=== PATIENT | female | born 1930 | race Caucasian/White ===

== ENCOUNTER 2016-10-21 07:34 | Inpatient (IN) | payer MEDICARE, OTHER ==
[~2016-10-21] VITALS: Ht 154.9 cm; Wt 65.8 kg
[2016-10-21] VITALS (15 sets, daily range): BP systolic 114–165; BP diastolic 42–109
[~2016-10-21 07:34] MED LIST: AMIO200T2 PO; APIX5TAB PO; ASP325T NG; ASP81TEC PO; ATOR20TA66 PO; ATOR40TA PO; BISO1TAB6 PO; CARV6.252 PO; CEPH-507 PO; CLPD75T PO; CNC1KV IJ; D50KC PO; DILT360C29 PO; DIPH25TA2 PO; ENAL5TAB PO; HCT25T PO; LEVO75TA6 PO; LVT.1T PO; METO100T2 PO; NAPR220T76 PO; RANI150T90 PO
[2016-10-21] MEDS ORDERED: NS IV 1000 ML 1,000 ML IV SCH (08:16)
[2016-10-21] MEDS ORDERED: NS IV 1000 ML 1,000 ML ONE (08:17)
[2016-10-21] MEDS ORDERED: LIDOCAINE 2% VISCOUS 15 ML UDC ONE (08:17)
--- NOTE | 2016-10-21 08:52 | Diagnostic Imaging Report ---
Portable erect AP chest at 834 hours. INDICATION: Preop cardioversion. FINDINGS: As on the prior exam of 11/28/15, there is shallow inspiration. The heart size remains within normal limits. The elevated left hemidiaphragm seen on the prior study is again visualized and no different. The lungs were visualized are clear. There is no sign of failure, pneumonia or pleural effusion. Mediastinum is not widened. The osseous structures are intact. In the interval since the prior study, a ventricular recorder device has been inserted over the left thorax. IMPRESSION: There is no evidence for active disease. Aside from the insertion of a ventricular recording device, there has been no significant change since the prior exam. Dictated by: Dictated on workstation # [id number]
[2016-10-21 08:54] LABS: BILIRUBIN,URINE NEGATIVE (NEGATIVE); KETONES,URINE NEGATIVE (NEGATIVE); LEUKOCYTE ESTERASE ,URINE NEGATIVE (NEGATIVE); MEAN PLATELET VOLUME 10.8 FL (7.4-10.4); NITRITE,URINE NEGATIVE (NEGATIVE); PH,URINE 5 (5-9); PROTEIN,URINE NEGATIVE (NEGATIVE); RED BLOOD COUNT 4.2 10^6/uL (4.35-5.85); RED CELL DISTRIBUTION WIDTH 14.4 % (10.0-14.5); UROBILINOGEN,URINE NORMAL (NORMAL); WHITE BLOOD COUNT 6.8 10^3/uL (4.3-11.0)
[2016-10-21] MEDS ORDERED: MIDAZOLAM 5 MG/5 ML (VERSED) VIAL ONE (09:00)
[2016-10-21] MEDS ORDERED: FLU TRIvalent (5 YOA+) 2016-17 (AFLURIA) 0.5 ML IM ONE (09:00)
[2016-10-21] MEDS ORDERED: fentaNYL INJECTION 100 MCG/2 ML AMP ONE (09:00)
[2016-10-21] MEDS ORDERED: proPOfol 200 MG/20 ML (DIPRIVAN) VIAL IV ONE (09:01)
--- NOTE | 2016-10-21 09:01 | Cardiac Procedure Note-CS/ASA ---
Pre-Procedure Note Pre-Op Procedure Note H&P Reviewed The H&P was reviewed, patient examined and no changes noted. Date H&P Reviewed: Oct 21, 2016 Time H&P Reviewed: 09:01 Conscious Sedation Pre-Proced Time Reviewed: : ASA Class: 3 Airway Mallampati Classification: ([place] appropriate class) I. II. III, IV Lungs Heart ASA score ASA 1: a normal healthy patient ASA 2: a patient with a mild systemic disease (mid diabetes, controlled hypertension, obesity x ASA 3: a patient with a severe systemic disease that limits activity (angina , COPD, prior Myocardial infarction) ASA 4: a patient with an incapacitating disease that is a constant threat to life (CHF, renal failure) ASA 5: a moribund patient not expected to survive 24 hrs. (ruptured aneurysm) ASA 6: a declared brain patient whose organs are being harvested. For emergent operations, add the letter E after the classification Grade 3 Sedation Plan: Analgesia, Amnesia, Plan communicated to team members, Discussed options with patient/fam, Discussed risks with patient/fam Note The patient is an appropriate candidate to undergo the planned procedure, sedation, and anesthesia. The patient immediately re-assessed prior to indication. MARGARITA COULTER MD Oct 21, 2016 09:01
[2016-10-21 09:05] LABS: INR 1.2 (0.8-1.4); PROTHROMBIN TIME PATIENT 15.1 SEC (12.2-14.7)
[2016-10-21 09:12] LABS: BILIRUBIN,TOTAL 0.6 MG/DL (0.1-1.0); CREATININE SERUM 1.35 MG/DL (0.60-1.30); TOTAL PROTEIN 6.1 G/DL (6.4-8.2)
[2016-10-21 09:26] LABS: SQUAMOUS EPITHELIAL CELL,UR 25-50 /HPF; URIC ACID CRYSTALS,URINE FEW /LPF; WBC,URINE RARE /HPF
--- NOTE | 2016-10-21 10:37 | Cardiology History & Physical ---
HPI-Cardiology Cardiology Consultation Date of Consultation 10/21/16 Date of Admission Indication: Afib HPI Mrs Boyd is an 86 year-old female with history of coronary artery disease, renal artery stenosis, carotid artery stenosis, hypertension, hyperlipidemia, paroxysmal atrial fibrillation. Patient presented to our office yesterday with complaints of a 6 pound weight loss and loss of appetite since increasing amiodarone dose. Denies any chest pain, palpitation, or dizziness. Complaining of generalized fatigue. No other complaints at this time. Patient underwent cardioversion on September 03, 2016, however converted back to afib several weeks after. Underwent RE with cardioversion, however is now back in atrial fibrillation. Patient is admitted for sotalol initiation. PMH-Cardiology Surgeries HX Surgeries: No Respiratory Hx Respiratory Disorders: No Cardiovascular Hx Cardiovascular Disorders: Yes Cardiac Disorders: Palpitations, Atrial Fibrillation, High Cholesterol, Hypertension, Coronary Artery Disease Neurological Hx Neurological Disorders: No Reproductive System Hx Reproductive Disorders: No (ENDOMETRIAL THICKENING) Genitourinary Hx Genitourinary Disorders: No Gastrointestinal Hx Gastrointestinal Disorders: No Musculoskeletal Hx Musculoskeletal Disorders: Yes Musculoskeletal Disorders: Arthritis Endocrine Hx Endocrine Disorders: Yes Endocrine Disorders: Hypothyroidsim HEENT HX ENT Disorders: No Cancer Hx Cancer: No Psychosocial Hx Psychiatric Problems: No Integumentary HX Skin/Integumentary Disorder: No Blood Transfusions Hx Blood Disorders: No Social History Patient Social History Employed/Student: retired Recent Foreign Travel: No Contact w/other who traveled: No Recent Infectious Disease Expo: No Family Hx Significant Family History: No Pertinent Family Hx ROS-Cardiology Review of Systems General: No Night Sweats, No Fatigue, No Malaise HEENT: No Visual Changes, No Dysphasia, No Sore Throat Pulmonary: No Dyspnea, No Cough Cardiovascular: : PalpitationsNo: Chest Pain, Edema, Paroxysmal Noc. Dyspnea Gastrointestinal: No: Constipation, Diarrhea, Nausea, Vomiting Genitourinary: No Dysuria, No Frequency Musculoskeletal: No: back pain, neck pain Neurological: No: Change in speech, Confusion, Numbness, Weakness Home Medications & Allergies Allergies: Coded Allergies: No Known Drug Allergies (Unverified , 03/05/10) Home Medication List Reviewed: Yes Exam-Cardiology Vital Signs Vital Signs Date Time Temp Pulse Resp B/P Pulse Ox O2 Delivery O2 Flow Rate FiO2 10/22/16 03:50 96.6 87 16 135/97 10/22/16 00:00 Room Air 10/21/16 10:00 95 10/21/16 09:38 2.00 Exam General Appearance: Alert, Oriented X3, Cooperative, No Acute Distress HEENT: Atraumatic, PERRLA Respiratory: Clear to Auscultation, Normal Air Movement Cardiovascular: Other (irregularly irregular) Abdominal: Normal Bowel Sounds, Soft, No Tenderness Extremities: No Clubbing, No Cyanosis, No Edema Skin: No Rashes, No Breakdown, No Significant Lesion Neuro: Normal Gait, Normal Speech Psych/Mental Status: Mental Status NL, Mood NL Results Labs Labs Laboratory Tests 10/21/16 08:39: Activated Partial Thromboplast Time 31, Alanine Aminotransferase (ALT/SGPT) 10, Albumin 4.0, Alkaline Phosphatase 66, Anion Gap 10, Aspartate Amino Transf (AST/ SGOT) 14, BUN/Creatinine Ratio 17, Blood Urea Nitrogen 23H, Calcium Level 9.0, Carbon Dioxide Level 23, Chloride Level 111H, Creatinine 1.35H, Estimat Glomerular Filtration Rate 37, Glucose Level 92, Hematocrit 42, Hemoglobin 14.1 , INR Comment 1.2, Mean Corpuscular Hemoglobin 34, Mean Corpuscular Hemoglobin Concent 34, Mean Corpuscular Volume 100H, Mean Platelet Volume 10.8H, Platelet Count 143, Potassium Level 4.0, Prothrombin Time 15.1H, Red Blood Count 4.20L, Red Cell Distribution Width 14.4, Sodium Level 144, Total Bilirubin 0.6, Total Protein 6.1L, Urine Bacteria FEWH, Urine Bilirubin NEGATIVE, Urine Casts NONE, Urine Clarity SLIGHTLY CLOUDY, Urine Color YELLOW, Urine Crystals PRESENTH, Urine Culture Indicated NO, Urine Glucose (UA) NEGATIVE, Urine Ketones NEGATIVE , Urine Leukocyte Esterase NEGATIVE, Urine Mucus NEGATIVE, Urine Nitrite NEGATIVE, Urine Protein NEGATIVE, Urine RBC NONE, Urine RBC (Auto) 1+H, Urine Specific [place] 1.020, Urine Squamous Epithelial Cells 25-50H, Urine Uric Acid Crystals FEWH, Urine Urobilinogen NORMAL, Urine WBC RARE, Urine pH 5, White Blood Count 6.8 10/22/16 03:23: Anion Gap 8, BUN/Creatinine Ratio 15, Blood Urea Nitrogen 16, Calcium Level 8.3L , Carbon Dioxide Level 22, Chloride Level 114H, Creatinine 1.04, Estimat Glomerular Filtration Rate 50, Glucose Level 94, Potassium Level 4.2, Sodium Level 144, Magnesium Level 1.9 A/P-Cardiology Admission Diagnosis afib CAD MAKAYLA HTN Assessment/Plan Atrial fibrillation-status post Linq implantation, underwent RE with cardioversion by Dr. Garcai on 09/03/16. Patient converted back to afib shortly after. Complaining of nausea and loss of appetite after increasing amiodarone. Amiodarone discontinued, underwent repeat RE with cardioversion this morning. Currently in afib. Will start patient on sotalol and continue to monitor EKG. Continue on Eliquis Coronary artery disease, history of a stent placement using Taxus 3.5x23 mm to the right coronary artery done in 2009. Another stent 2.75x15 mm Taxus to the LAD. Currently asymptomatic. Most recent stress test August 2016 revealed no ischemia or infarct. Continue to monitor. Renal artery stenosis, history of 6.0x14 mm Express stent to the left renal artery. Heart rate and blood pressure has been under control. Continue to monitor Hypertension, restart home blood pressure medication and continue to monitor. Hyperlipidemia, continue to monitor lipids. History of cor pulmonale, last echocardiogram was done in May 2016 revealing EF 55 percent, diastolic dysfunction, mild mitral and tricuspid regurgitation. Carotid stenosis, moderate bilateral stenosis. Last ultrasound was done in January 2016. Continue to monitor. Hypothyroidism, monitored and followed by primary care physician. Osteoarthritis, history of left knee arthroscopy in 1999 and 2004. This is Shante Rothman PA-C as a scribe for Dr. Rasheed. SHANTE FOSTER Oct 21, 2016 10:37
[2016-10-21] MEDS: APIXABAN 5 MG (ELIQUIS) TABLET PO SCH ×2 (10:46→20:45)
[2016-10-21] MEDS: SOTALOL 80 MG (BETAPACE) TAB PO SCH ×2 (10:47→20:45)
--- NOTE | 2016-10-21 11:44 | TEE REPORT ---
DATE OF PROCEDURE: 10/21/2016 INDICATION: Atrial fibrillation. BRIEF HISTORY: Ms. Byod is an 86-year-old lady with paroxysmal atrial fibrillation, she has failed amiodarone treatment, underwent RE and cardioversion in August. Returned to the office with atrial fibrillation, she was scheduled for another procedure and then I am planning to change her medications. PROCEDURE NOTE: After explaining the procedure to the patient, all pros and cons were explained, all questions were answered. The patient signed a consent, then she was placed on the left lateral decubitus position. Oropharynx was anesthetized using Cetacaine spray. Omniplane probe was introduced through the mouth to the esophagus and into the stomach. Multiple views were obtained. At the end of the procedure, Omniplane probe was removed. No complication noted. FINDINGS: 1. The left ventricle is normal in size with normal contractility. Estimated ejection fraction 60%. 2. Left atrium is dilated. Left atrial appendage is dilated. Smoke in the left atrial appendage. No clot or thrombus were seen. 3. The right atrium is enlarged. The right ventricle is normal in size. No clot or thrombus were seen. 4. Mitral valve is normal in morphology with moderate mitral regurgitation noted by color Doppler flow. No mitral valve prolapse. No mitral valve stenosis. 5. Aortic valve is trileaflet with normal opening and closing pattern. No significant aortic stenosis or regurgitation was seen. 6. Tricuspid valve is normal in morphology with mild tricuspid regurgitation. 7. Pulmonic valve is normal in morphology. 8. No pericardial effusion. 9. A portion of the aorta was evaluated and some sessile plaque was seen. No dissection or aneurysm. CONCLUSION: 1. Dilated left atrium and left atrial appendage with no clot or thrombus. 2. Normal left ventricular size and systolic function. Estimated ejection fraction 60%. 3. Moderate mitral regurgitation. ELECTROCARDIOVERSION: The patient was sedated with the assistance of anesthesia. DC cardioversion synchronized, 120 joules was delivered and it was successful in terminating atrial fibrillation. The patient maintained sinus rhythm. CONCLUSION: Successful electrical cardioversion with no complication. Job ID: [id number] Dictated Date: 10/21/2016 09:41:03 Dairy Clerk Date: 10/21/2016 11:36:11/jose j
[2016-10-21] MEDS ORDERED: NYST15CR TP (13:13)
[2016-10-22] VITALS: BP 93/67
[2016-10-22 03:50] VITALS: BP 135/97
[2016-10-22 04:43] LABS: CALCIUM 8.3 MG/DL (8.5-10.1); CREATININE SERUM 1.04 MG/DL (0.60-1.30); MAGNESIUM 1.9 MG/DL (1.8-2.4); POTASSIUM 4.2 MMOL/L (3.6-5.0)
[2016-10-22] MEDS ORDERED: NS IV 500 ML 500 ML ONE (07:08)
--- NOTE | 2016-10-22 07:15 | Cardiology Progress Note ---
Subjective Subjective/Events-last exam patient is sitting in a chair, feeling better. Denied any chest pain or shortness of breath. Denied any palpitation, back to atrial fibrillation Review of Systems General: No Chills, No Night Sweats, No Fatigue, No Malaise, No Appetite, No Other HEENT: No Head Aches, No Visual Changes, No Eye Pain, No Ear Pain, No Dysphasia , No Sinus Congestion, No Post Nasal Drip, No Sore Throat, No Other Pulmonary: No Dyspnea, No Cough, No Pleuritic Chest Pain, No Other Cardiovascular: No: Chest Pain, Edema, Lt Headedness, Orthopnea, Other, Palpitations, Paroxysmal Noc. Dyspnea Objective-Cardiology Exam Last Set of Vital Signs Vital Signs 10/21/16 10/21/16 10/22/16 10/22/16 09:38 10:00 00:00 03:50 Temp 96.6 Pulse 87 Resp 16 B/P 135/97 Pulse Ox 95 O2 Delivery Room Air O2 Flow Rate 2.00 Capillary Refill : I&O Intake and Output 10/22/16 00:00 Intake Total 500 ml Balance 500 ml Intake Oral 500 ml # Voids 2 General: Alert, Oriented X3, Cooperative, No Acute Distress HEENT: Atraumatic, PERRLA Neck: Supple, No JVD Lungs: Clear to Auscultation, Normal Air Movement Heart: Normal S1, Normal S2, Gallops, Other (irregularly irregular) Abdomen: Normal Bowel Sounds, Soft, No Tenderness Extremities: No Clubbing, No Cyanosis, No Edema Skin: No Rashes, No Breakdown, No Significant Lesion Neuro: Normal Gait, Normal Speech Psych/Mental Status: Mental Status NL, Mood NL Results Lab Laboratory Tests 10/21/16 08:39 10/22/16 03:23 A/P-Cardiology Admission Diagnosis paroxysmal atrial fibrillation Coronary artery disease Hypertension Hyperlipidemia Assessment/Plan Paroxysmal atrial fibrillation, status post Linq implantation, underwent RE with cardioversion by Dr. Garcia on 09/03/16. Patient converted back to afib shortly after. Complaining of nausea and loss of appetite after increasing amiodarone. Amiodarone discontinued, had another RE with cardioversion yesterday, started on sotalol, back to atrial fibrillation, I will do another cardioversion, continue on loading sotalol and monitor QT interval. Coronary artery disease, history of a stent placement using Taxus 3.5x23 mm to the right coronary artery done in 2009. Another stent 2.75x15 mm Taxus to the LAD. Currently asymptomatic. Most recent stress test August 2016 revealed no ischemia or infarct. Continue to monitor. Renal artery stenosis, history of 6.0x14 mm Express stent to the left renal artery. Heart rate and blood pressure has been under control. Continue to monitor Hypertension, restart home blood pressure medication and continue to monitor. Hyperlipidemia, continue to monitor lipids. History of cor pulmonale, last echocardiogram was done in May 2016 revealing EF 55 percent, diastolic dysfunction, mild mitral and tricuspid regurgitation. Carotid stenosis, moderate bilateral stenosis. Last ultrasound was done in January 2016. Continue to monitor. Hypothyroidism, monitored and followed by primary care physician. Osteoarthritis, history of left knee arthroscopy in 1999 and 2004. MARGARITA COULTER MD Oct 22, 2016 07:15
--- NOTE | 2016-10-22 07:16 | Cardiac Procedure Note-CS/ASA ---
Pre-Procedure Note Pre-Op Procedure Note H&P Reviewed The H&P was reviewed, patient examined and no changes noted. Date H&P Reviewed: Oct 22, 2016 Time H&P Reviewed: 07:16 Conscious Sedation Pre-Proced Time Reviewed: 07:16 ASA Class: 3 Airway Mallampati Classification: ([place] appropriate class) I. II. III, IV Lungs Heart ASA score ASA 1: a normal healthy patient ASA 2: a patient with a mild systemic disease (mid diabetes, controlled hypertension, obesity x ASA 3: a patient with a severe systemic disease that limits activity (angina , COPD, prior Myocardial infarction) ASA 4: a patient with an incapacitating disease that is a constant threat to life (CHF, renal failure) ASA 5: a moribund patient not expected to survive 24 hrs. (ruptured aneurysm) ASA 6: a declared brain patient whose organs are being harvested. For emergent operations, add the letter E after the classification Grade 3 Sedation Plan: Analgesia, Amnesia, Plan communicated to team members, Discussed options with patient/fam, Discussed risks with patient/fam Note The patient is an appropriate candidate to undergo the planned procedure, sedation, and anesthesia. The patient immediately re-assessed prior to indication. MARGARITA COULTER MD Oct 22, 2016 07:16
--- NOTE | 2016-10-22 08:24 | Progress Note-Standard ---
Standard Progress Note Progress Notes/Assess & Plan Progress/Assessment & Plan 10/22/16 [id number] Called to ICU 4 for Cardioversion. ER Completed yesterday. Patient given 40 mg Propofol for procedure, shocked at 120J and converted to NSR. Tolerated well. 9 OA placed after shock. O2 increased to 4L N/C . SaO2 94% . Patient was suctioned and woke up. She was able to follow commands by squeezing both hands and moving all extremities. Reported off to SANCHO Joy SHANNA R CRNA Oct 22, 2016 08:24
[2016-10-22] MEDS: SOTALOL 80 MG (BETAPACE) TAB PO SCH ×2 (09:11→20:29)
[2016-10-22] MEDS: APIXABAN 5 MG (ELIQUIS) TABLET PO SCH ×2 (09:12→20:29)
--- NOTE | 2016-10-22 10:26 | Progress Note-Standard ---
Standard Progress Note Progress Notes/Assess & Plan Progress/Assessment & Plan consult for sedation for munir/cardioversion. chart reviewed. start time 916 end time 927 20mg propofol 1mg versed iv. report to tung KINGSLEY. airway patent. EVA COLLADO CRNA Oct 22, 2016 10:26
[2016-10-22 11:59] VITALS: BP 119/79
[2016-10-22 16:13] VITALS: BP 145/76
[2016-10-22 20:00] VITALS: BP 142/84
[2016-10-23] VITALS: BP 147/77
[2016-10-23 06:00] VITALS: BP 156/79
[2016-10-23 08:00] VITALS: BP 172/95
--- NOTE | 2016-10-23 08:15 | Cardiology Progress Note ---
Subjective Subjective/Events-last exam patient is doing well maintained in sinus rhythm, denied any chest pain or shortness of breath, noted to be bradycardic. Review of Systems General: No Chills, No Night Sweats, No Fatigue, No Malaise, No Appetite, No Other HEENT: No Head Aches, No Visual Changes, No Eye Pain, No Ear Pain, No Dysphasia , No Sinus Congestion, No Post Nasal Drip, No Sore Throat, No Other Pulmonary: No Dyspnea, No Cough, No Pleuritic Chest Pain, No Other Cardiovascular: No: Chest Pain, Edema, Lt Headedness, Orthopnea, Other, Palpitations, Paroxysmal Noc. Dyspnea Objective-Cardiology Exam Last Set of Vital Signs Vital Signs 10/22/16 10/23/16 10/23/16 08:00 06:00 07:37 Temp 98.0 Pulse 59 Resp 18 B/P 156/79 Pulse Ox 97 O2 Delivery Room Air O2 Flow Rate 2.00 Capillary Refill : I&O Intake and Output 10/23/16 00:00 Intake Total 500 ml Balance 500 ml Intake Oral 500 ml # Voids 6 # Bowel Movements 1 General: Alert, Oriented X3, Cooperative, No Acute Distress HEENT: Atraumatic, PERRLA Neck: Supple, No JVD Lungs: Clear to Auscultation, Normal Air Movement Heart: Regular Rate, Normal S1, Normal S2, Gallops Abdomen: Normal Bowel Sounds, Soft, No Tenderness Extremities: No Clubbing, No Cyanosis, No Edema Skin: No Rashes, No Breakdown, No Significant Lesion Neuro: Normal Gait, Normal Speech Psych/Mental Status: Mental Status NL, Mood NL A/P-Cardiology Admission Diagnosis afib CAD MAKAYLA HTN Assessment/Plan Paroxysmal atrial fibrillation, status post Linq implantation, underwent RE with cardioversion by Dr. Garcia on 09/03/16. Patient converted back to afib shortly after. Complaining of nausea and loss of appetite after increasing amiodarone. Amiodarone discontinued, had another RE with cardioversion started on sotalol, underwent another cardioversion after returning to A. fib, today she maintained sinus rhythm, she has been bradycardic with borderline QT prolongation. I decided to monitor her another 24 hours and decrease the sotalol dose from 120-80 mg twice daily, monitor heart rate and QT interval if it improves will consider discharging home on sotalol Coronary artery disease, history of a stent placement using Taxus 3.5x23 mm to the right coronary artery done in 2009. Another stent 2.75x15 mm Taxus to the LAD. Currently asymptomatic. Most recent stress test August 2016 revealed no ischemia or infarct. Continue to monitor. Renal artery stenosis, history of 6.0x14 mm Express stent to the left renal artery. Heart rate and blood pressure has been under control. Continue to monitor Hypertension, restart home blood pressure medication and continue to monitor. Hyperlipidemia, continue to monitor lipids. History of cor pulmonale, last echocardiogram was done in May 2016 revealing EF 55 percent, diastolic dysfunction, mild mitral and tricuspid regurgitation. Carotid stenosis, moderate bilateral stenosis. Last ultrasound was done in January 2016. Continue to monitor. Hypothyroidism, monitored and followed by primary care physician. Osteoarthritis, history of left knee arthroscopy in 1999 and 2004. MARGARITA COULTER MD Oct 23, 2016 08:15
[2016-10-23] MEDS: APIXABAN 5 MG (ELIQUIS) TABLET PO SCH ×2 (09:09→20:20)
[2016-10-23] MEDS: SOTALOL 80 MG (BETAPACE) TAB PO SCH ×2 (09:09→20:20)
[2016-10-23 12:00] VITALS: BP 150/73
[2016-10-23 16:00] VITALS: BP 174/85
[2016-10-23] MEDS ORDERED: amLODIPine 10 MG (NORVASC) TAB PO NR (17:30)
[2016-10-23 20:00] VITALS: BP 163/74
[2016-10-23] MEDS ORDERED: ATORVASTATIN 20 MG (LIPITOR) TABLET PO SCH (21:00)
[2016-10-24] VITALS: BP 139/58
[2016-10-24 04:00] VITALS: BP 150/73
[2016-10-24 06:30] LABS: CALCIUM 8.5 MG/DL (8.5-10.1); CREATININE SERUM 1.04 MG/DL (0.60-1.30); MAGNESIUM 1.7 MG/DL (1.8-2.4); POTASSIUM 3.6 MMOL/L (3.6-5.0)
[2016-10-24] MEDS ORDERED: LEVOTHYROXINE 75 MCG (LEVOTHROID) TABLET PO SCH (06:30)
[2016-10-24 08:00] VITALS: BP 123/72
[2016-10-24] MEDS: SOTALOL 80 MG (BETAPACE) TAB PO SCH (08:29)
[2016-10-24] MEDS: APIXABAN 5 MG (ELIQUIS) TABLET PO SCH (08:29)
[2016-10-24] MEDS ORDERED: amLODIPine 5 MG (NORVASC) TAB PO SCH (09:00)
--- NOTE | 2016-10-24 12:43 | Progress Note-Cardiology ---
Cardiology SOAP Progress Note Subjective: Denies palp or syncope or shortness of breath Has chronic bilat knee discomfort, L>R. This continues to trouble her She wishes to go home Objective: I&O/Vital Signs Vital Sign - Last 12Hours 10/24/16 10/24/16 10/24/16 10/24/16 01:11 04:00 07:00 08:00 Temp 98.9 97.1 Pulse 66 68 59 65 Resp 16 18 B/P 150/73 123/72 Pulse Ox 97 94 O2 Delivery Room Air Room Air Intake and Output 10/24/16 00:00 Intake Total 500 ml Balance 500 ml Weight (Pounds): 145 Weight (Ounces): 0.0 Weight (Calculated Kilograms): 65.082996 Constitutional: AAO x 3 well-developed well-nourished Respiratory: No accessory muscle use, lungs clear to auscultation Cardiovascular: regular rate-rhythm S1 and S2 systolic murmur (faint PJ at cardiac base) Gastrointestional: No tender, softNo guarding, No rebound, audible bowel sounds Extremities: other (Bilat knee swelling and bony deformities, L>R, that patient reports to be chronic. L knee swelling is somwhat worse over the last several days, according to her. There is no redness or fluctuation or tenderness to local palpation. With flexion and extension there is some discomfort at both knees)No clubbing, No cyanosis Neurologic/Psychiatric: oriented x 3 grossly intact Skin: No rash on exposed areas, No ulcerations on exposed areas Results/Procedures: Labs Laboratory Tests 10/24/16 05:55: Anion Gap 8, BUN/Creatinine Ratio 13, Blood Urea Nitrogen 14, Calcium Level 8.5 , Carbon Dioxide Level 24, Chloride Level 109H, Creatinine 1.04, Estimat Glomerular Filtration Rate 50, Glucose Level 104, Magnesium Level 1.7L, Potassium Level 3.6, Sodium Level 141 Microbiology 10/21/16 MRSA Screen - Final, Complete MRSA not isolated Laboratory Tests 10/24/16 05:55 Procedures ECG on 10/24/16: NSR, nonspecific ST and T abn, QTc 438 msec A/P: Assessment: PAF. H/o ILR implantation. RE and cardioversion on 09/03/[address] Garcia. Intolerance to amiodarone due to nausea and loss of appetite. Recurrent A Fib treated with RE and cardioversion on 10/21/[address] Rasheed, and sotalol initiated. Recurrent A Fib treated with repeat cardioversion on 10/22/15 and dose of sotalol reduced due borderline QT prolongation. QT now normal (QTc 438 msec well after 72 hours of initiation of sotalol) Coronary artery disease, history of a stent placement using Taxus 3.5x23 mm to the right coronary artery done in 2009. Another stent 2.75x15 mm Taxus to the LAD. Currently asymptomatic. Most recent stress test August 2016 revealed no ischemia or infarct. Renal artery stenosis, history of 6.0x14 mm Express stent to the left renal artery Hypertension Hyperlipidemia History of cor pulmonale, last echocardiogram was done in May 2016 revealing EF 55 percent, diastolic dysfunction, mild mitral and tricuspid regurgitation Carotid stenosis, moderate bilateral stenosis. Last ultrasound was done in January 2016 Hypothyroidism, monitored and followed by primary care physician. Osteoarthritis, history of left knee arthroscopy in 1999 and 2004, followed by her pcp Plan: * She wishes to go home. She has tolerated the current dose of sotalol. We are continuing it and have advised close outpatient f/u with Dr Rasheed, her engine wiper * F/u on chronic knee discomfort and other medical issues is with her pcp SHAMEKA SARAH MD FACP [facility] Oct 24, 2016 12:43
--- NOTE | 2016-10-24 12:55 | Cardiology Discharge Summary ---
Diagnosis/Chief Complaint Date of Admission Oct 22, 2016 at 08:13 Date of Discharge 10/24/16 Final/Discharge Diagnosis PAF. H/o ILR implantation. RE and cardioversion on 09/03/[address] Garcia. Intolerance to amiodarone due to nausea and loss of appetite. Recurrent A Fib treated with RE and cardioversion on 10/21/[address] Rasheed, and sotalol initiated. Recurrent A Fib treated with repeat cardioversion on 10/22/15 and dose of sotalol reduced due borderline QT prolongation. QT now normal (QTc 438 msec well after 72 hours of initiation of sotalol) Coronary artery disease, history of a stent placement using Taxus 3.5x23 mm to the right coronary artery done in 2009. Another stent 2.75x15 mm Taxus to the LAD. Currently asymptomatic. Most recent stress test August 2016 revealed no ischemia or infarct. Renal artery stenosis, history of 6.0x14 mm Express stent to the left renal artery Hypertension Hyperlipidemia History of cor pulmonale, last echocardiogram was done in May 2016 revealing EF 55 percent, diastolic dysfunction, mild mitral and tricuspid regurgitation Carotid stenosis, moderate bilateral stenosis. Last ultrasound was done in January 2016 Hypothyroidism, monitored and followed by primary care physician. Osteoarthritis, history of left knee arthroscopy in 1999 and 2004, followed by her pcp Discharge Summary Procedures RE. External elec cardioversion x 2 Hospital Course Pending Labs Laboratory Tests 10/24/16 05:55: Anion Gap 8, BUN/Creatinine Ratio 13, Blood Urea Nitrogen 14, Calcium Level 8.5 , Carbon Dioxide Level 24, Chloride Level 109, Creatinine 1.04, Estimat Glomerular Filtration Rate 50, Glucose Level 104, Magnesium Level 1.7, Potassium Level 3.6, Sodium Level 141 Discussion & Recommendations Home Medications Reviewed patient Home Medication Reconciliation Form Discharge Home Medications: Reviewed and agree with Discharge Medication list on patient's Discharge Instruction sheet SHAMEKA SARAH MD FACP FAC CCDS Oct 24, 2016 12:55
[2016-10-24] MEDS ORDERED: Sotalol Hcl PO (13:04)
--- NOTE | 2016-10-24 13:05 | Discharge Inst-Cardiology ---
Discharge Inst-Cardiac Discharge Medications New Medications: ([Sotalol Hcl]) 80 MG TAB 80 MG PO BID #60 Ref 1 TAB Continued Medications: Apixaban (Eliquis) 5 Mg Tablet 5 MG PO BID TAB Atorvastatin Calcium (Atorvastatin Calcium) 20 Mg Tablet 20 MG PO HS TAB Cyanocobalamin (Cyanocobalamin Injection) 1,000 Mcg/Ml Inj 1000 MCG IJ EVERY 2 WEEKS VIAL Diltiazem HCl (Diltiazem 24Hr Cd) 360 Mg Cap.er.24h 360 MG PO DAILY CAP Levothyroxine Sodium (Levothyroxine Sodium) 75 Mcg Tablet 75 MCG PO DAILY TAB Metoprolol Tartrate (Metoprolol Tartrate) 100 Mg Tablet 50 MG PO BID TAKES 1/2 (100MG) TABLET TAB Nystatin (Nystatin) 15 Gm Cream..g. TP BID FILLED 10/19/16 FOR A 14 DAY THERAPY Days 14 TUBE Patient Instructions Patient Instructions: F/u with Dr Rasheed within this week Orders-Post D/C & Referrals Pneu Vac Indicated: Yes SHAMEKA SARAH MD FACP FAC CCDS Oct 24, 2016 13:05
--- OUTSIDE RECORDS SUMMARY | 2016-11-06 12:09 | XMS REPORT | Continuity of Care Document ---
Author Author [facility] Organization [facility] Address Unknown Phone Unavailable Care Team Providers Care Mri Supervisor Name Role Phone ОЛЬГА HORTON MD PCP Insurance Providers Payer Name Policy Number Subscriber Name Relationship [employer] [id number] Opal Boyd 18 Self / Same As Patient Enter Insurance Name [id number] Opal Boyd 18 Self / Same As Patient Advance Directives Directive Response Recorded Date/Time Advance Directives No 10/21/16 8:23am Health Care Power of Coding Team Lead No 10/21/16 8:23am Organ Donor No 10/21/16 8:23am Resuscitation Status Full Code 10/21/16 8:23am Chief Complaint and Reason for Visit Chief Complaint AFIB,HTN,HLP Reason for Visit Urinary tract infection Problems Active Problems Medical Problem Onset Date Status A-fib Unknown Acute Midline back pain Unknown Acute Urinary tract infection Unknown Acute Medications Current Home Medications Medication Dose Units Route Directions Days/Qty Instructions Start Date Apixaban 5 Mg 5 Mg Oral Twice A Day 09/03/16 Metoprolol Tartrate 100 Mg 50 Mg Oral Twice A Day TAKES 1/2 (100MG) TABLET 09/03/16 Levothyroxine Sodium 75 Mcg 75 Mcg Oral Daily 09/03/16 Diltiazem Hcl 360 Mg 360 Mg Oral Daily 09/03/16 Atorvastatin Calcium 20 Mg 20 Mg Oral Bedtime 09/03/16 Cyanocobalamin 1,000 Mcg/Ml 1,000 Mcg Injection Every 2 Weeks Nystatin 15 Gm Topical Twice A Day 14 Days FILLED 10/19/16 FOR A 14 DAY THERAPY 10/21/16 [Sotalol Hcl] 80 Mg 80 Mg Oral Twice A Day 60 10/24/16 Past Home Medications Medication Directions Ordered Status Bisoprolol Fumarate/Hctz 1 Each Tablet, 1 Each Oral Daily 03/05/10 Discontinued Levothyroxine Sodium (Levothroid) 100 Mcg Tablet, 1 Each Oral Daily 03/05/10 Discontinued Ergocalciferol 50,000 Unit Capsule, 08132 Unit Oral Daily 03/05/10 Discontinued Aspirin 325 Mg Tab, 325 Mg Ng Tube As Needed 03/05/10 Discontinued Naproxen Sodium 220 Mg Tablet, 220 Mg Oral As Needed 03/05/10 Discontinued Atorvastatin Calcium 40 Mg Tablet, 1 Each Oral Bedtime 09/22/11 Discontinued Clopidogrel Bisulfate 75 Mg Tablet, 1 Each Oral Daily 09/22/11 Discontinued Carvedilol (Coreg) 6.25 Mg Tablet, 1 Each Oral Twice A Day 09/22/11 Discontinued Levothyroxine Sodium 100 Mcg Tablet, 1 Each Oral Daily 09/22/11 Discontinued Hydrochlorothiazide 25 Mg Tablet, 1 Each Oral Daily 09/22/11 Discontinued Enalapril Maleate 5 Mg Tablet, 5 Mg Oral Twice A Day 09/22/11 Discontinued Ranitidine Hcl 150 Mg Tablet, 150 Mg Oral Twice A Day 09/22/11 Discontinued Aspirin 81 Mg Tabec, 81 Mg Oral Daily 09/22/11 Discontinued Carvedilol (Coreg) 6.25 Mg Tablet, 1 Each Oral Twice A Day 07/21/12 Discontinued Cephalexin 500 Mg Capsule, 500 Mg Oral Three Times A Day 11/28/15 Discontinued Amiodarone Hcl 200 Mg Tablet, 100 Mg Oral Daily 09/03/16 Discontinued Diphenhydramine Hcl 25 Mg Tablet, 25 Mg Oral Bedtime 09/03/16 Discontinued Social History Social History Problem Response Recorded Date/Time Alcohol Use Denies Use 11/28/2015 12:39am Recreational Drug Use No 11/28/2015 12:39am Recent Foreign Travel No 10/21/2016 8:22am Recent Infectious Disease Exposure No 10/21/2016 8:22am Smoking Status Never a Smoker 10/21/2016 8:44am Query Response Start Date Stop Date Smoking Status Never a Smoker Hospital Discharge Instructions Patient Instructions Physician Instructions Patient Instructions: F/u with Dr Rasheed within this week Pneu Vac Indicated: Yes Care Plan Patient Instructions:: F/u with Dr Rasheed within this week Plan of Care Discharge Date 10/24/16 1:45pm Disposition IP-HIM TO CODE Instructions/Education Provided Atrial Fibrillation (DC) Forms Provided Follow-Up Fax Prescriptions See Medication Section Care Plan and Goals See Discharge Instructions Section Functional Status Query Response Date Recorded Patient Orientation Person Place Time Situation October 30, 2016 3:47pm Comprehension Ability Understands Concepts October 23, 2016 8:00pm Allergies, Adverse Reactions, Alerts No known allergies. Immunizations Name Given Type FLU TRIvalent 5 years - Adult 10/21/16 Administered Vital Signs Acute Vital Signs Vital Response Date/Time Temperature (Fahrenheit) 97.1 degrees F (97.6 - 99.5) 10/24/2016 8:00am Temperature (Calculated Celsius) 36.04063 degrees C (36.4 - 37.5) 10/24/2016 8:00am Temperature Source Tympanic 10/24/2016 8:00am Pulse Rate (adult) 58 bpm (60 - 90) 10/24/2016 1:00pm Respiratory Rate 18 bpm (12 - 24) 10/24/2016 8:00am O2 Sat by Pulse Oximetry 94 % (88 - 100) 10/24/2016 8:00am Blood Pressure 123/72 mm Hg 10/24/2016 8:00am Blood Pressure Mean 89 mm Hg 10/24/2016 8:00am Pain Numeric Pain Scale 2 10/24/2016 12:00am Height (Feet) 5 feet 10/21/2016 8:43am Height (Inches) 1.00 inches 10/21/2016 8:43am Height (Calculated Centimeters) 154.467150 cm 10/21/2016 8:43am Weight (Pounds) 145 pounds 10/21/2016 8:43am Weight (Ounces) 0.0 oz 10/21/2016 8:43am Weight (Calculated Grams) 50337.89 gm 10/21/2016 8:43am Weight (Calculated Kilograms) 65.285033 kilograms 10/21/2016 8:43am Calculated BMI 27.4 10/21/2016 8:43am Results Laboratory Results Test Name Result Units Flags Reference Collection Date/Time Result Date/ Time Comments White Blood Count 6.8 10^3/uL 4.3-11.0 10/21/2016 8:39am 10/21/2016 9: 07am Red Blood Count 4.20 10^6/uL L 4.35-5.85 10/21/2016 8:39am 10/21/2016 9: 07am Hemoglobin 14.1 G/DL 11.5-16.0 10/21/2016 8:39am 10/21/2016 9:07am Hematocrit 42 % 35-52 10/21/2016 8:39am 10/21/2016 9:07am Mean Corpuscular Volume 100 FL H 80-99 10/21/2016 8:39am 10/21/2016 9: 07am Mean Corpuscular Hemoglobin 34 PG 25-34 10/21/2016 8:39am 10/21/2016 9: 07am Mean Corpuscular Hemoglobin Concent 34 G/DL 32-36 10/21/2016 8:39am 9:07am Red Cell Distribution Width 14.4 % 10.0-14.5 10/21/2016 8:39am 2016 9:07am Platelet Count 143 10^3/uL 130-400 10/21/2016 8:39am 10/21/2016 9:07am Mean Platelet Volume 10.8 FL H 7.4-10.4 10/21/2016 8:39am 10/21/2016 9: 07am Prothrombin Time 15.1 SEC H 12.2-14.7 10/21/2016 8:39am 10/21/2016 9: 07am INR Comment 1.2 0.8-1.4 10/21/2016 8:39am 10/21/2016 9:07am INTERPRETIVE DATA SUGGESTED THERAPEUTIC RANGE FOR INR'S: VENOUS THROMBOSIS, PULMONARY EMBOLISM, OR PREVENTION OF SYSTEMIC EMBOLISM (EG. IN ATRIAL FIBRILLATION): 2.0 - 3.0 MECHANICAL PROSTHETIC HEART VALVES: 2.5 - 3.5* *NOTE: INR'S UP TO 4.5 MAY BE NECESSARY IN SELECTED GROUPS OF HIGH RISK PATIENTS. [employer] CONSENSUS CONFERENCE ON ANTITHROMBOTIC THERAPY (2000). Activated Partial Thromboplast Time 31 SEC 24-35 10/21/2016 8:39am 9:07am Urine Color YELLOW 10/21/2016 8:39am 10/21/2016 9:26am Urine Clarity SLIGHTLY CLOUDY 10/21/2016 8:39am 10/21/2016 9:26am Urine pH 5 5-9 10/21/2016 8:39am 10/21/2016 9:26am Urine Specific [place] 1.020 1.016-1.022 10/21/2016 8:39am 2016 9:26am Urine Protein NEGATIVE NEGATIVE 10/21/2016 8:39am 10/21/2016 9:26am Urine Glucose (UA) NEGATIVE NEGATIVE 10/21/2016 8:39am 10/21/2016 9: 26am Urine RBC (Auto) 1+ * NEGATIVE 10/21/2016 8:39am 10/21/2016 9:26am Urine Ketones NEGATIVE NEGATIVE 10/21/2016 8:39am 10/21/2016 9:26am Urine Nitrite NEGATIVE NEGATIVE 10/21/2016 8:39am 10/21/2016 9:26am Urine Bilirubin NEGATIVE NEGATIVE 10/21/2016 8:39am 10/21/2016 9: 26am Urine Urobilinogen NORMAL MG/DL NORMAL 10/21/2016 8:39am 10/21/2016 9: 26am Urine Leukocyte Esterase NEGATIVE NEGATIVE 10/21/2016 8:39am 2016 9:26am Urine RBC NONE /HPF 10/21/2016 8:39am 10/21/2016 9:26am Urine WBC RARE /HPF 10/21/2016 8:39am 10/21/2016 9:26am Urine Bacteria FEW /HPF * 10/21/2016 8:39am 10/21/2016 9:26am Urine Squamous Epithelial Cells 25-50 /HPF * 10/21/2016 8:39am 2016 9:26am Urine Crystals PRESENT /LPF * 10/21/2016 8:39am 10/21/2016 9:26am Urine Uric Acid Crystals FEW /LPF * 10/21/2016 8:39am 10/21/2016 9: 26am Urine Casts NONE /LPF 10/21/2016 8:39am 10/21/2016 9:26am Urine Mucus NEGATIVE /LPF 10/21/2016 8:39am 10/21/2016 9:26am Urine Culture Indicated NO 10/21/2016 8:39am 10/21/2016 9:26am Sodium Level 141 MMOL/L 135-145 10/24/2016 5:55am 10/24/2016 6:32am Potassium Level 3.6 MMOL/L 3.6-5.0 10/24/2016 5:55am 10/24/2016 6:32am Chloride Level 109 MMOL/L H 98-107 10/24/2016 5:55am 10/24/2016 6:32am Carbon Dioxide Level 24 MMOL/L 21-32 10/24/2016 5:55am 10/24/2016 6: 32am Anion Gap 8 MMOL/L 5-14 10/24/2016 5:55am 10/24/2016 6:32am Blood Urea Nitrogen 14 MG/DL 7-18 10/24/2016 5:55am 10/24/2016 6:32am Creatinine 1.04 MG/DL 0.60-1.30 10/24/2016 5:55am 10/24/2016 6:32am BUN/Creatinine Ratio 13 10/24/2016 5:55am 10/24/2016 6:32am Estimat Glomerular Filtration Rate 50 10/24/2016 5:55am 10/24/2016 6:32am GFR INTERPRETIVE DATA UNITS FOR ESTIMATED GFR (eGFR): mL/min/1.73 M2 REFERENCE RANGE FOR ESTIMATED GFR (eGFR) eGFR NORMAL eGFR >60 MODERATELY DECREASED eGFR 30-59 SEVERLY DECREASED eGFR 15-29 KIDNEY FAILURE <15 (OR DIALYSIS) Glucose Level 104 MG/DL 70-105 10/24/2016 5:55am 10/24/2016 6:32am Calcium Level 8.5 MG/DL 8.5-10.1 10/24/2016 5:55am 10/24/2016 6:32am Magnesium Level 1.7 MG/DL L 1.8-2.4 10/24/2016 5:55am 10/24/2016 6:32am Total Bilirubin 0.6 MG/DL 0.1-1.0 10/21/2016 8:39am 10/21/2016 9:16am Alkaline Phosphatase 66 U/L 40-136 10/21/2016 8:39am 10/21/2016 9:16am Aspartate Amino Transf (AST/SGOT) 14 U/L 5-34 10/21/2016 8:39am 2016 9:16am Alanine Aminotransferase (ALT/SGPT) 10 U/L 0-55 10/21/2016 8:39am 10/21 9:16am Total Protein 6.1 G/DL L 6.4-8.2 10/21/2016 8:39am 10/21/2016 9:16am Albumin 4.0 G/DL 3.2-4.5 10/21/2016 8:39am 10/21/2016 9:16am Microbiology Results Procedure Source Result Collection Date/Time Result Date/Time MRSA Screen Nasal MRSA not isolated 10/21/2016 8:39am 10/22/2016 4:02pm Procedures Procedure Status Date Provider(s) Transesophageal echocardiography Active 10/21/16 MARGARITA RASHEED MD Doppler echocardiography color flow mapping Completed 10/21/16 MARYLIN,MARGARITA Mirza MD Bidirectional continuous wave ultrasonic Doppler Completed 10/21/16 MARGARITA RASHEED MD Tracing only of electrocardiogram Completed 10/21/16 MARGARITA RASHEED MD Tracing only of electrocardiogram Completed 10/21/16 MARGARITA RASHEED MD Tracing only of electrocardiogram Completed 10/22/16 MARGARITA RASHEED MD Tracing only of electrocardiogram Completed 10/22/16 MARGARITA RASHEED MD Tracing only of electrocardiogram Completed 10/23/16 MARGARITA RASHEED MD Tracing only of electrocardiogram Completed 10/24/16 MARGARITA RASHEED MD Encounters Encounter Location Arrival/Admit Date Discharge/Depart Date Attending Provider Discharged Inpatient [facility] 10/22/16 8:13am 1:45pm MARGARITA RASHEED MD Recent Diagnosis Urinary tract infection
== END 2016-10-24 13:45 | disposition home or self-care (01) | DRG 310 ==
LOC: ICU 07:34 → CATH 07:34 → ICU 10:00 → UNDOADMIN 10-22 08:13 → ICU 10-22 08:13 → CATH 10-22 08:13 → ICU 10-22 17:52 → UNDODISIN 10-24 13:45 → EDSTATUS 11-06 09:30
PROVIDERS: ADMIT Internal Medicine Cardiovascular Disease; ATTEND Internal Medicine Cardiovascular Disease
PROC: 5A2204Z Restoration of Cardiac Rhythm, Single (ICD-10-PCS; principal; 2016-10-21)
DX: I48.0 Paroxysmal atrial fibrillation (principal); I08.1 Rheumatic disorders of both mitral and tricuspid valves; I25.10 Atherosclerotic heart disease of native coronary artery without angina pectoris; I70.1 Atherosclerosis of renal artery; R00.1 Bradycardia, unspecified; I10 Essential (primary) hypertension; E78.00 Pure hypercholesterolemia, unspecified; E78.5 Hyperlipidemia, unspecified; I65.23 Occlusion and stenosis of bilateral carotid arteries; E03.9 Hypothyroidism, unspecified; M19.91 Primary osteoarthritis, unspecified site; Z95.5 Presence of coronary angioplasty implant and graft; Z95.828 Presence of other vascular implants and grafts
CPT/HCPCS: 36415; 71010; 80048; 80053; 81000; 83735; 85027; 85610; 85730; 87081; 92960; 93005; 93312; 93320; 93325

== ENCOUNTER → 2017-05-19 | Outpatient (CLI) | payer MEDICARE, OTHER ==
[~2017-05-19] MED LIST changes: +ACET-2267 PO; +ACID1TAB PO; +ALPR0.254 PO; +CIPR500T4 PO; +DILT180C PO; +DILT180C54 PO; +DILT240C53 PO; +DILT240C63 PO; +FLUC100T6 PO; +HYDR-3812 PO; +LEVO88TA54 PO; +LISI-556 PO; +LISI10TA2 PO; +MECL-106 PO; +METO-333 PO; +NYST15CR TP; +OXYC-529 PO; +Oxycodone Hcl PO; +PROP150T2 PO; +PROP225T2 PO; +SENN-1 PO; +SENN-20 PO; +SOTA80TA PO; +Sotalol Hcl PO
--- NOTE | 2017-05-19 13:59 | Diagnostic Imaging Report ---
EXAMINATION: Abdominal ultrasound Doppler. INDICATION: Hypertension. COMPARISON: There are no prior studies available for comparison. TECHNIQUE: Spectral and color flow imaging of the aorta and both renal arteries was performed. FINDINGS: Both kidneys were identified. The right kidney measures 9.2 x 5.0 x 4.1 cm while the left kidney is estimated to be 9.9 x 5.9 x 4.3 cm. There is no evidence for a solid renal mass or for hydronephrosis of either kidney. There is a 1.4 x 2.2 x 1.6 cm benign-appearing cyst along the lateral aspect of the left kidney. The renal cortices are normal in thickness and echogenicity. Both renal arteries were visualized but the proximal portion of the right renal artery was difficult to image. There is no sign of a hemodynamically significant stenosis of the right renal artery where visualized. There is no evidence for hemodynamically significant stenosis of the left renal artery either. The bladder was imaged during the course of the exam. The bladder is only partially filled and consequently not well evaluated. There is no obvious bladder abnormality. Both ureteral jets were noted. IMPRESSION: 1. There is no evidence for a solid renal mass or for an acute abnormality of either kidney. 2. The proximal portion of the right renal artery was not visualized. The remainder of the right renal artery and the entire left renal artery are unremarkable for hemodynamically significant stenosis, however. 3. There is a benign-appearing 1.4 x 2.2 x 1.6 cm cyst along the lateral aspect of the left kidney. 4. There is no obvious bladder abnormality. Dictated by: Dictated on workstation # [id number]
== END ==
LOC: RAD 07:24
PROVIDERS: ATTEND Internal Medicine Cardiovascular Disease
DX: N28.1 Cyst of kidney, acquired (principal); I10 Essential (primary) hypertension; I25.10 Atherosclerotic heart disease of native coronary artery without angina pectoris; E78.2 Mixed hyperlipidemia; I48.0 Paroxysmal atrial fibrillation; I70.1 Atherosclerosis of renal artery
CPT/HCPCS: 93975

== ENCOUNTER 2017-05-23 09:27 | Inpatient (IN) | payer MEDICARE, OTHER ==
[2017-05-23] VITALS (13 sets, daily range): BP systolic 101–146; BP diastolic 50–85
[~2017-05-23] VITALS: Ht 157.5 cm; Wt 69.7 kg
[~2017-05-23 09:27] MED LIST changes: -ACET-2267 PO; -ACID1TAB PO; +ADENOSINE 6 MG/2 ML (ADENOCARD) VIAL IV ONE; -CIPR500T4 PO; -DILT240C53 PO; -DILT240C63 PO; -FLUC100T6 PO; -LEVO88TA54 PO; -LISI-556 PO; -LISI10TA2 PO; -OXYC-529 PO; -Oxycodone Hcl PO; -PROP225T2 PO; -SENN-1 PO; -SENN-20 PO
[2017-05-23] MEDS ORDERED: SODIUM CHLORIDE (ADD-VANTAGE) 100 ML IV ONE (09:30)
[2017-05-23] MEDS ORDERED: DILTIAZEM 25 MG/5 ML INJ (CARDIZEM) VIAL ONE (09:30)
[2017-05-23] MEDS ORDERED: DILTIAZEM 100 MG/VIAL (CARDIZEM) ADD-VANTAGE IV ONE (09:30)
[2017-05-23] MEDS ORDERED: ADENOSINE 6 MG/2 ML (ADENOCARD) VIAL IV ONE (09:45)
[2017-05-23] MEDS ORDERED: LISI10TA2 PO (09:58)
[2017-05-23 10:07] LABS: BASOPHILS # (AUTO) 0.1 10^3/uL (0.0-0.1); BASOPHILS % (AUTO) 1 % (0-10); EOSINOPHILS % (AUTO) 0 % (0-10); LYMPHOCYTES # (AUTO) 1.3 X 10^3 (1.0-4.0); LYMPHOCYTES % (AUTO) 16 % (12-44); MEAN CORPUSCULAR HEMOGLOBIN 32 PG (25-34); MEAN CORPUSCULAR HGB CONC 31 G/DL (32-36); MEAN CORPUSCULAR VOLUME 104 FL (80-99); MEAN PLATELET VOLUME 11.4 FL (7.4-10.4); MONOCYTES # (AUTO) 0.7 X 10^3 (0.0-1.0); MONOCYTES % (AUTO) 8 % (0-12); NEUTROPHILS # (AUTO) 6.3 X 10^3 (1.8-7.8); NEUTROPHILS % (AUTO) 76 % (42-75); PLATELET COUNT 173 10^3/uL (130-400); RED CELL DISTRIBUTION WIDTH 14.7 % (10.0-14.5); WHITE BLOOD COUNT 8.3 10^3/uL (4.3-11.0)
[2017-05-23 10:21] LABS: ALANINE AMINOTRANSFERASE 7 U/L (0-55); ALBUMIN 3.4 GM/DL (3.2-4.5); ANION GAP 12 MMOL/L (5-14); ASPARTATE AMINO TRANSFERASE 15 U/L (5-34); BILIRUBIN,TOTAL 0.9 MG/DL (0.1-1.0); BLOOD UREA NITROGEN 25 MG/DL (7-18); BUN/CREATININE RATIO 21; CALCIUM 9.2 MG/DL (8.5-10.1); CARBON DIOXIDE 19 MMOL/L (21-32); CHLORIDE 115 MMOL/L (98-107); CREATININE SERUM 1.19 MG/DL (0.60-1.30); GFR ESTIMATED 43; GLUCOSE 120 MG/DL (70-105); POTASSIUM 4.2 MMOL/L (3.6-5.0); SODIUM 146 MMOL/L (135-145); TOTAL PROTEIN 5.9 GM/DL (6.4-8.2)
--- NOTE | 2017-05-23 10:24 | ED Cardiac General ---
History of Present Illness General Chief Complaint: Dizziness/Syncope Stated Complaint: DIZZINESS/AFIB Nursing Triage Note: PT HERE VIA EMS WITH C/O DIZZINESS FOR 2 DAYS. EMS REPORTS HR IN THE 220'S. EMS GAVE A 500ML BOLUS. Source: patient Exam Limitations: no limitations History of Present Illness Time seen by provider: 09:34 Initial Comments The patient is an he 6-year-old white female brought by ambulance. She reports that she felt dizzy yesterday. This got worse this morning and that she noted low blood pressure and especially difficulty standing. She denied chest pain. She has a past history of atrial fibrillation. The ambulance attendants found her to the relatively hypotensive on their arrival and with a heart rate of 220. It appeared regular on their rhythm strip. She denies chest pain. She was not aware of her heartbeat. She does not recall any previous episode of rapid rate. Timing/Duration: 1-2 days Modifying Factors: improves with lying down (felt better) Associated Systoms: Denies Symptoms Allergies and Home Medications Allergies Coded Allergies: No Known Drug Allergies (Unverified , 03/05/10) Home Medications Alprazolam 0.25 Mg Tablet, 0.25 MG PO Q8H PRN for ANXIETY, #15 Prescribed by: AIDEE THOMAS on 03/18/17 1042 Apixaban 5 Mg Tablet, 5 MG PO BID, (Reported) Atorvastatin Calcium 20 Mg Tablet, 20 MG PO HS, (Reported) Cyanocobalamin 1,000 Mcg/Ml Inj, 1,000 MCG IJ EVERY 2 WEEKS, (Reported) Diltiazem HCl 180 Mg Cap.er.24h, 180 MG PO BID for 30 Days, #60 Ref 3 Prescribed by: Kristopher DOYLE on 03/18/17 1209 Levothyroxine Sodium 75 Mcg Tablet, 75 MCG PO DAILY, (Reported) Lisinopril 10 Mg Tablet, 10 MG PO DAILY, (Reported) Propafenone HCl 150 Mg Tablet, 150 MG PO TID for 30 Days Prescribed by: AIDEE THOMAS on 03/18/17 1042 Review of Systems Constitutional: see HPI EENTM: No Symptoms Reported Respiratory: No Symptoms Reported Cardiovascular: Lightheadedness, Palpitations Gastrointestinal: No Symptoms Reported Genitourinary: No Symptoms Reported Musculoskeletal: no symptoms reported Skin: no symptoms reported Psychiatric/Neurological: No Symptoms Reported Endocrine: No Symptoms Reported Hematologic/Lymphatic: No Symptoms Reported Past [id number]-[id number]-Uzbfaq Hx Patient Social History Alcohol Use: Denies Use Recreational Drug Use: No Smoking Status: Never a Smoker Recent Foreign Travel: No Contact w/Someone Who Travel: No Recent Infectious Disease Expo: No Recent Hopitalizations: No Seasonal Allergies Seasonal Allergies: No Surgeries History of Surgeries: No Surgeries: Coronary Stent, Tonsillectomy Respiratory History of Respiratory Disorde: No Cardiovascular History of Cardiac Disorders: Yes Cardiac Disorders: Coronary Artery Disease, High Cholesterol, Hypertension Neurological History of Neurological Disord: No Reproductive System Hx Reproductive Disorders: No (ENDOMETRIAL THICKENING) Gastrointestinal History of Gastrointestinal Di: No Musculoskeletal History of Musculoskeletal Dis: Yes Musculoskeletal Disorders: Arthritis Endocrine History of Endocrine Disorders: Yes Endocrine Disorders: Hypothyroidsim Cancer History of Cancer: No Psychosocial History of Psychiatric Problem: No Integumentary History of Skin or Integumenta: No Blood Transfusions History of Blood Disorders: No Family Medical History Significant Family History: No Pertinent Family Hx Physical Exam Vital Signs Vital Sign - Last 12Hours 05/23/17 09:27 Temp 96.9 Pulse 212 Resp 20 B/P (MAP) 90/81 Pulse Ox 99 O2 Delivery Room Air Capillary Refill : Less Than 3 Seconds General Appearance: Anxious, Mild Distress HEENT: Normal ENT Inspection Neck: Normal Inspection Respiratory: Chest Non Tender, Lungs Clear, Normal Breath Sounds, No Accessory Muscle Use, No Respiratory Distress Cardiovascular: Tachycardia (Rate greater than 200) Gastrointestinal: Normal Bowel Sounds, No Organomegaly, No Pulsatile Mass, Non Tender Extremity: Normal Capillary Refill, Normal Inspection, Normal Range of Motion, Non Tender, No Calf Tenderness, No Pedal Edema Neurologic/Psychiatric: Alert, Oriented x3, No Motor/Sensory Deficits, Normal Mood/Affect Skin: Normal Color, Warm/Dry Lymphatic: No Adenopathy Progress/Results/Core Measures Results/Orders Lab Results Laboratory Tests Test 05/23/17 09:50 Range/Units White Blood Count 8.3 4.3-11.0 10^3/uL Red Blood Count 4.50 4.35-5.85 10^6/uL Hemoglobin 14.6 11.5-16.0 G/DL Hematocrit 47 35-52 % Mean Corpuscular Volume 104 H 80-99 FL Mean Corpuscular Hemoglobin 32 25-34 PG Mean Corpuscular Hemoglobin Concent 31 L 32-36 G/DL Red Cell Distribution Width 14.7 H 10.0-14.5 % Platelet Count 173 130-400 10^3/uL Mean Platelet Volume 11.4 H 7.4-10.4 FL Neutrophils (%) (Auto) 76 H 42-75 % Lymphocytes (%) (Auto) 16 12-44 % Monocytes (%) (Auto) 8 0-12 % Eosinophils (%) (Auto) 0 0-10 % Basophils (%) (Auto) 1 0-10 % Neutrophils # (Auto) 6.3 1.8-7.8 X 10^3 Lymphocytes # (Auto) 1.3 1.0-4.0 X 10^3 Monocytes # (Auto) 0.7 0.0-1.0 X 10^3 Eosinophils # (Auto) 0.0 0.0-0.3 10^3/uL Basophils # (Auto) 0.1 0.0-0.1 10^3/uL My Orders Orders - LÁZARO HOWELL MD Adenosine Injection (Adenocard Injection (05/23/17 09:45) Adenosine Injection (Adenocard Injection (05/23/17 09:25) Diltiazem Drip (Cardizem Drip) (05/23/17 09:30) Diltiazem Injection (Cardizem Injection) (05/23/17 09:30) Sodium Chloride (Add-[place]) (Ns (Add-V (05/23/17 09:30) Cbc With Automated Diff (05/23/17 09:57) Comprehensive Metabolic Panel (05/23/17 09:57) Troponin I (05/23/17 09:57) Ua Culture If Indicated (05/23/17 09:57) Ekg Tracing (05/23/17 09:57) Ekg Tracing (05/23/17 09:57) Ekg Tracing (05/23/17 09:57) Medications Given in ED Current Medications Medications Dose Ordered Sig/Mayda Route Start Time Stop Time Status Last Admin Dose Admin Adenosine 12 mg ONCE ONCE IV 05/23/17 09:45 05/23/17 09:46 DC 05/23/17 09:31 12 MG Diltiazem HCl 25 mg STK-MED ONCE .ROUTE 05/23/17 09:30 05/23/17 09:37 DC 05/23/17 09:36 10 MG Diltiazem HCl 100 mg STK-MED ONCE IV 05/23/17 09:30 05/23/17 09:37 DC 05/23/17 09:38 100 MG Sodium Chloride 100 ml @ ud STK-MED ONCE IV 05/23/17 09:30 05/23/17 09:38 DC 05/23/17 09:38 10 MLS/HR Vital Signs/I&O Vital Sign - Last 12Hours 05/23/17 05/23/17 09:27 09:38 Temp 96.9 Pulse 212 215 Resp 20 20 B/P (MAP) 90/81 104/78 Pulse Ox 99 99 O2 Delivery Room Air Blood Pressure Mean: 84 Departure Communication Progress Notes The rhythm strip plotted out as regular. 12 mg of adenosine was given IV push. The rate dropped to 110 and proved to be irregular and consistent with atrial fibrillation. It then bounced back up to 200. Because of marginal blood pressure Cardizem 10 mg was given IV push and the rate dropped down to the 100- 110 range and was irregular. The drip was then started at 10 mg per hour Impression Impression: Primary Impression: atrial fibrillation with rapid ventricular response Disposition: ADMITTED INPATIENT Condition: Improved Admissions Decision to Admit Reason: Admit from ER (General) Decision to Admit/Date: May 23, 2017 Time/Decision to Admit Time: 10:25 Departure-Patient Inst. Referrals: ОЛЬГА HORTON MD (PCP/Family) Primary Care Physician LÁZARO HOWELL MD May 23, 2017 10:24
[2017-05-23 10:27] LABS: TROPONIN I < 0.30 NG/ML (<0.30)
[2017-05-23] MEDS: NS IV 1000 ML 1,000 ML IV SCH ×2 (11:01→12:48)
--- NOTE | 2017-05-23 11:34 | History & Physical-Hospitalist ---
HPI History of Present Illness: HPI/Chief Complaint Mrs. Boyd is a pleasant 86-year-old white female with known history of paroxysmal fibrillation and atrial tachycardia who is feeling well up until yesterday afternoon when she noted the onset of lightheadedness and dizziness. This apparently has been her only symptomatology when she is back in atrial fibrillation with a rapid ventricular response. She denied chest pain or shortness of breath. She did feel extremely weak. She went to bed hoping her symptoms would resolve but they were still present this morning. It was all she could do to walk from her bedroom to the front room secondary to lightheadedness and fatigue. She then notified EMS and upon their arrival per Dr. Bowles she had a heart rate of 220 and appeared to have a regular rhythm. She was given adenosine which converted her to atrial fibrillation still rapid ventricular response as I recall in the 150 range. She was then given a Cardiazem IV bolus and started on a drip. upon my arrival she was in sinus rhythm with a heart rate of 100 bpm voicing no complaints. She had a similar admission in February at which time she was started on propantheline unknown. She saw Dr. Hernandez last week and it sounds as though her diltiazem was increased at that time. She has a past history of coronary artery disease with stent placement drug-eluting in the LAD and RCA in 2009. She also has a history of peripheral vascular disease and stable moderate bilateral carotid disease. Date Seen 05/23/17 Time Seen by Provider: 11:30 Attending Physician Camilo Angelo MD PCP Jamie Holcomb MD Referring Physician Date of Admission May 23, 2017 at 10:54 Home Medications & Allergies Home Medications Reviewed patient Home Medication Reconciliation Form Allergies Allergies Coded Allergies No Known Drug Allergies (Unverified03/05/10) Past Djyqyho-Icqnzb-Ugmgwm Hx Patient Social History Alcohol Use: Denies Use Recreational Drug Use: No Smoking Status: Never a Smoker Recent Foreign Travel: No Contact w/other who traveled: No Recent Hopitalizations: No Recent Infectious Disease Expo: No Seasonal Allergies Seasonal Allergies: No Surgeries No Coronary Stent, Tonsillectomy Respiratory No Cardiovascular Yes Coronary Artery Disease, High Cholesterol, Hypertension Neurological No Reproductive System Hx Reproductive Disorders: No (ENDOMETRIAL THICKENING) Gastrointestinal No Musculoskeletal Yes Arthritis Endocrine History of Endocrine Disorders: Yes Endocrine Disorders: Hypothyroidsim Cancer No Psychosocial History of Psychiatric Problem: No Integumentary History of Skin or Integumenta: No Blood Transfusions History of Blood Disorders: No Family Medical History Significant Family History: No Pertinent Family Hx Review of Systems Constitutional: no symptoms reported, see HPI Respiratory: see HPI, No cough, dyspnea on exertion, No hemoptysis, No orthopnea, No phlegm, No short of breath, No stridor, No wheezing Cardiovascular: see HPI, No chest pain, No edema, Hx of Intervention, No palpitations, No syncope, No vascular heart diseas, No other Physical Exam Physical Exam Vital Signs Vital Sign - Last 12Hours 05/23/17 05/23/17 09:27 11:07 Temp 96.9 Pulse 212 Resp 20 B/P (MAP) 90/81 Pulse Ox 99 O2 Delivery Room Air O2 Flow Rate 2.00 Capillary Refill : Less Than 3 Seconds General Appearance: No Apparent Distress, WD/WN Respiratory: Chest Non Tender, Lungs Clear, Normal Breath Sounds, No Accessory Muscle Use, No Respiratory Distress Cardiovascular: Regular Rate, Rhythm, No Edema, No Gallop, No JVD, No Murmur, Normal Peripheral Pulses Gastrointestinal: Normal Bowel Sounds, No Organomegaly, No Pulsatile Mass, Non Tender, Soft Extremity: Normal Capillary Refill, Normal Inspection, Normal Range of Motion, Non Tender, No Calf Tenderness, No Pedal Edema Neurologic/Psychiatric: Alert, Oriented x3, No Motor/Sensory Deficits, Normal Mood/Affect Results Results/Procedures Lab Laboratory Tests 05/23/17 09:50 Assessment/Plan Admission Diagnosis 1. Probable PSVT converted to atrial fibrillation with rapid ventricular response with adenosine now currently appears to be in sinus rhythm on IV Cardizem. She was admitted in intensive care unit per emergency room physician. We'll consult Dr. Garcia primary warehouse administrative assistant. 2. Continue Eliquis thromboembolic prophylaxis. This will suffice for DVT prophylaxis as well. 3. Coronary artery disease history of drug-eluting stent placement per Dr. Garcia. Her antiplatelet therapy to Dr. Garcia. 4. History of hyperlipidemia continue atorvastatin Copy Copies To 1: JACK HORNE MD, MARK D MD May 23, 2017 11:34
[2017-05-23] MEDS: APIXABAN 5 MG (ELIQUIS) TABLET PO SCH ×2 (11:41→20:26)
[2017-05-23] MEDS ORDERED: ALPRAZolam 0.25 MG (XANAX) TAB PO PRN (12:00)
[2017-05-23] MEDS ORDERED: meTOprolol 5 MG/5 ML (LOPRESSOR) VIAL IV ONE (12:00)
[2017-05-23] MEDS ORDERED: ALPR0.254 PO (12:16)
[2017-05-23] MEDS ORDERED: PROP150T2 PO (12:16)
[2017-05-23] MEDS ORDERED: DILT180C54 PO (12:16)
[2017-05-23] MEDS: DILTIAZEM DRIP 100 MG/NS 100 ML IV SCH ×2 (12:48)
[2017-05-23] MEDS: PROPAFENONE 150 MG (RYTHMOL) TABLET PO SCH ×2 (13:25→20:25)
[2017-05-23] MEDS: 1/2 NS IV SOLUTION 1,000 ML IV SCH (15:03)
[2017-05-23] MEDS: meTOprolol TARTRATE 25 MG (LOPRESSOR) TABLET PO SCH (20:26)
[2017-05-23] MEDS ORDERED: ATORVASTATIN 20 MG (LIPITOR) TABLET PO SCH ×2 (21:00)
[2017-05-24] VITALS (9 sets, daily range): BP systolic 84–111; BP diastolic 52–67
[2017-05-24] MEDS: 1/2 NS IV SOLUTION 1,000 ML IV SCH (01:24)
[2017-05-24] MEDS: DILTIAZEM DRIP 100 MG/NS 100 ML IV SCH ×2 (03:36)
[2017-05-24 05:00] LABS: RED BLOOD COUNT 3.66 10^6/uL (4.35-5.85); RED CELL DISTRIBUTION WIDTH 14.4 % (10.0-14.5); WHITE BLOOD COUNT 7.9 10^3/uL (4.3-11.0)
[2017-05-24 05:19] LABS: ALANINE AMINOTRANSFERASE 7 U/L (0-55); ALBUMIN 2.8 GM/DL (3.2-4.5); ANION GAP 11 MMOL/L (5-14); ASPARTATE AMINO TRANSFERASE 13 U/L (5-34); BILIRUBIN,TOTAL 0.8 MG/DL (0.1-1.0); BLOOD UREA NITROGEN 19 MG/DL (7-18); BUN/CREATININE RATIO 23; CARBON DIOXIDE 15 MMOL/L (21-32); CHLORIDE 116 MMOL/L (98-107); CREATININE SERUM 0.82 MG/DL (0.60-1.30); GFR ESTIMATED > 60; GLUCOSE 86 MG/DL (70-105); MAGNESIUM 1.7 MG/DL (1.8-2.4); SODIUM 142 MMOL/L (135-145); TOTAL PROTEIN 4.9 GM/DL (6.4-8.2)
[2017-05-24] MEDS: MAGNESIUM 1 GM/100 ML IVPB 100 ML IV SCH (05:59)
[2017-05-24] MEDS ORDERED: KCL 20 MEQ TAB (K-DUR) PO SCH ×2 (06:00)
[2017-05-24] MEDS ORDERED: POTASSIUM CL 10MEQ/50ML IVPB 50 ML IV SCH ×2 (06:00)
[2017-05-24] MEDS ORDERED: MAGNESIUM 1 GM/100 ML IVPB 100 ML IV SCH ×2 (06:00)
[2017-05-24] MEDS ORDERED: LEVOTHYROXINE 75 MCG (LEVOTHROID) TABLET PO SCH ×2 (06:30)
--- NOTE | 2017-05-24 07:51 | Consultation-Cardiology ---
HPI-Cardiology Cardiology Consultation Date of Consultation 05/24/17 Date of Admission Time Seen by Provider: 07:46 Indication: dizziness, atrial fibrillation HPI 86 years old lady with history of paroxysmal atrial fibrillation, hypertension hyperlipidemia. Was in her usual state of health until Wednesday when she started feeling dizzy and lightheaded. Leg down and on Wednesday she felt worse. She called EMS and brought to the emergency room and noted to be in atrial fibrillation with rapid ventricular response. Patient was started on Cardizem drip, converted to sinus rhythm, stayed in sinus rhythm in the hospital. She's been feeling well. Denied any chest pain or shortness of breath. Denied any palpitation, syncope or near syncopal episodes. Denied any claudications. Home Medications & Allergies Allergies: Coded Allergies: No Known Drug Allergies (Unverified , 03/05/10) Home Medication List Reviewed: Yes OUR-Sxrfyn-Wbbeva Hx Patient Social History Marital Status: Employed/Student: retired Alcohol Use: Occasionally Uses Recreational Drug Use: No Smoking Status: Never a Smoker Recent Foreign Travel: No Recent Infectious Disease Expo: No Recent Hopitalizations: No Physical Abuse Screen: No Sexual Abuse: No Past Medical History past medical history as discussed below Family Medical History Significant Family History: No Pertinent Family Hx Family Medical Hx noncontributory to her current condition Constitutional: see HPI, dizziness, weakness EENTM: see HPI, no symptoms reported Respiratory: no symptoms reported, see HPI Cardiovascular: no symptoms reported, see HPI Gastrointestinal: no symptoms reported, see HPI Genitourinary: no symptoms reported, see HPI Musculoskeletal: no symptoms reported, see HPI Skin: no symptoms reported, see HPI Psychiatric/Neurological: No Symptoms Reported, See HPI Reviewed Test Results Reviewed Test Results Lab Laboratory Tests Test 05/23/17 09:50 05/24/17 04:30 Range/Units White Blood Count 8.3 7.9 4.3-11.0 10^3/uL Red Blood Count 4.50 3.66 L 4.35-5.85 10^6/uL Hemoglobin 14.6 11.9 11.5-16.0 G/DL Hematocrit 47 38 35-52 % Mean Corpuscular Volume 104 H 104 H 80-99 FL Mean Corpuscular Hemoglobin 32 33 25-34 PG Mean Corpuscular Hemoglobin Concent 31 L 31 L 32-36 G/DL Red Cell Distribution Width 14.7 H 14.4 10.0-14.5 % Platelet Count 173 145 130-400 10^3/uL Mean Platelet Volume 11.4 H 11.0 H 7.4-10.4 FL Neutrophils (%) (Auto) 76 H 42-75 % Lymphocytes (%) (Auto) 16 12-44 % Monocytes (%) (Auto) 8 0-12 % Eosinophils (%) (Auto) 0 0-10 % Basophils (%) (Auto) 1 0-10 % Neutrophils # (Auto) 6.3 1.8-7.8 X 10^3 Lymphocytes # (Auto) 1.3 1.0-4.0 X 10^3 Monocytes # (Auto) 0.7 0.0-1.0 X 10^3 Eosinophils # (Auto) 0.0 0.0-0.3 10^3/uL Basophils # (Auto) 0.1 0.0-0.1 10^3/uL Sodium Level 146 H 142 135-145 MMOL/L Potassium Level 4.2 4.0 3.6-5.0 MMOL/L Chloride Level 115 H 116 H 98-107 MMOL/L Carbon Dioxide Level 19 L 15 L 21-32 MMOL/L Anion Gap 12 11 5-14 MMOL/L Blood Urea Nitrogen 25 H 19 H 7-18 MG/DL Creatinine 1.19 0.82 0.60-1.30 MG/DL Estimat Glomerular Filtration Rate 43 > 60 BUN/Creatinine Ratio 21 23 Glucose Level 120 H 86 70-105 MG/DL Calcium Level 9.2 8.0 L 8.5-10.1 MG/DL Total Bilirubin 0.9 0.8 0.1-1.0 MG/DL Aspartate Amino Transf (AST/SGOT) 15 13 5-34 U/L Alanine Aminotransferase (ALT/SGPT) 7 7 0-55 U/L Alkaline Phosphatase 87 67 40-136 U/L Troponin I < 0.30 <0.30 NG/ML Total Protein 5.9 L 4.9 L 6.4-8.2 GM/DL Albumin 3.4 2.8 L 3.2-4.5 GM/DL Magnesium Level 1.7 L 1.8-2.4 MG/DL Physical Exam Vital Signs Vital Sign - Last 12Hours 05/23/17 05/23/17 09:27 11:07 Temp 96.9 Pulse 212 Resp 20 B/P (MAP) 90/81 Pulse Ox 99 O2 Delivery Room Air O2 Flow Rate 2.00 Capillary Refill : Less Than 3 Seconds General Appearance: No Apparent Distress, WD/WN Eyes: Bilateral Eye Normal Inspection, Bilateral Eye PERRL, Bilateral Eye EOMI HEENT: PERRL/EOMI, TMs Normal, Normal ENT Inspection, Pharynx Normal Neck: Full Range of Motion, Normal Inspection, Non Tender, Supple, Carotid Bruit Respiratory: Chest Non Tender, Lungs Clear, Normal Breath Sounds, No Accessory Muscle Use, No Respiratory Distress Cardiovascular: Regular Rate, Rhythm, No Edema, No Gallop, No JVD, No Murmur, Normal Peripheral Pulses Gastrointestinal: Normal Bowel Sounds, No Organomegaly, No Pulsatile Mass, Non Tender, Soft Back: Normal Inspection, No CVA Tenderness, No Vertebral Tenderness Extremity: Normal Capillary Refill, Normal Inspection, Normal Range of Motion, Non Tender, No Calf Tenderness, No Pedal Edema Neurologic/Psychiatric: Alert, Oriented x3, No Motor/Sensory Deficits, Normal Mood/Affect Skin: Normal Color, Warm/Dry Lymphatic: No Adenopathy A/P-Cardiology Admission Diagnosis Dizziness Paroxysmal atrial fibrillation Coronary artery disease Hypertension Assessment/Plan Dizziness and lightheadedness, secondary to tachycardia, given a Annamaria in the field, was in atrial fibrillation with rapid ventricular response. Started on Cardizem drip and converted back to sinus rhythm, patient is feeling better at this time. Paroxysmal atrial fibrillation, history of Reveal device implantation, had RE with electrical cardioversion done by Dr. Garcia in August 2016 then another procedure in September 2016, treated with sotalol and underwent another electrical cardioversion in February 2017 which has failed to maintain sinus rhythm , currently on per puff and on and Cardizem, has stopped taking metoprolol. Lopressor appeared to be well controlled at this time. I will continue on current medications, I will increase propafenone to 225 twice daily and monitor her tolerance and response Coronary artery disease, history of a stent placement using Taxus 3.5x23 mm to the right coronary artery done in 2009. Another stent 2.75x15 mm Taxus to the LAD. Currently asymptomatic. Most recent stress test August 2016 revealed no ischemia or infarct. Continue to monitor. Renal artery stenosis, history of 6.0x14 mm Express stent to the left renal artery done in 2009. Blood pressure is becoming poorly controlled. Renal arterial Doppler was done last week and did not show significant obstructive disease, renal cyst was noted incidentally. Continue to monitor as an outpatient. Hypertension, better control at this time, continue to monitor blood pressure. Hyperlipidemia, maintained on Lipitor, monitor lipids History of cor pulmonale, last echocardiogram was done in May 2016 revealing EF 55 percent, diastolic dysfunction, mild mitral and tricuspid regurgitation. Carotid stenosis, moderate bilateral stenosis. Last ultrasound was done in October 2016, continue to monitor Hypothyroidism, monitored and followed by primary care physician. Osteoarthritis, history of left knee arthroscopy in 1999 and 2004. Clinical Quality Measures DVT/VTE Risk/Contraindication: Risk Factor Score Per Nursin RFS Level Per Nursing on Admit: 2=Moderate MARGARITA COULTER MD May 24, 2017 07:51
[2017-05-24] MEDS ORDERED: PROP225T2 PO (08:00)
--- NOTE | 2017-05-24 08:21 | Pulmonary Consultation ---
History of Present Illness History of Present Illness Date of Consultation 05/24/17 08:05 Time Seen by Provider: 08:05 Date of Admission Reason for Visit: dizziness, atrial fibrillation History of Present Illness 86yo with hx of CAD, paroxysmal Afib and presented with worsening fatigue, lightheadedness, and dizziness. She was found to be in Afib RVR with HR of 220 she was given adenosine which showed her HR to 150s. she was placed on a cardizem gtt and admitted to the ICU. She denies SOB, or chest pain. SHe has had prior episodes like this. I am consulted for ICU management. Allergies and Home Medications Allergies Coded Allergies: No Known Drug Allergies (Unverified , 03/05/10) Home Medications Alprazolam 0.25 Mg Tablet, 0.25 MG PO Q8H PRN for ANXIETY, (Reported) Apixaban 5 Mg Tablet, 5 MG PO BID, (Reported) Atorvastatin Calcium 20 Mg Tablet, 20 MG PO DAILY, (Reported) Cyanocobalamin 1,000 Mcg/Ml Inj, 1,000 MCG IJ EVERY 2 WEEKS, (Reported) Diltiazem HCl 180 Mg Cap.er.24h, 180 MG PO DAILY, (Reported) Levothyroxine Sodium 75 Mcg Tablet, 75 MCG PO HS, (Reported) Lisinopril 10 Mg Tablet, 10 MG PO DAILY, (Reported) Propafenone HCl 150 Mg Tablet, 150 MG PO TID, (Reported) Propafenone HCl 225 Mg Tablet, 225 MG PO TID, #90 Ref 2 Prescribed by: MARGARITA COULTER on 05/24/17 0800 Past Xbwbjnx-Ddsfcb-Dveena Hx Patient Social History Alcohol Use: Occasionally Uses Number of Drinks Today: 0 Recreational Drug Use: No Smoking Status: Never a Smoker Recent Foreign Travel: No Contact w/Someone Who Travel: No Recent Infectious Disease Expo: No Recent Hopitalizations: No Seasonal Allergies Seasonal Allergies: No Surgeries History of Surgeries: No Surgeries: Coronary Stent, Tonsillectomy Respiratory History of Respiratory Disorde: No Cardiovascular History of Cardiac Disorders: Yes Cardiac Disorders: Coronary Artery Disease, High Cholesterol, Hypertension Neurological History of Neurological Disord: No Reproductive System Hx Reproductive Disorders: No (ENDOMETRIAL THICKENING) Genitourinary History of Genitourinary Disor: No Gastrointestinal History of Gastrointestinal Di: No Musculoskeletal History of Musculoskeletal Dis: Yes Musculoskeletal Disorders: Arthritis Endocrine History of Endocrine Disorders: Yes Endocrine Disorders: Hypothyroidsim HEENT History of HEENT Disorders: No Hearing Impairment: Bilateral Hearing Aide Cancer History of Cancer: No Psychosocial History of Psychiatric Problem: No Integumentary History of Skin or Integumenta: No Blood Transfusions History of Blood Disorders: No Family Medical History Significant Family History: No Pertinent Family Hx Review of Systems Time Seen by Provider: 08:25 Constitutional: Weakness, Malaise, No: Fever, Chills, Sweats, Other Eyes: No: Pain, Vision change, Conjunctivae inflammation, Eyelid inflammation, Other, Redness ENT: No: Ear pain, Ear discharge, Nose pain, Nose discharge, Nose congestion, Mouth pain, Mouth swelling, Throat pain, Throat swelling, Other Respiratory: No: Cough, Dry, Shortness of breath, SOB with excertion, Wheezing , Hemoptysis, Pleuritic Pain, Sputum, Wheezing, Other Cardiovascular: Palpitations, Lt Headedness Gastrointestinal: No: Nausea, Vomiting, Abdominal Pain, Diarrhea, Constipation , Melena, Hematochezia, Other Neurological: Weakness Exam Exam Vital Signs Date Time Temp Pulse Resp B/P (MAP) Pulse Ox O2 Delivery O2 Flow Rate FiO2 05/24/17 07:00 98.9 64 21 111/62 98 Room Air 05/24/17 06:00 64 8 84/61 97 Room Air 05/24/17 05:00 63 22 102/54 94 Room Air 05/24/17 04:00 97 Room Air 05/24/17 04:00 98.1 Room Air 05/24/17 04:00 61 15 98/54 96 Room Air 05/24/17 03:36 64 98/49 05/24/17 03:00 85 20 98/53 97 Room Air 05/24/17 02:00 87 21 90/52 94 Room Air 05/24/17 01:00 92 05/24/17 01:00 92 24 105/67 94 Room Air 05/24/17 00:00 97 Room Air 05/24/17 00:00 95 12 109/66 95 Room Air 05/23/17 23:00 92 12 119/59 96 Room Air 05/23/17 22:00 95 21 101/50 95 Room Air 05/23/17 21:00 83 18 122/66 96 Room Air 05/23/17 20:00 97 Room Air 05/23/17 20:00 95 18 136/78 93 Room Air 05/23/17 19:00 92 05/23/17 19:00 97.7 92 20 115/77 100 Room Air 05/23/17 18:00 89 22 108/63 96 Room Air 05/23/17 17:45 92 8 109/68 94 Room Air 05/23/17 16:45 82 23 146/79 97 Room Air 05/23/17 16:00 97 Room Air 05/23/17 15:55 98.4 88 17 109/70 97 Room Air 05/23/17 14:00 101 23 126/81 95 Room Air 05/23/17 13:00 96 05/23/17 13:00 93 13 118/85 92 Room Air 05/23/17 12:00 106 13 116/72 94 Room Air 05/23/17 11:30 97.2 107 23 123/77 96 Room Air 05/23/17 11:25 Room Air 05/23/17 11:07 101 18 94 Nasal Cannula 2.00 05/23/17 09:38 215 20 104/78 99 05/23/17 09:27 96.9 212 20 90/81 99 Room Air General Appearance: No Apparent Distress, WD/WN HEENT: PERRL/EOMI, TMs Normal, Normal ENT Inspection, Pharynx Normal Neck: Full Range of Motion, Normal Inspection, Non Tender, Supple, Carotid Bruit Respiratory: Chest Non Tender, Lungs Clear, Normal Breath Sounds, No Accessory Muscle Use, No Respiratory Distress Cardiovascular: Regular Rate, Rhythm, No Edema, No Gallop, No JVD, No Murmur, Normal Peripheral Pulses Capillary Refill: Less Than 3 Seconds Extremity: Normal Capillary Refill, Normal Inspection, Normal Range of Motion, Non Tender, No Calf Tenderness, No Pedal Edema Neurologic/Psychiatric: Alert, Oriented x3, No Motor/Sensory Deficits, Normal Mood/Affect Skin: Normal Color, Warm/Dry Lymphatic: No Adenopathy Results Lab Laboratory Tests 05/23/17 09:50 05/24/17 04:30 Assessment/Plan Assessment/Plan paroxysmal Afib with RVR and dizziness -cardizem gtt -cardiology following Metabolic acidosis -IVF check LA CAD HTN 254 Clinical Quality Measures DVT/VTE Risk/Contraindication: Risk Factor Score Per Nursin RFS Level Per Nursing on Admit: 2=Moderate ELPIDIO SNIDER DO May 24, 2017 08:21
[2017-05-24] MEDS ORDERED: PROPAFENONE 150 MG (RYTHMOL) TABLET PO SCH (09:00)
--- NOTE | 2017-05-24 09:05 | Clinic Account Progress/Dx ---
Clinic Account Progress/Dx DIAGNOSIS: Date Seen by Provider: May 24, 2017 Time Seen by Provider: 07:30 Diagnosis Dizziness Paroxysmal atrial fibrillation Coronary artery disease Hypertension MARGARITA COULTER MD May 24, 2017 09:05
[2017-05-24] MEDS: APIXABAN 5 MG (ELIQUIS) TABLET PO SCH (09:12)
[2017-05-24] MEDS: meTOprolol TARTRATE 25 MG (LOPRESSOR) TABLET PO SCH (09:13)
== END 2017-05-24 11:00 | disposition home or self-care (01) | DRG 309 ==
LOC: EDUNIT# 09:27 → ER 09:28 → ICU 10:54
PROVIDERS: ADMIT Internal Medicine; ATTEND Internal Medicine
DX: I48.0 Paroxysmal atrial fibrillation (principal); E87.2 Acidosis; I25.10 Atherosclerotic heart disease of native coronary artery without angina pectoris; I10 Essential (primary) hypertension; I65.23 Occlusion and stenosis of bilateral carotid arteries; I73.9 Peripheral vascular disease, unspecified; E03.9 Hypothyroidism, unspecified; E78.00 Pure hypercholesterolemia, unspecified; Z95.5 Presence of coronary angioplasty implant and graft
CPT/HCPCS: 36415; 80053; 83605; 83735; 84484; 85025; 85027; 93005; 96361; 96367; 96374; 96375

== ENCOUNTER 2017-06-05 17:12 | Inpatient (IN) | payer MEDICARE, OTHER ==
[~2017-06-05] VITALS: Ht 154.9 cm; Wt 77.2 kg
[~2017-06-05 17:12] MED LIST changes: -ADENOSINE 6 MG/2 ML (ADENOCARD) VIAL IV ONE; +LISI10TA2 PO; +PROP225T2 PO
--- NOTE | 2017-06-05 17:43 | ED Hip Pain/Injury ---
General Chief Complaint: Hip/Pelvic Problems Stated Complaint: FALL Nursing Triage Note: TO ROOM 05 VIA AMBULANCE. STATES SHE WAS WALKING OUT OF THE [place] WHEN SHE TRIPPED OVER THE CARPET AND FELL TO LEFT HIP. COMPLAINS OF LEFT HIP PAIN. DENIES HITTING HER HEAD AND DENIES LOC. Source: patient History of Present Illness Time seen by provider: 17:32 Initial Comments PT ARRIVES VIA EMS [facility] PT STATES SHE WAS WALKING OUT OF [employer] AND TRIPPED /LOST BALANCE AND FELL, LANDING ON LEFT HIP DID NOT HIT HEAD OR HAVE LOSS OF CONSCIOUSNESS NO NECK OR BACK PAIN NO PARESTHESIAS OR MOTOR DEFICITS HAS CHRONIC LEFT KNEE PAIN AND IS WEARING AN ELASTIC KNEE BRACE NO PRIOR HISTORY OF INJURY TO LEFT HIP Other PCP: [facility] CHAINSTITCH BINDER: DR. COULTER Allergies and Home Medications Allergies Coded Allergies: No Known Drug Allergies (Unverified , 03/05/10) Home Medications Alprazolam 0.25 Mg Tablet, 0.25 MG PO Q8H PRN for ANXIETY, (Reported) Apixaban 5 Mg Tablet, 5 MG PO BID, (Reported) Atorvastatin Calcium 20 Mg Tablet, 20 MG PO DAILY, (Reported) Cyanocobalamin 1,000 Mcg/Ml Inj, 1,000 MCG IJ EVERY 2 WEEKS, (Reported) Diltiazem HCl 180 Mg Cap.er.24h, 180 MG PO DAILY, (Reported) Levothyroxine Sodium 75 Mcg Tablet, 75 MCG PO HS, (Reported) Lisinopril 10 Mg Tablet, 10 MG PO DAILY, (Reported) Propafenone HCl 225 Mg Tablet, 225 MG PO TID, #90 Ref 2 Prescribed by: MARGARITA COULTER on 05/24/17 0800 Constitutional: no symptoms reported EENTM: no symptoms reported Respiratory: no symptoms reported Cardiovascular: no symptoms reported Gastrointestinal: no symptoms reported Genitourinary: no symptoms reported Musculoskeletal: see HPI Skin: no symptoms reported Psychiatric/Neurological: No Symptoms Reported Past Rkpxvec-[place] Hx Patient Social History Recent Foreign Travel: No Contact w/Someone Who Travel: No Recent Infectious Disease Expo: No Recent Hopitalizations: No Seasonal Allergies Seasonal Allergies: No Surgeries History of Surgeries: Yes Surgeries: Cardiac, Coronary Stent, Tonsillectomy Respiratory History of Respiratory Disorde: No Cardiovascular History of Cardiac Disorders: Yes Cardiac Disorders: Atrial Fibrillation, Coronary Artery Disease, High Cholesterol, Hypertension Neurological History of Neurological Disord: No Reproductive System Hx Reproductive Disorders: No (ENDOMETRIAL THICKENING) 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 Genitourinary History of Genitourinary Disor: No Gastrointestinal History of Gastrointestinal Di: No Musculoskeletal History of Musculoskeletal Dis: Yes Musculoskeletal Disorders: Arthritis Endocrine History of Endocrine Disorders: Yes Endocrine Disorders: Hypothyroidsim HEENT History of HEENT Disorders: No Hearing Impairment: Bilateral Hearing Aide Cancer History of Cancer: No Psychosocial History of Psychiatric Problem: Yes Behavioral Health Disorders: Anxiety Integumentary History of Skin or Integumenta: No Blood Transfusions History of Blood Disorders: No Family Medical History Significant Family History: No Pertinent Family Hx Physical Exam Vital Signs Vital Sign - Last 12Hours 06/05/17 17:12 Temp 98.0 Pulse 46 Resp 18 B/P (MAP) 138/124 Pulse Ox 94 Capillary Refill : Less Than 3 Seconds General Appearance: No Apparent Distress, WD/WN HEENT: PERRL/EOMI Neck: Full Range of Motion, Normal Inspection, Non Tender, Supple Cardiovascular: No Murmur, Normal Peripheral Pulses Respiratory: Chest Non Tender, Normal Breath Sounds, No Accessory Muscle Use, No Respiratory Distress Peripheral Pulses: 2+ Dorsalis Pedis (R), 2+ Left Dors-Pedis (L) Gastrointestinal: Non Tender, Soft Back: Normal Inspection, No CVA Tenderness, No Vertebral Tenderness Extremity: No Calf Tenderness, No Pedal Edema, Other (TENDERNESS TO LEFT HIP AND PROXIMAL FEMUR. LEFT KNEE WITH ELASTIC BANDAGE/BRACE, WITH MODERATE SWELLING AND MILD TO MODERATE TENDERNESS--PT STATES IS CHRONIC . DISTAL MOTOR / SENSORY / VASCULAR INTACT. LEFT LEG SHORTENED AND EXTERNALLY ROTATED. ) Neurologic/Psychiatric: Alert, Oriented x3, No Motor/Sensory Deficits, Normal Mood/Affect, medical sales associate II-XII Norm as Tested Skin: Normal Color, Warm/Dry Progress/Results/Core Measures Results/Orders Lab Results Laboratory Tests Test 06/05/17 18:30 Range/Units My Orders Orders - WINDY DEWITT DO Femur, Left, 2 Views (06/05/17 17:39) Pelvis With Left Hip 2-3 Views (06/05/17 17:39) Saline Lock/Iv-Start (06/05/17 18:23) D5 1/2 Ns 1000 Ml Iv Solution (Dextrose (06/05/17 18:30) Morphine Injection (Morphine Injection (06/05/17 18:23) Catheter(Urinary) Insert & Ass 03,15 (06/05/17 18:23) Cbc With Automated Diff (06/05/17 18:) Comprehensive Metabolic Panel (06/05/17:) Protime With Inr (06/05/17 18:) Partial Thromboplastin Time (06/05/17 18:23) Ua Culture If Indicated (06/05/17:) Type And Screen (06/05/17 18:) Chest 1 View, Ap/Pa Only (06/05/17 18:23) Vital Signs/I&O Vital Sign - Last 12Hours 06/05/17 17:12 Temp 98.0 Pulse 46 Resp 18 B/P (MAP) 138/124 Pulse Ox 94 Blood Pressure Mean: 129 Departure Communication (Admissions) Progress Notes 1820--SPOKE WITH DR. SMITH, [facility] LEAD PRINTER FOR [facility] 4 STATES, HE WILL CALL ME BACK. 1833--SPOKE WITH DR. SMITH, ACCEPTS PT FOR ADMIT. Impression Impression: Primary Impression: Closed left hip fracture Disposition: ADMITTED INPATIENT Condition: Stable Admissions Decision to Admit Reason: Admit from ER (Trauma) Decision to Admit/Date: Jun 05, 2017 Time/Decision to Admit Time: 18:20 Departure-Patient Inst. Referrals: ОЛЬГА HORTON MD (PCP/Family) Primary Care Physician WINDY DEWITT DO Jun 05, 2017 17:42
[2017-06-05] MEDS ORDERED: morphine INJ 10 MG/ML 1ML (SYR OR VIAL) IVP STA (18:23)
[2017-06-05] MEDS ORDERED: D5 1/2 NS 1000 ML IV SOLUTION 1,000 ML IV ONE (18:30)
[2017-06-05 18:40] LABS: BASOPHILS % (AUTO) 0 % (0-10); EOSINOPHILS % (AUTO) 0 % (0-10); LYMPHOCYTES # (AUTO) 1.1 X 10^3 (1.0-4.0); LYMPHOCYTES % (AUTO) 9 % (12-44); MEAN CORPUSCULAR HEMOGLOBIN 33 PG (25-34); MEAN CORPUSCULAR HGB CONC 32 G/DL (32-36); MEAN CORPUSCULAR VOLUME 103 FL (80-99); MEAN PLATELET VOLUME 10.7 FL (7.4-10.4); MONOCYTES # (AUTO) 0.8 X 10^3 (0.0-1.0); MONOCYTES % (AUTO) 6 % (0-12); NEUTROPHILS # (AUTO) 10.1 X 10^3 (1.8-7.8); NEUTROPHILS % (AUTO) 84 % (42-75); PLATELET COUNT 174 10^3/uL (130-400); RED CELL DISTRIBUTION WIDTH 14.1 % (10.0-14.5)
--- NOTE | 2017-06-05 18:42 | Diagnostic Imaging Report ---
INDICATION: Fall, pelvic pain. COMPARISON: None. FINDINGS: Single view of the pelvis and lateral view of left hip demonstrate minimally displaced left femoral neck fracture. No obvious osseous lesion is seen. The right hip and pelvis are intact. IMPRESSION: Left femoral neck fracture. Dictated by: Dictated on workstation # [id number]
--- NOTE | 2017-06-05 18:44 | Diagnostic Imaging Report ---
INDICATION: Left hip pain, fall. COMPARISON: None. FINDINGS: Multiple views of the left hip and femur demonstrate minimally displaced left femoral neck fracture. There is no additional fracture identified. Degenerative changes seen involving the knee. There is atherosclerosis. IMPRESSION: Left femoral neck fracture. Dictated by: Dictated on workstation # [id number]
[2017-06-05] MEDS ORDERED: morphine INJ 10 MG/ML 1ML (SYR OR VIAL) IVP ONE (18:45)
[2017-06-05] MEDS ORDERED: DIAZEPAM INJ 10 MG/2 ML (VALIUM) SYR IV ONE (18:45)
[2017-06-05 18:52] LABS: INR 1.6 (0.8-1.4); PROTHROMBIN TIME PATIENT 18.6 SEC (12.2-14.7)
[2017-06-05 18:57] LABS: BILIRUBIN,URINE NEGATIVE (NEGATIVE); KETONES,URINE NEGATIVE (NEGATIVE); LEUKOCYTE ESTERASE ,URINE NEGATIVE (NEGATIVE); NITRITE,URINE NEGATIVE (NEGATIVE); PH,URINE 5 (5-9); PROTEIN,URINE NEGATIVE (NEGATIVE); UROBILINOGEN,URINE NORMAL (NORMAL)
[2017-06-05 19:00] LABS: ALBUMIN 3.7 GM/DL (3.2-4.5); BILIRUBIN,TOTAL 0.8 MG/DL (0.1-1.0); CALCIUM 9.2 MG/DL (8.5-10.1); CREATININE SERUM 1.75 MG/DL (0.60-1.30); POTASSIUM 4.4 MMOL/L (3.6-5.0); TOTAL PROTEIN 6.1 GM/DL (6.4-8.2)
--- NOTE | 2017-06-05 19:06 | Diagnostic Imaging Report ---
INDICATION: Fall, hip fracture. COMPARISON: 03/13/17. EXAMINATION: Single view of the chest was obtained. FINDINGS: Low lung volumes. The lungs are otherwise clear. Heart is prominent without pulmonary edema. There is mitral annular calcifications. There is no pneumothorax or effusion. Osseous structures are stable. IMPRESSION: No acute cardiopulmonary findings. Dictated by: Dictated on workstation # [id number]
[2017-06-05 19:16] LABS: SQUAMOUS EPITHELIAL CELL,UR 0-2 /HPF
[2017-06-05] MEDS ORDERED: D5 1/2 NS 1000 ML IV SOLUTION 1,000 ML IV SCH (20:00)
--- NOTE | 2017-06-05 20:06 | History & Physical-Surgical ---
HPO-Surgical History of Present Illness Chief Complaint: TO ROOM 05 VIA AMBULANCE. STATES [place] WHEN SHE TRIPPED OVER THE CARPET AND FELL TO LEFT HIP. COMPLAINS OF LEFT HIP PAIN. DENIES HITTING HER HEAD AND DENIES LOC. Diagnosis/Surgical Indication: AF with RVR Procedure: cardioversion Weight (Pounds): 150 Weight (Ounces): 9.0 Height (Feet): 5 Height (Inches): 1.00 Allergies and Home Medications Allergies Coded Allergies: No Known Drug Allergies (Unverified , 03/05/10) Home Medications Alprazolam 0.25 Mg Tablet, 0.25 MG PO Q8H PRN for ANXIETY, (Reported) Apixaban 5 Mg Tablet, 5 MG PO BID, (Reported) Atorvastatin Calcium 20 Mg Tablet, 20 MG PO DAILY, (Reported) Cyanocobalamin 1,000 Mcg/Ml Inj, 1,000 MCG IJ EVERY 2 WEEKS, (Reported) Diltiazem HCl 180 Mg Cap.er.24h, 180 MG PO DAILY, (Reported) Levothyroxine Sodium 75 Mcg Tablet, 75 MCG PO HS, (Reported) Lisinopril 10 Mg Tablet, 10 MG PO DAILY, (Reported) Propafenone HCl 225 Mg Tablet, 225 MG PO TID, #90 Ref 2 Prescribed by: MARGARITA COULTER on 05/24/17 0800 Past Bwkuioj-Fylgsb-Ykgncg Hx Patient Social History Recent Foreign Travel: No Contact w/other who traveled: No Recent Hopitalizations: No Recent Infectious Disease Expo: No Seasonal Allergies Seasonal Allergies: No Surgeries Yes Cardiac, Coronary Stent, Tonsillectomy Respiratory No Cardiovascular Yes Atrial Fibrillation, Coronary Artery Disease, High Cholesterol, Hypertension Neurological No Reproductive System Hx Reproductive Disorders: No (ENDOMETRIAL THICKENING) 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 Genitourinary No Gastrointestinal No Musculoskeletal Yes Arthritis Endocrine History of Endocrine Disorders: Yes Endocrine Disorders: Hypothyroidsim HEENT History of HEENT Disorders: No Hearing Impairment: Bilateral Hearing Aide Cancer No Psychosocial History of Psychiatric Problem: Yes Behavioral Health Disorders: Anxiety Integumentary History of Skin or Integumenta: No Blood Transfusions History of Blood Disorders: No Family Medical History Significant Family History: No Pertinent Family Hx Exam Vital Signs Vital Signs 06/05/17 06/05/17 17:12 18:57 Temp 98.0 Pulse 78 Resp 16 B/P (MAP) 138/124 Pulse Ox 98 Capillary Refill : Less Than 3 Seconds Labs Laboratory Tests Test 06/05/17 18:30 06/05/17 18:50 Range/Units White Blood Count 12.0 H 4.3-11.0 10^3/uL Red Blood Count 4.00 L 4.35-5.85 10^6/uL Hemoglobin 13.0 11.5-16.0 G/DL Hematocrit 41 35-52 % Mean Corpuscular Volume 103 H 80-99 FL Mean Corpuscular Hemoglobin 33 25-34 PG Mean Corpuscular Hemoglobin Concent 32 32-36 G/DL Red Cell Distribution Width 14.1 10.0-14.5 % Platelet Count 174 130-400 10^3/uL Mean Platelet Volume 10.7 H 7.4-10.4 FL Neutrophils (%) (Auto) 84 H 42-75 % Lymphocytes (%) (Auto) 9 L 12-44 % Monocytes (%) (Auto) 6 0-12 % Eosinophils (%) (Auto) 0 0-10 % Basophils (%) (Auto) 0 0-10 % Neutrophils # (Auto) 10.1 H 1.8-7.8 X 10^3 Lymphocytes # (Auto) 1.1 1.0-4.0 X 10^3 Monocytes # (Auto) 0.8 0.0-1.0 X 10^3 Eosinophils # (Auto) 0.0 0.0-0.3 10^3/uL Basophils # (Auto) 0.0 0.0-0.1 10^3/uL Prothrombin Time 18.6 H 12.2-14.7 SEC INR Comment 1.6 H 0.8-1.4 Activated Partial Thromboplast Time 29 24-35 SEC Sodium Level 143 135-145 MMOL/L Potassium Level 4.4 3.6-5.0 MMOL/L Chloride Level 108 H 98-107 MMOL/L Carbon Dioxide Level 23 21-32 MMOL/L Anion Gap 12 5-14 MMOL/L Blood Urea Nitrogen 29 H 7-18 MG/DL Creatinine 1.75 H 0.60-1.30 MG/DL Estimat Glomerular Filtration Rate 27 BUN/Creatinine Ratio 17 Glucose Level 104 70-105 MG/DL Calcium Level 9.2 8.5-10.1 MG/DL Total Bilirubin 0.8 0.1-1.0 MG/DL Aspartate Amino Transf (AST/SGOT) 16 5-34 U/L Alanine Aminotransferase (ALT/SGPT) 10 0-55 U/L Alkaline Phosphatase 77 40-136 U/L Total Protein 6.1 L 6.4-8.2 GM/DL Albumin 3.7 3.2-4.5 GM/DL Urine Color YELLOW Urine Clarity SLIGHTLY CLOUDY Urine pH 5 5-9 Urine Specific [place] 1.010 L 1.016-1.022 Urine Protein NEGATIVE NEGATIVE Urine Glucose (UA) NEGATIVE NEGATIVE Urine Ketones NEGATIVE NEGATIVE Urine Nitrite NEGATIVE NEGATIVE Urine Bilirubin NEGATIVE NEGATIVE Urine Urobilinogen NORMAL NORMAL MG/DL Urine Leukocyte Esterase NEGATIVE NEGATIVE Urine RBC (Auto) 1+ H NEGATIVE Urine RBC RARE /HPF Urine WBC 10-25 H /HPF Urine Squamous Epithelial Cells 0-2 /HPF Urine Renal Epithelial Cells NONE /HPF Urine Crystals NONE /LPF Urine Bacteria NEGATIVE /HPF Urine Casts PRESENT /LPF Urine Hyaline Casts 10-25 H /LPF Urine Coarse Granular Casts 0-2 H /LPF Urine Mucus NEGATIVE /LPF Urine Culture Indicated NO General Appearance: Alert, Oriented X3, Cooperative, No Acute Distress HEENT: Atraumatic Respiratory: Other (regular unlabored breathing, no audible wheeze) Cardiovascular: Regular Rate Extremities: No Edema, Normal Pulses (2+ DP), Other (left LE sever pain with rotation, referred to hip, externally rotated posture, 2+DP) Skin: No Significant Lesion Neuro: Sensation Intact (throughout foot), Other (intact ankle DF/PF) Psych/Mental Status: Mental Status NL Assessment/Plan Assessment and Plan 86-year-old female with left proximal femur fracture, Garden 3 femoral neck on Eliquis Send crossmatch Recommended hip hemiarthroplasty. Discussed alternative treatment options. Conference discussion regarding risks benefits alternatives to rationale the surgical intervention was held with the patient he stated understanding, wished to proceed and noted acceptance of the associated risks including with blood transfusion which is likely to be required given her current anticoagulation status. Obtain hospitalist consultation. OR tomorrow Problems: Admission Diagnosis left proximal femur fracture PEER,GABRIELLE Tian MD Jun 05, 2017 20:06
[2017-06-05] MEDS ORDERED: D5 NS 1000 ML IV SOLUTION 1,000 ML IV SCH (20:09)
[2017-06-05] MEDS ORDERED: BACITRACIN 50000 UNIT IM ONE ×2 (20:15)
[2017-06-05 21:26] LABS: BILIRUBIN,URINE NEGATIVE (NEGATIVE); KETONES,URINE NEGATIVE (NEGATIVE); LEUKOCYTE ESTERASE ,URINE NEGATIVE (NEGATIVE); NITRITE,URINE NEGATIVE (NEGATIVE); PH,URINE 5 (5-9); PROTEIN,URINE NEGATIVE (NEGATIVE); UROBILINOGEN,URINE NORMAL (NORMAL)
[2017-06-05 21:50] LABS: GRANULAR CASTS,URINE 0-2 /LPF; RENAL EPITHELIAL CELLS,URINE 0-2 /HPF; SQUAMOUS EPITHELIAL CELL,UR 0-2 /HPF; WBC,URINE 0-2 /HPF
[2017-06-05] MEDS ORDERED: ONDANSETRON 4 MG/2 ML (SDV) Z0FRAN IVP PRN (22:00)
[2017-06-05] MEDS: morphine INJ 10 MG/ML 1ML (SYR OR VIAL) IV PRN (22:21)
[2017-06-06] VITALS (18 sets, daily range): BP systolic 94–135; BP diastolic 42–94
[2017-06-06] MEDS: NS IV 1000 ML 1,000 ML IV SCH ×3 (00:16→18:28)
[2017-06-06] MEDS: morphine INJ 10 MG/ML 1ML (SYR OR VIAL) IV PRN ×4 (02:07→19:35)
[2017-06-06 05:48] LABS: BASOPHILS % (AUTO) 0 % (0-10); EOSINOPHILS % (AUTO) 0 % (0-10); LYMPHOCYTES # (AUTO) 0.5 X 10^3 (1.0-4.0); LYMPHOCYTES % (AUTO) 3 % (12-44); MEAN CORPUSCULAR HEMOGLOBIN 33 PG (25-34); MEAN CORPUSCULAR HGB CONC 32 G/DL (32-36); MEAN CORPUSCULAR VOLUME 104 FL (80-99); MEAN PLATELET VOLUME 10.9 FL (7.4-10.4); MONOCYTES # (AUTO) 0.9 X 10^3 (0.0-1.0); MONOCYTES % (AUTO) 4 % (0-12); NEUTROPHILS # (AUTO) 18.9 X 10^3 (1.8-7.8); NEUTROPHILS % (AUTO) 93 % (42-75); PLATELET COUNT 152 10^3/uL (130-400); RED BLOOD COUNT 3.95 10^6/uL (4.35-5.85); RED CELL DISTRIBUTION WIDTH 14.3 % (10.0-14.5); WHITE BLOOD COUNT 20.4 10^3/uL (4.3-11.0)
[2017-06-06 06:05] LABS: CALCIUM 8.3 MG/DL (8.5-10.1); CREATININE SERUM 1.51 MG/DL (0.60-1.30); POTASSIUM 4.3 MMOL/L (3.6-5.0)
--- NOTE | 2017-06-06 08:23 | Consultation-Cardiology ---
HPI-Cardiology Cardiology Consultation Date of Consultation 06/06/17 Date of Admission Time Seen by Provider: 08:18 Indication: Atrial fibrillation HPI 86 years old lady with history of paroxysmal atrial fibrillation, history of lightheadedness and dizziness, was walking at the [employer] yesterday when she tripped and fell sustained a hip fracture. She denied any loss of consciousness or dizziness, denied any shortness of breath, no palpitation, in the emergency room it appear that she was bradycardic and had an episode of junctional rhythm. This morning she is in sinus rhythm with atrial premature contractions. Patient has been on Eliquis and she took her medication at least yesterday morning Home Medications & Allergies Allergies: Coded Allergies: No Known Drug Allergies (Unverified , 03/05/10) Home Medication List Reviewed: Yes PPE-Huxwdy-Urjizd Hx Patient Social History Alcohol Use: Occasionally Uses Recreational Drug Use: No Smoking Status: Never a Smoker Recent Foreign Travel: No Recent Infectious Disease Expo: No Recent Hopitalizations: No Physical Abuse Screen: No Sexual Abuse: No Immunizations Up To Date Date of Pneumonia Vaccine: May 28, 2015 Past Medical History past medical history is discussed below Family Medical History Significant Family History: No Pertinent Family Hx Family Medical Hx noncontributory to her current condition Family History: Patient reports no known family medical history. Constitutional: see HPI, malaise EENTM: see HPI, no symptoms reported Respiratory: no symptoms reported, see HPI Cardiovascular: no symptoms reported, see HPI Gastrointestinal: no symptoms reported, see HPI Genitourinary: no symptoms reported, see HPI Musculoskeletal: see HPI, back pain, joint pain, other ( hip fracture) Skin: see HPI, other ( Bruising noted on the arms) Psychiatric/Neurological: No Symptoms Reported, See HPI Reviewed Test Results Reviewed Test Results Lab Laboratory Tests Test 06/05/17 18:30 06/05/17 18:50 06/05/17 20:50 06/06/17 05:30 Range/Units White Blood Count 12.0 H 20.4 H 4.3-11.0 10^3/uL Red Blood Count 4.00 L 3.95 L 4.35-5.85 10^6/uL Hemoglobin 13.0 13.0 11.5-16.0 G/DL Hematocrit 41 41 35-52 % Mean Corpuscular Volume 103 H 104 H 80-99 FL Mean Corpuscular Hemoglobin 33 33 25-34 PG Mean Corpuscular Hemoglobin Concent 32 32 32-36 G/DL Red Cell Distribution Width 14.1 14.3 10.0-14.5 % Platelet Count 174 152 130-400 10^3/uL Mean Platelet Volume 10.7 H 10.9 H 7.4-10.4 FL Neutrophils (%) (Auto) 84 H 93 H 42-75 % Lymphocytes (%) (Auto) 9 L 3 L 12-44 % Monocytes (%) (Auto) 6 4 0-12 % Eosinophils (%) (Auto) 0 0 0-10 % Basophils (%) (Auto) 0 0 0-10 % Neutrophils # (Auto) 10.1 H 18.9 H 1.8-7.8 X 10^3 Lymphocytes # (Auto) 1.1 0.5 L 1.0-4.0 X 10^3 Monocytes # (Auto) 0.8 0.9 0.0-1.0 X 10^3 Eosinophils # (Auto) 0.0 0.0 0.0-0.3 10^3/uL Basophils # (Auto) 0.0 0.0 0.0-0.1 10^3/uL Prothrombin Time 18.6 H 12.2-14.7 SEC INR Comment 1.6 H 0.8-1.4 Activated Partial Thromboplast Time 29 24-35 SEC Sodium Level 143 141 135-145 MMOL/L Potassium Level 4.4 4.3 3.6-5.0 MMOL/L Chloride Level 108 H 110 H 98-107 MMOL/L Carbon Dioxide Level 23 18 L 21-32 MMOL/L Anion Gap 12 13 5-14 MMOL/L Blood Urea Nitrogen 29 H 28 H 7-18 MG/DL Creatinine 1.75 H 1.51 H 0.60-1.30 MG/DL Estimat Glomerular Filtration Rate 27 33 BUN/Creatinine Ratio 17 19 Glucose Level 104 112 H 70-105 MG/DL Calcium Level 9.2 8.3 L 8.5-10.1 MG/DL Total Bilirubin 0.8 0.1-1.0 MG/DL Aspartate Amino Transf (AST/SGOT) 16 5-34 U/L Alanine Aminotransferase (ALT/SGPT) 10 0-55 U/L Alkaline Phosphatase 77 40-136 U/L Total Protein 6.1 L 6.4-8.2 GM/DL Albumin 3.7 3.2-4.5 GM/DL Urine Color YELLOW YELLOW Urine Clarity SLIGHTLY CLOUDY CLEAR Urine pH 5 5 5-9 Urine Specific [place] 1.010 L 1.010 L 1.016-1.022 Urine Protein NEGATIVE NEGATIVE NEGATIVE Urine Glucose (UA) NEGATIVE 4+ H NEGATIVE Urine Ketones NEGATIVE NEGATIVE NEGATIVE Urine Nitrite NEGATIVE NEGATIVE NEGATIVE Urine Bilirubin NEGATIVE NEGATIVE NEGATIVE Urine Urobilinogen NORMAL NORMAL NORMAL MG/DL Urine Leukocyte Esterase NEGATIVE NEGATIVE NEGATIVE Urine RBC (Auto) 1+ H 2+ H NEGATIVE Urine RBC RARE 0-2 /HPF Urine WBC 10-25 H 0-2 /HPF Urine Squamous Epithelial Cells 0-2 0-2 /HPF Urine Renal Epithelial Cells NONE 0-2 /HPF Urine Crystals NONE NONE /LPF Urine Bacteria NEGATIVE NEGATIVE /HPF Urine Casts PRESENT PRESENT /LPF Urine Hyaline Casts 10-25 H 5-10 H /LPF Urine Coarse Granular Casts 0-2 H /LPF Urine Mucus NEGATIVE NEGATIVE /LPF Urine Culture Indicated NO NO Urine Granular Casts 0-2 H /LPF Physical Exam Vital Signs Vital Sign - Last 12Hours 06/05/17 06/05/17 06/06/17 17:12 21:00 00:00 Temp 98.0 Pulse 46 Resp 18 B/P (MAP) 138/124 Pulse Ox 94 O2 Delivery Room Air O2 Flow Rate 2.00 Capillary Refill : Less Than 3 SecondsLess Than 3 Seconds General Appearance: No Apparent Distress, WD/WN Eyes: Bilateral Eye Normal Inspection, Bilateral Eye PERRL, Bilateral Eye EOMI HEENT: PERRL/EOMI, TMs Normal, Normal ENT Inspection, Pharynx Normal Neck: Full Range of Motion, Normal Inspection, Non Tender, Supple, Carotid Bruit Respiratory: Chest Non Tender, Lungs Clear, Normal Breath Sounds, No Accessory Muscle Use, No Respiratory Distress Cardiovascular: No Edema, No Gallop, No JVD, Normal Peripheral Pulses, Systolic Murmur, Other (Irregular) Gastrointestinal: Normal Bowel Sounds, No Organomegaly, No Pulsatile Mass, Non Tender, Soft Back: Normal Inspection Extremity: Normal Capillary Refill, No Pedal Edema, Other (Hip fracture with bruising on the arms) Neurologic/Psychiatric: Alert, Oriented x3, Normal Mood/Affect Skin: Normal Color, Warm/Dry Lymphatic: No Adenopathy A/P-Cardiology Admission Diagnosis Hip fracture Junctional bradycardia Accessible atrial fibrillation Coronary artery disease Assessment/Plan Hip fracture secondary to a fall, no syncope or near syncopal episode preceded the the injury, managed by orthopedic surgeon Junctional bradycardia, status post episode of bradycardia in the emergency room. Heart rate in the 30s, currently she is in sinus rhythm with atrial premature contractions. History of dizziness and lightheadedness, secondary to tachycardia, no dizzy spells prior to the injury Paroxysmal atrial fibrillation, history of Reveal device implantation, had RE with electrical cardioversion done by Dr. Garcia in August 2016 then another procedure in September 2016, treated with sotalol and underwent another electrical cardioversion in February 2017 which has failed to maintain sinus rhythm , currently on propafenone and Cardizem, has stopped taking metoprolol. currently off her medications. [id number] score is 5, yearly risk of stroke without oral anticoagulation is 6.7 percent, patient has been maintained on Eliquis, last dose was taken yesterday morning. Coronary artery disease, history of a stent placement using Taxus 3.5x23 mm to the right coronary artery done in 2009. Another stent 2.75x15 mm Taxus to the LAD. Currently asymptomatic. Most recent stress test August 2016 revealed no ischemia or infarct. Continue to monitor. Renal artery stenosis, history of 6.0x14 mm Express stent to the left renal artery done in 2009. Blood pressure is becoming poorly controlled. Renal arterial Doppler did not show significant obstructive disease, renal cyst was noted incidentally. Continue to monitor Hypertension, continue to monitor blood pressure Acute renal failure, continue to monitor renal function closely Hyperlipidemia, maintained on Lipitor, monitor lipids History of cor pulmonale, last echocardiogram was done in May 2016 revealing EF 55 percent, diastolic dysfunction, mild mitral and tricuspid regurgitation. Carotid stenosis, moderate bilateral stenosis. Last ultrasound was done in October 2016, continue to monitor Hypothyroidism, monitored and followed by primary care physician. Osteoarthritis, history of left knee arthroscopy in [address] Thomason is covering for me starting tomorrow Preoperative cardiac evaluation, patient is considered at high risk of bleeding due to to the treatment with Eliquis, the recommendation is to hold Eliquis for 24 hours for low risk of bleeding procedure, 48 hours for intermediate and high risk of bleeding procedures. Overall she is considered at intermediate to high risk for perioperative cardiovascular complications, monitoring the patient on telemetry is highly recommended, decision regarding the surgery, risks versus benefits is deferred to the surgeon. Clinical Quality Measures DVT/VTE Risk/Contraindication: Risk Factor Score Per Nursin RFS Level Per Nursing on Admit: 4+=Very High MARGARITA COULTER MD Jun 06, 2017 08:23
--- NOTE | 2017-06-06 08:34 | Consultation-Hospitalist ---
HPI History of Present Illness: HPI/Chief Complaint Pt is an 86yoCF with a PMH of CAD s/p stenting, MAKAYLA s/p stenting, HTN, and a- fib s/p multiple cardioversions who presented to the ER after a fall yesterday. She reports she is normally very active and lives independently. [place] when she tripped and fellon her way our. She denies any previous falls prior to this though review of records show extensive history of syncope/dizziness presumably related to her a-fib. In the ER she was found to have a left femoral neck fracture. She was admitted to the orthopedic service and I was consulted for evaluation of preoperative risk assessment and ANGELO. Source: patient Date Seen 06/06/17 Attending Physician Ermias Goode MD PCP Jamie Holcomb MD Referring Physician Date of Admission Jun 05, 2017 at 18:20 Home Medications & Allergies Home Medications Reviewed patient Home Medication Reconciliation Form Allergies Allergies Coded Allergies No Known Drug Allergies (Unverified03/05/10) Past Vjzupzn-Xqpbng-Tovjcb Hx Patient Social History Alcohol Use: Occasionally Uses Number of Drinks Today: 0 Alcohol Beverage of Choice: [place] Recreational Drug Use: No Smoking Status: Never a Smoker Physical Abuse Screen: No Sexual Abuse: No Recent Foreign Travel: No Contact w/other who traveled: No Recent Hopitalizations: No Recent Infectious Disease Expo: No Immunizations Up To Date Pediatric: No Date of Pneumonia Vaccine: May 28, 2015 Seasonal Allergies Seasonal Allergies: No Surgeries No Cardiac, Coronary Stent, Tonsillectomy Respiratory No Cardiovascular Yes Atrial Fibrillation, Coronary Artery Disease, High Cholesterol, Hypertension Neurological No Reproductive System Hx Reproductive Disorders: No (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 Genitourinary No Gastrointestinal No Musculoskeletal Yes Arthritis Endocrine History of Endocrine Disorders: Yes Endocrine Disorders: Hypothyroidsim HEENT History of HEENT Disorders: Yes Loss of Vision: Denies Hearing Impairment: Hard of Hearing, Bilateral Hearing Aide Cancer No Psychosocial History of Psychiatric Problem: No Behavioral Health Disorders: Anxiety Integumentary History of Skin or Integumenta: No Blood Transfusions History of Blood Disorders: No Adverse Reaction to a Blood Tr: No Family Medical History Significant Family History: No Pertinent Family Hx Family Hx: Patient reports no known family medical history. Review of Systems Constitutional: No chills, No fever, No weakness EENTM: No blurred vision, No double vision Respiratory: No dyspnea on exertion, No short of breath Cardiovascular: No chest pain, No edema, No palpitations Gastrointestinal: No abdominal pain, No constipation, No diarrhea, No loss of appetite, No nausea, No vomiting Genitourinary: No dysuria, No frequency Musculoskeletal: joint pain Psychiatric/Neurological: Denies Numbness, Denies Paresthesia Physical Exam Physical Exam Vital Signs Vital Sign - Last 12Hours 06/05/17 06/05/17 06/06/17 17:12 21:00 00:00 Temp 98.0 Pulse 46 Resp 18 B/P (MAP) 138/124 Pulse Ox 94 O2 Delivery Room Air O2 Flow Rate 2.00 Capillary Refill : Less Than 3 SecondsLess Than 3 Seconds General Appearance: No Apparent Distress, WD/WN Neck: Non Tender, Supple Respiratory: Lungs Clear, Normal Breath Sounds, No Accessory Muscle Use, No Respiratory Distress Cardiovascular: Regular Rate, Rhythm, No JVD, No Murmur Gastrointestinal: Normal Bowel Sounds, Non Tender, Soft Extremity: No Calf Tenderness, No Pedal Edema Neurologic/Psychiatric: Alert, Oriented x3 Results Results/Procedures Lab Laboratory Tests 06/05/17 18:30 06/06/17 05:30 Radiology FEMUR, LEFT 2 VIEWS IMPRESSION: Left femoral neck fracture. Assessment/Plan Admission Diagnosis Preoperative Risk Assessment Diagnosis/Problems Diagnosis/Problems (1) Pre-op evaluation Assessment & Plan: Reviewed current and chronically medical conditions with patient Per RCRI and NSQIP evaluation shows 3.0% of serious complication Her renal function has started to improved with hydration Deferment of surgery would likely be most beneficial for patient to allow correction of ANGELO and to hold her anticoagulation per guidelines (2) Acute kidney injury Status: Acute Assessment & Plan: History of MAKAYLA s/p stenting Will continue IVF for hydration (3) Fracture of proximal end of left femur Status: Acute Assessment & Plan: Management per Ortho (4) CAD (coronary artery disease) Status: Chronic Assessment & Plan: No active chest pain or agina METS >4 Stable, on eliquis, statin Qualifiers: Qualified Codes: I25.10 - Atherosclerotic heart disease of [place] coronary artery without angina pectoris (5) Essential (primary) hypertension Status: Chronic Assessment & Plan: Well controlled here, continue home meds (6) Hypothyroidism Status: Chronic Assessment & Plan: Cont home meds (7) Prophylactic measure Assessment & Plan: Hold Eliquis for surery NS at 100ml/hr Clinical Quality Measures DVT/VTE Risk/Contraindication: Risk Factor Score Per Nursin RFS Level Per Nursing on Admit: 4+=Very High NAVI WOLFF MD Jun 06, 2017 08:33
[2017-06-06] MEDS ORDERED: ceFAZolin 2 GM/50 ML NS 50 ML IV ONE (09:00)
[2017-06-06] MEDS ORDERED: ALPRAZolam 0.25 MG (XANAX) TAB PO PRN (09:00)
[2017-06-06] MEDS ORDERED: BACITRACIN 50000 UNIT IM ONE (09:00)
--- NOTE | 2017-06-06 09:26 | Progress Note-Standard ---
Standard Progress Note Progress Notes/Assess & Plan Date Seen by Provider: Jun 06, 2017 Time Seen by Provider: 09:20 Progress/Assessment & Plan 86-year-old female with left proximal femoral neck fracture. Displaced She presented to the emergency department on the evening of 06/05/17 and was tentatively scheduled for surgery this morning. Patient had episode with bradycardia down to 30s and 40s. Cardiology consult has been obtained. Hospitalist consult has been obtained. Apparently she has fairly recalcitrant to cardiac disease. Her last dose of Eliquis was 06/05/17 and medical recommendations suggest that postponing surgery at this point is advisable. I met with the patient and family and discuss the safety considerations. I discussed the timing of surgeries. the risks of surgeryand the merits and risk- benefit ratio. Exam is unchanged patient's awake alert well-oriented 4. Left lower extremity is very painful to hip with any motion. Distal light touch sensation is intact in the foot is warm and pink and well perfused. Laboratory Tests Test 06/05/17 18:30 06/05/17 18:50 06/05/17 20:50 06/06/17 05:30 Range/Units White Blood Count 12.0 H 20.4 H 4.3-11.0 10^3/uL Red Blood Count 4.00 L 3.95 L 4.35-5.85 10^6/uL Hemoglobin 13.0 13.0 11.5-16.0 G/DL Hematocrit 41 41 35-52 % Mean Corpuscular Volume 103 H 104 H 80-99 FL Mean Corpuscular Hemoglobin 33 33 25-34 PG Mean Corpuscular Hemoglobin Concent 32 32 32-36 G/DL Red Cell Distribution Width 14.1 14.3 10.0-14.5 % Platelet Count 174 152 130-400 10^3/uL Mean Platelet Volume 10.7 H 10.9 H 7.4-10.4 FL Neutrophils (%) (Auto) 84 H 93 H 42-75 % Lymphocytes (%) (Auto) 9 L 3 L 12-44 % Monocytes (%) (Auto) 6 4 0-12 % Eosinophils (%) (Auto) 0 0 0-10 % Basophils (%) (Auto) 0 0 0-10 % Neutrophils # (Auto) 10.1 H 18.9 H 1.8-7.8 X 10^3 Lymphocytes # (Auto) 1.1 0.5 L 1.0-4.0 X 10^3 Monocytes # (Auto) 0.8 0.9 0.0-1.0 X 10^3 Eosinophils # (Auto) 0.0 0.0 0.0-0.3 10^3/uL Basophils # (Auto) 0.0 0.0 0.0-0.1 10^3/uL Prothrombin Time 18.6 H 12.2-14.7 SEC INR Comment 1.6 H 0.8-1.4 Activated Partial Thromboplast Time 29 24-35 SEC Sodium Level 143 141 135-145 MMOL/L Potassium Level 4.4 4.3 3.6-5.0 MMOL/L Chloride Level 108 H 110 H 98-107 MMOL/L Carbon Dioxide Level 23 18 L 21-32 MMOL/L Anion Gap 12 13 5-14 MMOL/L Blood Urea Nitrogen 29 H 28 H 7-18 MG/DL Creatinine 1.75 H 1.51 H 0.60-1.30 MG/DL Estimat Glomerular Filtration Rate 27 33 BUN/Creatinine Ratio 17 19 Glucose Level 104 112 H 70-105 MG/DL Calcium Level 9.2 8.3 L 8.5-10.1 MG/DL Total Bilirubin 0.8 0.1-1.0 MG/DL Aspartate Amino Transf (AST/SGOT) 16 5-34 U/L Alanine Aminotransferase (ALT/SGPT) 10 0-55 U/L Alkaline Phosphatase 77 40-136 U/L Total Protein 6.1 L 6.4-8.2 GM/DL Albumin 3.7 3.2-4.5 GM/DL Urine Color YELLOW YELLOW Urine Clarity SLIGHTLY CLOUDY CLEAR Urine pH 5 5 5-9 Urine Specific Economy 1.010 L 1.010 L 1.016-1.022 Urine Protein NEGATIVE NEGATIVE NEGATIVE Urine Glucose (UA) NEGATIVE 4+ H NEGATIVE Urine Ketones NEGATIVE NEGATIVE NEGATIVE Urine Nitrite NEGATIVE NEGATIVE NEGATIVE Urine Bilirubin NEGATIVE NEGATIVE NEGATIVE Urine Urobilinogen NORMAL NORMAL NORMAL MG/DL Urine Leukocyte Esterase NEGATIVE NEGATIVE NEGATIVE Urine RBC (Auto) 1+ H 2+ H NEGATIVE Urine RBC RARE 0-2 /HPF Urine WBC 10-25 H 0-2 /HPF Urine Squamous Epithelial Cells 0-2 0-2 /HPF Urine Renal Epithelial Cells NONE 0-2 /HPF Urine Crystals NONE NONE /LPF Urine Bacteria NEGATIVE NEGATIVE /HPF Urine Casts PRESENT PRESENT /LPF Urine Hyaline Casts 10-25 H 5-10 H /LPF Urine Coarse Granular Casts 0-2 H /LPF Urine Mucus NEGATIVE NEGATIVE /LPF Urine Culture Indicated NO NO Urine Granular Casts 0-2 H /LPF IMPRESSION: Left unstable proximal femoral neck fracture PLAN: Hold Eliquis before surgery for 48 hours. PEERGABRIELLE MD Jun 06, 2017 09:26
[2017-06-06] MEDS ORDERED: ACETAMINOPHEN 500 MG TAB (TYLENOL) PO ONE (09:45)
[2017-06-06] MEDS: ATORVASTATIN 20 MG (LIPITOR) TABLET PO SCH (10:14)
[2017-06-06] MEDS: lisINopril 10 MG (PRINIVIL) TAB PO SCH (10:14)
[2017-06-06] MEDS: DILTIAZEM 180 MG (CARDIZEM CD) CAP PO SCH (10:15)
[2017-06-06] MEDS: ACETAMINOPHEN 500 MG TAB (TYLENOL) PO SCH ×2 (13:51→21:20)
[2017-06-06] MEDS ORDERED: PROP225T2 PO (15:41)
[2017-06-06] MEDS: LEVOTHYROXINE 75 MCG (LEVOTHROID) TABLET PO SCH (21:20)
[2017-06-07] VITALS (22 sets, daily range): BP systolic 87–177; BP diastolic 34–90
[2017-06-07] MEDS: NS IV 1000 ML 1,000 ML IV SCH ×2 (04:24→14:37)
[2017-06-07 04:47] LABS: BASOPHILS % (AUTO) 0 % (0-10); EOSINOPHILS % (AUTO) 0 % (0-10); LYMPHOCYTES # (AUTO) 1.2 X 10^3 (1.0-4.0); LYMPHOCYTES % (AUTO) 6 % (12-44); MEAN CORPUSCULAR HEMOGLOBIN 32 PG (25-34); MEAN CORPUSCULAR HGB CONC 31 G/DL (32-36); MEAN CORPUSCULAR VOLUME 106 FL (80-99); MEAN PLATELET VOLUME 11.1 FL (7.4-10.4); MONOCYTES # (AUTO) 0.8 X 10^3 (0.0-1.0); MONOCYTES % (AUTO) 4 % (0-12); NEUTROPHILS # (AUTO) 19.1 X 10^3 (1.8-7.8); NEUTROPHILS % (AUTO) 90 % (42-75); PLATELET COUNT 133 10^3/uL (130-400); RED BLOOD COUNT 3.43 10^6/uL (4.35-5.85); RED CELL DISTRIBUTION WIDTH 14.4 % (10.0-14.5); WHITE BLOOD COUNT 21.2 10^3/uL (4.3-11.0)
[2017-06-07 05:05] LABS: CALCIUM 8.2 MG/DL (8.5-10.1); CREATININE SERUM 1.21 MG/DL (0.60-1.30); MAGNESIUM 1.6 MG/DL (1.8-2.4); PHOSPHORUS 3.6 MG/DL (2.3-4.7); POTASSIUM 4.9 MMOL/L (3.6-5.0)
[2017-06-07] MEDS: MAGNESIUM 1 GM/100 ML IVPB 100 ML IV SCH ×3 (05:51→06:52)
[2017-06-07] MEDS: POTASSIUM CL 10MEQ/50ML IVPB 50 ML IV SCH (05:51)
[2017-06-07] MEDS: KCL 20 MEQ TAB (K-DUR) PO SCH (05:52)
[2017-06-07] MEDS: morphine INJ 10 MG/ML 1ML (SYR OR VIAL) IV PRN ×3 (06:53→14:37)
--- NOTE | 2017-06-07 08:50 | Diagnostic Imaging Report ---
INDICATION: Left hip fracture. COMPARISON: 06/05/2017 FINDINGS: Single frontal radiographic view of the chest was obtained and demonstrates interval decrease in inspiratory volumes. There has also been interval increase in right basilar opacification as well as bilateral perihilar opacities. There is no large effusion or pneumothorax. Cardiac silhouette and pulmonary vasculature within normal limits. Bony structures show no gross acute abnormalities. IMPRESSION: 1. Decreased lung volumes with increased bilateral perihilar and right basilar atelectasis and/or infiltrate. Continued followup is recommended. Dictated by: Dictated on workstation # [id number]
[2017-06-07] MEDS ORDERED: ceFAZolin 2 GM/50 ML NS 50 ML IV NR (09:00)
[2017-06-07] MEDS ORDERED: BACITRACIN 50000 UNIT TP NR (09:00)
--- NOTE | 2017-06-07 09:06 | Progress Note-Cardiology ---
Cardiology SOAP Progress Note Subjective: C/O hip pain at the fracture site. No c/o CP or dyspnea. Reports a feeling of an occ "skipped beat". Son at the bedside. Objective: I&O/Vital Signs Vital Sign - Last 12Hours 06/07/17 06/07/17 06/07/17 06/07/17 07:00 07:00 07:27 08:00 Pulse 101 103 101 Resp 11 13 B/P (MAP) 160/58 141/70 Pulse Ox 98 95 O2 Delivery Nasal Cannula Nasal Cannula Nasal Cannula O2 Flow Rate 3.00 4.00 3.00 06/07/17 06/07/17 06/07/17 06/07/17 08:32 08:33 09:00 10:00 Temp 98.7 Pulse 97 95 Resp 9 14 B/P (MAP) 142/60 128/71 Pulse Ox 93 94 O2 Delivery Nasal Cannula Nasal Cannula Nasal Cannula Nasal Cannula O2 Flow Rate 2.00 2.00 3.00 3.00 06/07/17 06/07/17 06/07/17 06/07/17 11:00 13:00 14:00 14:30 Pulse 103 99 100 Resp 10 15 B/P (MAP) 162/64 112/41 Pulse Ox 94 90 O2 Delivery Nasal Cannula Nasal Cannula Nasal Cannula O2 Flow Rate 3.00 3.00 3.00 06/07/17 06/07/17 06/07/17 06/07/17 15:00 16:00 16:23 16:24 Temp 97.2 Pulse 93 93 Resp 9 15 B/P (MAP) 87/34 177/76 Pulse Ox 91 94 O2 Delivery Nasal Cannula Nasal Cannula Nasal Cannula Nasal Cannula O2 Flow Rate 3.00 3.00 3.00 3.00 06/07/17 06/07/17 17:00 18:00 Pulse 102 100 Resp 8 12 B/P (MAP) 138/45 126/54 Pulse Ox 97 95 O2 Delivery Nasal Cannula Nasal Cannula O2 Flow Rate 3.00 3.00 Intake and Output 06/08/17 00:00 Intake Total 1000 ml Output Total 680 ml Balance 320 ml Weight (Pounds): 164 Weight (Ounces): 0.0 Weight (Calculated Kilograms): 74.234022 Constitutional: AAO x 3 Respiratory: No accessory muscle use, chest expansion is symmetric, chest is bilaterally symmetric, other (diminished bases bilat) Cardiovascular: regular rate-rhythm, No JVD Gastrointestional: No tender, soft, round, audible bowel sounds Extremities: no lower extremity edema bilateral Neurologic/Psychiatric: other (left leg not manipulated d/t left hip fracture ( awaiting repair); moves other extremities) Results/Procedures: Labs Laboratory Tests 06/07/17 04:09: White Blood Count 21.2H, Red Blood Count 3.43L, Hemoglobin 11.1L, Hematocrit 36 , Mean Corpuscular Volume 106H, Mean Corpuscular Hemoglobin 32, Mean Corpuscular Hemoglobin Concent 31L, Red Cell Distribution Width 14.4, Platelet Count 133, Mean Platelet Volume 11.1H, Neutrophils (%) (Auto) 90H, Lymphocytes ( %) (Auto) 6L, Monocytes (%) (Auto) 4, Eosinophils (%) (Auto) 0, Basophils (%) ( Auto) 0, Neutrophils # (Auto) 19.1H, Lymphocytes # (Auto) 1.2, Monocytes # (Auto ) 0.8, Eosinophils # (Auto) 0.0, Basophils # (Auto) 0.0, Sodium Level 142, Potassium Level 4.9, Chloride Level 112H, Carbon Dioxide Level 22, Anion Gap 8, Blood Urea Nitrogen 29H, Creatinine 1.21, Estimat Glomerular Filtration Rate 42 , BUN/Creatinine Ratio 24, Glucose Level 108H, Calcium Level 8.2L, Phosphorus Level 3.6, Magnesium Level 1.6L Microbiology 06/05/17 MRSA Screen - Final, Complete MRSA not isolated Laboratory Tests 06/06/17 05:30 06/07/17 04:09 Procedures NAME: JULIA BANKS [facility] REC#: [id number] PT STATUS: ADM IN : 1930 PHYSICIAN: NAVI WOLFF MD ADMIT DATE: 06/05/17/ICU Draft Date of Exam:06/07/17 CHEST 1 VIEW, AP/PA ONLY INDICATION: Left hip fracture. COMPARISON: 06/05/2017 FINDINGS: Single frontal radiographic view of the chest was obtained and demonstrates interval decrease in inspiratory volumes. There has also been interval increase in right basilar opacification as well as bilateral perihilar opacities. There is no large effusion or pneumothorax. Cardiac silhouette and pulmonary vasculature within normal limits. Bony structures show no gross acute abnormalities. IMPRESSION: 1. Decreased lung volumes with increased bilateral perihilar and right basilar atelectasis and/or infiltrate. Continued followup is recommended. Dictated on workstation # [id number] Dict: 06/07/17 0844 Trans: 06/07/17 0849 [id number] Interpreted by: ALVARO VERONICA MD Electronically signed by: A/P: Assessment: Hip fracture secondary to a nonsyncopal fall, s/p hip surgery Junctional bradycardia at presentation, no recurrence, currently she is in sinus rhythm with atrial premature contractions. Paroxysmal atrial fibrillation, has had elec cardioversions, most recently has been on propafenone and Cardizem Stroke prophylaxis with Eliquis that has been held perioperatively Coronary artery disease, history of a stent placement using Taxus 3.5x23 mm to the right coronary artery done in 2009. Another stent 2.75x15 mm Taxus to the LAD. Currently asymptomatic. Most recent stress test August 2016 revealed no ischemia or infarct. Renal artery stenosis, history of 6.0x14 mm Express stent to the left renal artery done in 2009. Blood pressure is becoming poorly controlled. Renal arterial Doppler did not show significant obstructive disease, renal cyst was noted incidentally. Hypertension, currently controlled Acute renal failure, improving Hyperlipidemia, maintained on Lipitor, monitor lipids History of cor pulmonale, last echocardiogram was done in May 2016 revealing EF 55 percent, diastolic dysfunction, mild mitral and tricuspid regurgitation. Carotid stenosis, moderate bilateral stenosis. Last ultrasound was done in October 2016, continue to monitor Hypothyroidism, monitored and followed by primary care physician. Osteoarthritis, history of left knee arthroscopy in 1999 and 2004. Plan: Preoperative cardiac evaluation per Dr. Rasheed on 06-06-17: patient is considered at high risk of bleeding due to to the treatment with Eliquis, the recommendation is to hold Eliquis for 24 hours for low risk of bleeding procedure, 48 hours for intermediate and high risk of bleeding procedures. Overall she is considered at intermediate to high risk for perioperative cardiovascular complications, monitoring the patient on telemetry is highly recommended, decision regarding the surgery, risks versus benefits is deferred to the surgeon. Last dose of Eliquis was Wednesday Resume OAC JAS following surgery Monitor lab closely Physician Assessment Physician Assessment Lungs: fair to good air entry Cor: reg Ext: no c/c. Mod edema A&R * As documented in our note above that I updated (italics) and as noted below * Resume oral anticoag tomorrow if allowed by the Surgical service * Monitor rhythm and labs * I reviewed her records in detail * I spoke with her and her fam and answered CV-related questions CHRISTINE ARVIZU [employer] BLASTING Jun 07, 2017 09:05 SHAMEKA SARAH MD FACP [facility] Jun 07, 2017 19:01
[2017-06-07] MEDS ORDERED: GENTAMICIN 40 MG/ML 2 ML INJ SDV ONE (10:23)
[2017-06-07] MEDS: DILTIAZEM 180 MG (CARDIZEM CD) CAP PO SCH (10:25)
[2017-06-07] MEDS ORDERED: fentaNYL INJECTION 100 MCG/2 ML AMP ONE (10:28)
[2017-06-07] MEDS ORDERED: ROCURONIUM 50 MG/5 ML (ZEMURON) VIAL IV ONE (10:28)
[2017-06-07] MEDS ORDERED: LIDOCAINE PF 2% 5 ML (XYLOCAINE) VIAL ONE (10:28)
[2017-06-07] MEDS ORDERED: ONDANSETRON 4 MG/2 ML (SDV) Z0FRAN ONE (10:28)
[2017-06-07] MEDS ORDERED: proPOfol 200 MG/20 ML (DIPRIVAN) VIAL IV ONE (10:28)
[2017-06-07] MEDS ORDERED: SEVOFLURANE (ULTANE) 15 ML INHAL SOLN ONE ×6 (10:34→14:47)
[2017-06-07] MEDS ORDERED: LACTATED RINGERS 1,000 ML IV ONE (10:34)
[2017-06-07] MEDS ORDERED: LACTATED RINGERS 1,000 ML IV PRN (11:33)
--- NOTE | 2017-06-07 12:03 | Progress Note-Pre Operative ---
Pre-Operative Progress Note H&P Reviewed The H&P was reviewed, patient examined and no changes noted. Time Seen by Provider: 12:01 Date H&P Reviewed: Jun 07, 2017 Time H&P Reviewed: 12:03 Pre-Operative Diagnosis: Left Hip closed displaced femoral neck fracture Additional comments: Options discussed with patient and family, risk/benefits, alternatives discussed , agree to proceed with nakul-arthroplasty. YUDY BRASHER MD Jun 07, 2017 12:03 pm
[2017-06-07] MEDS ORDERED: ceFAZolin 1,000 MG (ANCEF) VIAL ONE (12:10)
[2017-06-07] MEDS ORDERED: GLYCOPYRROLATE 0.2 MG/ML (ROBINUL) 2 ML VIAL ONE (12:26)
[2017-06-07] MEDS ORDERED: NEOSTIGMINE (BLOXIVERZ ) 1 MG/1ML 10 ML VIAL ONE (12:26)
[2017-06-07] MEDS ORDERED: PHENYLEPHRINE 100 MCG/ML 10 ML (ANESTHESIA) SYR ONE (12:26)
[2017-06-07] MEDS ORDERED: morphine INJ 10 MG/ML 1ML (SYR OR VIAL) ONE (13:00)
--- NOTE | 2017-06-07 13:08 | Progress Note-Post Operative ---
Post-Operative Progess Note Surgeon (s)/Design Teacher (s) Surgeon YUDY BRASHER MD Design Teacher: FAUSTO Ayala Pre-Operative Diagnosis Left Hip closed displaced femoral neck fracture Post-Operative Diagnosis Same Procedure & Operative Findings Date of Procedure 06/07/17 Procedure Performed/Findings Left Hip Renaldo-arthroplasty Anesthesia Type GETA Estimated Blood Loss Estimated blood loss (mL): 400 Specimens/Packing Specimens Removed none YUYD BRASHER MD Jun 07, 2017 1:08 pm
[2017-06-07] MEDS: BACITRACIN OINTMENT 28 GM TUBE TOP SCH (13:25)
[2017-06-07] MEDS ORDERED: morphine INJ 10 MG/ML 1ML (SYR OR VIAL) IVP PRN (13:45)
[2017-06-07] MEDS ORDERED: ONDANSETRON 4 MG/2 ML (SDV) Z0FRAN IVP PRN (13:45)
--- NOTE | 2017-06-07 14:00 | Diagnostic Imaging Report ---
EXAMINATION: AP view of the pelvis. INDICATION: Postoperative radiograph after hip replacement. FINDINGS: There is left hip replacement in good position. The right hip demonstrates no fractures. There is degenerative change and scrotal changes at the symphysis pubis. There is suggestion of lumbar spine scoliosis and pelvic tilt, probably secondary to the scoliosis. IMPRESSION: Baseline after left hip arthroplasty in good position. Dictated by: Dictated on workstation # [id number]
--- NOTE | 2017-06-07 14:04 | Physical Therapy Progress Note ---
Therapy Progress Note Patient is unavailable due to surgery/recovery. PT to begin in CAITLIN Saunders PT Jun 07, 2017 14:04
--- NOTE | 2017-06-07 14:11 | OPERATIVE REPORT ---
DATE OF SERVICE: 06/07/2017 PREOPERATIVE DIAGNOSIS: Left closed displaced femoral neck fracture. POSTOPERATIVE DIAGNOSIS: Left closed displaced femoral neck fracture. PROCEDURE PERFORMED: Left hip hemiarthroplasty. DATE AND TIME OF SURGERY: Please see anesthesia record. IMPLANTS USED: Depuy Trilock stem with size 4 and a +8.5 mm neck length and a 48 mm bipolar head. SURGEON: Dr. Abraham. LINEN CONTROLLER: DELFINA Ramirez. ROLE OF PRACTICE ADMINISTRATOR: Aid in retraction in the procedure, aid in implantation and instrumentation and wound closure. ANESTHESIA: General endotracheal. ESTIMATED BLOOD LOSS: 400 mL. IV FLUIDS: Please see anesthesia record. ANTIBIOTICS: 2 grams Ancef. COMPLICATIONS: None. INDICATION FOR PROCEDURE: The patient is an 86-year-old female who fell and broke her hip over the weekend. She was initially seen and evaluated by the one-call physician but waiting cardiology clearance. She was not cleared until today and we were asked if we could assist in her care. DESCRIPTION OF PROCEDURE: The patient was taken from the preoperative holding area back to the operative suite. After adequate induction of general anesthetic, preoperative antibiotics, placed in the lateral decubitus position on pegboard, care with padding to all extremities, sterilely prepped and draped posterior lateral hip and in a standard direct lateral Hutchinson Stroud approach to the hip was carried out. Once the hip was exposed the ball was removed. It was measured, a size 48. The femur was then broached and size 4 stem had a satisfactory fit. The stem was reduced with a trial head. An 8.5 mm neck length was the most appropriate fit and therefore the actual final implant was inserted and an 8.5 ball and bipolar head were placed with good reduced achieved. Good stability and range of motion was achieved after final implants were placed. The wound was copiously irrigated with pulse lavage irrigation. The wound was closed in layers. The patient was transferred to the recovery room in stable condition having tolerated the procedure well. Job ID: [id number] DocumentID: [id number] Dictated Date: 06/07/2017 13:11:12 Timber Hewer Date: 06/07/2017 14:11:03 Dictated By: YUDY ABRAHAM MD
[2017-06-07] MEDS: ATORVASTATIN 20 MG (LIPITOR) TABLET PO SCH (15:17)
[2017-06-07] MEDS: ACETAMINOPHEN 500 MG TAB (TYLENOL) PO SCH ×3 (15:17→20:48)
[2017-06-07] MEDS: lisINopril 10 MG (PRINIVIL) TAB PO SCH (15:17)
[2017-06-07] MEDS: ceFAZolin 2 GM/50 ML NS 50 ML IV SCH (20:47)
[2017-06-07] MEDS: LEVOTHYROXINE 75 MCG (LEVOTHROID) TABLET PO SCH (20:48)
[2017-06-08] VITALS (24 sets, daily range): BP systolic 90–141; BP diastolic 48–90
[2017-06-08] MEDS: ceFAZolin 2 GM/50 ML NS 50 ML IV SCH (04:01)
[2017-06-08] MEDS: NS IV 1000 ML 1,000 ML IV SCH ×2 (04:01→09:30)
[2017-06-08 05:11] LABS: BASOPHILS % (AUTO) 0 % (0-10); EOSINOPHILS % (AUTO) 0 % (0-10); LYMPHOCYTES # (AUTO) 0.5 X 10^3 (1.0-4.0); LYMPHOCYTES % (AUTO) 6 % (12-44); MEAN CORPUSCULAR HEMOGLOBIN 33 PG (25-34); MEAN CORPUSCULAR HGB CONC 31 G/DL (32-36); MEAN CORPUSCULAR VOLUME 105 FL (80-99); MEAN PLATELET VOLUME 11.8 FL (7.4-10.4); MONOCYTES # (AUTO) 0.5 X 10^3 (0.0-1.0); MONOCYTES % (AUTO) 6 % (0-12); NEUTROPHILS # (AUTO) 8.5 X 10^3 (1.8-7.8); NEUTROPHILS % (AUTO) 89 % (42-75); PLATELET COUNT 117 10^3/uL (130-400); RED BLOOD COUNT 3.07 10^6/uL (4.35-5.85); RED CELL DISTRIBUTION WIDTH 14.2 % (10.0-14.5); WHITE BLOOD COUNT 9.6 10^3/uL (4.3-11.0)
[2017-06-08 05:30] LABS: ALBUMIN 2.6 GM/DL (3.2-4.5); BILIRUBIN,TOTAL 0.9 MG/DL (0.1-1.0); CALCIUM 8.1 MG/DL (8.5-10.1); CREATININE SERUM 0.9 MG/DL (0.60-1.30); PHOSPHORUS 2.6 MG/DL (2.3-4.7); POTASSIUM 4.3 MMOL/L (3.6-5.0); TOTAL PROTEIN 4.7 GM/DL (6.4-8.2)
[2017-06-08] MEDS: POTASSIUM CL 10MEQ/50ML IVPB 50 ML IV SCH (05:51)
[2017-06-08] MEDS: KCL 20 MEQ TAB (K-DUR) PO SCH (05:51)
[2017-06-08] MEDS: MAGNESIUM 1 GM/100 ML IVPB 100 ML IV SCH (05:51)
--- NOTE | 2017-06-08 06:18 | Progress Note (SOAP) ---
Subjective Date Seen by Provider: Jun 08, 2017 Time Seen by Provider: 06:16 Subjective/Events-last exam Pain in hip better, no complaints, wants to get up. Objective Exam Vital Signs Date Time Temp Pulse Resp B/P (MAP) Pulse Ox O2 Delivery O2 Flow Rate FiO2 06/08/17 05:00 146 11 108/66 98 Nasal Cannula 3.00 06/08/17 04:00 Nasal Cannula 3.00 06/08/17 04:00 97.8 144 14 101/69 93 Nasal Cannula 3.00 06/08/17 03:00 141 11 119/86 94 Nasal Cannula 3.00 06/08/17 02:00 104 12 111/69 99 Nasal Cannula 3.00 06/08/17 01:00 91 06/08/17 01:00 91 15 128/59 100 Nasal Cannula 3.00 06/08/17 00:00 Nasal Cannula 3.00 06/08/17 00:00 99.3 87 10 137/83 100 Nasal Cannula 3.00 06/07/17 23:00 84 12 116/51 100 Nasal Cannula 3.00 06/07/17 22:00 102 16 159/66 100 Nasal Cannula 3.00 06/07/17 21:00 111 15 111/90 99 Nasal Cannula 3.00 06/07/17 20:00 98.7 100 26 127/73 91 Nasal Cannula 3.00 06/07/17 20:00 Nasal Cannula 3.00 06/07/17 19:00 109 06/07/17 19:00 109 12 126/88 93 Nasal Cannula 3.00 06/07/17 18:00 100 12 126/54 95 Nasal Cannula 3.00 06/07/17 17:00 102 8 138/45 97 Nasal Cannula 3.00 06/07/17 16:24 97.2 Nasal Cannula 3.00 06/07/17 16:23 Nasal Cannula 3.00 06/07/17 16:00 93 15 177/76 94 Nasal Cannula 3.00 06/07/17 15:00 93 9 87/34 91 Nasal Cannula 3.00 06/07/17 14:30 Nasal Cannula 3.00 06/07/17 14:00 100 15 112/41 90 Nasal Cannula 3.00 06/07/17 13:00 99 06/07/17 11:00 103 10 162/64 94 Nasal Cannula 3.00 06/07/17 10:00 95 14 128/71 94 Nasal Cannula 3.00 06/07/17 09:00 97 9 142/60 93 Nasal Cannula 3.00 06/07/17 08:33 98.7 Nasal Cannula 2.00 06/07/17 08:32 Nasal Cannula 2.00 06/07/17 08:00 101 13 141/70 95 Nasal Cannula 3.00 06/07/17 07:27 Nasal Cannula 4.00 06/07/17 07:00 103 11 160/58 98 Nasal Cannula 3.00 06/07/17 07:00 101 Capillary Refill : Less Than 3 SecondsLess Than 3 Seconds General Appearance: No Apparent Distress Neck: Non Tender Respiratory: No Accessory Muscle Use, No Respiratory Distress Cardiovascular: Tachycardia Gastrointestinal: soft Extremity: Normal Capillary Refill, Normal Inspection, Non Tender, No Calf Tenderness Neurologic/Psychiatric: Alert, Oriented x3 Other comments Xray pelvis looks satisfactory with renaldo-arthroplasty Results Lab Laboratory Tests 06/08/17 04:40: White Blood Count 9.6, Red Blood Count 3.07L, Hemoglobin 10.0L, Hematocrit 32L, Mean Corpuscular Volume 105H, Mean Corpuscular Hemoglobin 33, Mean Corpuscular Hemoglobin Concent 31L, Red Cell Distribution Width 14.2, Platelet Count 117L, Mean Platelet Volume 11.8H, Neutrophils (%) (Auto) 89H, Lymphocytes (%) (Auto) 6L, Monocytes (%) (Auto) 6, Eosinophils (%) (Auto) 0, Basophils (%) (Auto) 0, Neutrophils # (Auto) 8.5H, Lymphocytes # (Auto) 0.5L, Monocytes # (Auto) 0.5, Eosinophils # (Auto) 0.0, Basophils # (Auto) 0.0, Sodium Level 141, Potassium Level 4.3, Chloride Level 116H, Carbon Dioxide Level 17L, Anion Gap 8, Blood Urea Nitrogen 20H, Creatinine 0.90, Estimat Glomerular Filtration Rate 59, BUN/ Creatinine Ratio 22, Glucose Level 111H, Calcium Level 8.1L, Phosphorus Level 2.6, Magnesium Level 2.0, Total Bilirubin 0.9, Aspartate Amino Transf (AST/SGOT ) 19, Alanine Aminotransferase (ALT/SGPT) 6, Alkaline Phosphatase 65, Total Protein 4.7L, Albumin 2.6L Microbiology 06/05/17 MRSA Screen - Final, Complete MRSA not isolated Assessment/Plan Assessment/Plan Assess & Plan/Chief Complaint Left Hip Femoral Neck Fracture, S/P Renaldo-arthroplasty Up with PT today Doesn't need abduction pillow with antrolateral approach to hip Will defer to medicine and cardiology about management and treatment here forward Can d/c to snf when medically stable from our standpoint Clinical Quality Measures DVT/VTE Risk/Contraindication: Risk Factor Score Per Nursin RFS Level Per Nursing on Admit: 4+=Very High YUDY BRASHER MD Jun 08, 2017 06:18
--- NOTE | 2017-06-08 07:10 | Diagnostic Imaging Report ---
INDICATION: Left hip fracture. COMPARISON: 06/07/2017 FINDINGS: Single frontal radiographic view of the chest was obtained and demonstrates persistent perihilar opacities with more prominent area of opacification in the right lower lung field. Lungs continue to show shallow inspiratory volumes. There is no large effusion or pneumothorax. Cardiac silhouette and pulmonary vasculature are stable. Bony structures show no gross acute abnormalities. IMPRESSION: 1. Essentially stable exam of the chest showing low lung volumes with prominent bilateral perihilar and right basilar opacities concerning for infiltrate. Continued followup is recommended. Dictated by: Dictated on workstation # [id number]
[2017-06-08] MEDS ORDERED: DILTIAZEM 25 MG/5 ML INJ (CARDIZEM) VIAL IVP NR (07:15)
[2017-06-08] MEDS: morphine INJ 10 MG/ML 1ML (SYR OR VIAL) IV PRN ×4 (07:32→22:15)
[2017-06-08] MEDS ORDERED: DILTIAZEM 300 MG (CARDIZEM CD) CAP PO SCH ×2 (08:11→08:15)
[2017-06-08] MEDS: ATORVASTATIN 20 MG (LIPITOR) TABLET PO SCH (08:18)
[2017-06-08] MEDS: ACETAMINOPHEN 500 MG TAB (TYLENOL) PO SCH ×3 (08:18→20:58)
[2017-06-08] MEDS: lisINopril 10 MG (PRINIVIL) TAB PO SCH (08:19)
[2017-06-08] MEDS: BACITRACIN OINTMENT 28 GM TUBE TOP SCH ×3 (09:00→20:58)
--- NOTE | 2017-06-08 09:26 | Anesthesia-General Post-Op ---
General Patient Condition Mental Status/LOC: Unreactive (Confused) Cardiovascular: Unsatisfactory (A-fib RVR) Nausea/Vomiting: Absent Respiratory: Satisfactory Pain: Controlled Complications: Absent Post Op Complications Complications None Follow Up Care/Instructions Patient Instructions None needed. Anesthesia/Patient Condition Patient Condition IRINA ABARCA CRNA Jun 08, 2017 09:26
--- NOTE | 2017-06-08 10:10 | Progress Note-Cardiology ---
Cardiology SOAP Progress Note Subjective: In bed. No c/o CP, dyspnea, palpitations. No c/o hip discomfort. Objective: I&O/Vital Signs Vital Sign - Last 12Hours 06/08/17 06/08/17 06/08/17 06/08/17 05:00 06:00 06:15 07:00 Pulse 146 160 163 Resp 11 9 29 B/P (MAP) 108/66 115/75 108/83 Pulse Ox 98 94 95 O2 Delivery Nasal Cannula Nasal Cannula Nasal Cannula Nasal Cannula O2 Flow Rate 3.00 3.00 2.00 2.00 06/08/17 06/08/17 06/08/17 06/08/17 07:29 08:00 08:29 08:30 Temp 99.0 Pulse 158 144 Resp 16 B/P (MAP) 133/90 Pulse Ox 97 O2 Delivery Nasal Cannula Nasal Cannula O2 Flow Rate 2.00 2.00 06/08/17 06/08/17 06/08/17 06/08/17 09:00 09:51 10:00 11:00 Pulse 137 160 152 Resp 17 16 18 B/P (MAP) 100/48 117/78 114/61 Pulse Ox 94 95 95 97 O2 Delivery Nasal Cannula Nasal Cannula Nasal Cannula Nasal Cannula O2 Flow Rate 2.00 2.00 2.00 2.00 06/08/17 06/08/17 06/08/17 06/08/17 11:42 12:00 12:00 12:07 Temp 99.3 99.3 Pulse 141 135 154 Resp 11 11 13 B/P (MAP) 114/61 136/76 136/76 Pulse Ox 95 97 96 O2 Delivery Nasal Cannula Nasal Cannula O2 Flow Rate 2.00 2.00 2.00 2.00 06/08/17 06/08/17 06/08/17 12:25 12:31 13:00 Temp 99.3 Pulse 142 150 Resp 10 B/P (MAP) 91/54 Pulse Ox 96 O2 Flow Rate 2.00 Weight (Pounds): 171 Weight (Ounces): 3.0 Weight (Calculated Kilograms): [id number] Constitutional: AAO x 3 Respiratory: No accessory muscle use, chest expansion is symmetric, chest is bilaterally symmetric, other (diminished bases bilat) Cardiovascular: irregularly irregular, No JVD Gastrointestional: No tender, soft, round, audible bowel sounds Extremities: no lower extremity edema bilateral Neurologic/Psychiatric: other (S/P left hip surgery) Results/Procedures: Labs Laboratory Tests 06/08/17 04:40: White Blood Count 9.6, Red Blood Count 3.07L, Hemoglobin 10.0L, Hematocrit 32L, Mean Corpuscular Volume 105H, Mean Corpuscular Hemoglobin 33, Mean Corpuscular Hemoglobin Concent 31L, Red Cell Distribution Width 14.2, Platelet Count 117L, Mean Platelet Volume 11.8H, Neutrophils (%) (Auto) 89H, Lymphocytes (%) (Auto) 6L, Monocytes (%) (Auto) 6, Eosinophils (%) (Auto) 0, Basophils (%) (Auto) 0, Neutrophils # (Auto) 8.5H, Lymphocytes # (Auto) 0.5L, Monocytes # (Auto) 0.5, Eosinophils # (Auto) 0.0, Basophils # (Auto) 0.0, Sodium Level 141, Potassium Level 4.3, Chloride Level 116H, Carbon Dioxide Level 17L, Anion Gap 8, Blood Urea Nitrogen 20H, Creatinine 0.90, Estimat Glomerular Filtration Rate 59, BUN/ Creatinine Ratio 22, Glucose Level 111H, Calcium Level 8.1L, Phosphorus Level 2.6, Magnesium Level 2.0, Total Bilirubin 0.9, Aspartate Amino Transf (AST/SGOT ) 19, Alanine Aminotransferase (ALT/SGPT) 6, Alkaline Phosphatase 65, Total Protein 4.7L, Albumin 2.6L Microbiology 06/05/17 MRSA Screen - Final, Complete MRSA not isolated A/P: Assessment: S/P left hip repair on 06-07-17 Hip fracture secondary to a nonsyncopal fall, s/p hip surgery Junctional bradycardia at presentation, no recurrence Paroxysmal atrial fibrillation, has had elec cardioversions - currently in a- fib with RVR Stroke prophylaxis with Eliquis that has been held perioperatively - restart today Coronary artery disease, history of a stent placement using Taxus 3.5x23 mm to the right coronary artery done in 2009. Another stent 2.75x15 mm Taxus to the LAD. Currently asymptomatic. Most recent stress test August 2016 revealed no ischemia or infarct. Renal artery stenosis, history of 6.0x14 mm Express stent to the left renal artery done in 2009. Blood pressure is becoming poorly controlled. Renal arterial Doppler did not show significant obstructive disease, renal cyst was noted incidentally. Hypertension, currently controlled Acute renal failure, improving Hyperlipidemia, maintained on Lipitor, monitor lipids History of cor pulmonale, last echocardiogram was done in May 2016 revealing EF 55 percent, diastolic dysfunction, mild mitral and tricuspid regurgitation. Carotid stenosis, moderate bilateral stenosis. Last ultrasound was done in October 2016, continue to monitor Hypothyroidism, monitored and followed by primary care physician. Osteoarthritis, history of left knee arthroscopy in 1999 and 2004. Plan: Converted to a-fib with RVR (has h/o PAF) - Oral Cardizem CD has been given - rate improved somewhat - will give IV dig Resume OAC - if ok with surgical services Mild anemia post - op D/C IVF Monitor lab closely Physician Assessment Physician Assessment Lungs: fair to good air entry Cor: ireg Ext: no c/c. 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 Today she is a fib with RVR and has had little response to dilt, including iv dilt. We have treated with dig x 2 and have added propafenone back to the regimen * Apixaban has been resumed for stroke prophylaxis * Continue to monitor rhythm and labs closely * I spoke with her and her fam and answered CV-related questions CHRISTINE ARVIZU Jun 08, 2017 10:10 SHAMEKA SARAH MD FACP [facility] Jun 08, 2017 16:10
[2017-06-08] MEDS ORDERED: DIGOXIN 0.25 MG/ML (LANOXIN) 2 ML AMP IV NR ×2 (10:15→13:00)
[2017-06-08] MEDS ORDERED: APIXABAN 5 MG (ELIQUIS) TABLET PO NR (10:15)
--- NOTE | 2017-06-08 10:29 | Physical Therapy Evaluation ---
PT Evaluation-General Medical Diagnosis Admission Date Jun 05, 2017 at 18:20 Medical Diagnosis: left hip fx Onset Date: Jun 05, 2017 Therapy Diagnosis Therapy Diagnosis: weakness; abn gait Height/Weight Height (Feet): 5 Height (Inches): 1.00 Weight (Pounds): 171 Weight (Ounces): 3.0 Precautions Precautions/Isolations: Fall Prevention, Standard Precautions Weight Bear Status Weight Bearing Restriction: Weight Bearing/Tolerated Referral Physician: Leigh Reason for Referral: Evaluation/Treatment Medical History Pertinent Medical History: Atrial Fib, CAD, HTN Additional Medical History anxiety Current History Pt was leaving the [employer], tripped on the carpet and fell, sustaining a left hip fx; post hemiarthroplasty with anterolateral approach. Reviewed History: Yes Social History Home: Single Level Current Living Status: Alone Entry Into Home: Stairs With Railing Prior/Core FIM Prior Level of Function Functional [place] Measure 0=Not Assessed/NA 4=Minimal Assistance 1=Total Assistance 5=Supervision or Setup 2=Maximal Assistance 6=Modified [place] 3=Moderate Assistance 7=Complete [place] Bed Mobility: 7 Transfers (B,C,W/C) (FIM): 7 Gait: 6 (cane or FWW depending) community ambulator and still drives. PT Evaluation-Current Subjective Agrees to PT. Once sitting EOB, reports feeling dizzy and does not feel she can transfer to the chair. Would like to lie back down. Pain Numeric Pain Scale: 7 Location: Left Location Body Site: Hip Pain Description: Ache, Dull Pt/Family Goals Family expresses they are concerned about her returning home alone. Unsure of discharge plans at this time. This therapist questioned if and WILLIAM is an option and the son said yes. Objective Patient Orientation: Person, Place, Time, Situation Problem Solving: Fair Attachments: Oxygen, Fink Catheter, IV multiple monitors ROM/Strength ROM Lower Extremities WFL; left LE AAROM assessed Strenght Lower Extremities Right LE is grossly 4/5; left LE NT due to pain. Integumentary/Posture Integumentary refer to nursing notes. Bowel Incontinence: No Bladder Incontinence: Fink Cath Posture rounded shoulders and head down in standing. Neuromuscular (Tone, Coordination, Reflexes) Appear to be WFL Sensory Vision: Wears Glasses Hearing: Hearing Aid/Aides Hand Dominance: Right Sensation Right Lower Extremit: Intact Sensation Left Lower Extremity: Intact Transfers Functional [place] Measure 0=Not Assessed/NA 4=Minimal Assistance 1=Total Assistance 5=Supervision or Setup 2=Maximal Assistance 6=Modified [place] 3=Moderate Assistance 7=Complete [place] Transfers (B, C, W/C) (FIM): 2 Scootin Supine to/from Sit: 3 Sit to/from Stand: 3 (assist of 2) Bed mobility and sit to stand. Sat several minutes at EOB with close CGA. Gait Mode of Locomotion: Walk Anticipated Mode of Locomotion: Walk Comments/Gait Description Did not walk at this visit. Balance Sitting Static: Good Sitting Dynamic: Fair Standing Static: Fair Standing Dynamic: Fair Treatment Functional transfers, sitting EOB and standing EOB. Assessment/Needs Post fall with hip fracture that has been repaired. She presents with a decline in functional mobiltiy and will benefit from skilled PT to address strength and mobility to allow her to return to her PLOF. Rehab Potential: Good PT Mcfp Goals Mcfp Goals PT Automotive Detailer Goals Time Frame: Jun 13, 2017 Transfers (B,C,W/C) (FIM): 4 Gait (FIM): 2 Gait distance (FIM): 9=603-51 ft Gait Assistive Device: FWW PT Plan Problem List Problem List: Activity Tolerance, Functional Strength, Safety, Balance, Gait, Transfer, Bed Mobility Treatment/Plan Treatment Plan: Continue Plan of Care Treatment Plan: Bed Mobility, Education, Functional Activity Leo, Functional Strength, Gait, Safety, Therapeutic Exercise, Transfers Treatment Duration: Jun 13, 2017 Frequency: 11 times per week Estimated Hrs Per Day: .5 hour per day Patient and/or Family Agrees t: Yes Safety Risks/Education Patient Education: Transfer Techniques, Safety Issues Teaching Recipient: Patient Teaching Methods: Demonstration, Discussion Response to Teaching: Reinforcement Needed Discharge Recommendations Therapy D/C Recommendations: Acute Rehab Time/GCodes Time In: 910 Time Out: 949 Total Billed Treatment Time: 39 Total Billed Treatment visit EVM 15 FA 24 LUCHO FAIRCHILD PT Jun 08, 2017 10:29
--- NOTE | 2017-06-08 11:20 | Occupational Therapy Eval ---
OT Evaluation-General/PLF Medical Diagnosis Admission Date Jun 05, 2017 at 18:20 Medical Diagnosis: left hip fx Onset Date: Jun 05, 2017 Therapy Diagnosis Therapy Diagnosis: decreased self care skills Height/Weight Height (Feet): 5 Height (Inches): 1.00 Weight (Pounds): 171 Weight (Ounces): 3.0 Precautions Precautions/Isolations: Fall Prevention, Standard Precautions Safety Interventions: Reorient-Attempt, Reorient-PRN Weight Bear Status Weight Bearing Restriction: Weight Bearing/Tolerated Referral Physician: Leigh Medical History Pertinent Medical History: Atrial Fib, CAD, HTN, Hypothroidism Additional Medical History high cholesterol, arthritis, anxiety Current History Pt fell resulting in left hip fracture. S/p left hip nakul-arthroplasty Reviewed History: Yes Social History Home: Single Level Current Living Status: Alone Entry Into Home: Stairs With Railing Steps Into Home: 1 ADL-Prior Level of Function ADL PLOF Comments Pt reports being independent prior to fall. Pt states she does all the housework and drives. Uses walker DME/Equipment: Grab Bars, Shower Drive Self: Yes OT Current Status Subjective Pt in bed, agrees to therapy. Pt states she is having pain in left hip, but unable to rate. Mental Status/Objective Patient Orientation: Person, Place Attachments: Fink Catheter, IV, Oxygen Current Glasses/Contacts: Yes Hearing Aids: Yes Dentures/Partials: Yes Hand Dominance: Right Upper Extremity ROM Grossly WFL Upper Extremity Coordination Intact Upper Extremity Sensation Intact per pt report Upper Extremity Strength Grossly WFL ADL-Treatment ADL-Current Pt participated in UE assessment while in supine. Son present and states pt became dizzy earlier when she sat EOB. Pt reports pain and fatigue, so did not attempt sitting EOB at this time. Education provided regarding role of OT and plan of care. Pt states understanding of education and is in agreement with plan of care. Pt resting in bed with needs met and son present after session. Functional [place] Measure 0=Not Assessed/NA 4=Minimal Assistance 1=Total Assistance 5=Supervision or Setup 2=Maximal Assistance 6=Modified [place] 3=Moderate Assistance 7=Complete IndependenceIRFPAI Quality Coding Scale 6 Independent with activity with or without an assistive device 5 Patient requires set up or clean up by helper. Patient completes activity by themselves 4 Supervision or touching assist (CGA). [place] provide cues , steadying assist 3 The helper provides less than half the effort to complete the activity 2 The helper provides more than half the effort to complete the activity 1 Dependent. The helper does all the effort to complete an activity 7 Patient refused to complete or attempt activity 9 The patient did not perform the activity before the current illness or injury 88 Not attempted due to Medical conditions or safety concerns Education OT Patient Education: Rehab process Teaching Recipient: Patient Teaching Methods: Discussion Response to Teaching: Verbalize Understanding OT Short Term Goals Short Term Goals 1=Demonstrate adherence to instructed precautions during ADL tasks. 2=Patient will verbalize/demonstrate understanding of assistive devices/ modifications for ADL. 3=Patient will improve strength/tolerance for activity to enable patient to perform ADL's. OT Penitentiary Goals Penitentiary Goals Time Frame: Jun 22, 2017 Eating (FIM): 6 Grooming(FIM): 6 Upper Body Dressing(FIM): 5 Lower Body Dressing(FIM): 4 Toilet/Commode Transfer(FIM): 5 Additional Goals: 1-Demonstrate ADL Tasks, 2-Verbalize Understanding, 3- ImproveStrength/[place] 1=Demonstrate adherence to instructed precautions during ADL tasks. 2=Patient will verbalize/demonstrate understanding of assistive devices/ modifications for ADL. 3=Patient will improve strength/tolerance for activity to enable patient to perform ADL's. OT Education/Plan Problem List/Assessment Assessment: Decreased Activ Tolerance, Decreased UE Strength, Dependent Transfers, Impaired Self-Care Skills Pt to benefit from skilled OT intervention for ADL training, transfers, strengthening, adaptive equipment instruction, and safety education to increase level of independence and allow safe discharge plan. Discharge Recommendations Plan/Recommendations: Continue POC Treatment Plan/Plan of Care Treatment,Training & Education: Yes Patient would benefit from OT for education, treatment and training to promote independence in ADL's, mobility, safety and/or upper extremity function for ADL' s. Plan of Care: ADL Retraining, Functional Mobility, UE Funct Exercise/Act Treatment Duration: Jun 22, 2017 Frequency: 5 times per week Estimated Hrs Per Day: .5 hour per day Agreement: Yes Rehab Potential: Good Time/GCodes Start Time: 10:43 Stop Time: 10:58 Total Time Billed (hr/min): 15 Billed Treatment Time 1 visit, EVM(15minutes) JACK WEBB OT Jun 08, 2017 11:19
[2017-06-08] MEDS: DILTIAZEM DRIP 100 MG in SODIUM CHLORIDE (ADD-VANTAGE) 100 ML IV SCH (11:42)
--- NOTE | 2017-06-08 11:43 | Progress Note-Hospitalist ---
Standard Progress Note Progress Notes/Assess & Plan Date Seen 06/08/17 Time Seen by Provider: 11:36 Diagnosis Preoperative Risk Assessment Assess & Plan/Chief Complaint The patient's an 86-year-old white female known to me from previous contacts in the emergency room. At that time she was reporting palpitations and shortness of breath and found to be in atrial fibrillation with rapid ventricular response. She has had this problem for many years and has had cardioversion on several occasions. She takes suppressive medications as well. [place] suffering a hip fracture. As she was a high risk patient PREoperative evaluation and clearance by cardiology was required prior to operative repair. This operation was performed yesterday and required a prosthesis. Postoperatively she has gone back into atrial fibrillation. Physical exam: She is alert and oriented. Lungs are clear to auscultation. CV is rapid in the range of 120 and irregular. There is considerable ecchymosis on the dorsal aspect of both forearms. There is also a small left suborbital hematoma. Impression: Day 1 postoperative hip repair 2.recurrent atrial fibrillation with rapid ventricular response. 3.multiple ecchymoses Plan: Cardiology to adjust medications for rate control. Ultimately will go to the IRF for rehabilitation effort Labs Laboratory Tests 06/07/17 04:09 06/08/17 04:40 Diagnosis/Problems Diagnosis/Problems (1) Pre-op evaluation Assessment & Plan: Reviewed current and chronically medical conditions with patient Per RCRI and NSQIP evaluation shows 3.0% of serious complication Her renal function has started to improved with hydration Deferment of surgery would likely be most beneficial for patient to allow correction of ANGELO and to hold her anticoagulation per guidelines (2) Acute kidney injury Status: Acute Assessment & Plan: History of MAKAYLA s/p stenting Will continue IVF for hydration (3) Fracture of proximal end of left femur Status: Acute Assessment & Plan: Management per Ortho (4) CAD (coronary artery disease) Status: Chronic Assessment & Plan: No active chest pain or agina METS >4 Stable, on eliquis, statin Qualifiers: Qualified Codes: I25.10 - Atherosclerotic heart disease of [place] coronary artery without angina pectoris (5) Essential (primary) hypertension Status: Chronic Assessment & Plan: Well controlled here, continue home meds (6) Hypothyroidism Status: Chronic Assessment & Plan: Cont home meds (7) Prophylactic measure Assessment & Plan: Hold Eliquis for surery NS at 100ml/hr LÁZARO HOWELL MD Jun 08, 2017 11:43
--- NOTE | 2017-06-08 13:35 | Physical Therapy Daily Note ---
PT Daily Note-Current Subjective Pt reporting that her vision is blurry, nurse present and aware. Agrees to try to get up but reports, "I dont think I can." Mental Status Patient Orientation: Person, Confused, Place, Situation Transfers Functional [place] Measure 0=Not Assessed/NA 4=Minimal Assistance 1=Total Assistance 5=Supervision or Setup 2=Maximal Assistance 6=Modified [place] 3=Moderate Assistance 7=Complete IndependenceIRFPAI Quality Coding Scale 6 Independent with activity with or without an assistive device 5 Patient requires set up or clean up by helper. Patient completes activity by themselves 4 Supervision or touching assist (CGA). [place] provide cues , steadying assist 3 The helper provides less than half the effort to complete the activity 2 The helper provides more than half the effort to complete the activity 1 Dependent. The helper does all the effort to complete an activity 7 Patient refused to complete or attempt activity 9 The patient did not perform the activity before the current illness or injury 88 Not attempted due to Medical conditions or safety concerns Transfers (B, C, W/C) (FIM): 3 (Mod assist to transfer sup to sit EOB; mod assist to transfer to a stand at EOB. Pt required min assist to SPT with FWW with skilled cuing 75% of the time. ) Pt up in chair post treatment wtih needs met and son present. Nurse notified she was up and informed to use assist of 2 to return pt to bed. Recommend pt sit in chair 30-60 minutes. Weight Bearing Weight Bearing Restriction: Weight Bearing/Tolerated Assessment Current Status: Fair Progress Pt very groggy. Once she initiates a transfer or taking steps she seems to follow well, but does have some difficulty with initiating. Pt seems "fuzzy" could be anesthesia or medication related. Able to answer all questions correctly, just responds slowly and tends to keep her eyes closed throughout treatment. PT Shelter Goals Shelter Goals PT Shelter Goals Time Frame: Jun 13, 2017 Transfers (B,C,W/C) (FIM): 4 Gait (FIM): 2 Gait distance (FIM): 8=086-92 ft Gait Assistive Device: FWW PT Plan Problem List Problem List: Activity Tolerance, Functional Strength, Safety Treatment/Plan Treatment Plan: Continue Plan of Care Treatment Plan: Bed Mobility, Education, Functional Activity Leo, Functional Strength, Gait, Safety, Therapeutic Exercise, Transfers Treatment Duration: Jun 13, 2017 Frequency: 11 times per week Estimated Hrs Per Day: .5 hour per day Patient and/or Family Agrees t: Yes Safety Risks/Education Patient Education: Safety Issues Teaching Recipient: Patient Teaching Methods: Discussion Response to Teaching: Reinforcement Needed Time/GCodes Time In: 1300 Time Out: 1327 Total Billed Treatment Time: 27 Total Billed Treatment visit FA 27 LUCHO FIARCHILD PT Jun 08, 2017 13:35
[2017-06-08] MEDS ORDERED: NON-FORMULARY MEDICATION 1 EA EA (Propafenone HCl 225 MG) PO SCH (13:45)
[2017-06-08] MEDS: PROPAFENONE 150 MG (RYTHMOL) TABLET PO SCH ×2 (14:48→20:58)
[2017-06-08] MEDS: APIXABAN 5 MG (ELIQUIS) TABLET PO SCH (20:58)
[2017-06-08] MEDS: LEVOTHYROXINE 75 MCG (LEVOTHROID) TABLET PO SCH (20:58)
[2017-06-08] MEDS ORDERED: NS IV 500 ML 500 ML IV SCH (23:45)
[2017-06-09] VITALS (16 sets, daily range): BP systolic 100–160; BP diastolic 40–87
[2017-06-09 04:42] LABS: BASOPHILS % (AUTO) 0 % (0-10); EOSINOPHILS # (AUTO) 0.1 10^3/uL (0.0-0.3); EOSINOPHILS % (AUTO) 1 % (0-10); LYMPHOCYTES # (AUTO) 0.7 X 10^3 (1.0-4.0); LYMPHOCYTES % (AUTO) 7 % (12-44); MEAN CORPUSCULAR HEMOGLOBIN 32 PG (25-34); MEAN CORPUSCULAR HGB CONC 31 G/DL (32-36); MEAN CORPUSCULAR VOLUME 105 FL (80-99); MEAN PLATELET VOLUME 11.4 FL (7.4-10.4); MONOCYTES # (AUTO) 0.7 X 10^3 (0.0-1.0); MONOCYTES % (AUTO) 7 % (0-12); NEUTROPHILS # (AUTO) 8.1 X 10^3 (1.8-7.8); NEUTROPHILS % (AUTO) 85 % (42-75); PLATELET COUNT 123 10^3/uL (130-400); RED CELL DISTRIBUTION WIDTH 14.1 % (10.0-14.5); WHITE BLOOD COUNT 9.6 10^3/uL (4.3-11.0)
[2017-06-09 05:06] LABS: ALANINE AMINOTRANSFERASE < 6 U/L (0-55); ALBUMIN 2.5 GM/DL (3.2-4.5); ANION GAP 5 MMOL/L (5-14); ASPARTATE AMINO TRANSFERASE 21 U/L (5-34); BILIRUBIN,TOTAL 0.8 MG/DL (0.1-1.0); BLOOD UREA NITROGEN 19 MG/DL (7-18); BUN/CREATININE RATIO 25; CALCIUM 8.6 MG/DL (8.5-10.1); CARBON DIOXIDE 24 MMOL/L (21-32); CHLORIDE 113 MMOL/L (98-107); CREATININE SERUM 0.75 MG/DL (0.60-1.30); GFR ESTIMATED > 60; GLUCOSE 126 MG/DL (70-105); MAGNESIUM 1.9 MG/DL (1.8-2.4); PHOSPHORUS 2.3 MG/DL (2.3-4.7); POTASSIUM 4.4 MMOL/L (3.6-5.0); SODIUM 142 MMOL/L (135-145); TOTAL PROTEIN 4.9 GM/DL (6.4-8.2)
[2017-06-09] MEDS: POTASSIUM CL 10MEQ/50ML IVPB 50 ML IV SCH (05:45)
[2017-06-09] MEDS: MAGNESIUM 1 GM/100 ML IVPB 100 ML IV SCH (05:45)
[2017-06-09] MEDS: KCL 20 MEQ TAB (K-DUR) PO SCH (05:46)
[2017-06-09] MEDS: lisINopril 10 MG (PRINIVIL) TAB PO SCH (08:36)
[2017-06-09] MEDS: DILTIAZEM 300 MG (CARDIZEM CD) CAP PO SCH (08:36)
[2017-06-09] MEDS: PROPAFENONE 150 MG (RYTHMOL) TABLET PO SCH ×3 (08:36→21:42)
[2017-06-09] MEDS: ATORVASTATIN 20 MG (LIPITOR) TABLET PO SCH (08:36)
[2017-06-09] MEDS: APIXABAN 5 MG (ELIQUIS) TABLET PO SCH ×2 (08:36→21:41)
[2017-06-09] MEDS: DILTIAZEM DRIP 100 MG in SODIUM CHLORIDE (ADD-VANTAGE) 100 ML IV SCH (08:37)
[2017-06-09] MEDS: BACITRACIN OINTMENT 28 GM TUBE TOP SCH ×2 (08:37→21:43)
[2017-06-09] MEDS: ACETAMINOPHEN 500 MG TAB (TYLENOL) PO SCH ×3 (08:41→21:42)
--- NOTE | 2017-06-09 09:23 | Diagnostic Imaging Report ---
INDICATION: Pneumonia. FINDINGS: The perihilar infiltrates, greater right than left, have essentially resolved on the left and substantially improved on the right. There has been no adverse development. No effusion or pneumothorax. A loop recorder overlies the left thorax. IMPRESSION: The perihilar infiltrates have significantly improved with no adverse development. Dictated by: Dictated on workstation # [id number]
--- NOTE | 2017-06-09 10:07 | Physical Therapy Daily Note ---
PT Daily Note-Current Subjective Patient reluctantly agrees to PT. RN is present to issue medication. Pain Numeric Pain Scale: 10-Worst Possible Pain Location: Left Location Body Site: Hip Pain Description: Acute Mental Status Patient Orientation: Person, Place, Time, Situation Attachments: Oxygen, Fink Catheter Transfers Functional [place] Measure 0=Not Assessed/NA 4=Minimal Assistance 1=Total Assistance 5=Supervision or Setup 2=Maximal Assistance 6=Modified [place] 3=Moderate Assistance 7=Complete IndependenceIRFPAI Quality Coding Scale 6 Independent with activity with or without an assistive device 5 Patient requires set up or clean up by helper. Patient completes activity by themselves 4 Supervision or touching assist (CGA). [place] provide cues , steadying assist 3 The helper provides less than half the effort to complete the activity 2 The helper provides more than half the effort to complete the activity 1 Dependent. The helper does all the effort to complete an activity 7 Patient refused to complete or attempt activity 9 The patient did not perform the activity before the current illness or injury 88 Not attempted due to Medical conditions or safety concerns Transfers (B, C, W/C) (FIM): 1 Scootin Rollin Supine to/from Sit: 1 Sit to/from Stand: 1 Bed to/from Chair: 1 Patient appears to self limit. Required dependent assist with mobility on this date. Weight Bearing Weight Bearing Restriction: Weight Bearing/Tolerated Location Restriction: L LE Gait Training Distance (FIM): 0=does not occure Exercises Seated Therapy Exercises: Ankle pumps, Long arc quads Seated Reps: 15 (PROM due to patient's lack of participation) Assessment Patient appears to self limit with therapy. Patient declined to weight shift to left to advance right LE and refused to attempt to move left LE in stand with therapy. Education with patient on importance to actively participate with PT to improve LOF and to receive maximum benefit from treatment, however, patient closed her eyes and did not respond. Patient is up in recliner with needs met and RN present. PT Skilled Nursing Goals Skilled Nursing Goals PT Senior Functional Analyst Goals Time Frame: Jun 13, 2017 Transfers (B,C,W/C) (FIM): 4 Gait (FIM): 2 Gait distance (FIM): 3=257-18 ft Gait Assistive Device: FWW PT Plan Treatment/Plan Treatment Plan: Continue Plan of Care Treatment Plan: Bed Mobility, Education, Functional Activity Leo, Functional Strength, Gait, Safety, Therapeutic Exercise, Transfers Treatment Duration: Jun 13, 2017 Frequency: 11 times per week Estimated Hrs Per Day: .5 hour per day Patient and/or Family Agrees t: Yes Discharge Recommendations Therapy D/C Recommendations: Shelter Placement, Nursing Home (TCU/NH) Time/GCodes Time In: 841 Time Out: 904 Total Billed Treatment Time: 23 Total Billed Treatment 1 visit FA x 2 23 min CAITLIN LINDSEY PT Jun 09, 2017 10:07
--- NOTE | 2017-06-09 10:28 | Progress Note-Cardiology ---
Cardiology SOAP Progress Note Subjective: Sitting in chair today. Does not report symptoms Objective: I&O/Vital Signs Vital Sign - Last 12Hours 06/08/17 06/09/17 06/09/17 06/09/17 23:00 00:00 00:00 00:30 Temp 98.7 Pulse 125 135 144 Resp 20 14 11 B/P (MAP) 90/63 119/79 142/75 Pulse Ox 92 86 93 O2 Delivery Nasal Cannula Nasal Cannula Nasal Cannula Nasal Cannula O2 Flow Rate 2.00 2.00 3.00 3.00 06/09/17 06/09/17 06/09/17 06/09/17 01:00 01:00 02:00 03:00 Pulse 121 121 122 123 Resp 13 12 13 B/P (MAP) 127/72 129/87 130/60 Pulse Ox 95 91 96 O2 Delivery Nasal Cannula Nasal Cannula Nasal Cannula O2 Flow Rate 3.00 3.00 3.00 06/09/17 06/09/17 06/09/17 06/09/17 04:00 04:00 05:00 06:00 Temp 97.3 Pulse 121 123 123 Resp 15 9 12 B/P (MAP) 135/71 153/68 147/73 Pulse Ox 96 97 93 O2 Delivery Nasal Cannula Nasal Cannula Nasal Cannula Nasal Cannula O2 Flow Rate 3.00 3.00 3.00 3.00 Weight (Pounds): 170 Weight (Ounces): 4.0 Weight (Calculated Kilograms): 77.781680 Constitutional: AAO x 3 Respiratory: No accessory muscle use, chest expansion is symmetric, chest is bilaterally symmetric, other (diminished bases bilat) Cardiovascular: irregularly irregular, No JVD Gastrointestional: No tender, soft, round, audible bowel sounds Extremities: no lower extremity edema bilateral Neurologic/Psychiatric: other (S/P left hip surgery) Results/Procedures: Labs Laboratory Tests 06/09/17 04:35: White Blood Count 9.6, Red Blood Count 3.00L, Hemoglobin 9.7L, Hematocrit 32L, Mean Corpuscular Volume 105H, Mean Corpuscular Hemoglobin 32, Mean Corpuscular Hemoglobin Concent 31L, Red Cell Distribution Width 14.1, Platelet Count 123L, Mean Platelet Volume 11.4H, Neutrophils (%) (Auto) 85H, Lymphocytes (%) (Auto) 7L, Monocytes (%) (Auto) 7, Eosinophils (%) (Auto) 1, Basophils (%) (Auto) 0, Neutrophils # (Auto) 8.1H, Lymphocytes # (Auto) 0.7L, Monocytes # (Auto) 0.7, Eosinophils # (Auto) 0.1, Basophils # (Auto) 0.0, Sodium Level 142, Potassium Level 4.4, Chloride Level 113H, Carbon Dioxide Level 24, Anion Gap 5, Blood Urea Nitrogen 19H, Creatinine 0.75, Estimat Glomerular Filtration Rate > 60, BUN /Creatinine Ratio 25, Glucose Level 126H, Calcium Level 8.6, Phosphorus Level 2.3, Magnesium Level 1.9, Total Bilirubin 0.8, Aspartate Amino Transf (AST/SGOT ) 21, Alanine Aminotransferase (ALT/SGPT) < 6, Alkaline Phosphatase 64, Total Protein 4.9L, Albumin 2.5L Microbiology 06/05/17 MRSA Screen - Final, Complete MRSA not isolated Laboratory Tests 06/08/17 04:40 06/09/17 04:35 A/P: Assessment: SSS with Tachy-Hugh syndrome, 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 Another stent 2.75x15 mm Taxus to the LAD. Currently asymptomatic. Most recent stress test August 2016 revealed no ischemia or infarct. Renal artery stenosis, history of 6.0x14 mm Express stent to the left renal artery done in 2009. Blood pressure is becoming poorly controlled. Renal arterial Doppler did not show significant obstructive disease, renal cyst was noted incidentally. Hypertension, currently controlled Acute renal failure, improving Hyperlipidemia, maintained on Lipitor, monitor lipids History of cor pulmonale, last echocardiogram was done in May 2016 revealing EF 55 percent, diastolic dysfunction, mild mitral and tricuspid regurgitation. Carotid stenosis, moderate bilateral stenosis. Last ultrasound was done in October 2016, continue to monitor Hypothyroidism, monitored and followed by primary care physician. Osteoarthritis, history of left knee arthroscopy in 1999 and 2004. Plan: Her sinus node dysfunction remains difficult to manage. The goal is to control heart rate w/o causing bradycardia. Given age and multiple comorbidities, does not appear suitable for a fib ablation or AV node ablation Continue current regimen of long-acting dilt and propafenone (on which she has been chronically) OAC has been resumed for stroke prophylaxis Monitor labs I spoke with her fam and explained our treatment rationale and plan SHAMEKA SARAH MD FACP FAC CCDS Jun 09, 2017 10:28
--- NOTE | 2017-06-09 13:38 | Physical Therapy Daily Note ---
PT Daily Note-Current Subjective Patient initially declined PT, however, after much encouragement, patient agrees. Pain Numeric Pain Scale: 10-Worst Possible Pain Location: Left Location Body Site: Hip Pain Description: Acute Mental Status Patient Orientation: Person, Time, Situation Attachments: Oxygen, Fink Catheter Transfers Functional [place] Measure 0=Not Assessed/NA 4=Minimal Assistance 1=Total Assistance 5=Supervision or Setup 2=Maximal Assistance 6=Modified [place] 3=Moderate Assistance 7=Complete IndependenceIRFPAI Quality Coding Scale 6 Independent with activity with or without an assistive device 5 Patient requires set up or clean up by helper. Patient completes activity by themselves 4 Supervision or touching assist (CGA). [place] provide cues , steadying assist 3 The helper provides less than half the effort to complete the activity 2 The helper provides more than half the effort to complete the activity 1 Dependent. The helper does all the effort to complete an activity 7 Patient refused to complete or attempt activity 9 The patient did not perform the activity before the current illness or injury 88 Not attempted due to Medical conditions or safety concerns Transfers (B, C, W/C) (FIM): 1 Scootin Rollin Supine to/from Sit: 1 Sit to/from Stand: 1 Bed to/from Chair: 1 Patient declined to use FWW for sit to stand and SPT. Education with patient on utilizing assistive device to improve mobility is important to recovery, patient stated "I'm not walking any." Weight Bearing Weight Bearing Restriction: Weight Bearing/Tolerated Location Restriction: L LE Exercises Supine Ex: Ankle pumps, Heel Slides Supine Reps: 10 (AAROM left LE HS) Seated Therapy Exercises: Ankle pumps, Long arc quads (AAROM left LE) Seated Reps: 10 Assessment Patient ceased treatment after 10 minutes, closed her eyes and would not continue with therapy. From a PT standpoint, patient will benefit from extended care facility due to patient active participation level or lack there of. PT Kitchen And Counter Worker Goals Penitentiary Goals PT [facility]itentiary Goals Time Frame: Jun 13, 2017 Transfers (B,C,W/C) (FIM): 4 Gait (FIM): 2 Gait distance (FIM): 9=907-86 ft Gait Assistive Device: FWW PT Plan Treatment/Plan Treatment Plan: Continue Plan of Care Treatment Plan: Bed Mobility, Education, Functional Activity Leo, Functional Strength, Gait, Safety, Therapeutic Exercise, Transfers Treatment Duration: Jun 13, 2017 Frequency: 11 times per week Estimated Hrs Per Day: .5 hour per day Patient and/or Family Agrees t: Yes Discharge Recommendations Therapy D/C Recommendations: Senior Care Placement, Senior Care (TCU/NH) Time/GCodes Time In: 1315 Time Out: 1325 Total Billed Treatment Time: 10 Total Billed Treatment 1 visit FA 10 min CAITLIN LINDSEY PT Jun 09, 2017 13:38
--- NOTE | 2017-06-09 14:18 | Occupational Ther Daily Note ---
OT Current Status-Daily Note Subjective Pt sleeping in recliner. Pt woke to name. Pt agreed to therapy. No c/o pain at this time. Mental Status/Objective Patient Orientation: Person Functional [place] Measure 0=Not Assessed/NA 4=Minimal Assistance 1=Total Assistance 5=Supervision or Setup 2=Maximal Assistance 6=Modified [place] 3=Moderate Assistance 7=Complete [place] Attachments: Oxygen Other Treatment Pt attempted to complete 3 UE exercises 10 reps. Pt would complete 4 reps then fall asleep, would wake to name to finish all 10 reps. Pt continued to have difficulty staying alert with exercise. Swelling noted in B hands and BENNETT attempted to educate pt on hand exercises to decrease swelling. Pt fell asleep during education. Pt has a ring on each 4th digit that is difficult to rotate around on finger due to swelling. Pt states they have been like that. No c/o pain or discomfort with this. After therapy, pt sleeping in recliner with call light/phone in reach. All needs met in room. OT Short Term Goals Short Term Goals 1=Demonstrate adherence to instructed precautions during ADL tasks. 2=Patient will verbalize/demonstrate understanding of assistive devices/ modifications for ADL. 3=Patient will improve strength/tolerance for activity to enable patient to perform ADL's. OT Penitentiary Goals Vending Machine Mechanic Goals Time Frame: Jun 22, 2017 Eating (FIM): 6 Grooming(FIM): 6 Upper Body Dressing(FIM): 5 Lower Body Dressing(FIM): 4 Toilet/Commode Transfer(FIM): 5 Additional Goals: 1-Demonstrate ADL Tasks, 2-Verbalize Understanding, 3- ImproveStrength/Leo 1=Demonstrate adherence to instructed precautions during ADL tasks. 2=Patient will verbalize/demonstrate understanding of assistive devices/ modifications for ADL. 3=Patient will improve strength/tolerance for activity to enable patient to perform ADL's. OT Education/Plan Problem List/Assessment Pt to benefit from skilled OT intervention for ADL training, transfers, strengthening, adaptive equipment instruction, and safety education to increase level of independence and allow safe discharge plan. Discharge Recommendations Plan/Recommendations: Continue POC Treatment Plan/Plan of Care Patient would benefit from OT for education, treatment and training to promote independence in ADL's, mobility, safety and/or upper extremity function for ADL' s. Plan of Care: ADL Retraining, Functional Mobility, UE Funct Exercise/Act Treatment Duration: Jun 22, 2017 Frequency: 5 times per week Estimated Hrs Per Day: .5 hour per day Agreement: Yes Rehab Potential: Good Time/GCodes Start Time: 14:00 Stop Time: 14:10 Total Time Billed (hr/min): 10 Billed Treatment Time 1 visit-EX 1 (10 min) LUCHO GROSS Jun 09, 2017 14:18
--- NOTE | 2017-06-09 15:44 | Progress Note-Hospitalist ---
Standard Progress Note Progress Notes/Assess & Plan Date Seen 06/09/17 Time Seen by Provider: 11:40 Diagnosis Preoperative Risk Assessment Assess & Plan/Chief Complaint The patient is alert and oriented this morning. Pain control has been reasonable. She remains in atrial fibrillation but rate has been controlled. She has no specific complaints and is ready for transfer to the floor. Physical exam: Lungs are clear to auscultation. CV is slightly irregular and the monitor shows continued atrial fibrillation at a controlled rate. Abdomen is soft. There are no detected new ecchymoses today. The left periorbital hematoma is not as large as I would have predicted yesterday. Impression: Day to postop left femoral neck fracture with operative placement of prosthesis. 2.atrial fibrillation. Labs Laboratory Tests 06/08/17 04:40 06/09/17 04:35 Diagnosis/Problems Diagnosis/Problems (1) Pre-op evaluation Assessment & Plan: Reviewed current and chronically medical conditions with patient Per RCRI and NSQIP evaluation shows 3.0% of serious complication Her renal function has started to improved with hydration Deferment of surgery would likely be most beneficial for patient to allow correction of ANGELO and to hold her anticoagulation per guidelines (2) Acute kidney injury Status: Acute Assessment & Plan: History of MAKAYLA s/p stenting Will continue IVF for hydration (3) Fracture of proximal end of left femur Status: Acute Assessment & Plan: Management per Ortho (4) CAD (coronary artery disease) Status: Chronic Assessment & Plan: No active chest pain or agina METS >4 Stable, on eliquis, statin Qualifiers: Qualified Codes: I25.10 - Atherosclerotic heart disease of [place] coronary artery without angina pectoris (5) Essential (primary) hypertension Status: Chronic Assessment & Plan: Well controlled here, continue home meds (6) Hypothyroidism Status: Chronic Assessment & Plan: Cont home meds (7) Prophylactic measure Assessment & Plan: Hold Eliquis for surery NS at 100ml/hr LÁZARO HOWELL MD Jun 09, 2017 15:44
[2017-06-09] MEDS: LEVOTHYROXINE 75 MCG (LEVOTHROID) TABLET PO SCH (21:41)
[2017-06-10] VITALS (9 sets, daily range): BP systolic 118–140; BP diastolic 55–88
[2017-06-10 06:23] LABS: BASOPHILS % (AUTO) 0 % (0-10); EOSINOPHILS % (AUTO) 0 % (0-10); LYMPHOCYTES # (AUTO) 0.8 X 10^3 (1.0-4.0); LYMPHOCYTES % (AUTO) 8 % (12-44); MEAN CORPUSCULAR HEMOGLOBIN 32 PG (25-34); MEAN CORPUSCULAR HGB CONC 31 G/DL (32-36); MEAN CORPUSCULAR VOLUME 105 FL (80-99); MONOCYTES # (AUTO) 0.5 X 10^3 (0.0-1.0); MONOCYTES % (AUTO) 5 % (0-12); NEUTROPHILS # (AUTO) 8.9 X 10^3 (1.8-7.8); NEUTROPHILS % (AUTO) 87 % (42-75); PLATELET COUNT 169 10^3/uL (130-400); RED BLOOD COUNT 2.65 10^6/uL (4.35-5.85); RED CELL DISTRIBUTION WIDTH 13.9 % (10.0-14.5); WHITE BLOOD COUNT 10.2 10^3/uL (4.3-11.0)
[2017-06-10] MEDS: ATORVASTATIN 20 MG (LIPITOR) TABLET PO SCH (07:59)
[2017-06-10] MEDS: ACETAMINOPHEN 500 MG TAB (TYLENOL) PO SCH ×3 (07:59→20:11)
[2017-06-10] MEDS: APIXABAN 5 MG (ELIQUIS) TABLET PO SCH ×2 (07:59→20:11)
[2017-06-10] MEDS: DILTIAZEM 300 MG (CARDIZEM CD) CAP PO SCH (08:00)
[2017-06-10] MEDS: lisINopril 10 MG (PRINIVIL) TAB PO SCH (08:00)
--- NOTE | 2017-06-10 08:11 | Diagnostic Imaging Report ---
INDICATION: Hip fracture. Frontal chest obtained at 4:05 a.m. and compared to yesterday. FINDINGS: Heart is borderline in size. There is unchanged infiltrate versus atelectasis in the right medial base. There is some minimal left perihilar atelectasis. There is no pneumothorax or significant pleural fluid. Study is limited by poor inspiration. IMPRESSION: Unchanged infiltrate versus atelectasis in right medial base. There is some minimal left perihilar atelectasis. Study is limited by poor inspiration. Overall unchanged appearance compared to yesterday. Dictated by: Dictated on workstation # [id number]
--- NOTE | 2017-06-10 10:43 | Progress Note-Cardiology ---
Cardiology SOAP Progress Note Subjective: She does not report cp or palp or syncope Objective: I&O/Vital Signs Vital Sign - Last 12Hours 06/10/17 06/10/17 06/10/17 06/10/17 07:00 08:00 12:00 13:00 Temp 97.9 98.3 Pulse 91 96 63 105 Resp 20 22 B/P (MAP) 125/70 118/62 Pulse Ox 94 96 O2 Delivery Nasal Cannula Nasal Cannula O2 Flow Rate 3.00 2.00 06/10/17 06/10/17 06/10/17 06/10/17 13:03 13:20 15:30 15:35 Temp 98.6 98.6 98.3 98.3 Pulse 70 90 63 63 Resp 20 20 18 22 B/P (MAP) 132/72 138/88 118/62 118/62 Pulse Ox 96 96 96 95 O2 Delivery Nasal Cannula Nasal Cannula Nasal Cannula O2 Flow Rate 2.00 2.00 2.00 Intake and Output 06/11/17 00:00 Intake Total 720 ml Output Total 150 ml Balance 570 ml Weight (Pounds): 170 Weight (Ounces): 4.0 Weight (Calculated Kilograms): 77.913853 Constitutional: AAO x 3 Respiratory: No accessory muscle use, chest expansion is symmetric, chest is bilaterally symmetric, other (diminished bases bilat) Cardiovascular: irregularly irregular, No JVD Gastrointestional: No tender, soft, round, audible bowel sounds Extremities: no lower extremity edema bilateral Neurologic/Psychiatric: other (S/P left hip surgery) Results/Procedures: Labs Laboratory Tests 06/10/17 06:00: White Blood Count 10.2, Red Blood Count 2.65L, Hemoglobin 8.5L, Hematocrit 28L, Mean Corpuscular Volume 105H, Mean Corpuscular Hemoglobin 32, Mean Corpuscular Hemoglobin Concent 31L, Red Cell Distribution Width 13.9, Platelet Count 169, Mean Platelet Volume 11.0H, Neutrophils (%) (Auto) 87H, Lymphocytes (%) (Auto) 8L, Monocytes (%) (Auto) 5, Eosinophils (%) (Auto) 0, Basophils (%) (Auto) 0, Neutrophils # (Auto) 8.9H, Lymphocytes # (Auto) 0.8L, Monocytes # (Auto) 0.5, Eosinophils # (Auto) 0.0, Basophils # (Auto) 0.0 Microbiology 06/05/17 MRSA Screen - Final, Complete MRSA not isolated Laboratory Tests 06/09/17 04:35 06/10/17 06:00 A/P: Assessment: SSS with Tachy-Hugh syndrome, 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 Another stent 2.75x15 mm Taxus to the LAD. Currently asymptomatic. Most recent stress test August 2016 revealed no ischemia or infarct. Renal artery stenosis, history of 6.0x14 mm Express stent to the left renal artery done in 2009. Blood pressure is becoming poorly controlled. Renal arterial Doppler did not show significant obstructive disease, renal cyst was noted incidentally. Hypertension, currently controlled Acute renal failure, improving Hyperlipidemia, maintained on Lipitor, monitor lipids History of cor pulmonale, last echocardiogram was done in May 2016 revealing EF 55 percent, diastolic dysfunction, mild mitral and tricuspid regurgitation. Carotid stenosis, moderate bilateral stenosis. Last ultrasound was done in October 2016, continue to monitor Hypothyroidism, monitored and followed by primary care physician. Osteoarthritis, history of left knee arthroscopy in 1999 and 2004. Plan: Her sinus node dysfunction remains difficult to manage. The goal is to control heart rate w/o causing bradycardia. Given age and multiple comorbidities, does not appear suitable for a fib ablation or AV node ablation Continue current regimen of long-acting dilt and propafenone (on which she has been chronically) OAC has been resumed for stroke prophylaxis Monitor labs BP and HR have improved Continue current regimen Physician Assessment Physician Assessment No cp or palp or syncope Lungs: good bilat air entry Cor: reg Ext: no c/c A&R * As documented in our note above that I updated (italics) and as noted below * Continue current card regimen * Follow labs CHRISTINE ARVIZU CLINICAL RESEARCH ASSOCIATE Jun 10, 2017 10:43 SHAMEKA SARAH MD FACP FAC CCDS Jun 10, 2017 18:44
--- NOTE | 2017-06-10 10:43 | Physical Therapy Daily Note ---
PT Daily Note-Current Subjective Patient is in bed and agrees to PT. Son is present. Pain Numeric Pain Scale: 8 Location: Left Location Body Site: Hip Pain Description: Acute Appearance Hgb 8.8 Patient c/o dizziness and lightheadedness Mental Status Patient Orientation: Normal For Age Attachments: Oxygen, Fink Catheter Transfers Functional [place] Measure 0=Not Assessed/NA 4=Minimal Assistance 1=Total Assistance 5=Supervision or Setup 2=Maximal Assistance 6=Modified [place] 3=Moderate Assistance 7=Complete IndependenceIRFPAI Quality Coding Scale 6 Independent with activity with or without an assistive device 5 Patient requires set up or clean up by helper. Patient completes activity by themselves 4 Supervision or touching assist (CGA). [place] provide cues , steadying assist 3 The helper provides less than half the effort to complete the activity 2 The helper provides more than half the effort to complete the activity 1 Dependent. The helper does all the effort to complete an activity 7 Patient refused to complete or attempt activity 9 The patient did not perform the activity before the current illness or injury 88 Not attempted due to Medical conditions or safety concerns Transfers (B, C, W/C) (FIM): 2 Scootin Rollin Supine to/from Sit: 2 Sit to/from Stand: 2 Bed to/from Chair: 3 improved with weight bearing left LE with sit to stand transfers Weight Bearing Weight Bearing Restriction: Weight Bearing/Tolerated Location Restriction: L LE Gait Training Gait (FIM): 1 Distance (FIM): 1=up to 49 ft Distance: 5' Gait Level of Assist: 3 Gait Persons Needed: 1 Gait Assistive Device: FWW decreased gait sequence, however, patient is performing weight shifting to left to advance right LE with ambulation Exercises Supine Ex: Ankle pumps, Quad Set, Heel Slides Supine Reps: 10 Seated Therapy Exercises: Ankle pumps, Long arc quads Seated Reps: 10 Assessment Patient is more alert on this date and did actively participate with PT. She continues to tolerate minimal activity. PT Group Home Goals Group Home Goals PT Group Home Goals Time Frame: Jun 13, 2017 Transfers (B,C,W/C) (FIM): 4 Gait (FIM): 2 Gait distance (FIM): 1=804-11 ft Gait Assistive Device: FWW PT Plan Treatment/Plan Treatment Plan: Continue Plan of Care Treatment Plan: Bed Mobility, Education, Functional Activity Leo, Functional Strength, Gait, Safety, Therapeutic Exercise, Transfers Treatment Duration: Jun 13, 2017 Frequency: 11 times per week Estimated Hrs Per Day: .5 hour per day Patient and/or Family Agrees t: Yes Time/GCodes Time In: 936 Time Out: 959 Total Billed Treatment Time: 23 Total Billed Treatment 1 visit EX 10 min GT 13 min CAITLIN LINDSEY PT Jun 10, 2017 10:43
--- NOTE | 2017-06-10 11:00 | Occupational Ther Daily Note ---
OT Current Status-Daily Note Subjective Pt alert, sitting in recliner. Would like to get into bed. Mental Status/Objective Patient Orientation: Person Functional [place] Measure 0=Not Assessed/NA 4=Minimal Assistance 1=Total Assistance 5=Supervision or Setup 2=Maximal Assistance 6=Modified [place] 3=Moderate Assistance 7=Complete [place] Attachments: Fink Catheter ADL-Treatment Pt required mod A sit to stand with FWW. Required verbal and physical cues to stand up straight and put weight in arms, shuffle feet towards bed, and maintain walker while transferring to bed. Pt sat EOB independently and transferred EOB to supine with assistance bringing feet up. Required mod A to scoot over and adjust self in bed. Required extended time. Swelling in hands down since yesterday, 4th digit rings able to rotate around fingers. Pt was able to stay awake throughout treatment and fell asleep as therapists were leaving room. After therapy pt sleeping in bed with call light and phone in reach. Family present. All needs met. Transfers (B, C, W/C) (FIM): 3 OT Short Term Goals Short Term Goals 1=Demonstrate adherence to instructed precautions during ADL tasks. 2=Patient will verbalize/demonstrate understanding of assistive devices/ modifications for ADL. 3=Patient will improve strength/tolerance for activity to enable patient to perform ADL's. OT Padding Gluer Goals Padding Gluer Goals Time Frame: Jun 22, 2017 Eating (FIM): 6 Grooming(FIM): 6 Upper Body Dressing(FIM): 5 Lower Body Dressing(FIM): 4 Toilet/Commode Transfer(FIM): 5 Additional Goals: 1-Demonstrate ADL Tasks, 2-Verbalize Understanding, 3- ImproveStrength/Leo 1=Demonstrate adherence to instructed precautions during ADL tasks. 2=Patient will verbalize/demonstrate understanding of assistive devices/ modifications for ADL. 3=Patient will improve strength/tolerance for activity to enable patient to perform ADL's. OT Education/Plan Problem List/Assessment Pt to benefit from skilled OT intervention for ADL training, transfers, strengthening, adaptive equipment instruction, and safety education to increase level of independence and allow safe discharge plan. Discharge Recommendations Plan/Recommendations: Continue POC Treatment Plan/Plan of Care Patient would benefit from OT for education, treatment and training to promote independence in ADL's, mobility, safety and/or upper extremity function for ADL' s. Plan of Care: ADL Retraining, Functional Mobility, UE Funct Exercise/Act Treatment Duration: Jun 22, 2017 Frequency: 5 times per week Estimated Hrs Per Day: .5 hour per day Agreement: Yes Rehab Potential: Good Time/GCodes Start Time: 10:35 Stop Time: 10:50 Total Time Billed (hr/min): 15 Billed Treatment Time 1 visit, FA 1 (15 minutes) LUCHO GROSS Jun 10, 2017 11:00
[2017-06-10] MEDS ORDERED: NS IV 500 ML 500 ML IV SCH (11:04)
--- NOTE | 2017-06-10 11:57 | Progress Note-Hospitalist ---
Progress Note HPI/CC on Admission Pt is an 86yoCF with a PMH of CAD s/p stenting, MAKAYLA s/p stenting, HTN, and a- fib s/p multiple cardioversions who presented to the ER after a fall yesterday. She reports she is normally very active and lives independently. [place] when she tripped and fellon her way our. She denies any previous falls prior to this though review of records show extensive history of syncope/dizziness presumably related to her a-fib. In the ER she was found to have a left femoral neck fracture. She was admitted to the orthopedic service and I was consulted for evaluation of preoperative risk assessment and ANGELO. Progress Notes/Assess & Plan Date Seen 06/10/17 Time Seen by Provider: 10:30 Diagonsis/Assessment & Plan Chart Review: Hgb 8.5 No fever Vitals stable WBC 10 CMP normal PT Review: Pt is back on Eliquis 5 BID. Surgery says this is okay SW Review: IRU is supposed to be taking pt today Patient Interview: Physical exam stable. Lungs sound perfect Pt is unsure if catheter removal is okay for her. Pt is also unsure if she feels she could get up and ambulate AFVSS, Pleasant, pale, frail, [place] RRR, CTAB diminished in bases No edema Laboratory Tests 06/10/17 06:00 Impression: postop left femoral neck fracture with operative placement of prosthesis. 2.atrial fibrillation. 3. Anemia with dizziness receiving 1 unit of blood 4. Severe debility Plan: IRU tomorrow Eliquis maintained Transfuse 1 unit of blood today Scribed by Selma Baker under the direct supervision of Dr. Arnold. AIDEE ARNOLD DO Jun 10, 2017 11:57
[2017-06-10] MEDS: PROPAFENONE 150 MG (RYTHMOL) TABLET PO SCH ×3 (12:05→20:11)
--- NOTE | 2017-06-10 13:31 | Physical Therapy Progress Note ---
Therapy Progress Note Patient receiving PRBC and eating lunch. Patient declined treatment at this time. PT to recheck later. 1 visit ref CAITLIN LINDSEY PT Jun 10, 2017 13:31
[2017-06-10] MEDS: BACITRACIN OINTMENT 28 GM TUBE TOP SCH ×2 (16:57→20:14)
[2017-06-10] MEDS: LEVOTHYROXINE 75 MCG (LEVOTHROID) TABLET PO SCH (20:11)
[2017-06-11 00:18] VITALS: BP 118/61
[2017-06-11 04:36] VITALS: BP 120/64
[2017-06-11 06:42] LABS: BASOPHILS % (AUTO) 0 % (0-10); EOSINOPHILS % (AUTO) 0 % (0-10); LYMPHOCYTES % (AUTO) 12 % (12-44); MEAN CORPUSCULAR HEMOGLOBIN 32 PG (25-34); MEAN CORPUSCULAR HGB CONC 32 G/DL (32-36); MEAN CORPUSCULAR VOLUME 99 FL (80-99); MEAN PLATELET VOLUME 10.6 FL (7.4-10.4); MONOCYTES # (AUTO) 0.5 X 10^3 (0.0-1.0); MONOCYTES % (AUTO) 6 % (0-12); NEUTROPHILS # (AUTO) 6.9 X 10^3 (1.8-7.8); NEUTROPHILS % (AUTO) 82 % (42-75); PLATELET COUNT 199 10^3/uL (130-400); RED BLOOD COUNT 3.38 10^6/uL (4.35-5.85); RED CELL DISTRIBUTION WIDTH 16.1 % (10.0-14.5); WHITE BLOOD COUNT 8.4 10^3/uL (4.3-11.0)
[2017-06-11 08:00] VITALS: BP 146/74
[2017-06-11] MEDS: DILTIAZEM 300 MG (CARDIZEM CD) CAP PO SCH (08:44)
[2017-06-11] MEDS: APIXABAN 5 MG (ELIQUIS) TABLET PO SCH (08:44)
[2017-06-11] MEDS: ATORVASTATIN 20 MG (LIPITOR) TABLET PO SCH (08:44)
[2017-06-11] MEDS: lisINopril 10 MG (PRINIVIL) TAB PO SCH (08:44)
[2017-06-11] MEDS: ACETAMINOPHEN 500 MG TAB (TYLENOL) PO SCH (08:44)
[2017-06-11] MEDS: PROPAFENONE 150 MG (RYTHMOL) TABLET PO SCH (09:26)
[2017-06-11] MEDS: BACITRACIN OINTMENT 28 GM TUBE TOP SCH (10:26)
[2017-06-11] MEDS ORDERED: Oxycodone Hcl PO (10:43)
--- NOTE | 2017-06-11 10:49 | Discharge Summary-Hospitalist ---
Diagnosis/Chief Complaint Date of Admission Jun 05, 2017 at 18:20 Date of Discharge Discharge Date: Jun 11, 2017 Admission Diagnosis Preoperative Risk Assessment Discharge Diagnosis Chart Review: Hgb 8.5 No fever Vitals stable WBC 10 CMP normal PT Review: Pt is back on Eliquis 5 BID. Surgery says this is okay SW Review: IRU is supposed to be taking pt today Patient Interview: Physical exam stable. Lungs sound perfect Pt is unsure if catheter removal is okay for her. Pt is also unsure if she feels she could get up and ambulate AFVSS, Pleasant, pale, frail, [place] RRR, CTAB diminished in bases No edema Laboratory Tests 06/10/17 06:00 Impression: postop left femoral neck fracture with operative placement of prosthesis. 2.atrial fibrillation. 3. Anemia with dizziness receiving 1 unit of blood 4. Severe debility Plan: IRU tomorrow Eliquis maintained Transfuse 1 unit of blood today Scribed by Selma Baker under the direct supervision of Dr. Arnold. Notes from 06/11/17 Rehab Review: Pt is okay to DC to in-pt rehab and rehab is prepared for this Patient Interview: Blood work was discussed and looks okay. Pt was informed that the blood gave her a good boost Physical exam stable Pt was ready to have a BM during interview Assessment: Left displaced closed transcervical femoral neck fracture Plan: DC to in-pt rehab Scribed by Slema Baker under the direct supervision of Dr. Arnold. (1) Pre-op evaluation Assessment & Plan: Reviewed current and chronically medical conditions with patient Per RCRI and NSQIP evaluation shows 3.0% of serious complication Her renal function has started to improved with hydration Deferment of surgery would likely be most beneficial for patient to allow correction of ANGELO and to hold her anticoagulation per guidelines (2) Acute kidney injury Status: Acute Assessment & Plan: History of MAKAYLA s/p stenting Will continue IVF for hydration (3) Fracture of proximal end of left femur Status: Acute Assessment & Plan: Management per Ortho (4) CAD (coronary artery disease) Status: Chronic Assessment & Plan: No active chest pain or agina METS >4 Stable, on eliquis, statin (5) Essential (primary) hypertension Status: Chronic Assessment & Plan: Well controlled here, continue home meds (6) Hypothyroidism Status: Chronic Assessment & Plan: Cont home meds (7) Prophylactic measure Assessment & Plan: Hold Eliquis for daniel NS at 100ml/hr Discharge Summary Discharge Physical Examination Allergies: Coded Allergies: No Known Drug Allergies (Unverified , 03/05/10) Vitals & I&Os Vital Signs Date Time Temp Pulse Resp B/P (MAP) Pulse Ox O2 Delivery O2 Flow Rate FiO2 06/11/17 08:30 Nasal Cannula 2.50 06/11/17 08:00 98.2 90 20 146/74 95 Hospital Course Hospital course: Patient was admitted for hip fracture and held anticoagulation due to the need for repair. Cardiology and pulmonary were consulted. Patient had an uneventful hip fracture repair with no significant complications. She did receive 1 unit of blood the day before transfer to inpatient rehabilitation due to hemoglobin of 8.5 and symptomatic. Overall she felt good enough to go to inpatient rehabilitation but I doubt she would recover enough to return home likely in assisted living candidate versus group home. I reviewed all home medications and transferred to inpatient rehabilitation without issue. Labs (last 24 hrs) Laboratory Tests 06/11/17 05:40: White Blood Count 8.4, Red Blood Count 3.38L, Hemoglobin 10.9#L, Hematocrit 34L , Mean Corpuscular Volume 99, Mean Corpuscular Hemoglobin 32, Mean Corpuscular Hemoglobin Concent 32, Red Cell Distribution Width 16.1H, Platelet Count 199, Mean Platelet Volume 10.6H, Neutrophils (%) (Auto) 82H, Lymphocytes (%) (Auto) 12, Monocytes (%) (Auto) 6, Eosinophils (%) (Auto) 0, Basophils (%) (Auto) 0, Neutrophils # (Auto) 6.9, Lymphocytes # (Auto) 1.0, Monocytes # (Auto) 0.5, Eosinophils # (Auto) 0.0, Basophils # (Auto) 0.0 Microbiology 06/05/17 MRSA Screen - Final, Complete MRSA not isolated Pending Labs Laboratory Tests 06/11/17 05:40: White Blood Count 8.4, Red Blood Count 3.38, Hemoglobin 10.9, Hematocrit 34, Mean Corpuscular Volume 99, Mean Corpuscular Hemoglobin 32, Mean Corpuscular Hemoglobin Concent 32, Red Cell Distribution Width 16.1, Platelet Count 199, Mean Platelet Volume 10.6, Neutrophils (%) (Auto) 82, Lymphocytes (%) (Auto) 12 , Monocytes (%) (Auto) 6, Eosinophils (%) (Auto) 0, Basophils (%) (Auto) 0, Neutrophils # (Auto) 6.9, Lymphocytes # (Auto) 1.0, Monocytes # (Auto) 0.5, Eosinophils # (Auto) 0.0, Basophils # (Auto) 0.0 Discharge Home Medications: Active Scripts Active [Oxycodone Hcl] 5 MG Tab 2.5-5 Mg PO Q3HR PRN 30 Days Reported Propafenone HCl 225 Mg Tablet 225 Mg PO TID Alprazolam 0.25 Mg Tablet 0.25 Mg PO Q8H PRN Cartia Xt (Diltiazem HCl) 180 Mg Cap.er.24h 180 Mg PO DAILY Lisinopril 10 Mg Tablet 10 Mg PO DAILY Cyanocobalamin Injection (Cyanocobalamin) 1,000 Mcg/Ml Inj 1,000 Mcg IJ EVERY 2 WEEKS Atorvastatin Calcium 20 Mg Tablet 20 Mg PO DAILY Levothyroxine Sodium 75 Mcg Tablet 75 Mcg PO HS Eliquis (Apixaban) 5 Mg Tablet 5 Mg PO BID Instructions to patient/family Please see electronic discharge instructions given to patient. Clinical Quality Measures DVT/VTE Risk/Contraindication: Risk Factor Score Per Nursin RFS Level Per Nursing on Admit: 4+=Very High Problem Qualifiers (1) CAD (coronary artery disease): Coronary Disease-Associated Artery/Lesion type: [place] artery [place] vs. transplanted heart: [place] heart Associated angina: without angina Qualified Codes: I25.10 - Atherosclerotic heart disease of [place] coronary artery without angina pectoris AIDEE ARNOLD DO Jun 11, 2017 10:49
== END 2017-06-11 11:00 | DRG 470 ==
LOC: EDUNIT# 17:12 → ER 17:13 → 4TH 18:20 → ICU 06-06 11:05 → 4TH 06-09 13:39
PROVIDERS: ADMIT Orthopaedic Surgery; ATTEND Orthopaedic Surgery
PROC: 0SRS01A Replacement of Left Hip Joint, Femoral Surface with Metal Synthetic Substitute, Uncemented, Open Approach (ICD-10-PCS; principal; 2017-06-07 12:01)
DX: S72.002A Fracture of unspecified part of neck of left femur, initial encounter for closed fracture (principal); S00.12XA Contusion of left eyelid and periocular area, initial encounter; S50.11XA Contusion of right forearm, initial encounter; S50.12XA Contusion of left forearm, initial encounter; N17.9 Acute kidney failure, unspecified; I48.0 Paroxysmal atrial fibrillation; I49.5 Sick sinus syndrome; D64.9 Anemia, unspecified; I25.10 Atherosclerotic heart disease of native coronary artery without angina pectoris; E78.00 Pure hypercholesterolemia, unspecified; I10 Essential (primary) hypertension; E03.9 Hypothyroidism, unspecified; F41.9 Anxiety disorder, unspecified; R00.1 Bradycardia, unspecified; I49.1 Atrial premature depolarization; E78.5 Hyperlipidemia, unspecified; I65.23 Occlusion and stenosis of bilateral carotid arteries; I70.1 Atherosclerosis of renal artery; I08.1 Rheumatic disorders of both mitral and tricuspid valves; M19.91 Primary osteoarthritis, unspecified site; Z95.5 Presence of coronary angioplasty implant and graft; Z95.828 Presence of other vascular implants and grafts; Z79.01 Long term (current) use of anticoagulants; W18.09XA Striking against other object with subsequent fall, initial encounter; Y92.89 Other specified places as the place of occurrence of the external cause
CPT/HCPCS: 36415; 51702; 71010; 72170; 73552; 80048; 80053; 81000; 83735; 84100; 85025; 85027; 85610; 85730; 86850; 86900; 86901; 86920; 87081; 93005; 94664; 96374

== ENCOUNTER 2017-06-11 09:59 | Inpatient (IN) | payer MEDICARE, OTHER ==
[~2017-06-11] VITALS: Ht 157.5 cm; Wt 73.5 kg
[2017-06-11] MEDS ORDERED: Oxycodone Hcl PO (10:43)
[2017-06-11 17:07] VITALS: BP 148/74
[2017-06-11] MEDS: ATORVASTATIN 20 MG (LIPITOR) TABLET PO SCH (20:44)
[2017-06-11] MEDS: APIXABAN 5 MG (ELIQUIS) TABLET PO SCH (20:44)
[2017-06-11] MEDS: LEVOTHYROXINE 75 MCG (LEVOTHROID) TABLET PO SCH (20:44)
[2017-06-11] MEDS: PROPAFENONE 150 MG (RYTHMOL) TABLET PO SCH (21:00)
[2017-06-12 05:13] VITALS: BP 134/84
[2017-06-12] MEDS: PROPAFENONE 150 MG (RYTHMOL) TABLET PO SCH ×3 (05:42→21:01)
[2017-06-12 06:13] LABS: MEAN PLATELET VOLUME 9.9 FL (7.4-10.4); RED BLOOD COUNT 3.22 10^6/uL (4.35-5.85); RED CELL DISTRIBUTION WIDTH 15.4 % (10.0-14.5); WHITE BLOOD COUNT 6.9 10^3/uL (4.3-11.0)
[2017-06-12 06:31] LABS: ANION GAP 8 MMOL/L (5-14); BLOOD UREA NITROGEN 19 MG/DL (7-18); BUN/CREATININE RATIO 24; CALCIUM 8.3 MG/DL (8.5-10.1); CARBON DIOXIDE 21 MMOL/L (21-32); CHLORIDE 112 MMOL/L (98-107); CREATININE SERUM 0.78 MG/DL (0.60-1.30); GFR ESTIMATED > 60; GLUCOSE 94 MG/DL (70-105); POTASSIUM 3.5 MMOL/L (3.6-5.0); SODIUM 141 MMOL/L (135-145)
[2017-06-12] MEDS ORDERED: DILTIAZEM 180 MG (CARDIZEM CD) CAP PO SCH ×2 (09:00)
[2017-06-12 09:20] VITALS: BP 123/75
[2017-06-12] MEDS: DILTIAZEM 300 MG (CARDIZEM CD) CAP PO SCH (09:24)
[2017-06-12] MEDS: APIXABAN 5 MG (ELIQUIS) TABLET PO SCH ×2 (09:24→21:01)
[2017-06-12] MEDS: lisINopril 10 MG (PRINIVIL) TAB PO SCH (09:24)
[2017-06-12] MEDS: ACETAMINOPHEN 500 MG TAB (TYLENOL) PO PRN ×2 (09:29→21:02)
[2017-06-12 17:37] VITALS: BP 143/78
[2017-06-12] MEDS: LEVOTHYROXINE 75 MCG (LEVOTHROID) TABLET PO SCH (21:01)
[2017-06-12] MEDS: ATORVASTATIN 20 MG (LIPITOR) TABLET PO SCH (21:01)
[2017-06-13 05:13] VITALS: BP 138/77
[2017-06-13] MEDS: PROPAFENONE 150 MG (RYTHMOL) TABLET PO SCH ×3 (07:15→21:12)
[2017-06-13 08:49] VITALS: BP 109/62
[2017-06-13] MEDS: APIXABAN 5 MG (ELIQUIS) TABLET PO SCH ×2 (08:53→20:21)
[2017-06-13] MEDS: lisINopril 10 MG (PRINIVIL) TAB PO SCH (08:54)
[2017-06-13] MEDS: DILTIAZEM 300 MG (CARDIZEM CD) CAP PO SCH (08:54)
[2017-06-13] MEDS: ACETAMINOPHEN 500 MG TAB (TYLENOL) PO PRN (16:13)
[2017-06-13 18:10] VITALS: BP 124/67
[2017-06-13] MEDS: ATORVASTATIN 20 MG (LIPITOR) TABLET PO SCH (20:21)
[2017-06-13] MEDS: ALPRAZolam 0.25 MG (XANAX) TAB PO PRN (20:21)
[2017-06-13] MEDS: LEVOTHYROXINE 75 MCG (LEVOTHROID) TABLET PO SCH (20:21)
[2017-06-14 05:44] VITALS: BP 121/70
[2017-06-14] MEDS: PROPAFENONE 150 MG (RYTHMOL) TABLET PO SCH ×3 (06:32→21:31)
[2017-06-14] MEDS: lisINopril 10 MG (PRINIVIL) TAB PO SCH (08:50)
[2017-06-14] MEDS: APIXABAN 5 MG (ELIQUIS) TABLET PO SCH ×2 (08:50→20:46)
[2017-06-14] MEDS: DILTIAZEM 300 MG (CARDIZEM CD) CAP PO SCH (08:51)
[2017-06-14 09:16] LABS: BASOPHILS % (AUTO) 0 % (0-10); EOSINOPHILS % (AUTO) 0 % (0-10); LYMPHOCYTES # (AUTO) 0.9 X 10^3 (1.0-4.0); LYMPHOCYTES % (AUTO) 11 % (12-44); MEAN CORPUSCULAR HEMOGLOBIN 32 PG (25-34); MEAN CORPUSCULAR HGB CONC 31 G/DL (32-36); MEAN CORPUSCULAR VOLUME 102 FL (80-99); MEAN PLATELET VOLUME 9.5 FL (7.4-10.4); MONOCYTES # (AUTO) 0.5 X 10^3 (0.0-1.0); MONOCYTES % (AUTO) 6 % (0-12); NEUTROPHILS # (AUTO) 6.8 X 10^3 (1.8-7.8); NEUTROPHILS % (AUTO) 82 % (42-75); PLATELET COUNT 266 10^3/uL (130-400); RED BLOOD COUNT 3.53 10^6/uL (4.35-5.85); RED CELL DISTRIBUTION WIDTH 15.2 % (10.0-14.5); WHITE BLOOD COUNT 8.2 10^3/uL (4.3-11.0)
[2017-06-14 09:34] LABS: ANION GAP 7 MMOL/L (5-14); BLOOD UREA NITROGEN 12 MG/DL (7-18); BUN/CREATININE RATIO 15; CALCIUM 8.5 MG/DL (8.5-10.1); CARBON DIOXIDE 21 MMOL/L (21-32); CHLORIDE 112 MMOL/L (98-107); CREATININE SERUM 0.82 MG/DL (0.60-1.30); GFR ESTIMATED > 60; GLUCOSE 121 MG/DL (70-105); POTASSIUM 3.6 MMOL/L (3.6-5.0); SODIUM 140 MMOL/L (135-145)
[2017-06-14 09:55] LABS: THYROID STIMULATING HORMONE 13.21 UIU/ML (0.35-4.94)
[2017-06-14] MEDS: ACETAMINOPHEN 500 MG TAB (TYLENOL) PO PRN (10:25)
[2017-06-14 17:29] VITALS: BP 118/70
[2017-06-14] MEDS: CYANOCOBALAMIN INJ 1000 MCG/ML IM SCH (19:50)
[2017-06-14] MEDS: ATORVASTATIN 20 MG (LIPITOR) TABLET PO SCH (20:46)
[2017-06-14] MEDS: LEVOTHYROXINE 75 MCG (LEVOTHROID) TABLET PO SCH (20:46)
[2017-06-15] MEDS: PROPAFENONE 150 MG (RYTHMOL) TABLET PO SCH ×3 (06:04→21:10)
[2017-06-15 06:35] VITALS: BP 145/78
[2017-06-15] MEDS: APIXABAN 5 MG (ELIQUIS) TABLET PO SCH ×2 (08:53→21:10)
[2017-06-15] MEDS: DILTIAZEM 300 MG (CARDIZEM CD) CAP PO SCH (08:53)
[2017-06-15] MEDS: meTOprolol TARTRATE 25 MG (LOPRESSOR) TABLET PO SCH ×2 (08:53→21:10)
[2017-06-15] MEDS: lisINopril 10 MG (PRINIVIL) TAB PO SCH (08:54)
[2017-06-15] MEDS: DICLOFENAC 1% GEL 100 GM (VOLTAREN) TUBE TOP SCH ×3 (13:25→21:10)
[2017-06-15 18:26] VITALS: BP 98/56
[2017-06-15 18:43] VITALS: BP 100/61
[2017-06-15] MEDS: ATORVASTATIN 20 MG (LIPITOR) TABLET PO SCH (21:10)
[2017-06-16 03:24] LABS: BILIRUBIN,URINE NEGATIVE (NEGATIVE); KETONES,URINE NEGATIVE (NEGATIVE); LEUKOCYTE ESTERASE ,URINE 2+ (NEGATIVE); NITRITE,URINE POSITIVE (NEGATIVE); PH,URINE 6 (5-9); PROTEIN,URINE NEGATIVE (NEGATIVE); UROBILINOGEN,URINE NORMAL (NORMAL)
[2017-06-16 05:09] VITALS: BP 119/74
[2017-06-16] MEDS ORDERED: LEVOTHYROXINE 88 MCG (LEVOTHORID) TAB PO SCH (06:30)
[2017-06-16] MEDS: PROPAFENONE 150 MG (RYTHMOL) TABLET PO SCH ×3 (06:53→21:18)
[2017-06-16 07:55] VITALS: BP 121/78
[2017-06-16] MEDS: APIXABAN 5 MG (ELIQUIS) TABLET PO SCH ×2 (08:11→21:18)
[2017-06-16] MEDS: DILTIAZEM 300 MG (CARDIZEM CD) CAP PO SCH (08:11)
[2017-06-16] MEDS: meTOprolol TARTRATE 25 MG (LOPRESSOR) TABLET PO SCH ×2 (08:11→21:17)
[2017-06-16] MEDS: lisINopril 10 MG (PRINIVIL) TAB PO SCH (08:11)
[2017-06-16] MEDS: ACETAMINOPHEN 500 MG TAB (TYLENOL) PO PRN ×2 (08:12→21:17)
[2017-06-16] MEDS: DICLOFENAC 1% GEL 100 GM (VOLTAREN) TUBE TOP SCH ×4 (08:14→21:18)
[2017-06-16] MEDS: TRIM/SULFAMETH 160/800 (SEPTRA DS) TAB PO SCH (16:51)
[2017-06-16 18:30] VITALS: BP 116/72
[2017-06-16] MEDS: LEVOTHYROXINE 88 MCG (LEVOTHORID) TAB PO SCH (21:17)
[2017-06-16] MEDS: ATORVASTATIN 20 MG (LIPITOR) TABLET PO SCH (21:18)
[2017-06-17 05:32] VITALS: BP 106/67
[2017-06-17] MEDS: PROPAFENONE 150 MG (RYTHMOL) TABLET PO SCH ×3 (06:24→21:11)
[2017-06-17] MEDS: TRIM/SULFAMETH 160/800 (SEPTRA DS) TAB PO SCH ×2 (06:24→18:05)
[2017-06-17] MEDS: lisINopril 10 MG (PRINIVIL) TAB PO SCH (08:43)
[2017-06-17] MEDS: meTOprolol TARTRATE 25 MG (LOPRESSOR) TABLET PO SCH ×2 (08:43→21:11)
[2017-06-17] MEDS: APIXABAN 5 MG (ELIQUIS) TABLET PO SCH ×2 (08:44→21:11)
[2017-06-17] MEDS: ACETAMINOPHEN 500 MG TAB (TYLENOL) PO PRN (08:44)
[2017-06-17] MEDS: DILTIAZEM 300 MG (CARDIZEM CD) CAP PO SCH (08:44)
[2017-06-17] MEDS: DICLOFENAC 1% GEL 100 GM (VOLTAREN) TUBE TOP SCH ×4 (08:44→21:11)
[2017-06-17 18:06] VITALS: BP 122/65
[2017-06-17] MEDS: ATORVASTATIN 20 MG (LIPITOR) TABLET PO SCH (21:10)
[2017-06-17] MEDS: LEVOTHYROXINE 88 MCG (LEVOTHORID) TAB PO SCH (21:11)
[2017-06-18 05:07] VITALS: BP 112/67
[2017-06-18] MEDS: TRIM/SULFAMETH 160/800 (SEPTRA DS) TAB PO SCH ×2 (06:18→16:19)
[2017-06-18] MEDS: PROPAFENONE 150 MG (RYTHMOL) TABLET PO SCH ×3 (06:18→22:24)
[2017-06-18] MEDS: meTOprolol TARTRATE 25 MG (LOPRESSOR) TABLET PO SCH ×2 (08:23→22:23)
[2017-06-18] MEDS: lisINopril 10 MG (PRINIVIL) TAB PO SCH (08:23)
[2017-06-18] MEDS: DILTIAZEM 300 MG (CARDIZEM CD) CAP PO SCH (08:23)
[2017-06-18] MEDS: APIXABAN 5 MG (ELIQUIS) TABLET PO SCH ×2 (08:23→22:23)
[2017-06-18] MEDS: DICLOFENAC 1% GEL 100 GM (VOLTAREN) TUBE TOP SCH ×4 (08:24→22:24)
[2017-06-18 18:00] VITALS: BP 119/73
[2017-06-18] MEDS: LEVOTHYROXINE 88 MCG (LEVOTHORID) TAB PO SCH (22:21)
[2017-06-18] MEDS: ATORVASTATIN 20 MG (LIPITOR) TABLET PO SCH (22:21)
[2017-06-19 05:00] VITALS: BP 105/64
[2017-06-19] MEDS: TRIM/SULFAMETH 160/800 (SEPTRA DS) TAB PO SCH (06:54)
[2017-06-19] MEDS: PROPAFENONE 150 MG (RYTHMOL) TABLET PO SCH ×3 (06:55→21:33)
[2017-06-19] MEDS: APIXABAN 5 MG (ELIQUIS) TABLET PO SCH ×2 (08:37→21:33)
[2017-06-19] MEDS: meTOprolol TARTRATE 25 MG (LOPRESSOR) TABLET PO SCH ×2 (08:37→21:33)
[2017-06-19] MEDS: lisINopril 10 MG (PRINIVIL) TAB PO SCH (08:37)
[2017-06-19] MEDS: DILTIAZEM 300 MG (CARDIZEM CD) CAP PO SCH (08:37)
[2017-06-19] MEDS: DICLOFENAC 1% GEL 100 GM (VOLTAREN) TUBE TOP SCH ×4 (08:38→21:38)
[2017-06-19 17:25] VITALS: BP 105/61
[2017-06-19] MEDS: LEVOTHYROXINE 88 MCG (LEVOTHORID) TAB PO SCH (21:33)
[2017-06-19] MEDS: ATORVASTATIN 20 MG (LIPITOR) TABLET PO SCH (21:33)
[2017-06-20 06:00] VITALS: BP 121/64
[2017-06-20] MEDS: PROPAFENONE 150 MG (RYTHMOL) TABLET PO SCH ×3 (06:23→21:03)
[2017-06-20 08:30] VITALS: BP_SYST 118; BP_SYST 97; BP_DIAS 56; BP_DIAS 73
[2017-06-20] MEDS: DILTIAZEM 300 MG (CARDIZEM CD) CAP PO SCH (09:00)
[2017-06-20] MEDS: meTOprolol TARTRATE 25 MG (LOPRESSOR) TABLET PO SCH ×2 (09:00→20:37)
[2017-06-20] MEDS: APIXABAN 5 MG (ELIQUIS) TABLET PO SCH ×2 (09:15→20:37)
[2017-06-20] MEDS: lisINopril 10 MG (PRINIVIL) TAB PO SCH (09:15)
[2017-06-20 11:00] VITALS: BP 107/60
[2017-06-20] MEDS: ACETAMINOPHEN 500 MG TAB (TYLENOL) PO PRN ×2 (11:03→20:38)
[2017-06-20] MEDS: DOCUSATE SODIUM 100 MG (COLACE) CAP PO PRN (11:04)
[2017-06-20] MEDS: DICLOFENAC 1% GEL 100 GM (VOLTAREN) TUBE TOP SCH ×4 (11:05→20:37)
[2017-06-20 17:47] VITALS: BP 122/66
[2017-06-20 20:35] VITALS: BP 145/85
[2017-06-20] MEDS: LEVOTHYROXINE 88 MCG (LEVOTHORID) TAB PO SCH (20:36)
[2017-06-20] MEDS: ATORVASTATIN 20 MG (LIPITOR) TABLET PO SCH (20:37)
[2017-06-21] MEDS: POLYETHYLENE GLYCOL 17 GM (MIRALAX) PACK PO PRN (03:59)
[2017-06-21 05:14] VITALS: BP 148/74
[2017-06-21] MEDS: PROPAFENONE 150 MG (RYTHMOL) TABLET PO SCH ×3 (06:17→21:19)
[2017-06-21] MEDS: DILTIAZEM 300 MG (CARDIZEM CD) CAP PO SCH ×2 (07:57→08:20)
[2017-06-21] MEDS: lisINopril 10 MG (PRINIVIL) TAB PO SCH (07:58)
[2017-06-21] MEDS: meTOprolol TARTRATE 25 MG (LOPRESSOR) TABLET PO SCH ×3 (07:58→21:19)
[2017-06-21] MEDS: ACETAMINOPHEN 500 MG TAB (TYLENOL) PO PRN (08:21)
[2017-06-21] MEDS: APIXABAN 5 MG (ELIQUIS) TABLET PO SCH ×2 (08:21→21:19)
[2017-06-21] MEDS: DICLOFENAC 1% GEL 100 GM (VOLTAREN) TUBE TOP SCH ×4 (08:22→21:26)
[2017-06-21 17:13] VITALS: BP 120/70
[2017-06-21] MEDS: DOCUSATE SODIUM 100 MG (COLACE) CAP PO PRN (21:19)
[2017-06-21] MEDS: LEVOTHYROXINE 88 MCG (LEVOTHORID) TAB PO SCH (21:19)
[2017-06-21] MEDS: ATORVASTATIN 20 MG (LIPITOR) TABLET PO SCH (21:19)
[2017-06-22] MEDS: POLYETHYLENE GLYCOL 17 GM (MIRALAX) PACK PO PRN (06:35)
[2017-06-22] MEDS: PROPAFENONE 150 MG (RYTHMOL) TABLET PO SCH ×3 (06:35→20:32)
[2017-06-22 06:38] VITALS: BP 136/63
[2017-06-22] MEDS: DILTIAZEM 300 MG (CARDIZEM CD) CAP PO SCH (08:57)
[2017-06-22] MEDS: APIXABAN 5 MG (ELIQUIS) TABLET PO SCH ×2 (08:57→20:34)
[2017-06-22] MEDS: lisINopril 10 MG (PRINIVIL) TAB PO SCH (08:57)
[2017-06-22] MEDS: meTOprolol TARTRATE 25 MG (LOPRESSOR) TABLET PO SCH ×2 (08:57→20:34)
[2017-06-22] MEDS: DOCUSATE SODIUM 100 MG (COLACE) CAP PO PRN (08:57)
[2017-06-22] MEDS: DICLOFENAC 1% GEL 100 GM (VOLTAREN) TUBE TOP SCH ×4 (10:41→20:37)
[2017-06-22] MEDS: LACTULOSE SYRUP 10GM/15ML (ENULOSE) 30ML UDC PO SCH ×2 (10:45→20:37)
[2017-06-22] MEDS: SENNA W/DOCUSATE (SENOKOT S) TABLET PO SCH ×2 (10:47→20:37)
[2017-06-22 18:53] VITALS: BP 134/78
[2017-06-22] MEDS: LEVOTHYROXINE 88 MCG (LEVOTHORID) TAB PO SCH (20:33)
[2017-06-22] MEDS: ATORVASTATIN 20 MG (LIPITOR) TABLET PO SCH (20:34)
[2017-06-23] MEDS: PROPAFENONE 150 MG (RYTHMOL) TABLET PO SCH ×3 (05:28→21:13)
[2017-06-23 06:20] VITALS: BP 127/68
[2017-06-23] MEDS: lisINopril 10 MG (PRINIVIL) TAB PO SCH (08:22)
[2017-06-23] MEDS: DICLOFENAC 1% GEL 100 GM (VOLTAREN) TUBE TOP SCH ×4 (08:23→20:08)
[2017-06-23] MEDS: SENNA W/DOCUSATE (SENOKOT S) TABLET PO SCH ×2 (08:23→20:07)
[2017-06-23] MEDS: meTOprolol TARTRATE 25 MG (LOPRESSOR) TABLET PO SCH ×2 (08:23→20:07)
[2017-06-23] MEDS: APIXABAN 5 MG (ELIQUIS) TABLET PO SCH ×2 (08:23→20:07)
[2017-06-23] MEDS: DILTIAZEM 300 MG (CARDIZEM CD) CAP PO SCH (08:23)
[2017-06-23] MEDS: LACTULOSE SYRUP 10GM/15ML (ENULOSE) 30ML UDC PO SCH ×2 (09:00→20:07)
[2017-06-23 18:01] VITALS: BP 100/52
[2017-06-23 20:03] VITALS: BP 102/59
[2017-06-23] MEDS: LEVOTHYROXINE 88 MCG (LEVOTHORID) TAB PO SCH (20:07)
[2017-06-23] MEDS: ATORVASTATIN 20 MG (LIPITOR) TABLET PO SCH (20:07)
[2017-06-24] MEDS: PROPAFENONE 150 MG (RYTHMOL) TABLET PO SCH ×3 (06:07→21:00)
[2017-06-24 06:31] VITALS: BP 137/62
[2017-06-24] MEDS: DILTIAZEM 300 MG (CARDIZEM CD) CAP PO SCH (08:40)
[2017-06-24] MEDS: meTOprolol TARTRATE 25 MG (LOPRESSOR) TABLET PO SCH ×2 (08:40→21:05)
[2017-06-24] MEDS: APIXABAN 5 MG (ELIQUIS) TABLET PO SCH ×2 (08:40→21:00)
[2017-06-24] MEDS: lisINopril 10 MG (PRINIVIL) TAB PO SCH (08:40)
[2017-06-24] MEDS: SENNA W/DOCUSATE (SENOKOT S) TABLET PO SCH ×2 (08:40→21:00)
[2017-06-24] MEDS: DICLOFENAC 1% GEL 100 GM (VOLTAREN) TUBE TOP SCH ×4 (08:40→21:01)
[2017-06-24] MEDS: LACTULOSE SYRUP 10GM/15ML (ENULOSE) 30ML UDC PO SCH ×2 (08:41→21:01)
[2017-06-24] MEDS: lisINopril 5 MG (PRINIVIL) TABLET PO SCH (09:51)
[2017-06-24] MEDS: DILTIAZEM 240 MG (CARDIZEM CD) CAP PO SCH (09:51)
[2017-06-24 17:29] VITALS: BP 113/67
[2017-06-24 20:59] VITALS: BP 123/69
[2017-06-24] MEDS: LEVOTHYROXINE 88 MCG (LEVOTHORID) TAB PO SCH (21:00)
[2017-06-24] MEDS: ATORVASTATIN 20 MG (LIPITOR) TABLET PO SCH (21:00)
[2017-06-25 05:00] VITALS: BP 103/61
[2017-06-25] MEDS: PROPAFENONE 150 MG (RYTHMOL) TABLET PO SCH ×3 (06:08→23:07)
[2017-06-25] MEDS: APIXABAN 5 MG (ELIQUIS) TABLET PO SCH ×2 (08:22→20:18)
[2017-06-25] MEDS: lisINopril 5 MG (PRINIVIL) TABLET PO SCH (08:22)
[2017-06-25] MEDS: meTOprolol TARTRATE 25 MG (LOPRESSOR) TABLET PO SCH ×2 (08:22→20:18)
[2017-06-25] MEDS: DILTIAZEM 240 MG (CARDIZEM CD) CAP PO SCH (08:22)
[2017-06-25] MEDS: SENNA W/DOCUSATE (SENOKOT S) TABLET PO SCH ×2 (08:22→20:18)
[2017-06-25] MEDS: DICLOFENAC 1% GEL 100 GM (VOLTAREN) TUBE TOP SCH ×4 (08:23→20:19)
[2017-06-25] MEDS: LACTULOSE SYRUP 10GM/15ML (ENULOSE) 30ML UDC PO SCH ×2 (08:23→20:19)
[2017-06-25 10:31] LABS: BILIRUBIN,URINE NEGATIVE (NEGATIVE); KETONES,URINE NEGATIVE (NEGATIVE); LEUKOCYTE ESTERASE ,URINE 2+ (NEGATIVE); NITRITE,URINE NEGATIVE (NEGATIVE); PH,URINE 6 (5-9); PROTEIN,URINE 2+ (NEGATIVE); UROBILINOGEN,URINE 4 MG/DL (NORMAL)
[2017-06-25 10:33] LABS: YEAST,URINE MODERATE /HPF
[2017-06-25 17:25] VITALS: BP 121/73
[2017-06-25] MEDS: CIPROFLOXACIN 500 MG (CIPRO) TABLET PO SCH (18:11)
[2017-06-25] MEDS: LEVOTHYROXINE 88 MCG (LEVOTHORID) TAB PO SCH (20:18)
[2017-06-25] MEDS: ATORVASTATIN 20 MG (LIPITOR) TABLET PO SCH (20:18)
[2017-06-26] MEDS: CIPROFLOXACIN 500 MG (CIPRO) TABLET PO SCH ×2 (03:38→16:36)
[2017-06-26 05:21] VITALS: BP 115/65
[2017-06-26] MEDS: LACTOBACILLUS Acidoph/Bulgar (LACTINEX/FLORANEX) TAB PO SCH ×3 (05:49→16:36)
[2017-06-26] MEDS: PROPAFENONE 150 MG (RYTHMOL) TABLET PO SCH ×3 (05:49→22:33)
[2017-06-26] MEDS: DILTIAZEM 240 MG (CARDIZEM CD) CAP PO SCH (08:12)
[2017-06-26] MEDS: DICLOFENAC 1% GEL 100 GM (VOLTAREN) TUBE TOP SCH ×4 (08:12→20:15)
[2017-06-26] MEDS: lisINopril 5 MG (PRINIVIL) TABLET PO SCH (08:12)
[2017-06-26] MEDS: meTOprolol TARTRATE 25 MG (LOPRESSOR) TABLET PO SCH ×2 (08:12→20:15)
[2017-06-26] MEDS: SENNA W/DOCUSATE (SENOKOT S) TABLET PO SCH ×2 (08:12→20:15)
[2017-06-26] MEDS: LACTULOSE SYRUP 10GM/15ML (ENULOSE) 30ML UDC PO SCH ×2 (08:12→20:15)
[2017-06-26] MEDS: APIXABAN 5 MG (ELIQUIS) TABLET PO SCH ×2 (08:12→20:13)
[2017-06-26 19:05] VITALS: BP 125/70
[2017-06-26] MEDS: ATORVASTATIN 20 MG (LIPITOR) TABLET PO SCH (20:13)
[2017-06-26] MEDS: LEVOTHYROXINE 88 MCG (LEVOTHORID) TAB PO SCH (20:13)
[2017-06-27] MEDS: CIPROFLOXACIN 500 MG (CIPRO) TABLET PO SCH ×2 (04:14→17:16)
[2017-06-27 05:00] VITALS: BP 137/72
[2017-06-27] MEDS: LACTOBACILLUS Acidoph/Bulgar (LACTINEX/FLORANEX) TAB PO SCH ×3 (05:16→17:16)
[2017-06-27] MEDS: PROPAFENONE 150 MG (RYTHMOL) TABLET PO SCH ×3 (05:16→21:15)
[2017-06-27] MEDS: ACETAMINOPHEN 500 MG TAB (TYLENOL) PO PRN (05:16)
[2017-06-27 08:16] VITALS: BP 109/62
[2017-06-27] MEDS: meTOprolol TARTRATE 25 MG (LOPRESSOR) TABLET PO SCH ×2 (08:17→22:03)
[2017-06-27] MEDS: DILTIAZEM 240 MG (CARDIZEM CD) CAP PO SCH (08:18)
[2017-06-27] MEDS: APIXABAN 5 MG (ELIQUIS) TABLET PO SCH ×2 (08:18→21:12)
[2017-06-27] MEDS: DICLOFENAC 1% GEL 100 GM (VOLTAREN) TUBE TOP SCH ×4 (08:18→21:18)
[2017-06-27] MEDS: lisINopril 5 MG (PRINIVIL) TABLET PO SCH (08:18)
[2017-06-27] MEDS: SENNA W/DOCUSATE (SENOKOT S) TABLET PO SCH ×2 (08:19→21:15)
[2017-06-27] MEDS: LACTULOSE SYRUP 10GM/15ML (ENULOSE) 30ML UDC PO SCH ×2 (08:19→21:12)
[2017-06-27] MEDS: fluCOnazole (DIFLUCAN) 100 MG TAB PO SCH (13:36)
[2017-06-27 19:18] VITALS: BP 110/57
[2017-06-27] MEDS: ATORVASTATIN 20 MG (LIPITOR) TABLET PO SCH (21:12)
[2017-06-27] MEDS: LEVOTHYROXINE 88 MCG (LEVOTHORID) TAB PO SCH (21:15)
[2017-06-28] MEDS: CIPROFLOXACIN 500 MG (CIPRO) TABLET PO SCH ×2 (04:59→17:05)
[2017-06-28] MEDS: PROPAFENONE 150 MG (RYTHMOL) TABLET PO SCH ×3 (05:00→21:04)
[2017-06-28] MEDS: LACTOBACILLUS Acidoph/Bulgar (LACTINEX/FLORANEX) TAB PO SCH ×3 (05:00→17:05)
[2017-06-28 05:48] VITALS: BP 125/69
[2017-06-28] MEDS ORDERED: BUPIVACAINE IJ NR ×2 (07:06)
[2017-06-28] MEDS ORDERED: BETAMETHASONE IJ NR ×2 (07:06)
[2017-06-28] MEDS ORDERED: [UNRECOGNIZED DRUG - OTHER] IJ NR ×2 (07:06)
[2017-06-28] MEDS: fluCOnazole (DIFLUCAN) 100 MG TAB PO SCH (09:14)
[2017-06-28] MEDS: lisINopril 5 MG (PRINIVIL) TABLET PO SCH (09:15)
[2017-06-28] MEDS: meTOprolol TARTRATE 25 MG (LOPRESSOR) TABLET PO SCH ×2 (09:15→21:05)
[2017-06-28] MEDS: LACTULOSE SYRUP 10GM/15ML (ENULOSE) 30ML UDC PO SCH ×2 (09:15→21:05)
[2017-06-28] MEDS: APIXABAN 5 MG (ELIQUIS) TABLET PO SCH ×2 (09:15→21:05)
[2017-06-28] MEDS: SENNA W/DOCUSATE (SENOKOT S) TABLET PO SCH ×2 (09:15→21:05)
[2017-06-28] MEDS: DILTIAZEM 240 MG (CARDIZEM CD) CAP PO SCH (09:18)
[2017-06-28] MEDS: DICLOFENAC 1% GEL 100 GM (VOLTAREN) TUBE TOP SCH ×4 (09:19→21:09)
[2017-06-28 18:00] VITALS: BP 112/60
[2017-06-28] MEDS: CYANOCOBALAMIN INJ 1000 MCG/ML IM SCH (18:57)
[2017-06-28] MEDS ORDERED: FLUC100T6 PO (20:47)
[2017-06-28] MEDS ORDERED: CIPR500T4 PO (20:47)
[2017-06-28] MEDS ORDERED: DILT240C63 PO (20:47)
[2017-06-28] MEDS ORDERED: SENN-20 PO (20:47)
[2017-06-28] MEDS ORDERED: METO-333 PO (20:47)
[2017-06-28] MEDS ORDERED: LEVO88TA54 PO (20:47)
[2017-06-28] MEDS ORDERED: ACID1TAB PO (20:47)
[2017-06-28] MEDS ORDERED: Oxycodone Hcl PO (20:47)
[2017-06-28] MEDS ORDERED: LISI-556 PO (20:47)
[2017-06-28] MEDS: ATORVASTATIN 20 MG (LIPITOR) TABLET PO SCH (21:05)
[2017-06-28] MEDS: LEVOTHYROXINE 88 MCG (LEVOTHORID) TAB PO SCH (21:05)
[2017-06-28] MEDS: ALPRAZolam 0.25 MG (XANAX) TAB PO PRN (23:32)
[2017-06-29] MEDS: CIPROFLOXACIN 500 MG (CIPRO) TABLET PO SCH (04:13)
[2017-06-29] MEDS: LACTOBACILLUS Acidoph/Bulgar (LACTINEX/FLORANEX) TAB PO SCH ×2 (05:15→14:00)
[2017-06-29] MEDS: PROPAFENONE 150 MG (RYTHMOL) TABLET PO SCH ×2 (05:15→14:03)
[2017-06-29 05:43] VITALS: BP 121/70
[2017-06-29] MEDS: SENNA W/DOCUSATE (SENOKOT S) TABLET PO SCH (08:20)
[2017-06-29] MEDS: DILTIAZEM 240 MG (CARDIZEM CD) CAP PO SCH (08:20)
[2017-06-29] MEDS: meTOprolol TARTRATE 25 MG (LOPRESSOR) TABLET PO SCH (08:20)
[2017-06-29] MEDS: APIXABAN 5 MG (ELIQUIS) TABLET PO SCH (08:20)
[2017-06-29] MEDS: lisINopril 5 MG (PRINIVIL) TABLET PO SCH (08:20)
[2017-06-29] MEDS: LACTULOSE SYRUP 10GM/15ML (ENULOSE) 30ML UDC PO SCH (08:20)
[2017-06-29] MEDS: fluCOnazole (DIFLUCAN) 100 MG TAB PO SCH (08:20)
[2017-06-29] MEDS: DICLOFENAC 1% GEL 100 GM (VOLTAREN) TUBE TOP SCH ×2 (08:23→14:01)
[2017-06-29 14:33] VITALS: BP 121/70
== END 2017-06-29 14:42 | disposition home health service (06) | DRG 560 ==
PROVIDERS: ADMIT Physical Medicine & Rehabilitation; ATTEND Physical Medicine & Rehabilitation
PROC: 3E0U33Z Introduction of Anti-inflammatory into Joints, Percutaneous Approach (ICD-10-PCS; principal; 2017-06-28)
DX: S72.035D Nondisplaced midcervical fracture of left femur, subsequent encounter for closed fracture with routine healing (principal); I49.5 Sick sinus syndrome; I48.0 Paroxysmal atrial fibrillation; N17.9 Acute kidney failure, unspecified; N30.00 Acute cystitis without hematuria; I10 Essential (primary) hypertension; I25.10 Atherosclerotic heart disease of native coronary artery without angina pectoris; M17.0 Bilateral primary osteoarthritis of knee; D64.9 Anemia, unspecified; R06.89 Other abnormalities of breathing; H91.13 Presbycusis, bilateral; E03.9 Hypothyroidism, unspecified; E78.5 Hyperlipidemia, unspecified; I65.23 Occlusion and stenosis of bilateral carotid arteries; B96.89 Other specified bacterial agents as the cause of diseases classified elsewhere; Z99.81 Dependence on supplemental oxygen; K59.09 Other constipation; Z79.01 Long term (current) use of anticoagulants; Z95.5 Presence of coronary angioplasty implant and graft; W19.XXXD Unspecified fall, subsequent encounter; Y92.59 Other trade areas as the place of occurrence of the external cause
CPT/HCPCS: 36415; 80048; 81000; 84443; 85025; 85027; 87077; 87088; 87186; 87324; 87449; 93005

== ENCOUNTER 2017-07-22 14:22 | Day surgery (SDC) | payer MEDICARE, OTHER ==
[~2017-07-22] VITALS: Ht 157.5 cm; Wt 65.0 kg
[2017-07-22] VITALS (9 sets, daily range): BP systolic 89–159; BP diastolic 45–82
[~2017-07-22 14:22] MED LIST changes: +ACID1TAB PO; +CIPR500T4 PO; +DILT240C63 PO; +FLUC100T6 PO; +LEVO88TA54 PO; +LISI-556 PO; +Oxycodone Hcl PO; +SENN-20 PO
[2017-07-22 16:10] LABS: MEAN PLATELET VOLUME 10.6 FL (7.4-10.4); RED BLOOD COUNT 3.47 10^6/uL (4.35-5.85); RED CELL DISTRIBUTION WIDTH 14.8 % (10.0-14.5); WHITE BLOOD COUNT 8.4 10^3/uL (4.3-11.0)
--- NOTE | 2017-07-22 16:17 | ED Cardiac General ---
History of Present Illness General Chief Complaint: Cardiac/General Problems Stated Complaint: PASSED OUT Nursing Triage Note: Patient reports getting dizzy while playing cards today, patient reports was evaluated by Dr. Rasheed this morning and was informed that she would need a pacemaker and it is scheduled to be placed on Source: patient Exam Limitations: no limitations History of Present Illness Time seen by provider: 16:11 Initial Comments 26-year-old white female presents with an episode of syncope shortly prior to presentation to the emergency department. Patient has documented the bouts of brief asystole. She is scheduled for a pacemaker on Wednesday. Her symptoms have syncope precipitated her presentation aren't present today. She denies chest pain, headache, paresthesias or weakness in extremities, shortness of breath, nausea, or double vision. Allergies and Home Medications Allergies Coded Allergies: No Known Drug Allergies (Unverified , 03/05/10) Home Medications Alprazolam 0.25 Mg Tablet, 0.25 MG PO Q8H PRN for ANXIETY, (Reported) Apixaban 5 Mg Tablet, 5 MG PO BID, (Reported) Atorvastatin Calcium 20 Mg Tablet, 20 MG PO DAILY, (Reported) Ciprofloxacin HCl 500 Mg Tablet, 500 MG PO Q12H for 5 Days, #10 Prescribed by: MARCO HOFFMAN on 06/28/172046 Cyanocobalamin 1,000 Mcg/Ml Inj, 1,000 MCG IJ EVERY 2 WEEKS, (Reported) Diltiazem HCl 240 Mg Cap.er.24h, 240 MG PO DAILY for 30 Days, #30 Prescribed by: MARCO HOFFMAN on 06/28/172046 Fluconazole 100 Mg Tablet, 100 MG PO DAILY for 4 Days, #4 Prescribed by: MARCO HOFFMAN on 06/28/172046 L. Acidophilus/Bulgaricus 1 Each Tablet, 1 TAB.CHEW PO AC for 14 Days, #42 Prescribed by: MARCO HOFFMAN on 06/28/172046 Levothyroxine Sodium 88 Mcg Tablet, 88 MCG PO HS for 30 Days, #30 Prescribed by: MARCO HOFFMAN on 06/28/172046 Lisinopril 5 Mg Tablet, 5 MG PO DAILY for 30 Days, #30 Prescribed by: MARCO HOFFMAN on 06/28/172046 Metoprolol Tartrate 25 Mg Tablet, 25 MG PO BID for 30 Days, #60 Prescribed by: MARCO HOFFMAN on 06/28/172046 Propafenone HCl 225 Mg Tablet, 225 MG PO TID, (Reported) Sennosides/Docusate Sodium 1 Each Tablet, 2 EA PO BID for 14 Days, #60 Prescribed by: MARCO HOFFMAN on 06/28/172046 [Oxycodone Hcl] 5 MG TAB, 2.5-5 MG PO Q3HR PRN for PAIN-SEVERE for 14 Days, #60 Prescribed by: MARCO HOFFMAN on 06/28/172046 Review of Systems Constitutional: No chills, No fever EENTM: No Blurred Vision Respiratory: Denies Cough Cardiovascular: Denies Chest Pain, Denies Palpitations, Syncope Gastrointestinal: Denies Abdominal Pain Genitourinary: No Symptoms Reported Musculoskeletal: No back pain Skin: No change in color, No rash Psychiatric/Neurological: Denies Anxiety, Denies Depressed Endocrine: No Symptoms Reported Hematologic/Lymphatic: No Symptoms Reported Past Bsnalbd-Jghnpo-Pypqlg Hx Patient Social History Alcohol Use: Denies Use Number of Drinks Today: BB Alcohol Beverage of Choice: [place] Recreational Drug Use: No Smoking Status: Never a Smoker Recent Foreign Travel: No Contact w/Someone Who Travel: No Recent Infectious Disease Expo: No Recent Hopitalizations: Yes Physical Abuse: No Sexual Abuse: No Immunizations Up To Date Tetanus Booster (TDap): Unknown PED Vaccines UTD: No Date of Pneumonia Vaccine: May 28, 2015 Seasonal Allergies Seasonal Allergies: No Surgeries History of Surgeries: Yes Surgeries: Cardiac, Coronary Stent, Joint Replacement, Tonsillectomy Respiratory History of Respiratory Disorde: No Cardiovascular History of Cardiac Disorders: Yes (CAD with heart stents) Cardiac Disorders: Atrial Fibrillation, Coronary Artery Disease, High Cholesterol, Hypertension Neurological History of Neurological Disord: No Reproductive System Hx Reproductive Disorders: No (ENDOMETRIAL THICKENING) 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 Genitourinary History of Genitourinary Disor: No Gastrointestinal History of Gastrointestinal Di: Yes Gastrointestinal Disorders: Chronic Constipation, Hemorrhoids Musculoskeletal History of Musculoskeletal Dis: Yes Musculoskeletal Disorders: Arthritis, Fractures Endocrine History of Endocrine Disorders: Yes Endocrine Disorders: Hypothyroidsim HEENT History of HEENT Disorders: Yes (cataracts removed) HEENT Disorders: Cataract, Macular Degeneration Loss of Vision: Denies Hearing Impairment: Hard of Hearing, Bilateral Hearing Aide Cancer History of Cancer: No Psychosocial History of Psychiatric Problem: Yes Behavioral Health Disorders: Anxiety Suicide Risk Score: 0 Integumentary History of Skin or Integumenta: No Blood Transfusions History of Blood Disorders: No Adverse Reaction to a Blood Tr: No Reviewed Nursing Assessment Reviewed/Agree w Nursing PMH: Yes Family Medical History Significant Family History: No Pertinent Family Hx Family Medial History: Patient reports no known family medical history. Physical Exam Vital Signs Vital Sign - Last 12Hours 07/22/17 14:28 Temp 98.0 Pulse 95 Resp 22 B/P (MAP) 116/73 Pulse Ox 98 O2 Delivery Room Air Capillary Refill : Less Than 3 Seconds General Appearance: No Apparent Distress, WD/WN HEENT: TMs Normal Neck: Normal Inspection Respiratory: Normal Breath Sounds Cardiovascular: Bradycardia, Extra Beats Gastrointestinal: Normal Bowel Sounds, Soft Extremity: Normal Capillary Refill, Normal Inspection, Normal Range of Motion Neurologic/Psychiatric: Alert, Oriented x3, No Motor/Sensory Deficits Skin: Normal Color, Warm/Dry Progress/Results/Core Measures Results/Orders Lab Results Laboratory Tests Test 07/22/17 14:25 Range/Units White Blood Count 8.4 4.3-11.0 10^3/uL Red Blood Count 3.47 L 4.35-5.85 10^6/uL Hemoglobin 11.1 L 11.5-16.0 G/DL Hematocrit 36 35-52 % Mean Corpuscular Volume 103 H 80-99 FL Mean Corpuscular Hemoglobin 32 25-34 PG Mean Corpuscular Hemoglobin Concent 31 L 32-36 G/DL Red Cell Distribution Width 14.8 H 10.0-14.5 % Platelet Count 230 130-400 10^3/uL Mean Platelet Volume 10.6 H 7.4-10.4 FL My Orders Orders - CADEN HERBERT MD Troponin I (07/22/17 16:02) Chest 1 View, Ap/Pa Only (07/22/17 16:02) Ekg Tracing (07/22/17 16:02) Saline Lock/Iv-Start (07/22/17 16:02) Monitor-Rhythm Ecg Trace Only (07/22/17 16:02) Cbc No Diff (07/22/17 16:02) Comprehensive Metabolic Panel (07/22/17 16:02) Vital Signs/I&O Vital Sign - Last 12Hours 07/22/17 07/22/17 14:28 15:26 Temp 98.0 Pulse 95 96 Resp 22 24 B/P (MAP) 116/73 115/65 Pulse Ox 98 95 O2 Delivery Room Air Blood Pressure Mean: 82 Progress Note : Time: 16:15 Progress Note The patient was admitted to Dr. Wallace. Dr. Rasheed presented to evaluate the emergency department to evaluate the patient as well. Departure Communication (Admissions) Time/Spoke to Admitting Phy: 16:[address] Maki. Time/Spoke to Consulting Phy: 16:17 Communication/Consulting Dr. Rasheed Impression Impression: Primary Impression: Sick sinus syndrome Disposition: ADMITTED INPATIENT Condition: Unchanged Admissions Decision to Admit Reason: Admit from ER (General) Decision to Admit/Date: Jul 22, 2017 Time/Decision to Admit Time: 16:17 Departure-Patient Inst. Referrals: ОЛЬГА HORTON MD (PCP/Family) Primary Care Physician CADEN HERBERT MD Jul 22, 2017 16:17
[2017-07-22 16:22] LABS: ALANINE AMINOTRANSFERASE < 6 U/L (0-55); ALBUMIN 3.3 GM/DL (3.2-4.5); ANION GAP 8 MMOL/L (5-14); ASPARTATE AMINO TRANSFERASE 9 U/L (5-34); BILIRUBIN,TOTAL 0.6 MG/DL (0.1-1.0); BLOOD UREA NITROGEN 18 MG/DL (7-18); BUN/CREATININE RATIO 12; CALCIUM 9.3 MG/DL (8.5-10.1); CARBON DIOXIDE 26 MMOL/L (21-32); CHLORIDE 106 MMOL/L (98-107); CREATININE SERUM 1.53 MG/DL (0.60-1.30); GFR ESTIMATED 32; GLUCOSE 120 MG/DL (70-105); POTASSIUM 3.9 MMOL/L (3.6-5.0); SODIUM 140 MMOL/L (135-145); TOTAL PROTEIN 6.2 GM/DL (6.4-8.2)
--- NOTE | 2017-07-22 16:28 | History & Physical-Hospitalist ---
HPI History of Present Illness: HPI/Chief Complaint Pt is an 86yoCF with a PMH of sick sinus syndrome known to me from recent admission due to a hip fracture who presented from her NH today for syncope. She reports that she has a long history of her heart "being out of whack." She was seen in Dr. Saab's office today and felt well but was brought in for her event monitor picking up a fib. After returning back to [facility] she sat down to play cards and suddenly felt very dizzy and hot. She does not believe that she passed out but report per her WILLIAM indicates a syncopal episode. They state she had to be carried to her room and was diaphoretic and out of it. She denies any other issues or complaints and has felt well prior to today. She has a long history of syncope due to arrhythmia refractory to treatment per review of records. Source: patient, RN/MD Exam Limitations: no limitations Date Seen 07/22/17 Time Seen by Provider: 16:05 Attending Physician Navi Maki MD PCP Jamie Holcomb MD Referring Physician Date of Admission Jul 22, 2017 at 4:18 pm Home Medications & Allergies Home Medications Reviewed patient Home Medication Reconciliation Form Allergies Allergies Coded Allergies No Known Drug Allergies (Unverified03/05/10) Past Navptxp-Qnvhbn-Gqanrr Hx Patient Social History Employed/Student: retired Alcohol Use: Denies Use Number of Drinks Today: BB Alcohol Beverage of Choice: [place] Recreational Drug Use: No Smoking Status: Never a Smoker Recent Foreign Travel: No Contact w/other who traveled: No Recent Hopitalizations: Yes Recent Infectious Disease Expo: No Immunizations Up To Date Tetanus Booster (TDap): Unknown Pediatric: No Date of Pneumonia Vaccine: May 28, 2015 Seasonal Allergies Seasonal Allergies: No Surgeries Yes Cardiac, Coronary Stent, Joint Replacement, Tonsillectomy Respiratory No Cardiovascular Yes (CAD with heart stents) Atrial Fibrillation, Coronary Artery Disease, High Cholesterol, Hypertension Neurological No Reproductive System Hx Reproductive Disorders: No (ENDOMETRIAL THICKENING) 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 Genitourinary No Gastrointestinal Yes Chronic Constipation, Hemorrhoids Musculoskeletal Yes Arthritis, Fractures Endocrine History of Endocrine Disorders: Yes Endocrine Disorders: Hypothyroidsim HEENT History of HEENT Disorders: Yes (cataracts removed) HEENT Disorders: Cataract, Macular Degeneration Loss of Vision: Denies Hearing Impairment: Hard of Hearing, Bilateral Hearing Aide Cancer No Psychosocial History of Psychiatric Problem: Yes Behavioral Health Disorders: Anxiety Integumentary History of Skin or Integumenta: No Blood Transfusions History of Blood Disorders: No Adverse Reaction to a Blood Tr: No Reviewed Nursing Assessment Reviewed/Agree w Nursing PMH: Yes Family Medical History Significant Family History: No Pertinent Family Hx Family Hx: Patient reports no known family medical history. Review of Systems Constitutional: No chills, No fever EENTM: No blurred vision, No double vision, No nose congestion, No throat pain Respiratory: No cough, No dyspnea on exertion, No short of breath Cardiovascular: No chest pain, No edema, palpitations, syncope Gastrointestinal: No abdominal pain, No constipation, No diarrhea, No nausea, No vomiting Genitourinary: No dysuria, No frequency Musculoskeletal: No joint pain, No muscle pain Skin: No lesions, No rash Psychiatric/Neurological: Denies Headache, Denies Numbness, Denies Tingling Physical Exam Physical Exam Vital Signs Vital Sign - Last 12Hours 07/22/17 14:28 Temp 98.0 Pulse 95 Resp 22 B/P (MAP) 116/73 Pulse Ox 98 O2 Delivery Room Air Capillary Refill : Less Than 3 Seconds General Appearance: No Apparent Distress, WD/WN HEENT: PERRL/EOMI, Moist Mucous Membranes Neck: Non Tender, Supple, No Thyromegaly Respiratory: Lungs Clear, No Respiratory Distress Cardiovascular: No JVD, No Murmur, Tachycardia Gastrointestinal: Normal Bowel Sounds, Non Tender, Soft Extremity: Normal Capillary Refill, No Calf Tenderness, No Pedal Edema Neurologic/Psychiatric: Alert, Oriented x3, Normal Mood/Affect Skin: Normal Color, Warm/Dry Results Results/Procedures Lab Laboratory Tests 07/22/17 14:25 Assessment/Plan Admission Diagnosis sick sinus syndrome Diagnosis/Problems Diagnosis/Problems (1) Sick sinus syndrome Status: Acute Assessment & Plan: Refractory to treatment On 225mg of Rythmol Metoprolol held by PCP for hypotension and bracycardia Cardiology consulted, appreciate recs Dr Rasheed has arranged from pacemaker placement with Dr. Garcia tomorrow telemetry (2) A-fib Status: Chronic Assessment & Plan: Eliquis- hold for pacemaker placement tomorrow Rythmol Cardiology consulted, appreciate recs Qualifiers: Qualified Codes: I48.2 - Chronic atrial fibrillation (3) Acute kidney injury Status: Acute Assessment & Plan: Up from baseline of 0.8 IVF H/o of renal artery stenosis s/p stenting (4) Renal artery stenosis Status: Chronic Assessment & Plan: s/p stenting (5) Essential (primary) hypertension Status: Chronic (6) CAD (coronary artery disease) Status: Chronic (7) Hypothyroidism Status: Chronic Assessment & Plan: TSH 13.21 on 06/14 Recheck (8) Macrocytic anemia Status: Chronic Assessment & Plan: Improving, trend (9) Prophylactic measure Assessment & Plan: Hold Eliquis for pacemaker NS at 100ml/hr Cardiac Diet, npo after midnight NAVI MAKI MD Jul 22, 2017 16:28
--- NOTE | 2017-07-22 16:30 | Diagnostic Imaging Report ---
INDICATION: Dizziness EXAM: Portable chest at 4:24 PM FINDINGS: Heart size and pulmonary vascularity are normal. The lungs are clear. There are no effusions or pneumothoraces. IMPRESSION: Negative chest. Dictated by: Dictated on workstation # [id number]
[2017-07-22] MEDS ORDERED: ALPRAZolam 0.25 MG (XANAX) TAB PO PRN (16:45)
[2017-07-22] MEDS ORDERED: PATIENT MAY USE OWN MEDS, ALL PO SCH (16:45)
[2017-07-22 17:00] LABS: MAGNESIUM 1.7 MG/DL (1.8-2.4)
[2017-07-22 17:27] LABS: THYROID STIMULATING HORMONE 1.94 UIU/ML (0.35-4.94)
[2017-07-22] MEDS ORDERED: INFLUENZA TRIvalent 2017-2018 0.5 ML/45 MCG SYR IM ONE (17:45)
[2017-07-22] MEDS: NS IV 1000 ML 1,000 ML IV SCH (18:59)
[2017-07-22] MEDS: LEVOTHYROXINE 88 MCG (LEVOTHORID) TAB PO SCH (20:21)
[2017-07-22] MEDS: ATORVASTATIN 20 MG (LIPITOR) TABLET PO SCH (21:51)
[2017-07-22] MEDS: meTOprolol TARTRATE 25 MG (LOPRESSOR) TABLET PO SCH (21:51)
[2017-07-23] VITALS (28 sets, daily range): BP systolic 80–155; BP diastolic 37–119
[2017-07-23] MEDS: NS IV 1000 ML 1,000 ML IV SCH (04:58)
[2017-07-23 05:35] LABS: BASOPHILS % (AUTO) 1 % (0-10); EOSINOPHILS % (AUTO) 1 % (0-10); LYMPHOCYTES # (AUTO) 1.2 X 10^3 (1.0-4.0); LYMPHOCYTES % (AUTO) 32 % (12-44); MEAN CORPUSCULAR HEMOGLOBIN 32 PG (25-34); MEAN CORPUSCULAR HGB CONC 31 G/DL (32-36); MEAN CORPUSCULAR VOLUME 103 FL (80-99); MEAN PLATELET VOLUME 10.4 FL (7.4-10.4); MONOCYTES # (AUTO) 0.5 X 10^3 (0.0-1.0); MONOCYTES % (AUTO) 14 % (0-12); NEUTROPHILS # (AUTO) 1.9 X 10^3 (1.8-7.8); NEUTROPHILS % (AUTO) 52 % (42-75); PLATELET COUNT 178 10^3/uL (130-400); RED BLOOD COUNT 3.27 10^6/uL (4.35-5.85); RED CELL DISTRIBUTION WIDTH 14.5 % (10.0-14.5); WHITE BLOOD COUNT 3.6 10^3/uL (4.3-11.0)
[2017-07-23 06:17] LABS: CALCIUM 8.4 MG/DL (8.5-10.1); CREATININE SERUM 1.02 MG/DL (0.60-1.30); MAGNESIUM 1.6 MG/DL (1.8-2.4); POTASSIUM 3.8 MMOL/L (3.6-5.0)
[2017-07-23] MEDS ORDERED: HEParin 1000 UNIT/ML (10ML VIAL) FOR BOLUS ONE (06:43)
[2017-07-23] MEDS ORDERED: NS IV 1000 ML 1,000 ML IV ONE (06:44)
[2017-07-23] MEDS ORDERED: BACITRACIN INJECTION 50,000 UNIT, SODIUM CHLORIDE 0.9% IRRIGATIO 500 ML IR ONE ×2 (06:45)
[2017-07-23] MEDS ORDERED: ceFAZolin 1,000 MG (ANCEF) VIAL IV ONE (06:45)
[2017-07-23] MEDS: KCL 20 MEQ TAB (K-DUR) PO SCH (07:11)
[2017-07-23] MEDS: POTASSIUM CL 10MEQ/50ML IVPB 50 ML IV SCH (07:12)
[2017-07-23] MEDS: MAGNESIUM 1 GM/100 ML IVPB 100 ML IV SCH ×3 (07:12→13:02)
[2017-07-23] MEDS: meTOprolol TARTRATE 25 MG (LOPRESSOR) TABLET PO SCH ×2 (07:57→20:54)
[2017-07-23] MEDS ORDERED: MAGNESIUM 1 GM/100 ML IVPB 100 ML IV SCH (08:00)
[2017-07-23] MEDS ORDERED: SENN-1 PO (08:48)
[2017-07-23] MEDS ORDERED: LISI-556 PO (08:48)
[2017-07-23] MEDS ORDERED: LEVO88TA54 PO (08:48)
[2017-07-23] MEDS ORDERED: DILT180C54 PO (08:48)
[2017-07-23] MEDS ORDERED: OXYC-529 PO (08:48)
[2017-07-23] MEDS ORDERED: ACET-2267 PO (08:48)
[2017-07-23] MEDS ORDERED: METO-333 PO (08:56)
[2017-07-23] MEDS ORDERED: ATORVASTATIN 20 MG (LIPITOR) TABLET PO SCH (09:00)
[2017-07-23] MEDS ORDERED: DILTIAZEM 240 MG (CARDIZEM CD) CAP PO SCH (09:00)
[2017-07-23] MEDS ORDERED: lisINopril 5 MG (PRINIVIL) TABLET PO SCH (09:00)
--- NOTE | 2017-07-23 09:14 | Progress Note-Hospitalist ---
Subjective HPI/CC On Admission Date Seen by Provider: Jul 23, 2017 Time Seen by Provider: 07:15 Pt is an 86yoCF with a PMH of sick sinus syndrome known to me from recent admission due to a hip fracture who presented from her NH today for syncope. She reports that she has a long history of her heart "being out of whack." She was seen in Dr. Saab's office today and felt well but was brought in for her event monitor picking up a fib. After returning back to [facility] she sat down to play cards and suddenly felt very dizzy and hot. She does not believe that she passed out but report per her ASSISTED indicates a syncopal episode. They state she had to be carried to her room and was diaphoretic and out of it. She denies any other issues or complaints and has felt well prior to today. She has a long history of syncope due to arrhythmia refractory to treatment per review of records. Subjective/Events-last exam Pt reports doing well. No concerns overnight. Ready for pacemaker. Objective Exam Vital Signs Vital Sign - Last 12Hours 07/22/17 14:28 Temp 98.0 Pulse 95 Resp 22 B/P (MAP) 116/73 Pulse Ox 98 O2 Delivery Room Air Capillary Refill : Less Than 3 SecondsLess Than 3 Seconds General Appearance: No Apparent Distress, WD/WN Respiratory: Lungs Clear, No Respiratory Distress Cardiovascular: No Murmur, Tachycardia Gastrointestinal: Normal Bowel Sounds, Non Tender, Soft Extremity: Non Tender, No Calf Tenderness Neurologic/Psychiatric: Alert, Oriented x3 Results/Procedures Lab Laboratory Tests 07/22/17 14:25 07/23/17 04:42 Assessment/Plan Assessment and Plan Assess & Plan/Chief Complaint Sick Sinus Syndrome Diagnosis/Problems Diagnosis/Problems (1) Sick sinus syndrome Status: Acute Assessment & Plan: Refractory to treatment On 225mg of Rythmol as outpatient- now held Metoprolol held by PCP but now resumed Cardiology consulted, appreciate recs Dr Rasheed has arranged from pacemaker placement with Dr. Garcia this AM telemetry (2) A-fib Status: Chronic Assessment & Plan: Eliquis- hold for pacemaker placement Cardiology consulted, appreciate recs Qualifiers: Qualified Codes: I48.2 - Chronic atrial fibrillation (3) Acute kidney injury Status: Acute Assessment & Plan: Improving IVF H/o of renal artery stenosis s/p stenting (4) Renal artery stenosis Status: Chronic Assessment & Plan: s/p stenting (5) Essential (primary) hypertension Status: Chronic Assessment & Plan: Lisinopril Diltiazem Metoprolol Well controlled (6) CAD (coronary artery disease) Status: Chronic Assessment & Plan: Continue Statin Cards consulted, appreciate recs (7) Hypothyroidism Status: Chronic Assessment & Plan: TSH within goal Continue Synthroid (8) Macrocytic anemia Status: Chronic Assessment & Plan: Improving, trend (9) Prophylactic measure Assessment & Plan: Hold Eliquis for pacemaker NS at 100ml/hr NPO NAVI WOLFF MD Jul 23, 2017 9:14 am
[2017-07-23] MEDS ORDERED: NS (IVPB) 50 ML ONE (09:28)
[2017-07-23] MEDS ORDERED: ceFAZolin 1,000 MG (ANCEF) VIAL ONE (09:28)
[2017-07-23] MEDS ORDERED: MIDAZOLAM 5 MG/5 ML (VERSED) VIAL ONE (09:48)
[2017-07-23] MEDS ORDERED: fentaNYL INJECTION 100 MCG/2 ML AMP ONE (09:48)
--- NOTE | 2017-07-23 09:52 | Electrophysiology Consultation ---
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 Rasheed. I see her for electrophysiology consultation as an outpatient. She has history of atrial fibrillation. She's been having atrial fibrillation with rapid ventricular rate as well as significant bradycardia with rate controlling medications. Yesterday she saw Dr. Rasheed in the office and she was in atrial fibrillation with rapid when tolerated. When she went back to the correction she became pale and passed out. She was brought to the ER. She has previous episodes of pauses as well. Review of Systems-Cardiology Review of Systems Constitutional: No As described under HPI, No no symptoms reported, No chills, No fever, No lightheadedness, No malaise, No tiredness, No weight loss, No weight gain, No other Eyes: No As described under HPI, No no symptoms reported, No blindness, No blurred vision, No contact lenses, No drainage, No decreased acuity, No foreign body sensation, No glasses, No inflammation, No pain, No photophobia, No previous injury, No shadows, No tunnel vision, No other, No vision change Ears/Nose/Throat: No As described under HPI, No no symptoms reported, No chronic hearing loss, No epistaxis, No ear discharge, No ear pain, No loose teeth, No mouth pain, No mouth swelling, No nasal drainage, No nose pain, No recent hearing loss, No throat pain, No throat swelling, No ulcerations, No other Respiratory: No no symptoms reported, No As described under HPI, No cough, No orthopnea, No shortness of breath, No SOB with excertion, No SOB at rest, No stridor, No wheezing, No other Cardiovascular: irregular heart rate, palpitations, syncope Gastrointestinal: No no symptoms reported, No As described under HPI, No abdomen distended, No abdominal pain, No blood streaked bowels, No constipation , No diarrhea, No difficulty swallowing, No nausea, No poor appetite, No poor fluid intake, No rectal bleeding, No vomiting, No other, No nausea/vomiting/ diarrhea, No stool coloration changes Genitourinary: No no symptoms reported, No As described under HPI, No burning, No dysuria, No discharge, No frequency, No flank pain, No hematuria, No incontinence, No pain, No urgency, No other, No urine frequency changes, No urine coloration changes Musculoskeletal: No no symptoms reported, No As describe under HPI, No back pain, No gout, No joint pain, No joint swelling, No muscle pain, No muscle stiffness, No neck pain, No other Skin: No no symptoms reported, No As described under HPI, No change in color, No change in hair/nails, No dryness, No lesions, No lumps, No rash, No other, No skin related problems, No ulcerations, No rash on exposed areas, No ulcerations on exposed areas Psychiatric/Neurological: No no symptoms reported, No As described under HPI, No anxiety, No depression, No emotional problems, No headache, No numbness, No pre-existing deficit, No seizure, No tingling, No tremors, No weakness, No other , No focal weakness, No syncope Hematologic: No no symptoms reported, No As described under HPI, No anemia, No blood clots, No easy bleeding, No easy bruising, No swollen glands, No other, No bleeding abnormalities [id number] Hx Patient Social History Employed/Student: retired Alcohol Use: Denies Use Recreational Drug Use: No Smoking Status: Never a Smoker Recent Foreign Travel: No Recent Infectious Disease Expo: No Hospitalization with Isolation: Denies Physical Abuse Screen: No Sexual Abuse: No Immunizations Up To Date Tetanus Booster (TDap): Unknown Date of Pneumonia Vaccine: May 28, 2015 Past Medical History PMH As described under Assessment. Family Medical History Family Medical History: No family history early CAD or SCD Family History: Patient reports no known family medical history. Allergies and Home Medications Allergies Coded Allergies: No Known Drug Allergies (Unverified , 03/05/10) Home Medications Acetaminophen 500 Mg Tablet, 1,000 MG PO Q8H PRN for PAIN-MILD, (Reported) Alprazolam 0.25 Mg Tablet, 0.25 MG PO Q8H PRN for ANXIETY, (Reported) Apixaban 5 Mg Tablet, 5 MG PO BID, (Reported) Atorvastatin Calcium 20 Mg Tablet, 20 MG PO 2000, (Reported) Cyanocobalamin 1,000 Mcg/Ml Inj, 1,000 MCG IJ MONTHLY ON THE 15TH, (Reported) Diltiazem HCl 180 Mg Cap.er.24h, 180 MG PO DAILY, (Reported) Levothyroxine Sodium 88 Mcg Tablet, 88 MCG PO 1999, (Reported) Lisinopril 5 Mg Tablet, 5 MG PO 1999, (Reported) Metoprolol Tartrate 25 Mg Tablet, 25 MG PO BID, (Reported) Oxycodone HCl 5 Mg Tablet, 2.5-5 MG PO Q3H PRN for PAIN-SEVERE, (Reported) Propafenone HCl 225 Mg Tablet, 225 MG PO TID, (Reported) Sennosides/Docusate Sodium 1 Each Tablet, 2 TAB PO BID, (Reported) Physical Exam-Cardiology Physical Exam Vital Signs/I&O Vital Sign - Last 12Hours 07/22/17 07/22/17 07/23/17 07/23/17 22:00 23:00 00:00 00:00 Pulse 93 93 96 Resp 19 22 21 B/P (MAP) 129/62 89/45 80/37 Pulse Ox 97 94 94 97 O2 Delivery Room Air Room Air Room Air Room Air 07/23/17 07/23/17 07/23/17 07/23/17 01:00 01:00 02:00 03:00 Pulse 96 96 96 96 Resp 19 9 18 B/P (MAP) 105/58 120/72 121/68 Pulse Ox 95 98 95 O2 Delivery Room Air Room Air Room Air 07/23/17 07/23/17 07/23/17 07/23/17 04:00 04:00 05:00 06:00 Pulse 100 103 105 Resp 17 18 20 B/P (MAP) 125/81 134/71 114/92 Pulse Ox 96 97 95 97 O2 Delivery Room Air Room Air Room Air Room Air 07/23/17 07/23/17 07:46 08:00 Temp 96.0 Pulse 110 112 Resp 17 B/P (MAP) 136/119 Pulse Ox 98 O2 Delivery Room Air Capillary Refill : Less Than 3 SecondsLess Than 3 Seconds Constitutional: No appears stated age, No AAO x 3, No apparent distress, No PERRL, No well-developed, No well-nourished, No other HEENT: No PERRL, No normal ENT inspection, No TMs normal, No pharynx normal, No scleral icterus (R), No scleral icterus (L), No pale conjunctivae (R), No pale conjunctivae (L), No photophobia, No TM abnormal (R), No TM abnormal (L), No pharyngeal erythema, No tonsillar exudate, No other, No discharge, No EOMI, No hearing is well preserved, No hard of hearing, No oral hygience is good, No ulceration, No xanthelasmas are seen Neck: No non-tender, No full range of motion, No supple, No normal inspection, No carotid bruit, No limited range of motion, No lymphadenopathy (R), No lymphadenopathy (L), No tender lateral, No tender midline, No thyromegaly, No other, No carotid pulses are 2 + bilaterally, No with good upstrokes Respiratory: No accessory muscle use, No respiratory distress, No chest tender , No chest expansion is symmetric, No chest is bilaterally symmetric, No lungs clear to percussion, No lungs clear to auscultation, No crackles, No rhonchi, No rales, No stridor, No wheezing, No pleural rub, No other Cardiovascular: irregularly irregular, tachycardia, S1 and S2 Gastrointestinal: No tender, No soft, No round, No distended, No pulsatile mass , No organomegaly, No guarding, No rebound, No tenderness, No hernia, No mass, No audible bowel sounds, No abnormal bowel sounds, No abdominal bruits, No spleenomegaly, No other Rectal: deferred Extremities: No normal range of motion, No non-tender, No normal inspection, No pedal edema, No calf tenderness, No normal capillary refill, No pelvis stable , No calf tenderness, No inflammation, No pedal edema, No slow capillary refill , No swelling, No other, No abrasion, No clubbing, No cyanosis, No ecchymosis, No laceration, No no lower extremity edema bilateral, No significant edema, No tenderness, No wound Neurologic/Psychiatric: No respiratory tech II-XII nml as tested, No no motor/sensory deficits, No alert, No normal mood/affect, No oriented x 3, No abnormal cerebellar tests, No abnormal respiratory tech II-XII, No abnormal gait, No aphasia, No EOM palsy, No facial droop, No motor weakness, No sensory deficit, No depressed affect, No disoriented x 3, No other, No grossly intact, No power is 5/5 both on sides Skin: No normal color, No warm/dry, No cyanosis, No cool, No diaphoresis, No damp, No ecchymosis, No jaundice, No mottled, No pallor, No rash, No tattoos/ piercings, No ulcerations, No rash on exposed areas, No ulcerations on exposed areas, No other Data Review Labs Laboratory Tests 07/22/17 14:25: White Blood Count 8.4, Red Blood Count 3.47L, Hemoglobin 11.1L, Hematocrit 36, Mean Corpuscular Volume 103H, Mean Corpuscular Hemoglobin 32, Mean Corpuscular Hemoglobin Concent 31L, Red Cell Distribution Width 14.8H, Platelet Count 230, Mean Platelet Volume 10.6H, Sodium Level 140, Potassium Level 3.9, Chloride Level 106, Carbon Dioxide Level 26, Anion Gap 8, Blood Urea Nitrogen 18, Creatinine 1.53H, Estimat Glomerular Filtration Rate 32, BUN/Creatinine Ratio 12 , Glucose Level 120H, Calcium Level 9.3, Magnesium Level 1.7L, Total Bilirubin 0.6, Aspartate Amino Transf (AST/SGOT) 9, Alanine Aminotransferase (ALT/SGPT) < 6, Alkaline Phosphatase 103, Troponin I < 0.30, Total Protein 6.2L, Albumin 3.3 , Thyroid Stimulating Hormone (TSH) 1.94 07/23/17 04:42: White Blood Count 3.6L, Red Blood Count 3.27L, Hemoglobin 10.3L, Hematocrit 34L , Mean Corpuscular Volume 103H, Mean Corpuscular Hemoglobin 32, Mean Corpuscular Hemoglobin Concent 31L, Red Cell Distribution Width 14.5, Platelet Count 178, Mean Platelet Volume 10.4, Sodium Level 141, Potassium Level 3.8, Chloride Level 110H, Carbon Dioxide Level 23, Anion Gap 8, Blood Urea Nitrogen 16, Creatinine 1.02, Estimat Glomerular Filtration Rate 51, BUN/Creatinine Ratio 16, Glucose Level 80, Calcium Level 8.4L, Magnesium Level 1.6L, Neutrophils (%) (Auto) 52, Lymphocytes (%) (Auto) 32, Monocytes (%) (Auto) 14H, Eosinophils (%) (Auto) 1, Basophils (%) (Auto) 1, Neutrophils # (Auto) 1.9, Lymphocytes # (Auto) 1.2, Monocytes # (Auto) 0.5, Eosinophils # (Auto) 0.0, Basophils # (Auto) 0.0 ECG Impression ECG Initial ECG Impression: Atrial Fibrillation w/RVR A/P-Cardiology Assessment/Admission Diagnosis atrial fibrillation with rapid ventricular rate, Severe symptomatic sinus node dysfunction. Plan atrial fibrillation with rapid ventricular rate, severe symptomatic sinus node dysfunction. Episode of syncope with significant bradycardia. Dual-chamber permanent pacemaker is recommended. I discussed at length with the patient. All the risks and complication were explained in detail. She requires permanent pacemaker for bradycardia support, so that she can have rate controlling agents for atrial fibrillation with rapid ventricular response. Thank you for your consultation. Please call me if you have any questions. Gael Garcia MD, FACP, FACC, FSCAI, FHRS, CCDS Interventional Cardiology Cardiac Electrophysiology Vascular Medicine and Endovascular Interventions Kristopher GARCIA MD Jul 23, 2017 9:52 am
[2017-07-23] MEDS ORDERED: meTOprolol 5 MG/5 ML (LOPRESSOR) VIAL ONE ×2 (10:29→10:54)
[2017-07-23] MEDS ORDERED: NEO/POLY/BAC (NEOSPORIN) OINT 15 GM TUBE ONE (11:46)
--- NOTE | 2017-07-23 11:57 | Cardiac Procedure Note-CS/ASA ---
Pre-Procedure Note Pre-Op Procedure Note H&P Reviewed The H&P was reviewed, patient examined and no changes noted. Date H&P Reviewed: Jul 23, 2017 Time H&P Reviewed: 10:30 Conscious Sedation Pre-Proced Time Reviewed: 10:30 ASA Class: 3 Airway Mallampati Classification: ([place] appropriate class) I. II. III, IV Lungs Heart ASA score ASA 1: a normal healthy patient ASA 2: a patient with a mild systemic disease (mid diabetes, controlled hypertension, obesity ASA 3: a patient with a severe systemic disease that limits activity (angina , COPD, prior Myocardial infarction) ASA 4: a patient with an incapacitating disease that is a constant threat to life (CHF, renal failure) ASA 5: a moribund patient not expected to survive 24 hrs. (ruptured aneurysm) ASA 6: a declared brain patient whose organs are being harvested. For emergent operations, add the letter E after the classification Grade 1 Sedation Plan: Analgesia, Amnesia, Plan communicated to team members, Discussed options with patient/fam, Discussed risks with patient/fam Note The patient is an appropriate candidate to undergo the planned procedure, sedation, and anesthesia. The patient immediately re-assessed prior to indication. Kristopher DOYLE MD Jul 23, 2017 11:57 am
[2017-07-23] MEDS ORDERED: NS IV 1000 ML 1,000 ML IV SCH (11:58)
--- NOTE | 2017-07-23 11:58 | Cardiology Post Procedure Note ---
Post-Procedure Note Physician (s)/Intern Architect (s) Physician Kristopher DOYLE MD Pre-Procedure Diagnosis Pre-Procedure Diagnosis: atrial fibrillation with RVR, severe symptomatic sick sinus syndrome Post-Procedure Note Procedure Start Date: Jul 23, 2017 Procedure Start Time: 10:30 Name of Procedure: dual-chamber permanent pacemaker implantation, implantable loop recorder removal Findings/Procedure Note severe symptomatic sick sinus syndrome, successful implantation of a dual- chamber permanent pacemaker. Removal of implantable loop recorder. Anesthesia Type: Conscious Sedation Estimated blood loss (mL): 30 mL Contrast Amount: 0 Post-Procedure Diagnosis Post-operative diagnosis: successful implantation of dual-chamber permanent pacemaker implantation, implantable loop recorder removal. Kristopher DOYLE MD Jul 23, 2017 11:58 am
[2017-07-23] MEDS ORDERED: PATIENT MAY USE OWN MEDS, ALL PO SCH (12:00)
[2017-07-23] MEDS ORDERED: CEPH-507 PO (12:01)
--- NOTE | 2017-07-23 13:10 | Diagnostic Imaging Report ---
AP chest at 12:33 PM. INDICATION: Post pacemaker insertion. In the interval since the prior exam of 07/22/2017, a dual-lead left-sided pacemaker has been inserted. The pacer leads seem to be in good position. There is no sign of a pneumothorax, and the overall appearance of the chest does not seem to have changed significantly otherwise. IMPRESSION: 1. There has been insertion of a left-sided pacemaker without apparent complication. 2. There is no acute cardiopulmonary abnormality identified. Dictated by: Dictated on workstation # [id number]
[2017-07-23] MEDS ORDERED: ceFAZolin INJECTION 1,000 MG in NS (IVPB) 50 ML IV SCH (14:00)
[2017-07-23] MEDS: ceFAZolin INJECTION 1,000 MG in NS (IVPB) 50 ML IV SCH (17:27)
[2017-07-23] MEDS: ATORVASTATIN 20 MG (LIPITOR) TABLET PO SCH (20:53)
[2017-07-23] MEDS: LEVOTHYROXINE 88 MCG (LEVOTHORID) TAB PO SCH (20:53)
[2017-07-24] VITALS (10 sets, daily range): BP systolic 116–149; BP diastolic 63–113
[2017-07-24] MEDS: ceFAZolin INJECTION 1,000 MG in NS (IVPB) 50 ML IV SCH ×2 (01:00→11:43)
--- NOTE | 2017-07-24 04:07 | OPERATIVE REPORT ---
DATE OF SERVICE: REPORT TITLE: DUAL CHAMBER PERMANENT PACEMAKER IMPLANTATION ATTENDING PHYSICIAN: Dr. Zelda Maki. PRIMARY PRODUCTION CONTROL CLERK: Dr. Evangelist Rasheed. PERFORMING PHYSICIAN Dr. Gael Garcia. INDICATION: Atrial fibrillation with rapid ventricular rate, severe symptomatic sinus node dysfunction. PREOPERATIVE DIAGNOSIS: Atrial fibrillation with rapid ventricular rate, severe symptomatic sinus node dysfunction. POSTOPERATIVE DIAGNOSES 1. Successful implantation of dual chamber permanent pacemaker. 2. Implantable loop recorder removal. HISTORY: The patient is an 86-year-old lady who has history of paroxysmal atrial fibrillation. She developed significant atrial fibrillation with rapid ventricular rate and also has severe bradycardia and pauses. She is significantly symptomatic. She also developed an episode of syncope yesterday when she was severely bradycardic. She requires rate controlling agents and antiarrhythmic therapy for her atrial fibrillation with rapid ventricular rate. Therefore, a dual chamber permanent pacemaker was recommended. PROCEDURE PERFORMED 1. Dual chamber permanent pacemaker implantation. 2. Implantable loop recorder explantation. COMPLICATIONS: None. CONTRAST: None. SPECIMENS: Explanted loop recorder. IV ANTICOAGULATION None. CONTRAST: Zero. FLUOROSCOPY TIME: FLUOROSCOPY DOSE: PROCEDURE DETAILS: The patient was brought to the lab head after informed consent was taken. All the risks and complications were explained in detail. She was draped and prepped in the usual sterile fashion. She was given conscious sedation as well as local anesthesia. A 2 inch incision was made just below the left clavicle. Dissection was carried down until the pectoralis fascia. We gained 2 access in the axillary vein under fluoroscopy guidance. Two wires were placed. Through 1 of the wires, a 7 Hungarian sheath was placed. The wire and introducer were taken out. Then, we took an RV lead which was advanced into the RV and placed in the apical RV apex under fluoroscopy guidance in both TOBAR and VIKKI. Lead integrity and capture and threshold was checked. Diaphragmatic stimulation was ruled out. The screw was deployed and the lead was checked again. Good capture and threshold was noted. There was no diaphragmatic stimulation. The lead was sutured with 2-0 silk suture. We then put another Hungarian sheath into the other J-wire. The wire and introducer were taken out. An RA lead was advanced and then placed in the right atrial appendage. Good sensitivity and impedance was noted; however, capture threshold could not be performed since the patient was in atrial fibrillation. The screw was deployed and the lead was sutured to the pectoralis fascia with a 2-0 silk suture. We then attached both the leads to the device in a hermetic fashion. A pocket was created and aggressive irrigation performed. The device was placed in the pocket. The device was secured with a 2-0 silk suture. The incision was closed in 3 layers. The first layer was 2-0 absorbable suture, we placed 5 interrupted sutures. The second was an uninterrupted layer with 2-0 suture. The subcutaneous closure was done with a 4-0 absorbable suture. The patient was draped and Steri-Strips were placed. The patient tolerated the procedure well, did not have any complication. Then the left lower substernal area was prepped and local anesthesia was given with lidocaine to where the previous link was implanted. A small incision was made and the loop recorder was explanted. Steri-Strips were placed to close it. IMPRESSION/CONCLUSION: 1. The patient will be transferred back to the ICU. 2. Chest x-ray will be performed to rule out pneumothorax. 3. The patient will continue to receive IV antibiotics until tomorrow and be discharged on Keflex 500 mg t.i.d. for the next 5 days. 4. Device interrogation, EKG will be performed in the morning. 5. The patient will continue on antiarrhythmic therapy and rate controlling agents. Job ID: [id number] DocumentID: [id number] Dictated Date: 07/23/2017 12:47:54 Mink Farmer Date: 07/24/2017 01:45:55 Dictated By: ALESSANDRO GARCIA MD
[2017-07-24 05:31] LABS: MEAN PLATELET VOLUME 10.5 FL (7.4-10.4); RED BLOOD COUNT 3.22 10^6/uL (4.35-5.85); RED CELL DISTRIBUTION WIDTH 14.4 % (10.0-14.5); WHITE BLOOD COUNT 5.4 10^3/uL (4.3-11.0)
[2017-07-24] MEDS: MAGNESIUM 1 GM/100 ML IVPB 100 ML IV SCH (06:00)
[2017-07-24] MEDS: KCL 20 MEQ TAB (K-DUR) PO SCH (06:00)
[2017-07-24] MEDS: POTASSIUM CL 10MEQ/50ML IVPB 50 ML IV SCH (06:00)
[2017-07-24 06:05] LABS: ALANINE AMINOTRANSFERASE < 6 U/L (0-55); ALBUMIN 2.7 GM/DL (3.2-4.5); ANION GAP 8 MMOL/L (5-14); ASPARTATE AMINO TRANSFERASE 9 U/L (5-34); BILIRUBIN,TOTAL 0.5 MG/DL (0.1-1.0); BLOOD UREA NITROGEN 11 MG/DL (7-18); BUN/CREATININE RATIO 14; CALCIUM 8.5 MG/DL (8.5-10.1); CARBON DIOXIDE 21 MMOL/L (21-32); CHLORIDE 111 MMOL/L (98-107); CREATININE SERUM 0.78 MG/DL (0.60-1.30); GFR ESTIMATED > 60; GLUCOSE 91 MG/DL (70-105); POTASSIUM 3.7 MMOL/L (3.6-5.0); SODIUM 140 MMOL/L (135-145); TOTAL PROTEIN 5.1 GM/DL (6.4-8.2)
--- NOTE | 2017-07-24 08:02 | Discharge Summary-Hospitalist ---
Diagnosis/Chief Complaint Date of Admission Jul 22, 2017 at 16:18 Date of Discharge Discharge Date: Jul 24, 2017 Admission Diagnosis sick sinus syndrome Discharge Diagnosis Sick Sinus Syndrome (1) Sick sinus syndrome Status: Chronic Assessment & Plan: Cardiology consulted, appreciate recs Pacemaker placed 07/23 Continue Metoprolol Rate in the 90s (2) A-fib Status: Chronic Assessment & Plan: Will resume Eliquis Cardiology consulted, appreciate recs (3) Acute kidney injury Status: Resolved Assessment & Plan: Back to baseline H/o of renal artery stenosis s/p stenting (4) Renal artery stenosis Status: Chronic Assessment & Plan: s/p stenting (5) Essential (primary) hypertension Status: Chronic Assessment & Plan: Lisinopril Diltiazem Metoprolol Well controlled (6) CAD (coronary artery disease) Status: Chronic Assessment & Plan: Continue Statin Cards consulted, appreciate recs (7) Hypothyroidism Status: Chronic Assessment & Plan: TSH within goal Continue Synthroid (8) Macrocytic anemia Status: Chronic Assessment & Plan: Improving, trend (9) Prophylactic measure Assessment & Plan: Eliquis Cardiac Diet Saline lock Discharge Summary Procedures Pacemaker placement Consultations Dr Kathya Garcia Discharge Physical Examination Allergies: Coded Allergies: No Known Drug Allergies (Unverified , 03/05/10) Vitals & I&Os Vital Signs Date Time Temp Pulse Resp B/P (MAP) Pulse Ox O2 Delivery O2 Flow Rate FiO2 07/24/17 09:00 101 10 96 Room Air 07/24/17 08:37 98.8 Hospital Course Pt is an 86yo CF who presented to the ER after a witnessed syncopal episode at her [facility]. She was found to have symptomatic sick sinus syndrome that has previously been refractory to medial management. Dr. Rasheed was consulted as is her primary cardiology and arranged for pacemaker placement on 07/23. She underwent placement without difficulty and was discharged back to her [facility] in stable condition. Labs (last 24 hrs) Laboratory Tests 07/24/17 04:31: White Blood Count 5.4, Red Blood Count 3.22L, Hemoglobin 10.3L, Hematocrit 33L, Mean Corpuscular Volume 102H, Mean Corpuscular Hemoglobin 32, Mean Corpuscular Hemoglobin Concent 31L, Red Cell Distribution Width 14.4, Platelet Count 183, Mean Platelet Volume 10.5H, Sodium Level 140, Potassium Level 3.7, Chloride Level 111H, Carbon Dioxide Level 21, Anion Gap 8, Blood Urea Nitrogen 11, Creatinine 0.78, Estimat Glomerular Filtration Rate > 60, BUN/Creatinine Ratio 14, Glucose Level 91, Calcium Level 8.5, Magnesium Level 1.8, Total Bilirubin 0.5, Aspartate Amino Transf (AST/SGOT) 9, Alanine Aminotransferase (ALT/SGPT) < 6, Alkaline Phosphatase 83, Total Protein 5.1L, Albumin 2.7L Pending Labs Laboratory Tests 07/24/17 04:31: White Blood Count 5.4, Red Blood Count 3.22, Hemoglobin 10.3, Hematocrit 33, Mean Corpuscular Volume 102, Mean Corpuscular Hemoglobin 32, Mean Corpuscular Hemoglobin Concent 31, Red Cell Distribution Width 14.4, Platelet Count 183, Mean Platelet Volume 10.5, Sodium Level 140, Potassium Level 3.7, Chloride Level 111, Carbon Dioxide Level 21, Anion Gap 8, Blood Urea Nitrogen 11, Creatinine 0.78, Estimat Glomerular Filtration Rate > 60, BUN/Creatinine Ratio 14, Glucose Level 91, Calcium Level 8.5, Magnesium Level 1.8, Total Bilirubin 0.5, Aspartate Amino Transf (AST/SGOT) 9, Alanine Aminotransferase (ALT/SGPT) < 6, Alkaline Phosphatase 83, Total Protein 5.1, Albumin 2.7 Discharge Home Medications: Active Scripts Active Keflex (Cephalexin) 500 Mg Capsule 500 Mg PO TID 5 Days Reported Metoprolol Tartrate 25 Mg Tablet 25 Mg PO BID Tylenol Extra Strength (Acetaminophen) 500 Mg Tablet 1,000 Mg PO Q8H PRN Oxycodone HCl 5 Mg Tablet 2.5-5 Mg PO Q3H PRN Cartia Xt (Diltiazem HCl) 180 Mg Cap.er.24h 180 Mg PO DAILY Lisinopril 5 Mg Tablet 5 Mg PO 2000 Levothyroxine Sodium 88 Mcg Tablet 88 Mcg PO 2000 Senna S Tablet (Sennosides/Docusate Sodium) 1 Each Tablet 2 Tab PO BID Propafenone HCl 225 Mg Tablet 225 Mg PO TID Alprazolam 0.25 Mg Tablet 0.25 Mg PO Q8H PRN Cyanocobalamin Injection (Cyanocobalamin) 1,000 Mcg/Ml Inj 1,000 Mcg IJ MONTHLY ON THE Atorvastatin Calcium 20 Mg Tablet 20 Mg PO 1999 Eliquis (Apixaban) 5 Mg Tablet 5 Mg PO BID Instructions to patient/family Please see electronic discharge instructions given to patient. Copy Copies To 1: MARGARITA RASHEED MD; ОЛЬГА HORTON MD Problem Qualifiers (1) A-fib: Atrial fibrillation type: chronic Qualified Codes: I48.2 - Chronic atrial fibrillation NAVI WOLFF MD Jul 24, 2017 8:02 am
[2017-07-24] MEDS: meTOprolol TARTRATE 25 MG (LOPRESSOR) TABLET PO SCH (08:41)
[2017-07-24] MEDS ORDERED: DILTIAZEM 180 MG (CARDIZEM CD) CAP PO SCH (09:00)
--- NOTE | 2017-07-24 11:02 | Cardiology Progress Note ---
Subjective Date Seen by Provider: Jul 24, 2017 Time Seen by Provider: 11:00 Subjective/Events-last exam patient is laying down in bed, feeling better, pacemaker site is oozing slightly. Heart rate is better controlled. Ready for discharge. Review of Systems General: No Chills, No Night Sweats, No Fatigue, No Malaise, No Appetite, No Other HEENT: No Head Aches, No Visual Changes, No Eye Pain, No Ear Pain, No Dysphasia , No Sinus Congestion, No Post Nasal Drip, No Sore Throat, No Other Pulmonary: No Dyspnea, No Cough, No Pleuritic Chest Pain, No Other Cardiovascular: No: Chest Pain, Palpitations, Orthopnea, Paroxysmal Noc. Dyspnea, Edema, Lt Headedness, Other Objective-Cardiology Exam Last Set of Vital Signs Vital Signs 07/24/17 07/24/17 07/24/17 08:00 08:37 09:00 Temp 98.8 Pulse 101 Resp 10 B/P (MAP) 133/96 Pulse Ox 96 O2 Delivery Room Air Capillary Refill : Less Than 3 SecondsLess Than 3 Seconds I&O Intake and Output 07/25/17 00:00 Intake Total 325 ml Output Total 1025 ml Balance -700 ml Intake Oral 280 ml IV Total 45 ml Output Urine Total 1025 ml General: Alert, Oriented X3, Cooperative HEENT: Atraumatic, PERRLA Neck: Supple, No JVD, No Thyromegaly Lungs: Clear to Auscultation, Normal Air Movement Heart: Normal S1, Normal S2, No Murmurs, Other (atrial fibrillation) Abdomen: Normal Bowel Sounds, Soft, No Tenderness, No Hepatosplenomegaly, No Masses Extremities: No Clubbing, No Cyanosis, No Edema, Normal Pulses, No Tenderness/ Swelling Skin: No Rashes, No Breakdown, No Significant Lesion Neuro: Normal Gait, Normal Speech, Strength at 5/5 X4 Ext, Normal Tone, Sensation Intact Psych/Mental Status: Mental Status NL, Mood NL Results Lab Laboratory Tests 07/24/17 04:31 A/P-Cardiology Admission Diagnosis syncope Paroxysmal atrial fibrillation Sick sinus syndrome Hypertension Assessment/Plan Syncope, sick sinus syndrome with tachybradycardia episode, status post pacemaker implantation. Doing well. Pacemaker was interrogated today with good sensing and capture activity. Planning to discharge today. Paroxysmal atrial fibrillation, continue on oral anticoagulation. Monitor closely Sick sinus syndrome, symptomatic bradycardia and syncope, status post pacemaker implantation Hypertension, continue to monitor blood pressure MARGARITA COULTER MD Jul 24, 2017 11:02
[2017-07-24] MEDS ORDERED: APIXABAN 5 MG (ELIQUIS) TABLET ONE (11:32)
[2017-07-24] MEDS ORDERED: DILT240C53 PO (11:37)
[2017-07-24] MEDS ORDERED: ACETAMINOPHEN 500 MG TAB (TYLENOL) ONE (13:09)
[2017-07-24] MEDS ORDERED: ACETAMINOPHEN 500 MG TAB (TYLENOL) PO PRN (13:30)
[2017-07-24] MEDS ORDERED: lisINopril 5 MG (PRINIVIL) TABLET PO SCH (20:00)
[2017-07-24] MEDS ORDERED: APIXABAN 5 MG (ELIQUIS) TABLET PO SCH (21:00)
== END 2017-07-24 14:00 ==
LOC: EDUNIT# 14:22 → ER 14:24 → ICU 16:18 → SDC 16:18 → ICU 16:18 → UNDOADMOB 16:18 → UNDODISOB 07-24 14:00 → SDC 07-24 14:00
PROVIDERS: ATTEND Family Medicine
DX: I49.5 Sick sinus syndrome (principal); I48.0 Paroxysmal atrial fibrillation; I70.1 Atherosclerosis of renal artery; N17.9 Acute kidney failure, unspecified; I10 Essential (primary) hypertension; I25.10 Atherosclerotic heart disease of native coronary artery without angina pectoris; E03.9 Hypothyroidism, unspecified; Z66 Do not resuscitate; E78.00 Pure hypercholesterolemia, unspecified; D53.9 Nutritional anemia, unspecified; Z79.899 Other long term (current) drug therapy; Z95.5 Presence of coronary angioplasty implant and graft
CPT/HCPCS: 33208; 33284; 36415; 71010; 80048; 80053; 83735; 84443; 84484; 85025; 85027; 93005

== ENCOUNTER 2018-11-11 04:48 | Inpatient (IN) | payer MEDICARE, OTHER ==
[~2018-11-11] VITALS: Ht 157.5 cm; Wt 68.1 kg
[~2018-11-11 04:48] MED LIST changes: +ACET-2267 PO; +ACHD5005 PO; -AMIO200T2 PO; +AMIO200T4 PO; +DILT240C53 PO; -DILT240C63 PO; +DILT240C97 PO; -HYDR-3812 PO; +METO100T12 PO; -METO100T2 PO; +OXYC-529 PO; +SENN-145 PO
[2018-11-11] MEDS ORDERED: NS IV 500 ML 500 ML IV ONE (04:55)
[2018-11-11] MEDS ORDERED: fentaNYL INJECTION 100 MCG/2 ML AMP IVP ONE (05:00)
[2018-11-11 05:04] LABS: BASOPHILS % (AUTO) 0 % (0-10); EOSINOPHILS % (AUTO) 0 % (0-10); HEMATOCRIT 41 % (35-52); HEMOGLOBIN 13.1 G/DL (11.5-16.0); LYMPHOCYTES # (AUTO) 1.1 X 10^3 (1.0-4.0); LYMPHOCYTES % (AUTO) 15 % (12-44); MEAN CORPUSCULAR HEMOGLOBIN 31 PG (25-34); MEAN CORPUSCULAR HGB CONC 32 G/DL (32-36); MEAN CORPUSCULAR VOLUME 98 FL (80-99); MEAN PLATELET VOLUME 10.8 FL (7.4-10.4); MONOCYTES # (AUTO) 0.8 X 10^3 (0.0-1.0); MONOCYTES % (AUTO) 11 % (0-12); NEUTROPHILS # (AUTO) 5.7 X 10^3 (1.8-7.8); NEUTROPHILS % (AUTO) 74 % (42-75); PLATELET COUNT 151 10^3/uL (130-400); RED CELL DISTRIBUTION WIDTH 13.9 % (10.0-14.5); WHITE BLOOD COUNT 7.7 10^3/uL (4.3-11.0)
--- NOTE | 2018-11-11 05:05 | ED Back Pain ---
General Stated Complaint: SHOULDER PAIN Source of Information: Patient, EMS Exam Limitations: No Limitations History of Present Illness Date Seen by Provider: Nov 11, 2018 Time Seen by Provider: 05:00 Initial Comments Patient presents to ER by EMS with chief complaint that she was woke up in the middle the night just prior to arrival with some sharp pain in the thoracic back below her scapula going across and radiating to the left and right. She got up went to the bathroom which did not help her worsen her pain. She had no dysuria fevers chills rash. She's never had a pain like this before no history of kidney stones. No coronary disease. No chest pain. No history of abdominal aortic aneurysm. Pain is sharp, 5 out of 10, constant. She's not taken anything for it yet. No history of falls or surgery on her back. She says she's been stable on the same few meds for the last 10 years. EMS obtained a list of her medications off her table which included Coreg, metoprolol, lisinopril, Eliquis and a statin. Allergies and Home Medications Allergies Coded Allergies: No Known Drug Allergies (Unverified , 03/05/10) Home Medications Acetaminophen 500 Mg Tablet, 1,000 MG PO Q8H PRN for PAIN-MILD, (Reported) Alprazolam 0.25 Mg Tablet, 0.25 MG PO Q8H PRN for ANXIETY, (Reported) Apixaban 5 Mg Tablet, 5 MG PO BID, (Reported) Atorvastatin Calcium 20 Mg Tablet, 20 MG PO 1999, (Reported) Cephalexin 500 Mg Capsule, 500 MG PO TID Prescribed by: Kristopher DOYLE on 07/23/17 1201 Cyanocobalamin 1,000 Mcg/Ml Inj, 1,000 MCG IJ MONTHLY ON THE , (Reported) Diltiazem HCl 240 Mg Cap.er.24h, 240 MG PO DAILY Prescribed by: MARGARITA COULTER on 07/24/17 1137 Levothyroxine Sodium 88 Mcg Tablet, 88 MCG PO 1999, (Reported) Lisinopril 5 Mg Tablet, 5 MG PO 2000, (Reported) Metoprolol Tartrate 25 Mg Tablet, 25 MG PO BID, (Reported) Oxycodone HCl 5 Mg Tablet, 2.5-5 MG PO Q3H PRN for PAIN-SEVERE, (Reported) Propafenone HCl 225 Mg Tablet, 225 MG PO TID, (Reported) Sennosides/Docusate Sodium 1 Each Tablet, 2 TAB PO BID, (Reported) Patient Home Medication List Home Medication List Reviewed: Yes Review of Systems Constitutional: No chills, No diaphoresis EENTM: No ear pain, No eye pain Respiratory: No cough, No short of breath Cardiovascular: No chest pain, No edema Gastrointestinal: No abdominal pain, No constipation, No diarrhea, No nausea Genitourinary: No discharge, No dysuria Musculoskeletal: No back pain, No joint pain Past Xdqyuyk-Akszfi-Kshafq Hx Patient Social History Alcohol Use: Occasionally Uses Alcohol Beverage of Choice: [place] Recreational Drug Use: No Smoking Status: Never a Smoker Recent Foreign Travel: No Contact w/Someone Who Travel: No Recent Hopitalizations: Yes Immunizations Up To Date Tetanus Booster (TDap): Unknown PED Vaccines UTD: No Date of Pneumonia Vaccine: May 28, 2015 Seasonal Allergies Seasonal Allergies: No Past Medical History Surgeries: Yes Cardiac, Coronary Stent, Joint Replacement, Tonsillectomy Respiratory: No Cardiac: Yes (CAD with heart stents) Atrial Fibrillation, Coronary Artery Disease, High Cholesterol, Hypertension Neurological: No Reproductive Disorders: No (ENDOMETRIAL 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 No Pertinent Family Hx Physical Exam Vital Signs Vital Signs - First Documented 11/11/18 04:57 Temp 97.7 Pulse 69 Resp 19 B/P (MAP) 191/82 (118) O2 Delivery Room Air Capillary Refill : Height, Weight, BMI Height: 5'2.00" Weight: 143lbs. 6.4oz. 65.078629gp; 25.8 BMI Method:Stated General Appearance: No Apparent Distress, WD/WN HEENT: PERRL/EOMI, Normal ENT Inspection, Pharynx Normal, Moist Mucous Membranes Neck: Full Range of Motion, Normal Inspection, Non Tender, Supple Cardiovascular: Regular Rate, Rhythm, No Edema, Normal Peripheral Pulses Respiratory: Chest Non Tender, Lungs Clear, Normal Breath Sounds, No Accessory Muscle Use, No Respiratory Distress Gastrointestinal: Normal Bowel Sounds, Non Tender, Soft Back: Normal Inspection, CVA Tenderness (L), CVA Tenderness (R), Vertebral Tenderness (the level of T12 and bilateral costovertebral angles) Extremity: Normal Capillary Refill, Normal Inspection, Normal Range of Motion, Non Tender, No Calf Tenderness Neurologic/Psychiatric: Alert, Oriented x3, No Motor/Sensory Deficits, Normal Mood/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, 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 Norm as Tested Skin: Normal Color, Warm/Dry Progress/Results/Core Measures Results/Orders Lab Results Laboratory Tests Test 11/11/18 04:58 Range/Units White Blood Count 7.7 4.3-11.0 10^3/uL Red Blood Count 4.23 L 4.35-5.85 10^6/uL Hemoglobin 13.1 11.5-16.0 G/DL Hematocrit 41 35-52 % Mean Corpuscular Volume 98 80-99 FL Mean Corpuscular Hemoglobin 31 25-34 PG Mean Corpuscular Hemoglobin Concent 32 32-36 G/DL Red Cell Distribution Width 13.9 10.0-14.5 % Platelet Count 151 130-400 10^3/uL Mean Platelet Volume 10.8 H 7.4-10.4 FL Neutrophils (%) (Auto) 74 42-75 % Lymphocytes (%) (Auto) 15 12-44 % Monocytes (%) (Auto) 11 0-12 % Eosinophils (%) (Auto) 0 0-10 % Basophils (%) (Auto) 0 0-10 % Neutrophils # (Auto) 5.7 1.8-7.8 X 10^3 Lymphocytes # (Auto) 1.1 1.0-4.0 X 10^3 Monocytes # (Auto) 0.8 0.0-1.0 X 10^3 Eosinophils # (Auto) 0.0 0.0-0.3 10^3/uL Basophils # (Auto) 0.0 0.0-0.1 10^3/uL Sodium Level 141 135-145 MMOL/L Potassium Level 4.1 3.6-5.0 MMOL/L Chloride Level 109 H 98-107 MMOL/L Carbon Dioxide Level 23 21-32 MMOL/L Anion Gap 9 5-14 MMOL/L Blood Urea Nitrogen 18 7-18 MG/DL Creatinine 1.12 0.60-1.30 MG/DL Estimat Glomerular Filtration Rate 46 BUN/Creatinine Ratio 16 Glucose Level 118 H 70-105 MG/DL Calcium Level 9.3 8.5-10.1 MG/DL Corrected Calcium 9.5 8.5-10.1 MG/DL Total Bilirubin 0.7 0.1-1.0 MG/DL Aspartate Amino Transf (AST/SGOT) 12 5-34 U/L Alanine Aminotransferase (ALT/SGPT) < 6 0-55 U/L Alkaline Phosphatase 80 40-136 U/L Troponin I < 0.028 <0.028 NG/ML Total Protein 6.5 6.4-8.2 GM/DL Albumin 3.7 3.2-4.5 GM/DL Lipase 23 8-78 U/L My Orders Orders - CESAR MARQUEZ Ct Abd/Pelvis Wo(Kidney Stone) (11/11/18 04:55) Saline Lock/Iv-Start (11/11/18 04:55) Cbc With Automated Diff (11/11/18 04:55) Comprehensive Metabolic Panel (11/11/18 04:55) Lipase (11/11/18 04:55) Troponin I (11/11/18 04:55) Ua Culture If Indicated (11/11/18 04:55) Chest Pa/Lat (2 View) (11/11/18 04:55) Saline Lock/Iv-Start (11/11/18 04:55) Ns Iv 500 Ml (Sodium Chloride 0.9%) (11/11/18 04:55) Fentanyl Injection (Sublimaze Injection (11/11/18 05:00) Acetaminophen Tablet (Tylenol Tablet) (11/11/18 05:15) Piperacillin/Tazobactam (Bulk) (Zosyn In (11/11/18 06:30) Medications Given in ED Current Medications Medications Dose Ordered Sig/Mayda Route Start Time Stop Time Status Last Admin Dose Admin Fentanyl Citrate 25 mcg ONCE ONCE IVP 11/11/18 05:00 11/11/18 05:01 DC 11/11/18 06:15 25 MCG Sodium Chloride 500 ml @ 0 mls/hr Q0M ONCE IV 11/11/18 04:55 11/11/18 05:01 DC 11/11/18 06:18 999 MLS/HR Vital Signs/I&O 11/11/18 04:57 Temp 97.7 Pulse 69 Resp 19 B/P (MAP) 191/82 (118) O2 Delivery Room Air Progress Progress Note : Time: 05:05 Progress Note Crosses the midline some shingles unlikely. The level the costovertebral angle so think about infection, renal stones. Could be organic to her back. Consider pathologic fracture. We'll obtain a CT of her abdomen pelvis which will let us look at her low back and low thoracic spine. We'll do a noncontrast which will help us rule out kidney stones. Urinalysis, labs and a chest x-ray two-view. Last creatinine we have is normal for 2 years ago. We'll offer some Tylenol for now and Toradol if her kidney function comes back okay. Diagnostic Imaging Diagonstic Imaging: Xray Plain Films/CT/US/NM/MRI: chest (1v) Comments No acute cardiopulmonary processes noted. Pacemaker in place. Reviewed: Reviewed by Me Diagonstic Imaging: CT Plain Films/CT/US/NM/MRI: abdomen, pelvis Comments Findings consistent with cholecystitis. Diverticulosis of the colon. No acute diverticulitis. Severe degenerative changes of the spine. Reviewed: Reviewed [place] Study, Reviewed by Me Departure Communication (Admissions) Time/Spoke to Admitting Phy: 06:15 Discussed the case with Dr. Rm he agrees to admit the patient and Zosyn. Impression Primary Impression: Cholecystitis Disposition: ADMITTED INPATIENT Condition: Stable Admissions Decision to Admit Reason: Admit from ER (General) Decision to Admit/Date: Nov 11, 2018 Time/Decision to Admit Time: 06:10 Departure-Patient Inst. Referrals: ОЛЬГА HORTON MD (PCP/Family) Primary Care Physician Copy Copies To 1: ОЛЬГА HORTON MD, TITUS J Nov 11, 2018 05:04
[2018-11-11] MEDS ORDERED: ACETAMINOPHEN 500 MG TAB (TYLENOL) PO ONE (05:15)
[2018-11-11 05:23] LABS: ALANINE AMINOTRANSFERASE < 6 U/L (0-55); ALBUMIN 3.7 GM/DL (3.2-4.5); ALKALINE PHOSPHATASE 80 U/L (40-136); BILIRUBIN,TOTAL 0.7 MG/DL (0.1-1.0); BUN/CREATININE RATIO 16; CALCIUM 9.3 MG/DL (8.5-10.1); CARBON DIOXIDE 23 MMOL/L (21-32); CHLORIDE 109 MMOL/L (98-107); CREATININE SERUM 1.12 MG/DL (0.60-1.30); GFR ESTIMATED 46; GLUCOSE 118 MG/DL (70-105); LIPASE 23 U/L (8-78); POTASSIUM 4.1 MMOL/L (3.6-5.0); SODIUM 141 MMOL/L (135-145); TOTAL PROTEIN 6.5 GM/DL (6.4-8.2)
[2018-11-11] MEDS ORDERED: NS (IVPB) 100 ML ONE (06:23)
[2018-11-11] MEDS ORDERED: PIPERACILLIN/TAZO 4.5 GM VIAL (ZOSYN) IV ONE (06:23)
[2018-11-11] MEDS ORDERED: PIPERACILLIN/TAZOBACTAM (BULK) 4.5 GM in NS (IVPB) 100 ML IV ONE (06:30)
[2018-11-11 06:49] LABS: BILIRUBIN,URINE NEGATIVE (NEGATIVE); CLARITY,URINE CLEAR; COLOR,URINE YELLOW; GLUCOSE, URINE (UA) NEGATIVE (NEGATIVE); KETONES,URINE NEGATIVE (NEGATIVE); LEUKOCYTE ESTERASE ,URINE 1+ (NEGATIVE); NITRITE,URINE POSITIVE (NEGATIVE); PH,URINE 5 (5-9); PROTEIN,URINE NEGATIVE (NEGATIVE); UROBILINOGEN,URINE 1 MG/DL (NORMAL)
[2018-11-11 07:03] LABS: BACTERIA,URINE LARGE /HPF
[2018-11-11] MEDS ORDERED: KETOROLAC 15 MG/ML VIAL IV PRN (08:00)
[2018-11-11] MEDS ORDERED: fentaNYL INJECTION 100 MCG/2 ML AMP IV PRN ×2 (08:00)
[2018-11-11] MEDS ORDERED: CATHETER FLUSH 10 ML SYR IV PRN (08:00)
[2018-11-11] MEDS ORDERED: ONDANSETRON 4 MG/2 ML (SDV) Z0FRAN IV PRN (08:00)
--- NOTE | 2018-11-11 08:22 | Diagnostic Imaging Report ---
PROCEDURE: CT urinary tract, rule out kidney stone. TECHNIQUE: Multiple contiguous axial images were obtained through the abdomen and pelvis without the use of intravenous contrast. INDICATION: Back pain for 3 hours. No prior studies are available for comparison. The lung bases are clear. No discrete liver mass is seen. Gallbladder appears to be distended. There are small stones in the gallbladder. There does appear to be some gallbladder wall thickening and perhaps mild pericholecystic inflammation. No biliary duct dilatation is seen. The pancreas and spleen are unremarkable. No adrenal mass is detected. Cortical low density in the left kidney is seen, presumably a cyst. Aorta and iliac vessels are heavily calcified but nonaneurysmal. Small and large bowel loops are normal caliber. There is sigmoid diverticulosis without evidence of acute diverticulitis. There is no ascites. The uterus is unremarkable. There is large amount of artifact in the pelvis from patient's left hip prosthesis. IMPRESSION: 1. Distended gallbladder with wall thickening and cholelithiasis. Features are concerning for acute cholecystitis. Gallbladder ultrasound would be useful for further evaluation. 2. Uncomplicated sigmoid diverticulosis. Dictated by: Dictated on workstation # [id number]
--- NOTE | 2018-11-11 08:25 | Diagnostic Imaging Report ---
INDICATION: Back pain. Time of exam: 5:23 AM Correlation is made with prior study from 07/23/2017. The heart size is stable. Dual-lead left subclavian cardiac pacemaker is in place. Lungs are clear. No infiltrate or effusion is seen. There is no pneumothorax. IMPRESSION: No acute cardiopulmonary process is detected. Dictated by: Dictated on workstation # [id number]
[2018-11-11] MEDS: meTOprolol 5 MG/5 ML (LOPRESSOR) VIAL IV SCH ×2 (09:18→20:23)
[2018-11-11] MEDS: LACTATED RINGERS 1,000 ML IV SCH ×3 (09:18→21:20)
[2018-11-11] MEDS ORDERED: DILT240C PO (09:43)
--- NOTE | 2018-11-11 09:49 | NUR ---
PATIENT HAD A LIST OF MEDICATIONS AND I COMPARED IT WITH THE EXT MED HX. SHE IS UNSURE OF THE DETAILS OF EACH MEDICATION, SHE STATES HER SON SETS UP HER PILL BOX FOR HER. HER ELIQUIS HAS NOT BEEN FILLED SINCE AUGUST FOR A 30 DAY SUPPLY. I CALLED [facility] AND SPOKE WITH HIM ON HIS CELL PHONE AT [phone]- HE VERIFIED SHE IS TAKING 1/2 TAB OF THE ELIQUIS BID. HER LIST ALSO STATES PROPAFENONE 225MG TID HOWEVER IT WAS LAST FILLED BID AND THEY VERIFY SHE IS ONLY TAKING IT BID. SHE TAKES 2 SENNA S TABS DAILY OTC.
--- NOTE | 2018-11-11 10:07 | NUR ---
Pt is listed as Holiness but was asleep when tafe teacher visited and no family present.
[2018-11-11 12:00] VITALS: BP 197/84
[2018-11-11] MEDS: PIPERACILLIN/TAZO 4.5 GM/NS 100 ML IV SCH ×4 (12:16→20:20)
--- NOTE | 2018-11-11 14:01 | History & Physical-Surgical ---
History of Present Illness History of Present Illness Reason for visit/HPI HPI per ED: Patient presents to ER by EMS with chief complaint that she was woke up in the middle the night just prior to arrival with some sharp pain in the thoracic back below her scapula going across and radiating to the left and right. She got up went to the bathroom which did not help her worsen her pain. She had no dysuria fevers chills rash. She's never had a pain like this before no history of kidney stones. No coronary disease. No chest pain. No history of abdominal aortic aneurysm. Pain is sharp, 5 out of 10, constant. She's not taken anything for it yet. No history of falls or surgery on her back. She says she's been stable on the same few meds for the last 10 years. EMS obtained a list of her medications off her table which included Coreg, metoprolol, lisinopril, Eliquis and a statin. When I saw pt she wasn't quite sure why she was in the hospital; she thought maybe she had fallen. I reminded her that she came in with abdominal pain and she admitted to still having some. She rated the pain she is having now as 2 out of 10. I spoke to her with her son at bedside. She denied any hematochezia or melena. She does not think she has had pain like this before and is not sure if anything brought the pain on. Date of Admission Nov 11, 2018 at 07:18 Time Seen by a Provider: 13:21 I consulted on this patient on 11/11/18 13:56 Attending Physician Fracisco Rm DO Admitting Physician Jamie Holcomb MD Consult Allergies and Home Medications Allergies Coded Allergies: No Known Drug Allergies (Unverified , 03/05/10) Home Medications Acetaminophen 500 Mg Tablet, 1,000 MG PO Q8H PRN for PAIN-MILD, (Reported) Apixaban 5 Mg Tablet, 2.5 MG PO BID, (Reported) TAKES 1/2 (5MG) TABLET Atorvastatin Calcium 20 Mg Tablet, 20 MG PO HS, (Reported) Diltiazem HCl 240 Mg Cap.er.24h, 240 MG PO DAILY, (Reported) Levothyroxine Sodium 88 Mcg Tablet, 88 MCG PO HS, (Reported) Lisinopril 5 Mg Tablet, 5 MG PO HS, (Reported) Metoprolol Tartrate 25 Mg Tablet, 25 MG PO BID, (Reported) Propafenone HCl 225 Mg Tablet, 225 MG PO BID, (Reported) Sennosides/Docusate Sodium 1 Each Tablet, 2 TAB PO DAILY, (Reported) Patient Home Medication List Home Medication List Reviewed: Yes Past Qcvrxbf-Ndkvan-Pmqjhh Hx Patient Social History Alcohol Use: Occasionally Uses Number of Drinks Today: BB Recreational Drug Use: No Smoking Status: Never a Smoker Recent Foreign Travel: No Contact w/Someone Who Travel: No Recent Infectious Disease Expo: No Recent Hopitalizations: Yes Immunizations Up To Date Tetanus Booster (TDap): Unknown PED Vaccines UTD: No Date of Pneumonia Vaccine: May 28, 2015 Seasonal Allergies Seasonal Allergies: No Surgeries History of Surgeries: Yes Surgeries: Cardiac, Coronary Stent, Joint Replacement, Tonsillectomy Respiratory History of Respiratory Disorde: No Cardiovascular History of Cardiac Disorders: Yes (CAD with heart stents) Cardiac Disorders: Atrial Fibrillation, Coronary Artery Disease, High Cholesterol, Hypertension Neurological History of Neurological Disord: No Reproductive System Hx Reproductive Disorders: No (ENDOMETRIAL THICKENING) 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 Genitourinary History of Genitourinary Disor: No Gastrointestinal History of Gastrointestinal Di: Yes Gastrointestinal Disorders: Chronic Constipation, Hemorrhoids Musculoskeletal History of Musculoskeletal Dis: Yes Musculoskeletal Disorders: Arthritis, Fractures Endocrine History of Endocrine Disorders: Yes Endocrine Disorders: Hypothyroidsim HEENT History of HEENT Disorders: Yes (cataracts removed) HEENT Disorders: Cataract, Macular Degeneration Loss of Vision: Denies Hearing Impairment: Hard of Hearing, Bilateral Hearing Aide Cancer History of Cancer: No Psychosocial History of Psychiatric Problem: Yes Behavioral Health Disorders: Anxiety Integumentary History of Skin or Integumenta: No Blood Transfusions History of Blood Disorders: No Adverse Reaction to a Blood Tr: No Family Medical History Significant Family History: Cancer (mother had stomach cancer) Family Medial History: Patient reports no known family medical history. Review of Systems Constitutional: No chills, No diaphoresis; weakness EENTM: No blurred vision, No mouth pain, No mouth swelling, No epistaxis Respiratory: No cough, No dyspnea on exertion, No hemoptysis Cardiovascular: No chest pain (states she hasn't had chest pain in over a year) , No edema; Hx of Intervention, palpitations Gastrointestinal: abdominal pain, constipation; No diarrhea, No jaundice, No nausea, No vomiting Genitourinary: No dysuria, No frequency, No hematuria Musculoskeletal: joint pain, joint swelling, muscle pain, muscle stiffness Skin: No change in color, No change in hair/nails, No dryness; other (bruising on arms) Psychiatric/Neurological: Denies Anxiety, Denies Depressed, Denies Seizure, Denies Tingling pt is on blood thinners, so bruises easily Physical Exam Vital Signs Vital Signs - First Documented 11/11/18 11/11/18 04:57 07:35 Temp 97.7 Pulse 69 Resp 19 B/P (MAP) 191/82 (118) Pulse Ox 98 O2 Delivery Room Air Capillary Refill : Less Than 3 Seconds Height, Weight, BMI Height: 5'2.00" Weight: 150lbs. 3.0oz. 68.735260fu; 27.5 BMI Method:Stated General Appearance: No Apparent Distress, WD/WN, Thin Eyes: Bilateral Eye PERRL, Bilateral Eye EOMI HEENT: Pharynx Normal; No Scleral Icterus (L), No Scleral Icterus (R) Neck: Non Tender, Supple Respiratory: Chest Non Tender, Lungs Clear, Normal Breath Sounds, No Accessory Muscle Use, No Respiratory Distress Cardiovascular: Regular Rate, Rhythm, No Edema, No Murmur Gastrointestinal: Normal Bowel Sounds, No Organomegaly, No Pulsatile Mass, Non Tender, Soft, Hernia (incarcerated umbilical hernia) Rectal: Deferred Back: No CVA Tenderness, No Vertebral Tenderness Extremity: Normal Capillary Refill, Normal Inspection, Non Tender, No Calf Tenderness, No Pedal Edema Neurologic/Psychiatric: Alert, No Motor/Sensory Deficits, Normal 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, 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 Skin: Normal Color, Warm/Dry Lymphatic: No Adenopathy (neck, axilla or groin) Data Review Labs Laboratory Tests 11/11/18 04:58: White Blood Count 7.7, Red Blood Count 4.23L, Hemoglobin 13.1, Hematocrit 41, Mean Corpuscular Volume 98, Mean Corpuscular Hemoglobin 31, Mean Corpuscular Hemoglobin Concent 32, Red Cell Distribution Width 13.9, Platelet Count 151, Mean Platelet Volume 10.8H, Neutrophils (%) (Auto) 74, Lymphocytes (%) (Auto) 15 , Monocytes (%) (Auto) 11, Eosinophils (%) (Auto) 0, Basophils (%) (Auto) 0, Neutrophils # (Auto) 5.7, Lymphocytes # (Auto) 1.1, Monocytes # (Auto) 0.8, Eosinophils # (Auto) 0.0, Basophils # (Auto) 0.0, Sodium Level 141, Potassium Level 4.1, Chloride Level 109H, Carbon Dioxide Level 23, Anion Gap 9, Blood Urea Nitrogen 18, Creatinine 1.12, Estimat Glomerular Filtration Rate 46, BUN/ Creatinine Ratio 16, Glucose Level 118H, Calcium Level 9.3, Corrected Calcium 9.5, Total Bilirubin 0.7, Aspartate Amino Transf (AST/SGOT) 12, Alanine Aminotransferase (ALT/SGPT) < 6, Alkaline Phosphatase 80, Troponin I < 0.028, Total Protein 6.5, Albumin 3.7, Lipase 23 11/11/18 06:20: Urine Color YELLOW, Urine Clarity CLEAR, Urine pH 5, Urine Specific [place] 1.025H, Urine Protein NEGATIVE, Urine Glucose (UA) NEGATIVE, Urine Ketones NEGATIVE, Urine Nitrite POSITIVEH, Urine Bilirubin NEGATIVE, Urine Urobilinogen 1, Urine Leukocyte Esterase 1+H, Urine RBC (Auto) 2+H, Urine RBC NONE, Urine WBC 10-25H, Urine Squamous Epithelial Cells 5-10, Urine Crystals NONE, Urine Bacteria LARGEH, Urine Casts NONE, Urine Mucus NEGATIVE, Urine Culture Indicated YES Assessment/Plan Assessment/Plan Admission Diagonsis Acute Cholecystitis with Cholelithiasis Incarcerated Umbilical Hernia Abnormal Coagulation HTN Hx of Afib CAD Hypercholesterolemia Admission Status: Inpatient Order (span 2 midnights) Reason for Inpatient Admission: Pt needs to stop her Eliquis for 48 hours prior to surgery, she needs IV ABX for Acute Cholecystitis with cholelithiasis Assessment/Plan Acute Cholecystitis with Cholelithiasis Incarcerated Umbilical Hernia Abnormal Coagulation HTN Hx of Afib CAD Hypercholesterolemia Plan is to keep pt in the hospital to monitor her closer; we need to stop the Eliquis and keep her on IV ABX for the Acute Cholecystitis/Cholelithiasis. Will keep her on IV fluids, pain control and anti-emetics as needed. Will restart her home medications as well. Will schedule to take her to the OR on Wednesday for Laparoscopic Cholecystectomy with possible cholangiogram, possible open. I discussed the procedure with the pt and her son; risk and complications not limited to pain, bleeding, infection, scar, damage to bowel or bile duct and need for further procedure. All questions answered to their satisfaction. FRACISCO RM DO Nov 11, 2018 14:01
[2018-11-11 15:26] VITALS: BP 206/88
[2018-11-11] MEDS ORDERED: meTOprolol 5 MG/5 ML (LOPRESSOR) VIAL IV NR (15:45)
[2018-11-11 16:15] VITALS: BP 182/83
[2018-11-11 20:00] VITALS: BP 190/94
[2018-11-11] MEDS: LEVOTHYROXINE 88 MCG (LEVOTHORID) TAB PO SCH (20:20)
[2018-11-11] MEDS: lisINopril 5 MG (PRINIVIL) TABLET PO SCH (20:21)
[2018-11-11] MEDS ORDERED: meTOprolol TARTRATE 25 MG (LOPRESSOR) TABLET PO SCH (21:00)
[2018-11-12] VITALS (7 sets, daily range): BP systolic 101–186; BP diastolic 64–85
[2018-11-12] MEDS: PIPERACILLIN/TAZO 4.5 GM/NS 100 ML IV SCH ×6 (04:19→19:57)
[2018-11-12] MEDS: LACTATED RINGERS 1,000 ML IV SCH ×3 (04:19→17:03)
--- NOTE | 2018-11-12 07:59 | NUR ---
DR SARAH RETURNED CALL. EKG TODAY AND ECHO TOMORROW. PARK NATURALIST NOTIFIED OF ECHO.
[2018-11-12] MEDS ORDERED: NON-FORMULARY MEDICATION 1 EA EA (Diltiazem HCl (Diltiazem 24Hr ER) 240 MG) PO SCH (09:00)
[2018-11-12] MEDS: meTOprolol 5 MG/5 ML (LOPRESSOR) VIAL IV SCH ×2 (09:52→17:21)
[2018-11-12] MEDS: DILTIAZEM 240 MG (CARDIZEM CD) CAP PO SCH (09:52)
--- NOTE | 2018-11-12 11:47 | Progress Note (SOAP) ---
Subjective Date Seen by a Provider: Nov 12, 2018 Time Seen by a Provider: 11:25 Subjective/Events-last exam Patient seen with Dr. Cantrell. Patient reports doing well. Denies any abdominal pain, nausea, vomiting, sweats/chills. Tolerating liquids and ambulating. Objective Exam Vital Signs Date Time Temp Pulse Resp B/P (MAP) Pulse Ox O2 Delivery O2 Flow Rate FiO2 11/12/18 08:00 99.7 96 18 101/64 (76) 97 Room Air 11/12/18 04:00 97.1 91 18 127/78 (94) 98 Room Air 11/12/18 00:00 97.3 93 20 186/85 (118) 97 Room Air 11/11/18 20:00 96 Room Air 11/11/18 20:00 87 190/94 (126) 11/11/18 16:15 182/83 (116) 11/11/18 15:26 99.5 83 20 206/88 (127) 96 Room Air 11/11/18 12:00 98.5 73 20 197/84 (121) 97 Room Air I & O 11/12/18 07:00 Intake Total 2640 ml Output Total 1100 ml Balance 1540 ml Capillary Refill : Less Than 3 Seconds General Appearance: No Apparent Distress, WD/WN HEENT: Other (CHIGNIK LAGOON) Neck: Full Range of Motion, Normal Inspection, Non Tender, Supple Respiratory: Lungs Clear, Normal Breath Sounds, No Accessory Muscle Use, No Respiratory Distress Cardiovascular: Regular Rate, Rhythm, No Edema Gastrointestinal: normal bowel sounds, soft, tenderness (RUQ) Extremity: Normal Inspection, Normal Range of Motion Neurologic/Psychiatric: Alert, Oriented x3 Skin: Normal Color, Warm/Dry Results Lab Microbiology 11/11/18 Urine Culture - Preliminary, Resulted Gram Negative Louis Assessment/Plan Assessment/Plan Assess & Plan/Chief Complaint A 88 year old female with Acute Cholecystitis with Cholelithiasis, Incarcerated Umbilical Hernia, Abnormal Coagulation, HTN, Hx of Afib on anticoag, CAD, Hypercholesterolemia. Will continue to hold anticoag. for 48 hours then proceed with surgical intervention. IV fluids, abx, pain, and nausea meds. Clear liquids Scheduled for lap alondra wednesday Clinical Quality Measures DVT/VTE Risk/Contraindication: Risk Factor Score Per Nursin RFS Level Per Nursing on Admit: 4+=Very High SAMUEL OLIVAS APRN Nov 12, 2018 11:46
--- NOTE | 2018-11-12 14:25 | Consultation-Cardiology ---
HPI-Cardiology Cardiology Consultation: Date of Consultation 11/12/18 Time Seen by a Provider: 14:00 Date of Admission Attending Physician Fracisco Rm DO Admitting Physician Jamie Holcomb MD Consulting Physician SHAMEKA SARAH MD, MA, FACP, FACC, [facility] [place], [facility] Physician requesting consult: Dr Rm HPI: Chief Complaint: Reason for consultation: Pre-op card eval HPI: Admitted with gen malaise and mid-abd and back pain and has been diagnosed with ac cholecystitis Denies cp or palp or syncope or shortness of breath Review of Systems-Cardiology Review of Systems Constitutional: malaise, tiredness; No weight loss, No weight gain Eyes: No vision change Ears/Nose/Throat: No ear discharge, No nasal drainage, No recent hearing loss Respiratory: As described under HPI Cardiovascular: As described under HPI Gastrointestinal: As described under HPI; No diarrhea, No nausea, No vomiting Genitourinary: No dysuria, No hematuria, No urine frequency changes Musculoskeletal: As describe under HPI Skin: No rash, No ulcerations Psychiatric/Neurological: No seizure, No focal weakness, No syncope Hematologic: bleeding abnormalities MYV-Xvmozg-[id number] Hx Patient Social History Alcohol Use: Occasionally Uses Recreational Drug Use: No Smoking Status: Never a Smoker Recent Foreign Travel: No Recent Infectious Disease Expo: No Hospitalization with Isolation: Denies Immunizations Up To Date Tetanus Booster (TDap): Unknown Date of Pneumonia Vaccine: May 28, 2015 Past Medical History PMH As described under Assessment. Family Medical History Family Medical History: No family history early CAD or SCD Family History: Patient reports no known family medical history. Allergies and Home Medications Allergies Coded Allergies: No Known Drug Allergies (Unverified , 03/05/10) Home Medications Acetaminophen 500 Mg Tablet, 1,000 MG PO Q8H PRN for PAIN-MILD, (Reported) Apixaban 5 Mg Tablet, 2.5 MG PO BID, (Reported) TAKES 1/2 (5MG) TABLET Atorvastatin Calcium 20 Mg Tablet, 20 MG PO HS, (Reported) Diltiazem HCl 240 Mg Cap.er.24h, 240 MG PO DAILY, (Reported) Levothyroxine Sodium 88 Mcg Tablet, 88 MCG PO HS, (Reported) Lisinopril 5 Mg Tablet, 5 MG PO HS, (Reported) Metoprolol Tartrate 25 Mg Tablet, 25 MG PO BID, (Reported) Propafenone HCl 225 Mg Tablet, 225 MG PO BID, (Reported) Sennosides/Docusate Sodium 1 Each Tablet, 2 TAB PO DAILY, (Reported) Patient Home Medication List Home Medication List Reviewed: Yes Physical Exam-Cardiology Physical Exam Vital Signs/I&O 11/12/18 11/12/18 11/12/18 11/12/18 08:00 08:00 12:00 12:07 Temp 99.7 99.4 Pulse 96 82 82 Resp 18 18 B/P (MAP) 101/64 (76) 156/83 (107) Pulse Ox 97 97 97 O2 Delivery Room Air Room Air Room Air 11/12/18 12:51 Pulse 89 11/12/18 00:00 Intake Total 1520 ml Output Total 400 ml Balance 1120 ml Capillary Refill : Less Than 3 Seconds Constitutional: well-developed, well-nourished, other (mildly confused and with poor recent memory) HEENT: PERRL, EOMI; No xanthelasmas are seen Neck: carotid pulses are 2 + bilaterally, with good upstrokes Respiratory: No accessory muscle use; other (good bilat air entry) Cardiovascular: regular rate-rhythm, S1 and S2, systolic murmur (soft PJ at card base) Gastrointestinal: No tender; soft; No guarding, No rebound; audible bowel sounds Extremities: No clubbing, No cyanosis, No significant edema Neurologic/Psychiatric: other (mental status as described above, moves all limbs equally) Skin: No rash on exposed areas, No ulcerations on exposed areas Data Review Labs Microbiology 11/11/18 Urine Culture - Preliminary, Resulted Gram Negative Louis Laboratory Tests 11/11/18 04:58 A/P-Cardiology Assessment/Admission Diagnosis Acute cholecystitis, awaiting cholecystectomy 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 Most recent stress test in August 2016 revealed no ischemia or infarct, LVEF was 66% Renal artery stenosis, history of 6.0x14 mm Express stent to the left renal artery several years ago Dementia, mild to mod Discussion and Recomendations * ECG and Echo recommended * Card risk for non-card surgery estimated to be intermediate * Please continue beta-eulogio perioperatively * Resume aspirin and apixaban as soon as possible, please Clinical Quality Measures DVT/VTE Risk/Contraindication: Risk Factor Score Per Nursin RFS Level Per Nursing on Admit: 4+=Very High SHAMEKA SARAH MD FACP [facility]S Nov 12, 2018 14:25
[2018-11-12] MEDS: LEVOTHYROXINE 88 MCG (LEVOTHORID) TAB PO SCH (21:07)
[2018-11-12] MEDS: lisINopril 5 MG (PRINIVIL) TABLET PO SCH (21:07)
[2018-11-13] MEDS: meTOprolol 5 MG/5 ML (LOPRESSOR) VIAL IV SCH ×5 (00:26→23:56)
[2018-11-13] MEDS: LACTATED RINGERS 1,000 ML IV SCH ×3 (03:23→12:25)
[2018-11-13] MEDS: PIPERACILLIN/TAZO 4.5 GM/NS 100 ML IV SCH ×6 (03:56→20:35)
[2018-11-13 04:13] VITALS: BP 133/62
[2018-11-13 08:00] VITALS: BP 132/74
[2018-11-13] MEDS: DILTIAZEM 240 MG (CARDIZEM CD) CAP PO SCH (08:54)
--- NOTE | 2018-11-13 11:26 | Progress Note (SOAP) ---
Subjective Date Seen by a Provider: Nov 13, 2018 Time Seen by a Provider: 10:15 Subjective/Events-last exam Patient seen with Dr. Cantrell. Patient reports doing well. Denies any abdominal pain, N/V, or any other issues. Tolerating clear liquids. Objective Exam Vital Signs Date Time Temp Pulse Resp B/P (MAP) Pulse Ox O2 Delivery O2 Flow Rate FiO2 11/13/18 08:00 99.2 86 18 132/74 (93) 97 Room Air 11/13/18 08:00 97 Room Air 11/13/18 07:00 73 11/13/18 04:13 99.7 96 20 133/62 (85) 95 Room Air 11/13/18 01:00 100 11/12/18 23:32 99.5 99 20 105/66 (79) 94 Room Air 11/12/18 20:15 99.5 85 30 128/69 (88) 92 Room Air 11/12/18 20:00 94 Room Air 11/12/18 19:00 80 11/12/18 16:35 99.1 90 20 119/73 (88) 95 Room Air 11/12/18 12:51 89 11/12/18 12:07 82 11/12/18 12:00 99.4 82 18 156/83 (107) 97 Room Air I & O 11/13/18 06:59 Intake Total 2440 ml Balance 2440 ml Capillary Refill : Less Than 3 Seconds General Appearance: No Apparent Distress, WD/WN HEENT: Other ([place]LETA [place]) Neck: Full Range of Motion, Normal Inspection, Non Tender Respiratory: Lungs Clear, Normal Breath Sounds, No Accessory Muscle Use, No Respiratory Distress Cardiovascular: Regular Rate, Rhythm, No Murmur Gastrointestinal: normal bowel sounds, soft, tenderness (RUQ) Extremity: Normal Capillary Refill, Normal Inspection, Normal Range of Motion Neurologic/Psychiatric: Alert, Oriented x3 Skin: Normal Color, Warm/Dry Results Lab Microbiology 11/11/18 Urine Culture - Final, Complete Escherichia coli Assessment/Plan Assessment/Plan Assess & Plan/Chief Complaint A 88 year old female with Acute Cholecystitis with Cholelithiasis, Incarcerated Umbilical Hernia, Abnormal Coagulation, HTN, Hx of Afib on anticoag, CAD, Hypercholesterolemia. Will continue to hold anticoag. for 48 hours then proceed with surgical intervention. IV fluids, abx, pain, and nausea meds. Clear liquids Scheduled for lap alondra wednesday NPO tonight for surgery tomorrow. Clinical Quality Measures DVT/VTE Risk/Contraindication: Risk Factor Score Per Nursin RFS Level Per Nursing on Admit: 4+=Very High SAMUEL OLIVAS APRN Nov 13, 2018 11:26
[2018-11-13 12:00] VITALS: BP 152/82
--- NOTE | 2018-11-13 14:35 | Progress Note-Cardiology ---
Cardiology SOAP Progress Note Subjective: No cp or palp or syncope or shortness of breath at rest Objective: I&O/Vital Signs 11/13/18 11/13/18 11/13/18 11/13/18 04:13 07:00 08:00 08:00 Temp 99.7 99.2 Pulse 96 73 86 Resp 20 18 B/P (MAP) 133/62 (85) 132/74 (93) Pulse Ox 95 97 97 O2 Delivery Room Air Room Air Room Air 11/13/18 11/13/18 12:00 13:00 Temp 98.3 Pulse 92 88 Resp 22 B/P (MAP) 152/82 (105) Pulse Ox 95 O2 Delivery Room Air 11/13/18 00:00 Intake Total 1440 ml Balance 1440 ml Weight (Pounds): 150 Weight (Ounces): 3.0 Weight (Calculated Kilograms): [id number] Constitutional: well-developed, well-nourished, other (mildly confused and with poor recent memory) Respiratory: No accessory muscle use; other (good bilat air entry) Cardiovascular: regular rate-rhythm, S1 and S2, systolic murmur (soft PJ at card base) Gastrointestional: No tender; soft; No guarding, No rebound; audible bowel sounds Extremities: No clubbing, No cyanosis, No significant edema Neurologic/Psychiatric: other (mental status as described above, moves all limbs equally) Skin: No rash on exposed areas, No ulcerations on exposed areas Results/Procedures: Labs Microbiology 11/11/18 Urine Culture - Final, Complete Escherichia coli A/P: Assessment: Acute cholecystitis, awaiting cholecystectomy, managed by the Surg Svce UTI, on abx, managed by the Surg Svce 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 Most recent stress test in August 2016 revealed no ischemia or infarct, LVEF was 66% Echo of 11/13/18: mod conc LVH, LVEF 60-65%, mod enlargement of LA, mild AoV sclerois, no valvular stenosis, mild MR & mild AI, PASP 35 mmHg Renal artery stenosis, history of 6.0x14 mm Express stent to the left renal artery several years ago Dementia, mild to mod Plan: * Card risk for non-card surgery estimated to be intermediate * Please continue beta-eulogio perioperatively * Resume aspirin and apixaban as soon as possible, please SHAMEKA SARAH MD FACP [facility] Nov 13, 2018 14:35
[2018-11-13 16:40] VITALS: BP 142/69
[2018-11-13 20:00] VITALS: BP 178/64
[2018-11-13] MEDS: LEVOTHYROXINE 88 MCG (LEVOTHORID) TAB PO SCH (20:36)
[2018-11-13] MEDS: lisINopril 5 MG (PRINIVIL) TABLET PO SCH (20:36)
[2018-11-14] VITALS (7 sets, daily range): BP systolic 102–154; BP diastolic 59–96
[2018-11-14] MEDS: LACTATED RINGERS 1,000 ML IV SCH ×5 (04:36→18:40)
[2018-11-14] MEDS: PIPERACILLIN/TAZO 4.5 GM/NS 100 ML IV SCH ×6 (04:36→19:52)
[2018-11-14] MEDS: meTOprolol 5 MG/5 ML (LOPRESSOR) VIAL IV SCH ×4 (05:17→23:26)
--- NOTE | 2018-11-14 08:44 | Cardiology Progress Note ---
Subjective Date Seen by Provider: Nov 14, 2018 Time Seen by Provider: 08:20 Subjective/Events-last exam Patient sitting at side of bed, no new complaint. Denies any chest pain or dyspnea. Scheduled for cholecystectomy later this morning. Objective-Cardiology Exam Last Set of Vital Signs Vital Signs 11/14/18 11/14/18 04:00 07:00 Temp 97.4 Pulse 134 Resp 18 B/P (MAP) 141/80 (100) Pulse Ox 97 O2 Delivery OxyMask Capillary Refill : Less Than 3 Seconds I&O Intake and Output 11/14/18 00:00 Intake Total 2250 ml Balance 2250 ml Intake Oral 1010 ml IV Total 1240 ml # Voids 5 # Bowel Movements 3 General: Alert, Oriented X3, Cooperative HEENT: Atraumatic, PERRLA Neck: Supple, No JVD, No Thyromegaly Lungs: Clear to Auscultation, Normal Air Movement Heart: Other (irregularly irregular) Abdomen: Normal Bowel Sounds, Other (RUQ ttp) Extremities: No Clubbing, No Cyanosis, No Edema Skin: No Rashes, No Significant Lesion Neuro: Normal Speech, Cranial Nerves 3-12 NL Psych/Mental Status: Mental Status NL, Mood NL A/P-Cardiology Admission Diagnosis Acute cholecystitis UTI CAD PAF Assessment/Plan Acute cholecystitis, planning for cholecystectomy later this morning. 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 Eliquis currently on hold in anticipation of surgery. Hypertension with hypertensive heart disease, continue to monitor blood pressure CAD: history of Taxus 3.5x23 mm to the right coronary and 2.75x15 mm Taxus to the LAD several years ago. Most recent stress test in August 2016 revealed no ischemia or infarct, LVEF was 66% Echo of 11/13/18: mod conc LVH, LVEF 60-65%, mod enlargement of LA, mild AoV sclerois, no valvular stenosis, mild MR & mild AI, PASP 35 mmHg Renal artery stenosis, history of 6.0x14 mm Express stent to the left renal artery several years ago, continue to monitor. Dementia, mild to moderate Clinical Quality Measures DVT/VTE Risk/Contraindication: Risk Factor Score Per Nursin RFS Level Per Nursing on Admit: 4+=Very High Supervisory-Addendum Brief Supervisory Addendum Participated in pt care: history, MDM, physical Personally performed: exam, history, MDM Care discussed with: DELFINA Results interpretation: agree with documentation Notes: patient was seen and evaluated, laying down in bed, waiting for surgery today, noted to be tachycardic on examination, lungs were clear to auscultation bilaterally, has been on Lopressor IV. I will give her additional dose of IV Lopressor now and continue to monitor, no other changes were recommended ROBERT FOSTER Nov 14, 2018 08:44 MARGARITA COULTER MD Nov 14, 2018 10:03
[2018-11-14] MEDS: DILTIAZEM 240 MG (CARDIZEM CD) CAP PO SCH (09:26)
--- NOTE | 2018-11-14 09:45 | NUR ---
B/P 118/80 AND HR 128. EXTRA DOSE LOPRESSOR IV ORDERED.
[2018-11-14] MEDS ORDERED: meTOprolol 5 MG/5 ML (LOPRESSOR) VIAL IV ONE (09:52)
--- NOTE | 2018-11-14 12:00 | NUR ---
B/P 154/83 AND HR 110. LOPRESSOR ORDERED.
[2018-11-14] MEDS ORDERED: BUP/EPI 0.5% 1:200,000 (SENSORCAINE) 30 ML VIAL ONE (12:45)
[2018-11-14] MEDS ORDERED: LIDOCAINE 1% INJ 20 ML 20 ML VIAL ONE (12:45)
[2018-11-14] MEDS ORDERED: DEXAMETHASONE 10 MG/ML (DECADRON) 1 ML VIAL ONE (13:34)
[2018-11-14] MEDS ORDERED: proPOfol 200 MG/20 ML (DIPRIVAN) VIAL IV ONE (13:34)
[2018-11-14] MEDS ORDERED: LIDOCAINE PF 2% 5 ML (XYLOCAINE) VIAL ONE (13:34)
[2018-11-14] MEDS ORDERED: ONDANSETRON 4 MG/2 ML (SDV) Z0FRAN ONE (13:34)
[2018-11-14] MEDS ORDERED: SEVOFLURANE (ULTANE) 15 ML INHAL SOLN ONE ×2 (13:34→16:02)
[2018-11-14] MEDS ORDERED: GLYCOPYRROLATE 0.2 MG/ML (ROBINUL) 2 ML VIAL ONE (13:34)
[2018-11-14] MEDS ORDERED: fentaNYL INJECTION 100 MCG/2 ML AMP ONE (13:34)
[2018-11-14] MEDS ORDERED: ROCURONIUM 10 MG/ML 5 ML SYRINGE IV ONE (13:34)
[2018-11-14] MEDS ORDERED: NEOSTIGMINE 1 MG/ML 5 ML SYRINGE ONE (13:34)
[2018-11-14] MEDS ORDERED: LACTATED RINGERS 1,000 ML IV PRN ×2 (14:42→17:45)
--- NOTE | 2018-11-14 14:50 | NUR ---
TO OR PER BED. RING TO SON AND DENTURES AND GLASSES AT BEDSIDE.
[2018-11-14] MEDS ORDERED: FLU QUADRIvalent (5+ YOA) 2018-2019 (AFLURIA) 0.5 ML IM ONE (15:00)
[2018-11-14] MEDS ORDERED: PHENYLEPHRINE 100 MCG/ML 10 ML (ANESTHESIA) SYR ONE (15:02)
[2018-11-14] MEDS ORDERED: morphine INJ 10 MG/ML 1ML (SYR OR VIAL) ONE (16:14)
--- NOTE | 2018-11-14 16:17 | Diagnostic Imaging Report ---
INDICATION: Fluoroscopy during intraoperative cholangiogram. TECHNIQUE: Fluoroscopy was provided in the OR for Dr. Rm during intraoperative cholangiogram. 14 seconds of fluoroscopy was utilized. Contrast was injected. There are multiple filling defects in the common duct which does appear to be moderately dilated. The largest is in the inferior common duct. Common duct stones are suspected although several of these could represent small air bubbles. No significant opacification of the intrahepatic biliary system is seen. There appears to be some contrast within the cystic duct. IMPRESSION: Fluoroscopy during intraoperative cholangiogram. Filling defects within the common duct are noted, as described. Dictated by: Dictated on workstation # [id number]
--- NOTE | 2018-11-14 16:44 | Progress Note-Post Operative ---
Post-Operative Progess Note Surgeon (s)/Bridge Mechanic (s) Surgeon MARCO MCCULLOUGH DO Bridge Mechanic: Sang Pre-Operative Diagnosis Acute cholecystitis with cholelithiasis, AFib, abnormal coagulation Post-Operative Diagnosis same plus questionable choledochalithiasis Procedure & Operative Findings Date of Procedure 11/14/18 Procedure Performed/Findings Lap alondra with IOC Anesthesia Type GET Estimated Blood Loss Estimated blood loss (mL): less than 30ml Specimens/Packing Specimens Removed GB and contents MARCO MCCULLOUGH DO Nov 14, 2018 16:44
[2018-11-14] MEDS ORDERED: HYDROcodone/APAP 5 MG/325 MG (LORTAB) TAB PO NR (16:45)
[2018-11-14] MEDS ORDERED: morphine INJ 10 MG/ML 1ML (SYR OR VIAL) IVP ONE (17:00)
[2018-11-14] MEDS ORDERED: ONDANSETRON 4 MG/2 ML (SDV) Z0FRAN IVP PRN (17:00)
--- NOTE | 2018-11-14 17:50 | NUR ---
REC'D PER BED FROM PAR. ALERT AND ORIENTED WITH 4 STAB SITES ON ABD. MILK COLLECTOR. O2 ON AT 3L N/C. B/P 102/[address] MCCULLOUGH NOTIFIED AND LOPRESSOR DOSE HELD PER ORDER.
[2018-11-14] MEDS: lisINopril 5 MG (PRINIVIL) TABLET PO SCH (20:00)
[2018-11-14] MEDS: LEVOTHYROXINE 88 MCG (LEVOTHORID) TAB PO SCH (20:00)
[2018-11-15] MEDS: LACTATED RINGERS 1,000 ML IV SCH ×3 (01:33→18:19)
--- NOTE | 2018-11-15 01:36 | OPERATIVE REPORT ---
DATE OF SERVICE: 11/14/2018 PREOPERATIVE DIAGNOSES: Acute cholecystitis and cholelithiasis plus history of atrial fibrillation and dementia. POSTOPERATIVE DIAGNOSES: Acute cholecystitis and cholelithiasis plus history of atrial fibrillation and dementia plus possible choledocholithiasis and possible gangrenous gallbladder. SURGEON: Fracisco Rm DO. NETWORK TECHNICAL ANALYST: Kiel Domínguez DO. ANESTHESIA: General endotracheal tube. SPECIMEN: Gallbladder and contents. BLOOD LOSS: Less than 30 mL. FLUIDS: Per anesthesia. POSTOPERATIVE CONDITION: Stable. INDICATION FOR PROCEDURE: The patient is an 88-year-old female with abdominal pain and a CT which showed large amount of inflammation around the gallbladder, stones in the gallbladder. Unfortunately, she is on Eliquis when she came in and needed to be put on some antibiotics to try and cool down the gallbladder and let the anticoagulation stop. FINDINGS: The patient had acute cholecystitis with possible gangrenous gallbladder. PROCEDURE NOTE: After informed consent was obtained from the patient's son, the patient was brought to the operating room, placed on the table in supine position. She was sterilely prepped and draped in normal fashion. Local lidocaine was used to infiltrate the skin above the umbilicus. Made incision with #11 blade, carried down through skin and subcutaneous tissue, deepened down to subcutaneous tissue with Bovie electrocautery down to the fascia. Fascia incised with Bovie electrocautery. Bluntly entered the abdomen, swept the finger around, placed 0 Vicryl [id number] suture and placed an 11 mm trocar port under direct visualization. Created pneumoperitoneum and then placed 3 more ports in normal fashion using local lidocaine, 11 blade for stab incision and Versed system, all done under direct visualization, one subxiphoid and 2 right upper quadrant. Upon entering, noted a little bit of bilious fluid, took a picture of this and then started peeling the omentum away from the gallbladder as a very acute gallbladder inflamed friable. While trying to grasp it actually made a hole in a little bit of purulent fluid came out. This was suctioned out, able to then grasp the fundus, taken in superior direction to continue taking down the adhesions. Everything was stuck to this acute gallbladder and able to grasp down the Kayla's pouch and pulled in the inferolateral direction, started dissecting out cystic duct and cystic artery. Again, took a little while to do this because of the gallbladder was so inflamed trying to carefully take this away. Finally able to get around the cystic duct and the cystic artery and placed 1 clip distally and 1 proximally on the cystic artery and then one distally on the cystic duct. Cut the cystic duct shelter through Metzenbaum scissors. Placed a cholangiogram catheter and shot a cholangiogram. Good spillage of dye down the common bile duct into the small intestine as well as up into common hepatic and right and left hepatics and out the short cystic duct. Unfortunately, it looked like there may have been some stones, although they did appear like to go way so, they may have just been air bubbles. When we opened the cystic duct, it was not a lot of back flow, it was not a lot of pressure. At this point, then removed the cholangiogram catheter, placed 2 clips proximally on the cystic duct and then cut the cystic duct and cystic artery with Metzenbaum scissors. Then started taking the gallbladder from bed of liver with L-hook cautery. There was a lot of thickened tissue because of the inflammation. It was very vascular. There was some bleeding from the edges plus the gallbladder was very intrahepatic and so had to use the Bovie electrocautery. Little bit of bleeding from the bed of liver. This was controlled with Bovie electrocautery as well as elected to place a Surgicel. Once we got the gallbladder out, placed a bag in the abdomen, placed the gallbladder in the bag and removed through the supraumbilical incision. Placed the port back in the abdomen, copiously irrigated with normal saline, suctioned all this out and then placed the patient back in supine position. She had been in reverse Trendelenburg and rotated slightly left. Removed all ports under direct visualization, allowed pneumoperitoneum to escape as well as suctioned out and then closed the supraumbilical incision closing the fascia with 0 Vicryl suture previously placed. Copiously irrigated all incisions with normal saline. Closed with 3 small 5 mm incision with a single interrupted 4-0 undyed Monocryl subcuticular stitch. Closed the supraumbilical incision with 3 interrupted 4-0 undyed Monocryl subcuticular stitches. Area was cleaned and dried and Dermabond was placed as well as bandage. The patient then transferred to recovery room in stable condition. Sponges and needle count correct at the end of the case. Job ID: [id number] DocumentID: [id number] Dictated Date: 11/14/2018 16:53:55 Ornamental Metal Erector Date: 11/15/2018 01:35:42 Dictated By: FRACISCO RM DO
[2018-11-15] MEDS: PIPERACILLIN/TAZO 4.5 GM/NS 100 ML IV SCH ×6 (03:21→20:49)
[2018-11-15 04:52] VITALS: BP 134/81
[2018-11-15] MEDS: meTOprolol 5 MG/5 ML (LOPRESSOR) VIAL IV SCH ×4 (05:58→17:17)
--- NOTE | 2018-11-15 07:51 | Anesthesia-General Post-Op ---
General Patient Condition Mental Status/LOC: Same as Preop Cardiovascular: Satisfactory Nausea/Vomiting: Absent Respiratory: Satisfactory Pain: Controlled Complications: Absent Post Op Complications Complications None Follow Up Care/Instructions Patient Instructions None needed. Anesthesia/Patient Condition Patient Condition Patient is doing well, no complaints, stable vital signs, no apparent adverse anesthesia problems. No complications reported per nursing. JOHN GA CRNA Nov 15, 2018 07:51
[2018-11-15 08:05] VITALS: BP 138/72
--- NOTE | 2018-11-15 08:17 | Cardiology Progress Note ---
Subjective Date Seen by Provider: Nov 15, 2018 Time Seen by Provider: 08:16 Subjective/Events-last exam patient is laying down in bed, no new complaint Review of Systems General: No Chills, No Night Sweats, No Fatigue, No Malaise, No Appetite, No Other HEENT: No Head Aches, No Visual Changes, No Eye Pain, No Ear Pain, No Dysphasia , No Sinus Congestion, No Post Nasal Drip, No Sore Throat, No Other Pulmonary: No Dyspnea, No Cough, No Pleuritic Chest Pain, No Other Cardiovascular: No: Chest Pain, Palpitations, Orthopnea, Paroxysmal Noc. Dyspnea, Edema, Lt Headedness, Other Objective-Cardiology Exam Last Set of Vital Signs Vital Signs 11/15/18 08:05 Temp 97.7 Pulse 98 Resp 18 B/P (MAP) 138/72 (94) Pulse Ox 94 O2 Delivery Nasal Cannula O2 Flow Rate 3.00 Capillary Refill : Less Than 3 SecondsLess Than 3 Seconds I&O Intake and Output 11/15/18 00:00 Intake Total 3140 ml Output Total 0 ml Balance 3140 ml Intake Oral 0 ml IV Total 3140 ml Output Urine Total 0 ml # Voids 5 # Bowel Movements 2 General: Alert, Oriented X3, Cooperative HEENT: Atraumatic, PERRLA Neck: Supple, No JVD, No Thyromegaly Lungs: Clear to Auscultation, Normal Air Movement Heart: Normal S1, Normal S2, Other (atrial fibrillation) Abdomen: Normal Bowel Sounds, Other (RUQ ttp) Extremities: No Clubbing, No Cyanosis, No Edema Skin: No Rashes, No Significant Lesion Neuro: Normal Speech, Cranial Nerves 3-12 NL Psych/Mental Status: Mental Status NL, Mood NL A/P-Cardiology Admission Diagnosis Acute cholecystitis UTI CAD PAF Assessment/Plan Acute cholecystitis, status post cholecystectomy, postoperative day number 1. 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 tachycardic today, was restarted on the Cardizem, I'll restart metoprolol, need to restart Eliquis when deemed reasonable by the surgeon Hypertension with hypertensive heart disease, continue to monitor blood pressure CAD: history of Taxus 3.5x23 mm to the right coronary and 2.75x15 mm Taxus to the LAD several years ago. Most recent stress test in August 2016 revealed no ischemia or infarct, LVEF was 66% Echo of 11/13/18: mod conc LVH, LVEF 60-65%, mod enlargement of LA, mild AoV sclerois, no valvular stenosis, mild MR & mild AI, PASP 35 mmHg Renal artery stenosis, history of 6.0x14 mm Express stent to the left renal artery several years ago, continue to monitor. Dementia, mild to moderate Clinical Quality Measures DVT/VTE Risk/Contraindication: Risk Factor Score Per Nursin RFS Level Per Nursing on Admit: 4+=Very High MARGARITA COULTER MD Nov 15, 2018 08:17
--- NOTE | 2018-11-15 08:19 | Cardiology Progress Note ---
Subjective Date Seen by Provider: Nov 15, 2018 Time Seen by Provider: 08:17 Subjective/Events-last exam Patient laying down in bed, no new complaints. Denies any chest pain or dyspnea. Denies any abdominal pain. Review of Systems General: No Night Sweats; Fatigue; No Malaise HEENT: No Visual Changes, No Dysphasia, No Sore Throat Pulmonary: No Dyspnea, No Cough Cardiovascular: No: Chest Pain, Palpitations, Paroxysmal Noc. Dyspnea, Edema Gastrointestinal: No: Nausea, Vomiting, Abdominal Pain Genitourinary: No Dysuria, No Frequency Musculoskeletal: No: neck pain, back pain Neurological: No: Weakness, Numbness, Change in speech, Confusion Objective-Cardiology Exam Last Set of Vital Signs Vital Signs 11/15/18 08:05 Temp 97.7 Pulse 98 Resp 18 B/P (MAP) 138/72 (94) Pulse Ox 94 O2 Delivery Nasal Cannula O2 Flow Rate 3.00 Capillary Refill : Less Than 3 SecondsLess Than 3 Seconds I&O Intake and Output 11/15/18 00:00 Intake Total 3140 ml Output Total 0 ml Balance 3140 ml Intake Oral 0 ml IV Total 3140 ml Output Urine Total 0 ml # Voids 5 # Bowel Movements 2 General: Alert, Oriented X3, Cooperative HEENT: Atraumatic, PERRLA Neck: Supple, No JVD, No Thyromegaly Lungs: Clear to Auscultation, Normal Air Movement Heart: Other (irregularly irregular, slightly tachycardic) Abdomen: Normal Bowel Sounds, Other (RUQ ttp) Extremities: No Clubbing, No Cyanosis, No Edema Skin: No Rashes, No Significant Lesion Neuro: Normal Speech, Cranial Nerves 3-12 NL Psych/Mental Status: Mental Status NL, Mood NL A/P-Cardiology Admission Diagnosis Acute cholecystitis UTI CAD PAF Assessment/Plan Acute cholecystitis, s/p cholecystectomy, slowly recovering. 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 I will restart Lopressor, continue to monitor. Paroxysmal atrial fibrillation, chronic anticoagulation with Eliquis. Eliquis currently on hold in anticipation of surgery. Hypertension with hypertensive heart disease, continue to monitor blood pressure CAD: history of Taxus 3.5x23 mm to the right coronary and 2.75x15 mm Taxus to the LAD several years ago. Most recent stress test in August 2016 revealed no ischemia or infarct, LVEF was 66% Echo of 11/13/18: mod conc LVH, LVEF 60-65%, mod enlargement of LA, mild AoV sclerois, no valvular stenosis, mild MR & mild AI, PASP 35 mmHg Renal artery stenosis, history of 6.0x14 mm Express stent to the left renal artery several years ago, continue to monitor. Dementia, mild to moderate Clinical Quality Measures DVT/VTE Risk/Contraindication: Risk Factor Score Per Nursin RFS Level Per Nursing on Admit: 4+=Very High ROBERT FOSTER Nov 15, 2018 08:19
[2018-11-15] MEDS: DILTIAZEM 240 MG (CARDIZEM CD) CAP PO SCH (08:23)
--- NOTE | 2018-11-15 09:30 | NUR ---
DR COULTER CALLED. GIVE ORAL METOPROLOL AND ADDITIONAL DOSE OF IV METOPROLOL AT THIS TIME. KEEP BOTH ON THE EMAR AND USE THE PARAMETERS HE SET FOR BOTH.
[2018-11-15] MEDS: meTOprolol TARTRATE 25 MG (LOPRESSOR) TABLET PO SCH ×2 (09:38→20:49)
--- NOTE | 2018-11-15 09:58 | Progress Note ---
Subjective Time Seen by a Provider: 09:46 Subjective/Events-last exam Pt seen and examined, appears comfortable and denies abdominal pain. According to her son she is slightly more confused than normal. She is able to answer questions appropriately. She is tolerating diet. Review of Systems Pulmonary: No Dyspnea, No Cough Cardiovascular: Palpitations Gastrointestinal: No: Nausea, Vomiting, Abdominal Pain Objective Exam Vital Signs Date Time Temp Pulse Resp B/P (MAP) Pulse Ox O2 Delivery O2 Flow Rate FiO2 11/15/18 08:05 97.7 98 18 138/72 (94) 94 Nasal Cannula 3.00 11/15/18 07:00 93 11/15/18 04:52 97.9 116 16 134/81 (98) 96 Nasal Cannula 3.00 11/15/18 01:00 90 11/14/18 23:53 97.6 98 20 108/59 (75) 96 Room Air 3.00 3.00 11/14/18 20:00 Room Air 11/14/18 20:00 97.6 103 20 111/63 (79) 98 Nasal Cannula 3.00 11/14/18 19:00 115 11/14/18 18:00 96.8 88 20 102/65 (77) 96 Nasal Cannula 3.00 11/14/18 13:00 94 11/14/18 12:00 98.4 110 22 154/83 (106) 95 Room Air I & O 11/15/18 07:00 Intake Total 2020 ml Output Total 450 ml Balance 1570 ml Capillary Refill : Less Than 3 SecondsLess Than 3 Seconds General Appearance: No Apparent Distress, WD/WN HEENT: Other ([place]) Respiratory: Lungs Clear, Normal Breath Sounds, No Accessory Muscle Use, No Respiratory Distress Cardiovascular: Irregularly Irregular, Tachycardia Gastrointestinal: normal bowel sounds, soft, tenderness (at incision sites with palpation) Neurologic/Psychiatric: Alert Results Lab Microbiology 11/13/18 MRSA Screen - Final, Complete MRSA not isolated 11/11/18 Urine Culture - Final, Complete Escherichia coli Assessment/Plan Assessment/Plan Assessment/Plan S/P Lap alondra for Acute Cholecystitis with Cholelithiasis, possible gangrenous GB AFib with RVR Dr. Rasheed would like to keep the pt in the hospital because of the AFib with tachycardia; he has restarted all her oral meds and kept her on IV lopressor. He thinks she may be able to go home if her heart rate comes down this afternoon. From surgical standpoint she is ok to go home. Will try to send her home later this afternoon if she gets cardiac ok, otherwise plan for tomorrow. Clinical Quality Measures DVT/VTE Risk/Contraindication: Risk Factor Score Per Nursin RFS Level Per Nursing on Admit: 4+=Very High MARCO MCCULLOUGH DO Nov 15, 2018 09:58
[2018-11-15 12:10] VITALS: BP 116/60
[2018-11-15] MEDS: HYDROcodone/APAP 5 MG/325 MG (LORTAB) TAB PO PRN ×2 (14:37→20:50)
--- NOTE | 2018-11-15 15:41 | NUR ---
CALLED DR MCCULLOUGH. THE PATIENT'S BROTHER IS HERE AND HE DOESN'T FEEL THAT SHE SHOULD GO HOME TODAY. SHE IS STILL SHOWING SIGNS OF CONFUSION. DR MCCULLOUGH WILL SEE THE PATIENT TOMORROW. HER BROTHER'S NAME IS MAN SCHMIDT, CALL HIM TOMORROW WHEN SHE IS DISCHARGED AND HE WILL COME PICK HER UP. [phone]
[2018-11-15 15:51] VITALS: BP 131/76
--- NOTE | 2018-11-15 17:02 | NUR ---
CALLED DR MCCULLOUGH. PATIENT HAS NOT HAD ANY URINE OUTPUT TODAY. SHE IS EATING AND DRINKING OKAY. THE PATIENT DOES NOT FEEL LIKE SHE NEEDS TO URINATE. BLADDER SCAN SHOWS 88 MLS. THE PCCT HAD THE PATIENT GET UP AND SIT ON THE BSC SEVERAL TIMES THIS AFTERNOON. SHE RAN THE WATER TRYING TO STIMULATE VOIDING. NO NEW ORDERS AT THIS TIME. CONTINUE TO MONITOR THE PATIENT.
[2018-11-15 20:33] VITALS: BP 125/59
[2018-11-15] MEDS: lisINopril 5 MG (PRINIVIL) TABLET PO SCH (20:49)
[2018-11-15] MEDS: LEVOTHYROXINE 88 MCG (LEVOTHORID) TAB PO SCH (20:50)
--- NOTE | 2018-11-15 22:21 | NUR ---
THIS RN BLADDER SCANNED PT PER NO URINATION, BLADDER SCANNER SHOWING 122 ML.
[2018-11-16] VITALS: BP 106/64
[2018-11-16] MEDS: meTOprolol 5 MG/5 ML (LOPRESSOR) VIAL IV SCH ×2 (00:08→05:10)
[2018-11-16] MEDS: LACTATED RINGERS 1,000 ML IV SCH ×2 (01:29→08:05)
[2018-11-16] MEDS: PIPERACILLIN/TAZO 4.5 GM/NS 100 ML IV SCH ×4 (03:51→12:02)
[2018-11-16 04:50] VITALS: BP 134/63
[2018-11-16 07:48] VITALS: BP 172/90
[2018-11-16] MEDS: DILTIAZEM 240 MG (CARDIZEM CD) CAP PO SCH (08:10)
--- NOTE | 2018-11-16 08:32 | Cardiology Progress Note ---
Subjective Date Seen by Provider: Nov 16, 2018 Time Seen by Provider: 08:30 Subjective/Events-last exam Patient is sitting up in bed, denies any chest pain or dyspnea. Heart rate better controlled this morning. Objective-Cardiology Exam Last Set of Vital Signs Vital Signs 11/16/18 11/16/18 07:48 08:06 Temp 97.1 Pulse 79 Resp 18 B/P (MAP) 172/90 (117) Pulse Ox 94 O2 Delivery Nasal Cannula O2 Flow Rate 2.00 Capillary Refill : Less Than 3 SecondsLess Than 3 Seconds I&O Intake and Output 11/16/18 00:00 Intake Total 1740 ml Output Total 450 ml Balance 1290 ml Intake Oral 500 ml IV Total 1240 ml Output Urine Total 450 ml General: Alert, Oriented X3, Cooperative HEENT: Atraumatic, PERRLA Neck: Supple, No JVD, No Thyromegaly Lungs: Clear to Auscultation, Normal Air Movement Heart: Other (irregularly irregular, slightly tachycardic) Abdomen: Normal Bowel Sounds, Other (RUQ ttp) Extremities: No Clubbing, No Cyanosis, No Edema Skin: No Rashes, No Significant Lesion Neuro: Normal Speech, Cranial Nerves 3-12 NL Psych/Mental Status: Mental Status NL, Mood NL A/P-Cardiology Admission Diagnosis Acute cholecystitis UTI CAD PAF Assessment/Plan Acute cholecystitis, s/p cholecystectomy, slowly recovering. 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 Lopressor increased yesterday, heart rate better controlled this morning. Continue to monitor. Paroxysmal atrial fibrillation, chronic anticoagulation with Eliquis, continue on Cardizem and I increased metoprolol to 50 mg twice daily and monitor her tolerance and response Hypertension with hypertensive heart disease, continue to monitor blood pressure CAD: history of Taxus 3.5x23 mm to the right coronary and 2.75x15 mm Taxus to the LAD several years ago. Most recent stress test in August 2016 revealed no ischemia or infarct, LVEF was 66% Echo of 11/13/18: mod conc LVH, LVEF 60-65%, mod enlargement of LA, mild AoV sclerois, no valvular stenosis, mild MR & mild AI, PASP 35 mmHg Renal artery stenosis, history of 6.0x14 mm Express stent to the left renal artery several years ago, continue to monitor. Dementia, mild to moderate Clinical Quality Measures DVT/VTE Risk/Contraindication: Risk Factor Score Per Nursin RFS Level Per Nursing on Admit: 4+=Very High Supervisory-Addendum Brief Supervisory Addendum Participated in pt care: history, MDM, physical Personally performed: exam, history, MDM Care discussed with: DELFINA Results interpretation: agree with documentation Notes: patient was seen and evaluated, has been doing well, I discussed the management plan with Dr. Rm, she may go home today On examination lungs were clear to auscultation bilaterally, heart is irregular Plan: increase metoprolol to 50 mg twice daily Continue on Cardizem Restart oral anticoagulation tomorrow Appointment with my office in 2 weeks ROBERT FOSTER Nov 16, 2018 08:32 MARGARITA COULTER MD Nov 16, 2018 09:28
[2018-11-16] MEDS ORDERED: meTOprolol TARTRATE 50 MG (LOPRESSOR) TAB PO SCH (09:00)
--- NOTE | 2018-11-16 10:16 | Progress Note ---
Subjective Time Seen by a Provider: 10:10 Subjective/Events-last exam Pt seen and examined, denies abdominal pain. She is still a little confused. Review of Systems General: No Chills, No Night Sweats Pulmonary: No Dyspnea, No Cough Objective Exam Vital Signs Date Time Temp Pulse Resp B/P (MAP) Pulse Ox O2 Delivery O2 Flow Rate FiO2 11/16/18 08:06 Nasal Cannula 2.00 11/16/18 08:00 Room Air 11/16/18 07:48 97.1 79 18 172/90 (117) 94 Room Air 11/16/18 07:00 114 11/16/18 04:50 96.8 108 18 134/63 (86) 94 Nasal Cannula 1.00 11/16/18 01:00 114 11/16/18 00:00 97.9 112 18 106/64 (78) 92 Nasal Cannula 1.00 11/15/18 20:33 98.5 112 18 125/59 (81) 94 Room Air 11/15/18 20:00 Room Air 11/15/18 19:00 114 11/15/18 15:51 98.3 108 20 131/76 (94) 93 Room Air 11/15/18 13:00 95 11/15/18 12:10 97.4 106 18 116/60 (78) 98 Room Air I & O 11/16/18 07:00 Intake Total 1860 ml Output Total 0 ml Balance 1860 ml Capillary Refill : Less Than 3 SecondsLess Than 3 Seconds General Appearance: No Apparent Distress, WD/WN HEENT: Other ([place]) Respiratory: Lungs Clear, Normal Breath Sounds, No Accessory Muscle Use, No Respiratory Distress Cardiovascular: Irregularly Irregular Gastrointestinal: normal bowel sounds, soft, tenderness (at incision sites with palpation) Neurologic/Psychiatric: Alert Results Lab Microbiology 11/13/18 MRSA Screen - Final, Complete MRSA not isolated 11/11/18 Urine Culture - Final, Complete Escherichia coli Assessment/Plan Assessment/Plan Assessment/Plan S/P Lap alondra for Acute Cholecystitis with Cholelithiasis, possible gangrenous GB AFib with RVR D/C IV D/C home Clinical Quality Measures DVT/VTE Risk/Contraindication: Risk Factor Score Per Nursin RFS Level Per Nursing on Admit: 4+=Very High MARCO MCCULLOUGH DO Nov 16, 2018 10:16
--- NOTE | 2018-11-16 10:22 | Discharge Inst-Surgical ---
Discharge Inst-Surgical Depart Medication/Instructions New, Converted or Re-Newed RX: Other (DO NOT START Eliquis until Tomorrow) Patient Instructions Follow up Appt: Make appointment for 1 week. [phone] Instructions: No lifting greater than 20 pounds. No strenuous activity. May shower in 24 hours, no tub bath or soaking. Use incentive spirometer at home as directed. No Smoking Skin/Wound Care: May remove bandages in am. You need to leave the Dermabond on incision it will fall off on it's own. Symptoms to Report: Appetite Changes, Extremity Discoloration, Numbness/Tingling, Swelling Increased , Bleeding Excessive, Eyesight Changes, Pain Increased, Urine Color Change, Constipation(Persistent), Fever over 101 degree F, Pain/Pressure in chest, Urinating Difficulty, Cough Up/Vomit Blood, Heart Beat Irreg/Pounding, Pain/ Pressure in jaw, Cramps in feet or legs, Lightheadedness, Pain/Pressure in shoulder, Diarrhea(Persistent), Memory Changes Suddenly, Questions/Concerns, Weight gain consecutive days, Dizziness/Fainting, Nausea/Vomiting, Shortness of Breath, Weight gain over 2 pounds If questions or concerns contact your physician Or seek help at emergency department. Activity Activity as Tolerated: Yes Activity Instructions: Avoid Stress to Incision Driving Instructions: No Driving/Refer to Diet Discharge Diet: Avoid Fatty Foods, Low Fat/Low Cholesterol Diet After 24 Hours: Clear Liquid if Nauseous If Any Problems/Questions/Issu: Contact Your Physician, Go to Emergency Room Skin/Wound Care Infection Signs and Symptoms: Increased Redness, Foul Odor of Wound, Increased Drainage, Skin Itchy or Has a Rash, Increased Swelling, Temperature Above 101 F Bathing Instructions: Shower Stitches/Timmy/Dermabond Dis: Dermabond MARCO MCCULLOUGH DO Nov 16, 2018 10:22
[2018-11-16] MEDS ORDERED: METO50TA15 PO (10:56)
--- NOTE | 2018-11-16 10:56 | NUR ---
CALLED PRESCRIPTION INTO [facility].
[2018-11-16 11:31] VITALS: BP 132/72
[2018-11-16 13:48] VITALS: BP 132/72
[2018-11-17] MEDS ORDERED: METO50TA15 PO (14:32)
== END 2018-11-16 13:48 | disposition home or self-care (01) | DRG 418 ==
LOC: EDUNIT# 04:48 → ER 04:50 → 4TH 07:18
PROVIDERS: ADMIT Surgery; ATTEND Surgery
PROC: BF101ZZ Fluoroscopy of Bile Ducts using Low Osmolar Contrast (ICD-10-PCS; 2018-11-14)
PROC: 0FT44ZZ Resection of Gallbladder, Percutaneous Endoscopic Approach (ICD-10-PCS; principal; 2018-11-14 14:50)
DX: K80.00 Calculus of gallbladder with acute cholecystitis without obstruction (principal); K42.0 Umbilical hernia with obstruction, without gangrene; N39.0 Urinary tract infection, site not specified; I48.0 Paroxysmal atrial fibrillation; I49.5 Sick sinus syndrome; I25.10 Atherosclerotic heart disease of native coronary artery without angina pectoris; I11.9 Hypertensive heart disease without heart failure; E78.00 Pure hypercholesterolemia, unspecified; K59.09 Other constipation; E03.9 Hypothyroidism, unspecified; F41.9 Anxiety disorder, unspecified; R79.1 Abnormal coagulation profile; F03.90 Unspecified dementia, unspecified severity, without behavioral disturbance, psychotic disturbance, mood disturbance, and anxiety; I08.0 Rheumatic disorders of both mitral and aortic valves; Z95.5 Presence of coronary angioplasty implant and graft; Z95.0 Presence of cardiac pacemaker
CPT/HCPCS: 36415; 71046; 74176; 80053; 81000; 83690; 84484; 85025; 87077; 87081; 87088; 87186; 93005; 93306; 94664; 96365; 96375

== ENCOUNTER 2018-11-17 09:47 | Inpatient (IN) | payer MEDICARE, OTHER ==
[~2018-11-17] VITALS: Ht 157.5 cm; Wt 63.5 kg
[~2018-11-17 09:47] MED LIST changes: +DILT240C PO; +METO50TA15 PO
[2018-11-17 10:12] LABS: BASOPHILS % (AUTO) 0 % (0-10); EOSINOPHILS % (AUTO) 0 % (0-10); HEMATOCRIT 33 % (35-52); HEMOGLOBIN 10.4 G/DL (11.5-16.0); LYMPHOCYTES # (AUTO) 0.5 X 10^3 (1.0-4.0); LYMPHOCYTES % (AUTO) 6 % (12-44); MEAN CORPUSCULAR HEMOGLOBIN 31 PG (25-34); MEAN CORPUSCULAR HGB CONC 32 G/DL (32-36); MEAN CORPUSCULAR VOLUME 99 FL (80-99); MEAN PLATELET VOLUME 10.7 FL (7.4-10.4); MONOCYTES # (AUTO) 0.5 X 10^3 (0.0-1.0); MONOCYTES % (AUTO) 6 % (0-12); NEUTROPHILS # (AUTO) 7.6 X 10^3 (1.8-7.8); NEUTROPHILS % (AUTO) 88 % (42-75); PLATELET COUNT 190 10^3/uL (130-400); WHITE BLOOD COUNT 8.6 10^3/uL (4.3-11.0)
[2018-11-17 10:31] LABS: BILIRUBIN,TOTAL 0.4 MG/DL (0.1-1.0); CALCIUM 8.8 MG/DL (8.5-10.1); CREATININE SERUM 0.99 MG/DL (0.60-1.30); POTASSIUM 3.3 MMOL/L (3.6-5.0); TOTAL PROTEIN 5.4 GM/DL (6.4-8.2)
--- NOTE | 2018-11-17 10:43 | ED General ---
General Chief Complaint: Neuro-Stroke Like Symptoms Stated Complaint: R LEG PAIN Nursing Triage Note: ARRIVED VIA EMS FROM HOME. RECENT GALLBLADDER SURGERY ON WEDNESDAY. WENT TO BED LAST NIGHT AT 930 AND WHEN SHE WOKE UP AT 0630 UNABLE TO USE RIGHT LEG AND TO WALK. Nursing Sepsis Screen: No Definite Risk Source of Information: Patient Exam Limitations: No Limitations History of Present Illness Date Seen by Provider: Nov 17, 2018 Time Seen by Provider: 10:37 Initial Comments The patient is an 88-year-old white female who presents with her caregiver. She went to bed last night at 2130 and when she awakened this morning at 06 30 she was unable to use her leg on the right enough to stay. She has been able to walk. There is been no fall. She was here on Wednesday of this week for a laparoscopic cholecystectomy and went home yesterday. The caregiver states that she has been having difficulties with walking but lately this seemed to have improved. She has been using a walker. Timing/Duration: 12-24 Hours Allergies and Home Medications Allergies Coded Allergies: No Known Drug Allergies (Unverified , 03/05/10) Home Medications Acetaminophen 500 Mg Tablet, 1,000 MG PO Q8H PRN for PAIN-MILD, (Reported) Apixaban 5 Mg Tablet, 2.5 MG PO BID, (Reported) TAKES 1/2 (5MG) TABLET Atorvastatin Calcium 20 Mg Tablet, 20 MG PO HS, (Reported) Diltiazem HCl 240 Mg Cap.er.24h, 240 MG PO DAILY, (Reported) Levothyroxine Sodium 88 Mcg Tablet, 88 MCG PO HS, (Reported) Lisinopril 5 Mg Tablet, 5 MG PO HS, (Reported) Metoprolol Tartrate 50 Mg Tablet, 50 MG PO BID Prescribed by: DERRICK WAY on 11/16/18 1056 Propafenone HCl 225 Mg Tablet, 225 MG PO BID, (Reported) Sennosides/Docusate Sodium 1 Each Tablet, 2 TAB PO DAILY, (Reported) Patient Home Medication List Home Medication List Reviewed: Yes Review of Systems Review of Systems Constitutional: see HPI EENTM: no symptoms reported, hearing loss Respiratory: no symptoms reported Cardiovascular: no symptoms reported Gastrointestinal: no symptoms reported Genitourinary: no symptoms reported Musculoskeletal: muscle weakness Skin: no symptoms reported Psychiatric/Neurological: No Symptoms Reported Hematologic/Lymphatic: No Symptoms Reported Immunological/Allergic: no symptoms reported Past Nixlycc-Zyvnzh-Gxfpqb Hx Patient Social History Alcohol Use: Denies Use Alcohol Beverage of Choice: [place] Recreational Drug Use: No Smoking Status: Never a Smoker Recent Foreign Travel: No Contact w/Someone Who Travel: No Recent Infectious Disease Expo: No Recent Hopitalizations: Yes Immunizations Up To Date Tetanus Booster (TDap): Unknown PED Vaccines UTD: No Date of Pneumonia Vaccine: May 28, 2015 Seasonal Allergies Seasonal Allergies: No Past Medical History Surgeries: Yes Cardiac, Coronary Stent, Gallbladder, Joint Replacement, Tonsillectomy Respiratory: No Cardiac: Yes (CAD with heart stents) Atrial Fibrillation, Coronary Artery Disease, High Cholesterol, Hypertension Neurological: No Reproductive Disorders: No (ENDOMETRIAL THICKENING) 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 Cancer Physical Exam Vital Signs Vital Signs - First Documented 11/17/18 09:47 Temp 97.9 Pulse 89 Resp 16 B/P (MAP) 135/93 (107) Pulse Ox 91 O2 Delivery Room Air Capillary Refill : Less Than 3 Seconds Height, Weight, BMI Height: 5'2.00" Weight: 135lbs. 3.0oz. 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 Norm as Tested Skin: Other Lymphatic: No Adenopathy Progress/Results/Core Measures Suspected Sepsis Recent Fever Within 48 Hours: No Infection Criteria Present: None New/Unexplained Altered Menta: No Sepsis Screen: No Definite Risk SIRS Temperature:97.9 Pulse: 89 Respiratory Rate: 16 Laboratory Tests 11/17/18 10:05: White Blood Count 8.6 Blood Pressure 135 /93 Mean: 107 Laboratory Tests 11/17/18 10:05: Creatinine 0.99, Platelet Count 190, Total Bilirubin 0.4 Results/Orders Lab Results Laboratory Tests Test 11/17/18 10:05 Range/Units White Blood Count 8.6 4.3-11.0 10^3/uL Red Blood Count 3.32 L 4.35-5.85 10^6/uL Hemoglobin 10.4 #L 11.5-16.0 G/DL Hematocrit 33 L 35-52 % Mean Corpuscular Volume 99 80-99 FL Mean Corpuscular Hemoglobin 31 25-34 PG Mean Corpuscular Hemoglobin Concent 32 32-36 G/DL Red Cell Distribution Width 14.0 10.0-14.5 % Platelet Count 190 130-400 10^3/uL Mean Platelet Volume 10.7 H 7.4-10.4 FL Neutrophils (%) (Auto) 88 H 42-75 % Lymphocytes (%) (Auto) 6 L 12-44 % Monocytes (%) (Auto) 6 0-12 % Eosinophils (%) (Auto) 0 0-10 % Basophils (%) (Auto) 0 0-10 % Neutrophils # (Auto) 7.6 1.8-7.8 X 10^3 Lymphocytes # (Auto) 0.5 L 1.0-4.0 X 10^3 Monocytes # (Auto) 0.5 0.0-1.0 X 10^3 Eosinophils # (Auto) 0.0 0.0-0.3 10^3/uL Basophils # (Auto) 0.0 0.0-0.1 10^3/uL Neutrophils % (Manual) 92 % Lymphocytes % (Manual) 5 % Monocytes % (Manual) 2 % Eosinophils % (Manual) 0 % Basophils % (Manual) 0 % Band Neutrophils 1 % Blood Morphology Comment NORMAL Sodium Level 143 135-145 MMOL/L Potassium Level 3.3 L 3.6-5.0 MMOL/L Chloride Level 109 H 98-107 MMOL/L Carbon Dioxide Level 24 21-32 MMOL/L Anion Gap 10 5-14 MMOL/L Blood Urea Nitrogen 17 7-18 MG/DL Creatinine 0.99 0.60-1.30 MG/DL Estimat Glomerular Filtration Rate 53 BUN/Creatinine Ratio 17 Glucose Level 99 70-105 MG/DL Calcium Level 8.8 8.5-10.1 MG/DL Corrected Calcium 9.6 8.5-10.1 MG/DL Total Bilirubin 0.4 0.1-1.0 MG/DL Aspartate Amino Transf (AST/SGOT) 26 5-34 U/L Alanine Aminotransferase (ALT/SGPT) 14 0-55 U/L Alkaline Phosphatase 37 L 40-136 U/L Total Protein 5.4 L 6.4-8.2 GM/DL Albumin 3.0 L 3.2-4.5 GM/DL My Orders Orders - ÁLZARO HOWELL MD Cbc With Automated Diff (11/17/18 09:59) Comprehensive Metabolic Panel (11/17/18 09:59) Ua Culture If Indicated (11/17/18 09:59) Manual Differential (11/17/18 10:05) Ct Head Wo (11/17/18 10:29) Hip, Left, 2 Views (11/17/18 10:29) Hip, Right, 2 Views (11/17/18 11:29) Foot, Right, 3 View (11/17/18 12:00) Pt Evaluate/Treat Request (11/17/18 12:44) Weight Bearing Status (11/17/18 12:44) Vital Signs/I&O 11/17/18 09:47 Temp 97.9 Pulse 89 Resp 16 B/P (MAP) 135/93 (107) Pulse Ox 91 O2 Delivery Room Air Capillary Refill : Less Than 3 Seconds Blood Pressure Mean: 107 Departure Communication (Admissions) 1215 CT of the head and plain films of the hips and right foot show only degenerative changes. It is not clear at all whether the patient even with her caregivers is able to function at home given this problem. I have paged and consulted Physical therapy for the purpose of evaluation and consideration of IRF admission for the purposes of restoring function. 1315. The plan is now been refined. The patient was seen by Dr. Arnold in the ER. She will be admitted on the observation status. Physical therapy will evaluate her today and tomorrow and she will be considered for the inpatient rehabilitation facility. Impression Primary Impression: lower extremity pain Additional Impression: loss of ambulation capacity Disposition: ADMITTED INPATIENT Condition: Stable/Unchanged Admissions Decision to Admit Reason: Admit from ER (General) Decision to Admit/Date: Nov 17, 2018 Time/Decision to Admit Time: 13:12 Departure-Patient Inst. Referrals: ОЛЬГА HORTON MD (PCP/Family) Primary Care Physician LÁZARO HOWELL MD Nov 17, 2018 10:43
[2018-11-17 10:54] LABS: BAND NEUTROPHILS 1 %; BASOPHILS % (MANUAL) 0 %; EOSINOPHILS % (MANUAL) 0 %; LYMPHOCYTES % (MANUAL) 5 %; MONOCYTES % (MANUAL) 2 %; NEUTROPHILS % (MANUAL) 92 %; RBC MORPH NORMAL
--- NOTE | 2018-11-17 11:00 | NUR ---
REPORT GIVEN TO ANDIE KINGSLEY.
--- NOTE | 2018-11-17 11:07 | Diagnostic Imaging Report ---
INDICATION: Left hip pain. TIME OF EXAM: 10:53 AM FINDINGS: 2 views left hip demonstrate postop changes left hip arthroplasty. Prosthetic elements appear to be in good position. No fracture or loosening is seen. Rami appear intact. IMPRESSION: No acute bony abnormality is detected. Dictated by: Dictated on workstation # [id number]
--- NOTE | 2018-11-17 11:30 | Diagnostic Imaging Report ---
CLINICAL INDICATION: Patient with recent gallbladder surgery on Wednesday. Patient went to bed last night at 9:30 PM and when she woke up at 06:30 AM unable to use right leg and to walk. EXAM: Axial CT scan of the brain performed without IV contrast. COMPARISON: None. FINDINGS: There is no evidence of acute cerebral infarct, intracranial hemorrhage, or gross mass effect. There is diffuse brain parenchymal volume loss with the temporal lobes affected the most medially. There is patchy and mildly confluent areas of low-attenuation white matter changes seen throughout both cerebral hemispheres, likely representing chronic small vessel ischemic disease. There is normal nava-white matter distinction. There is no significant midline shift or herniation. There is no evidence of hydrocephalus. The basal cisterns are unremarkable. There is slight increased density within the posterior aspect of the globe which is on both sides of the optic nerve. The greatest thickness of 7 mm is most pronounced laterally. There is no extension into the left orbital fat. The right globe shows no significant abnormality. Otherwise, the skull and extracranial soft tissue are unremarkable. The paranasal sinuses are unremarkable. Temporal bones show no significant abnormality. IMPRESSION: 1: There is no CT evidence of acute intracranial process. If there is continued concern for acute cerebral infarct, then MRI of the brain would better evaluate. 2: There is nonspecific density within the posterior aspect of the left globe. Unknown if this represents retinal detachment or blood versus a mass. Ophthalmoscopy and consultation with hull and deck remover is suggested. 3: Age-related brain parenchymal changes with chronic small vessel ischemic disease and diffuse brain parenchymal volume loss. Dictated by: Dictated on workstation # [id number]
--- NOTE | 2018-11-17 12:09 | Diagnostic Imaging Report ---
INDICATION: Right hip pain. TIME OF EXAM: 11:57 a.m. FINDINGS: Two views of the right hip demonstrate normal femoroacetabular alignment. Femoral head and neck are intact. Right-sided rami are intact. No fractures are seen. IMPRESSION: No acute bony abnormality is detected. Dictated by: Dictated on workstation # [id number]
--- NOTE | 2018-11-17 12:16 | Diagnostic Imaging Report ---
INDICATION: Right foot pain. FINDINGS: Three views of the right foot show advanced degenerative changes of the first MTP joint. Other joint spaces are well preserved. There is no fracture seen. 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 No acute abnormality seen. Dictated by: Dictated on workstation # [id number]
--- NOTE | 2018-11-17 12:45 | NUR ---
Pt moved to bed 4 as bed three was needed for another pt.
--- NOTE | 2018-11-17 13:59 | NUR ---
pharmacy called for med rec
--- NOTE | 2018-11-17 14:00 | NUR ---
JULIA BANKS admitted to room 408-1, with an admitting diagnosis of WEAKNESS, on 11/17/18 from ED via STRETCHER, accompanied by ED STAFF AND ADULT CHILE. JULIA BANKS introduced to surroundings, call light, bed controls, phone, TV, temperature control, lights, meal times, smoking policy, visitor policy, side rail policy, bathrooms and showers. Patient Rights given to patient in the handbook. JULIA BANKS verbalizes understanding that [facility] is not responsible for the loss or damage to any personal effects or valuables that are kept in the patients posession during their hospitalization. The following Patient Care Plans were discussed with the PATIENT AND HER SON: Discharge Planning, IMPAIRED MOBILITY and KNOWLEDGE DEFICIT. JULIA BANKS verbalizes understanding of Interdisciplinary Patient Education. Patient and/or family were informed about the Rapid Response Team and its purpose.
--- NOTE | 2018-11-17 14:07 | History & Physical-Hospitalist ---
History of Present Illness HPI/Chief Complaint CC: Weakness with right leg weakness HPI: This is an 88-year-old white female clinic patient of Dr. Holcomb who had a cholecystectomy uncomplicated by Dr. Rm on Wednesday who presented to the ER with severe weakness and unable to eat or drink. Patient was evaluated with multiple x-rays and CT scan which revealed no acute abnormality. Hence she was admitted for observation placed on gentle IV fluids and PT OT evaluation for rehabilitation. At this current time her son is at the bedside and denied any abdominal pain since surgery but just overall can't navigate at home. Source: patient, family, RN/MD, old records Date Seen 11/17/18 Time Seen by a Provider: 13:00 Attending Physician Ibeth Thomas Wen-Chou MD Referring Physician Date of Admission Nov 17, 2018 at 13:49 Home Medications & Allergies Home Medications Reviewed patient Home Medication Reconciliation performed by pharmacy medication reconciliations billing and quality technician and/or nursing. Patients Allergies have been reviewed. Allergies Allergies Coded Allergies No Known Drug Allergies (Unverified03/05/10) Past Gaojuzz-Pkhlbf-Atavnw Hx Past Med/Social Hx: Reviewed Nursing Past Med/Soc Hx, Reviewed and Corrections made Patient Social History Marrital Status: Employed/Student: retired Alcohol Use: Denies Use Alcohol Beverage of Choice: [place] Recreational Drug Use: No Smoking Status: Never a Smoker Recent Foreign Travel: No Contact w/other who traveled: No Recent Hopitalizations: Yes Recent Infectious Disease Expo: No Immunizations Up To Date Tetanus Booster (TDap): Unknown Pediatric: No Date of Pneumonia Vaccine: May 28, 2015 Seasonal Allergies Seasonal Allergies: No Past Medical History Surgeries: Cardiac, Coronary Stent, Gallbladder, Joint Replacement, Tonsillectomy Cardiac: Atrial Fibrillation, Coronary Artery Disease, High Cholesterol, Hypertension Reproductive: No (ENDOMETRIAL THICKENING) Menopausal Gastrointestinal: Chronic Constipation, Hemorrhoids Musculoskeletal: Arthritis, Fractures Endocrine: Hypothyroidsim HEENT: Cataract, Macular Degeneration Loss of Vision: Denies Hearing Impairment: Hard of Hearing, Bilateral Hearing Aide Psychosocial: Anxiety History of Blood Disorders: No Adverse Reaction to Blood [place]: No Family History Patient reports no known family medical history. Cancer Review of Systems Constitutional: see HPI, weakness EENTM: no symptoms reported Respiratory: no symptoms reported Cardiovascular: no symptoms reported Gastrointestinal: no symptoms reported Genitourinary: no symptoms reported Musculoskeletal: joint pain Skin: no symptoms reported Psychiatric/Neurological: No Symptoms Reported Physical Exam Physical Exam Vital Signs Vital Signs - First Documented 11/17/18 11/17/18 09:47 16:35 Temp 97.9 Pulse 89 Resp 16 B/P (MAP) 135/93 (107) Pulse Ox 91 O2 Delivery Room Air O2 Flow Rate 2.00 Capillary Refill : Less Than 3 Seconds Height, Weight, BMI Height: 5'2.00" Weight: 135lbs. 3.0oz. 61.186643ox; 27.5 BMI Method:Stated General Appearance: No Apparent Distress, Chronically ill Eyes: Right Eye Normal Inspection, Right Eye PERRL HEENT: PERRL/EOMI, Normal ENT Inspection, Pharynx Normal, Moist Mucous Membranes Neck: Full Range of Motion, Normal Inspection, Non Tender Respiratory: Chest Non Tender, Lungs Clear, Normal Breath Sounds, No Accessory Muscle Use, No Respiratory Distress Cardiovascular: No Edema, No Gallop, No JVD, No Murmur, Normal Peripheral Pulses, Irregularly Irregular Gastrointestinal: Normal Bowel Sounds, No Organomegaly, No Pulsatile Mass, Non Tender, Soft Back: Normal Inspection, No CVA Tenderness, No Vertebral Tenderness Extremity: Normal Capillary Refill, Normal Inspection, Normal Range of Motion, Non Tender, No Calf Tenderness, No Pedal Edema Neurologic/Psychiatric: Alert, Oriented x3, No Motor/Sensory Deficits, Normal Mood/Affect Skin: Normal Color, Warm/Dry Lymphatic: No Adenopathy Results Results/Procedures Labs Laboratory Tests 11/17/18 10:05 11/18/18 05:30 Patient resulted labs reviewed. Assessment/Plan Admission Diagnosis Assessment: Generalized weakness Recent cholecystectomy Hypokalemia Dehydration Chronic atrial fibrillation Plan: Gentle IV fluid PT/OT eval IRF? Admission Status: Observation Diagnosis/Problems Diagnosis/Problems (1) Dehydration Status: Acute (2) Hypokalemia Status: Acute (3) Weakness Status: Acute (4) Hypothyroidism Status: Chronic Qualifiers: Hypothyroidism type: acquired Qualified Codes: E03.9 - Hypothyroidism, unspecified (5) A-fib Status: Chronic Qualifiers: Atrial fibrillation type: chronic Qualified Codes: I48.2 - Chronic atrial fibrillation (6) Essential (primary) hypertension Status: Chronic IBETH THOMAS DO Nov 17, 2018 14:07
[2018-11-17] MEDS ORDERED: CALCIUM CARBONATE 500 MG (TUMS) TAB.CHEW PO PRN (14:15)
[2018-11-17] MEDS ORDERED: CATHETER FLUSH 10 ML SYR IV PRN (14:15)
[2018-11-17] MEDS ORDERED: diphenhydrAMINE 25 MG TAB (BENADRYL) PO PRN (14:15)
[2018-11-17] MEDS ORDERED: LOPERAMIDE 2 MG (IMODIUM) CAP PO PRN (14:15)
[2018-11-17] MEDS ORDERED: ACETAMINOPHEN 500 MG TAB (TYLENOL) PO PRN (14:15)
[2018-11-17] MEDS ORDERED: ONDANSETRON 4 MG/2 ML (SDV) Z0FRAN IVP PRN (14:15)
[2018-11-17] MEDS ORDERED: DOCUSATE SODIUM 100 MG (COLACE) CAP PO PRN (14:15)
[2018-11-17] MEDS ORDERED: METO50TA15 PO (14:32)
--- NOTE | 2018-11-17 14:51 | Physical Therapy Evaluation ---
PT Evaluation-General Medical Diagnosis Admission Date Nov 17, 2018 at 13:49 Medical Diagnosis: right leg pain Onset Date: Nov 17, 2018 Therapy Diagnosis Therapy Diagnosis: weakness Height/Weight Height (Feet): 5 Height (Inches): 2.00 Weight (Pounds): 135 Weight (Ounces): 3.0 Precautions Precautions/Isolations: Standard Precautions Weight Bear Status Right Lower Extremity: Right Full Weight Bearing Left Lower Extremity: Left Weight Bearing/Tolerated Referral Physician: Wanda Reason for Referral: Evaluation/Treatment Medical History Pertinent Medical History: Atrial Fib, Arthritis, CAD, HTN, Hypothroidism Additional Medical History Greg recently, discharged from hospital 11/16/18 Current History Admitted from home after getting dischrged from the hospital yesterday. Reprots she was unable to move her right leg or get out of bed. Admitted to [facility] for observation Reviewed History: Yes Social History Home: Single Level Current Living Status: Alone (has a caregiver) Entry Into Home: Stairs With Railing Prior/Core FIM Prior Level of Function Therapy Code Descriptions/Definitions Functional [place] Measure: 0=Not Assessed/NA 4=Minimal Assistance 1=Total Assistance 5=Supervision or Setup 2=Maximal Assistance 6=Modified [place] 3=Moderate Assistance 7=Complete [place] Therapy Quality Codes: 6 Independent with activity with or without an assistive device 5 Patient requires set up or clean up by helper. Patient completes activity by themselves 4 Supervision or touching assist (CGA). Purdin provide cues , steadying assist 3 The helper provides less than half the effort to complete the activity 2 The helper provides more than half the effort to complete the activity 1 Dependent. The helper does all the effort to complete an activity 7 Patient refused to complete or attempt activity 9 The patient did not perform the activity before the current illness or injury 88 Not attempted due to Medical conditions or safety concerns Functional Abilities and Goals: Independent: Patient completed the activities by him/herself, with or without an assistive device, with no assistance from a helper. Needed Some Help: Patient needed partial assistance from another person to complete activities. Dependent: A helper completed the activities for the patient. Unknown: Not Applicable: Bed Mobility: 6 Transfers (B,C,W/C) (FIM): 6 Gait: 6 (FWW ) Indoor Mobility (Ambulation): Independent PT Evaluation-Current Subjective Pt reports she is having difficulty moving her right leg. Reports it started this morning when she woke up. Objective Patient Orientation: Person, Confused (slight), Place, Time, Situation Problem Solving: Fair ROM/Strength ROM Lower Extremities left LE and strength WFL Right LE ROM WFL; unable to assess strength. Strength Lower Extremities left LE and strength WFL Right LE ROM WFL; unable to assess strength. Integumentary/Posture Integumentary Refer to nursing notes for full assessment Bowel Incontinence: No Bladder Incontinence: No Posture symmetrical; slight rounded shoulders and forward head Neuromuscular (Tone, Coordination, Reflexes) WFL Sensory Vision: Wears Glasses (impaired) Hearing: Impaired Hand Dominance: Right Sensation Right Lower Extremit: Intact Sensation Left Lower Extremity: Intact Transfers Therapy Code Descriptions/Definitions Functional [place] Measure: 0=Not Assessed/NA 4=Minimal Assistance 1=Total Assistance 5=Supervision or Setup 2=Maximal Assistance 6=Modified [place] 3=Moderate Assistance 7=Complete [place] Transfers (B, C, W/C) (FIM): 2 Scootin Rollin Supine to/from Sit: 3 Sit to/from Stand: 3 Mod assist o transfer sit to from supine; mod assist to stand up; heavy verbal cues for sequencing and safety Gait Mode of Locomotion: Walk Comments/Gait Description Unable to takes steps forward or sidestep at this time. Balance Sitting Static: Good Sitting Dynamic: Good Standing Static: Fair Standing Dynamic: Fair Treatment Stood EOB with mod assist to remain standing. Returned to bed. All needs met Assessment/Needs Pt presents with impaired functional mobility and abiolity to transfer or ambulate. She is unable to mange at home at this time. She will benefit from skilled PT intervnetion to address R LE weakness and address transfers and gait. Rehab Potential: Guarded PT Fci Goals [facility]ci Goals PT Acquisition Marketing Manager Goals Time Frame: Nov 21, 2018 Transfers (B,C,W/C) (FIM): 6 Gait (FIM): 6 Gait Assistive Device: FWW PT Plan Problem List Problem List: Activity Tolerance, Functional Strength, Safety, Balance, Gait, Transfer, Bed Mobility Treatment/Plan Treatment Plan: Continue Plan of Care Treatment Plan: Bed Mobility, Education, Functional Activity Leo, Functional Strength, Gait, Safety, Therapeutic Exercise, Transfers Treatment Duration: Nov 21, 2018 Frequency: 6 times per week Estimated Hrs Per Day: .25 hour per day Patient and/or Family Agrees t: Yes Safety Risks/Education Patient Education: Safety Issues Teaching Recipient: Patient Teaching Methods: Discussion Response to Teaching: Reinforcement Needed Time/GCodes Time In: 1420 Time Out: 1435 Total Billed Treatment Time: 15 Total Billed Treatment visit EVL 15 LUCHO FAIRCHILD PT Nov 17, 2018 14:50
[2018-11-17 14:57] VITALS: BP 148/91
--- NOTE | 2018-11-17 15:05 | Occupational Therapy Eval ---
OT Evaluation-General/PLF Medical Diagnosis Admission Date Nov 17, 2018 at 13:49 Medical Diagnosis: right leg pain Onset Date: Nov 17, 2018 Therapy Diagnosis Therapy Diagnosis: Weakness Height/Weight Height (Feet): 5 Height (Inches): 2.00 Weight (Pounds): 150 Weight (Ounces): 5.7 Precautions Precautions/Isolations: Standard Precautions Safety Interventions: Bed Exit Alarm Weight Bear Status Weight Bearing Restriction: Full Weight Bearing Location Restriction: L LE, R MASHA Referral Physician: Wanda Referral Reason: Activity Tolerance, Self Care, Evaluation/Treatment, Strengthening/ROM Medical History Pertinent Medical History: Atrial Fib, Arthritis, CAD, HTN, Hypothroidism Current History Admitted from home after getting dischrged from the hospital yesterday. Reprots she was unable to move her right leg or get out of bed. Admitted to [facility] for observation Reviewed History: Yes Social History Home: Single Level Current Living Status: Alone (has a caregiver) Entry Into Home: Stairs With Railing ADL-Prior Level of Function Therapy Code Descriptions/Definitions Functional [place] Measure: 0=Not Assessed/NA 4=Minimal Assistance 1=Total Assistance 5=Supervision or Setup 2=Maximal Assistance 6=Modified [place] 3=Moderate Assistance 7=Complete [place] Therapy Quality Codes: 6 Independent with activity with or without an assistive device 5 Patient requires set up or clean up by helper. Patient completes activity by themselves 4 Supervision or touching assist (CGA). [place] provide cues , steadying assist 3 The helper provides less than half the effort to complete the activity 2 The helper provides more than half the effort to complete the activity 1 Dependent. The helper does all the effort to complete an activity 7 Patient refused to complete or attempt activity 9 The patient did not perform the activity before the current illness or injury 88 Not attempted due to Medical conditions or safety concerns Functional Abilities and Goals: Independent: Patient completed the activities by him/herself, with or without an assistive device, with no assistance from a helper. Needed Some Help: Patient needed partial assistance from another person to complete activities. Dependent: A helper completed the activities for the patient. Unknown: Not Applicable: ADL PLOF Comments 88 yrs old w/f lives alone at home & was Independent in all self care tasks & IADLs, & ambulation. Was driving till 6 months back. Self Care: Independent Functional Cognition: Independent Drive Self: No OT Current Status Subjective Pt in bed, her son sitting beside her bed., Agree for OT Eval & treatment.. Pain Numeric Pain Scale: 0-No Pain Location: No Pain Reported Mental Status/Objective Patient Orientation: Person, Place, Time, Situation, Normal For Age Current Glasses/Contacts: Yes Hearing Aids: Yes Hand Dominance: Right Upper Extremity ROM WFL Upper Extremity Coordination INTACT Upper Extremity Sensation INTACT Upper Extremity Strength MS in BUE 4/5 groossly graded. ADL-Treatment ADL-Current Pt participated in OT assessment & treatment. Pt mod A in UB & Max A in LB dressing., Grooming with min A supine to sit in bed with mod A , sit to stand at EOB with max A Right LE very week & has tendency to flex & laterally rotate. Therapy Code Descriptions/Definitions Functional [place] Measure: 0=Not Assessed/NA 4=Minimal Assistance 1=Total Assistance 5=Supervision or Setup 2=Maximal Assistance 6=Modified [place] 3=Moderate Assistance 7=Complete [place] Therapy Quality Codes: 6 Independent with activity with or without an assistive device 5 Patient requires set up or clean up by helper. Patient completes activity by themselves 4 Supervision or touching assist (CGA). [place] provide cues , steadying assist 3 The helper provides less than half the effort to complete the activity 2 The helper provides more than half the effort to complete the activity 1 Dependent. The helper does all the effort to complete an activity 7 Patient refused to complete or attempt activity 9 The patient did not perform the activity before the current illness or injury 88 Not attempted due to Medical conditions or safety concerns Eating (FIM): 6 Grooming (FIM): 4 Bathing (FIM): 0 Upper Body Dressing (FIM): 4 Lower Body Dressing (FIM): 1 Transfers (B, C, W/C) (FIM): 2 Education OT Patient Education: Correct positioning, Instructions to caregiver, Safety issues OT Short Term Goals Short Term Goals Time Frame: Dec 01, 2018 Additional Short Term Goals: 1-Demonstrate ADL Tasks, 2-Verbalize Understanding , 3-ImproveStrength/Leo 1=Demonstrate adherence to instructed precautions during ADL tasks. 2=Patient will verbalize/demonstrate understanding of assistive devices/ modifications for ADL. 3=Patient will improve strength/tolerance for activity to enable patient to perform ADL's. OT Long-Term Goals Long-Term Goals Time Frame: Dec 15, 2018 Eating (FIM): 7 Grooming(FIM): 7 Bathing(FIM): 5 Bathing Location: L Arm, R Arm, L Upper Leg, R Upper Leg, L Lower Leg ( including foot), R Lower Leg (including foot), Chest, Abdomen, Buttocks, Perineal Area Upper Body Dressing(FIM): 7 Lower Body Dressing(FIM): 6 Toileting(FIM): 7 Transfers (B,C,W/C) (FIM): 6 Toilet/Commode Transfer(FIM): 6 (with FWW) Shower Transfer(FIM): 6 (FWW) Additional Goals: 1-Demonstrate ADL Tasks, 2-Verbalize Understanding, 3- ImproveStrength/Leo 1=Demonstrate adherence to instructed precautions during ADL tasks. 2=Patient will verbalize/demonstrate understanding of assistive devices/ modifications for ADL. 3=Patient will improve strength/tolerance for activity to enable patient to perform ADL's. OT Education/Plan Problem List/Assessment Assessment: Decreased Activ Tolerance, Decreased Safety Aware, Decreased UE Strength, Dependent Transfers, Impaired Bed Mobility, Impaired Cognition, Impaired Funct Balance, Impaired Self-Care Skills Discharge Recommendations Plan/Recommendations: Continue POC Therapy D/C Recommendations: Home Independently, Occupational Therapy Home Care Patient/Family Goals To return home Independently with AD. Treatment Plan/Plan of Care Treatment,Training & Education: Yes Patient would benefit from OT for education, treatment and training to promote independence in ADL's, mobility, safety and/or upper extremity function for ADL' s. Plan of Care: ADL Retraining, Caregiver Training, Cognitive Retraining, Functional Mobility, UE Funct Exercise/Act, UE Neuromus Re-Ed/Coord Treatment Duration: Dec 15, 2018 Frequency: 5 times per week Estimated Hrs Per Day: .25 hour per day Agreement: Yes Rehab Potential: Guarded Time/GCodes Start Time: 14:40 Stop Time: 15:10 Total Time Billed (hr/min): 30 Billed Treatment Time 1, EVM 18 min, Ex 12 min. Total 30 min. INDU COOK OT Nov 17, 2018 15:05
[2018-11-17] MEDS ORDERED: FLU QUADRIvalent (5+ YOA) 2018-2019 (AFLURIA) 0.5 ML IM ONE (15:15)
[2018-11-17 16:07] VITALS: BP 131/82
[2018-11-17] MEDS: POTASSIUM CHLORIDE INJ 10 MEQ in NS IV 1000 ML 1,000 ML IV SCH (16:41)
[2018-11-17 20:00] VITALS: BP 129/75
[2018-11-17] MEDS: CATHETER FLUSH 10 ML SYR IV SCH (21:33)
[2018-11-17] MEDS: POLYETHYLENE GLYCOL 17 GM (MIRALAX) PACK PO SCH (21:33)
--- NOTE | 2018-11-17 23:53 | NUR ---
PT OXYGEN SAT 88% at 2L, BP197/90, HR 125. DR. THOMAS NOTIFY ABOUT PT CONDITION AND NEW ORDERS TO RESTART HOME MED LISINOPRIL 5MG HS, METOPROLOL 50MG BID, AND NITRO PASTE 1/2 INCH Q6HRS PRN FOR SBP > 170. TO MONITOR ONLY FOR THE REST OF NIGHT. PT AT 3L TO KEEP OXYGEN SAT AT 90%
[2018-11-17 23:55] VITALS: BP 197/90
[2018-11-18] MEDS: IBUPROFEN TABLET 200 MG TAB PO PRN (00:06)
[2018-11-18 00:15] VITALS: BP 165/84
[2018-11-18] MEDS ORDERED: NITROGLYCERIN 2% OINT 1 GM UNIT DOSE PACKET TOP PRN (01:15)
[2018-11-18 03:51] VITALS: BP 158/80
[2018-11-18] MEDS: CATHETER FLUSH 10 ML SYR IV SCH ×3 (05:45→21:11)
[2018-11-18 05:57] LABS: BASOPHILS % (AUTO) 0 % (0-10); EOSINOPHILS % (AUTO) 0 % (0-10); HEMATOCRIT 35 % (35-52); HEMOGLOBIN 10.6 G/DL (11.5-16.0); LYMPHOCYTES # (AUTO) 0.4 X 10^3 (1.0-4.0); LYMPHOCYTES % (AUTO) 5 % (12-44); MEAN CORPUSCULAR HEMOGLOBIN 30 PG (25-34); MEAN CORPUSCULAR HGB CONC 31 G/DL (32-36); MEAN CORPUSCULAR VOLUME 99 FL (80-99); MEAN PLATELET VOLUME 10.7 FL (7.4-10.4); MONOCYTES # (AUTO) 0.5 X 10^3 (0.0-1.0); MONOCYTES % (AUTO) 6 % (0-12); NEUTROPHILS # (AUTO) 7.7 X 10^3 (1.8-7.8); NEUTROPHILS % (AUTO) 90 % (42-75); PLATELET COUNT 178 10^3/uL (130-400); RED CELL DISTRIBUTION WIDTH 13.9 % (10.0-14.5); WHITE BLOOD COUNT 8.5 10^3/uL (4.3-11.0)
[2018-11-18 06:16] LABS: ALANINE AMINOTRANSFERASE 12 U/L (0-55); ALKALINE PHOSPHATASE 39 U/L (40-136); BILIRUBIN,TOTAL 0.4 MG/DL (0.1-1.0); BUN/CREATININE RATIO 16; CALCIUM 8.6 MG/DL (8.5-10.1); CARBON DIOXIDE 23 MMOL/L (21-32); CHLORIDE 109 MMOL/L (98-107); CREATININE SERUM 0.76 MG/DL (0.60-1.30); GFR ESTIMATED > 60; GLUCOSE 100 MG/DL (70-105); POTASSIUM 3.2 MMOL/L (3.6-5.0); SODIUM 142 MMOL/L (135-145); TOTAL PROTEIN 5.1 GM/DL (6.4-8.2)
[2018-11-18] MEDS: POTASSIUM CHLORIDE INJ 10 MEQ in NS IV 1000 ML 1,000 ML IV SCH (07:47)
[2018-11-18 08:00] VITALS: BP 156/66
[2018-11-18] MEDS: meTOprolol TARTRATE 50 MG (LOPRESSOR) TAB PO SCH ×2 (08:38→20:14)
[2018-11-18] MEDS: POLYETHYLENE GLYCOL 17 GM (MIRALAX) PACK PO SCH ×2 (08:38→21:11)
--- NOTE | 2018-11-18 08:51 | Progress Note-Hospitalist ---
Subjective HPI/CC On Admission Date Seen by Provider: Nov 18, 2018 Time Seen by Provider: 09:15 Subjective/Events-last exam Patient about the same but a little improved Required oxygen last night Potassium still low even with IV supplement Cardiology consult with since she is now requiring oxygen and I ordered a BNP Inpatient rehabilitation does not feel like she can tolerate 3 hours of treatment Home meds Review of Systems General: Fatigue Neurological: Weakness Objective Exam Vital Signs Vital Signs Date Time Temp Pulse Resp B/P (MAP) Pulse Ox O2 Delivery O2 Flow Rate FiO2 11/18/18 08:42 Nasal Cannula 2.00 11/18/18 08:00 98.3 92 18 156/66 (96) 92 Capillary Refill : Less Than 3 SecondsLess Than 3 Seconds General Appearance: No Apparent Distress, WD/WN, Chronically ill HEENT: PERRL/EOMI, Normal ENT Inspection Neck: Normal Inspection Respiratory: Chest Non Tender, No Accessory Muscle Use, No Respiratory Distress , Crackles Cardiovascular: No Edema, No Gallop, No JVD, No Murmur, Normal Peripheral Pulses, Irregularly Irregular Gastrointestinal: Normal Bowel Sounds, No Organomegaly, No Pulsatile Mass, Non Tender, Soft Back: Normal Inspection Neurologic/Psychiatric: Alert, Oriented x3, No Motor/Sensory Deficits, Normal Mood/Affect, trip rider II-XII Norm as Tested, Depressed Affect Skin: Other Lymphatic: No Adenopathy Results/Procedures Lab Laboratory Tests 11/18/18 05:30 Patient resulted labs reviewed. Assessment/Plan Assessment and Plan Assess & Plan/Chief Complaint Assessment: Generalized weakness Right leg weakness now improved Chronic atrial fibrillation Dehydration Hypokalemia New hypoxia mild Plan: Check BNP Cardiology consult Check chest x-ray PT/OT Home meds Diagnosis/Problems Diagnosis/Problems (1) Weakness Status: Acute (2) Hypokalemia Status: Acute (3) Dehydration Status: Acute (4) CAD (coronary artery disease) Status: Chronic (5) Hypothyroidism Status: Chronic Qualifiers: Hypothyroidism type: acquired Qualified Codes: E03.9 - Hypothyroidism, unspecified (6) A-fib Status: Chronic Qualifiers: Atrial fibrillation type: chronic Qualified Codes: I48.2 - Chronic atrial fibrillation (7) Essential (primary) hypertension Status: Chronic Clinical Quality Measures DVT/VTE Risk/Contraindication: Risk Factor Score Per Nursin RFS Level Per Nursing on Admit: 2=Moderate AIDEE THOMAS DO Nov 18, 2018 08:51
[2018-11-18] MEDS ORDERED: KCL 10 MEQ TAB (MICRO K) PO ONE (09:00)
--- NOTE | 2018-11-18 09:14 | Physical Therapy Daily Note ---
PT Daily Note-Current Subjective Patient in bed pre tx, agrees to PT, states that she has pain in her right leg but seems to be unwilling to rate pain even with direct questioning. Appearance Patient in recliner post tx with nurse call, phone, tray, all needs met. Mental Status Patient Orientation: Person, Confused Attachments: Oxygen, IV Transfers Therapy Code Descriptions/Definitions Functional [place] Measure: 0=Not Assessed/NA 4=Minimal Assistance 1=Total Assistance 5=Supervision or Setup 2=Maximal Assistance 6=Modified [place] 3=Moderate Assistance 7=Complete [place] Therapy Quality Codes: 6 Independent with activity with or without an assistive device 5 Patient requires set up or clean up by helper. Patient completes activity by themselves 4 Supervision or touching assist (CGA). [place] provide cues , steadying assist 3 The helper provides less than half the effort to complete the activity 2 The helper provides more than half the effort to complete the activity 1 Dependent. The helper does all the effort to complete an activity 7 Patient refused to complete or attempt activity 9 The patient did not perform the activity before the current illness or injury 88 Not attempted due to Medical conditions or safety concerns Transfers (B, C, W/C) (FIM): 2 Scootin Rollin Supine to/from Sit: 4 Sit to/from Stand: 3 Bed to/from Chair: 2 Weight Bearing Right Lower Extremity: Right Full Weight Bearing Left Lower Extremity: Left Weight Bearing/Tolerated Gait Training Gait (FIM): 1 Distance: 3' Gait Level of Assist: 4 Gait Persons Needed: 1 Gait Assistive Device: FWW Patient ambulated a few feet forward toward the recliner but was not able to turn and sit, max assist to help patient turn and sit. Exercises Seated Therapy Exercises: Ankle pumps, Long arc quads Seated Reps: 15 Treatments bed mobility and transfers, ambulation, functional strengthening Assessment Current Status: Fair Progress improved ambulation PT Development Trainer Goals Development Trainer Goals PT Development Trainer Goals Time Frame: Nov 21, 2018 Transfers (B,C,W/C) (FIM): 6 Gait (FIM): 6 Gait Assistive Device: FWW PT Plan Problem List Problem List: Activity Tolerance, Functional Strength, Safety, Balance, Gait, Transfer, Bed Mobility, ROM Treatment/Plan Treatment Plan: Continue Plan of Care Treatment Plan: Bed Mobility, Education, Functional Activity Leo, Functional Strength, Gait, Safety, Therapeutic Exercise, Transfers Treatment Duration: Nov 21, 2018 Frequency: 6 times per week Estimated Hrs Per Day: .25 hour per day Patient and/or Family Agrees t: Yes Safety Risks/Education Patient Education: Gait Training, Transfer Techniques, Correct Positioning, Safety Issues Teaching Recipient: Patient Teaching Methods: Demonstration, Discussion Response to Teaching: Reinforcement Needed Time/GCodes Time In: 0850 Time Out: 0907 Total Billed Treatment Time: 17 Total Billed Treatment 1 visit GT 17' YAMILET DUNCAN PT Nov 18, 2018 09:14
[2018-11-18] MEDS ORDERED: FUROSEMIDE 40 MG/4 ML INJ (LASIX) IVP ONE (09:45)
[2018-11-18] MEDS: PROPAFENONE 150 MG (RYTHMOL) TABLET PO SCH ×2 (10:57→20:15)
[2018-11-18] MEDS: DILTIAZEM 240 MG (CARDIZEM CD) CAP PO SCH (10:58)
[2018-11-18] MEDS: SENNA W/DOCUSATE (SENOKOT S) TABLET PO SCH (10:58)
--- NOTE | 2018-11-18 11:00 | Consultation-Cardiology ---
HPI-Cardiology Cardiology Consultation Date of Consultation 11/18/18 Date of Admission Time Seen by Provider: 10:56 Indication: right leg pain HPI 88 years old lady with history of paroxysmal atrial fibrillation, hypertension, underwent cholecystectomy last week, admitted for increasing pain in her right leg. Had generalized weakness and malaise. No chest pain. No syncope or near syncopal episode, no fall, reporting that the pain extending all over her right leg. Home Medications & Allergies Allergies: Coded Allergies: No Known Drug Allergies (Unverified , 03/05/10) Home Medication List Reviewed: Yes [id number] Hx Patient Social History Marital Status: Employed/Student: retired Alcohol Use: Denies Use Recreational Drug Use: No Smoking Status: Never a Smoker Recent Foreign Travel: No Recent Infectious Disease Expo: No Recent Hopitalizations: Yes Physical Abuse Screen: No Sexual Abuse: No Immunizations Up To Date Tetanus Booster (TDap): Unknown Date of Pneumonia Vaccine: May 28, 2015 Past Medical History past medical history as described below Family Medical History Significant Family History: Cancer Family Medical Hx noncontributory to her current condition Family History: Patient reports no known family medical history. Review of Systems Constitutional: see HPI, malaise, weakness EENTM: see HPI, no symptoms reported Respiratory: see HPI; No cough; dyspnea on exertion; No hemoptysis, No orthopnea, No phlegm, No short of breath, No stridor, No wheezing, No other Cardiovascular: see HPI; No chest pain; edema; No Hx of Intervention, No palpitations, No syncope, No vascular heart diseas, No other Gastrointestinal: no symptoms reported, see HPI Genitourinary: no symptoms reported, see HPI Musculoskeletal: see HPI, back pain, joint pain, muscle pain, muscle weakness Skin: no symptoms reported, see HPI Psychiatric/Neurological: No Symptoms Reported, See HPI Reviewed Test Results Reviewed Test Results Lab Laboratory Tests Test 11/18/18 05:30 11/18/18 10:37 Range/Units White Blood Count 8.5 4.3-11.0 10^3/uL Red Blood Count 3.49 L 4.35-5.85 10^6/uL Hemoglobin 10.6 L 11.5-16.0 G/DL Hematocrit 35 35-52 % Mean Corpuscular Volume 99 80-99 FL Mean Corpuscular Hemoglobin 30 25-34 PG Mean Corpuscular Hemoglobin Concent 31 L 32-36 G/DL Red Cell Distribution Width 13.9 10.0-14.5 % Platelet Count 178 130-400 10^3/uL Mean Platelet Volume 10.7 H 7.4-10.4 FL Neutrophils (%) (Auto) 90 H 42-75 % Lymphocytes (%) (Auto) 5 L 12-44 % Monocytes (%) (Auto) 6 0-12 % Eosinophils (%) (Auto) 0 0-10 % Basophils (%) (Auto) 0 0-10 % Neutrophils # (Auto) 7.7 1.8-7.8 X 10^3 Lymphocytes # (Auto) 0.4 L 1.0-4.0 X 10^3 Monocytes # (Auto) 0.5 0.0-1.0 X 10^3 Eosinophils # (Auto) 0.0 0.0-0.3 10^3/uL Basophils # (Auto) 0.0 0.0-0.1 10^3/uL Sodium Level 142 135-145 MMOL/L Potassium Level 3.2 L 3.6-5.0 MMOL/L Chloride Level 109 H 98-107 MMOL/L Carbon Dioxide Level 23 21-32 MMOL/L Anion Gap 10 5-14 MMOL/L Blood Urea Nitrogen 12 7-18 MG/DL Creatinine 0.76 0.60-1.30 MG/DL Estimat Glomerular Filtration Rate > 60 BUN/Creatinine Ratio 16 Glucose Level 100 70-105 MG/DL Calcium Level 8.6 8.5-10.1 MG/DL Corrected Calcium 9.4 8.5-10.1 MG/DL Total Bilirubin 0.4 0.1-1.0 MG/DL Aspartate Amino Transf (AST/SGOT) 19 5-34 U/L Alanine Aminotransferase (ALT/SGPT) 12 0-55 U/L Alkaline Phosphatase 39 L 40-136 U/L Total Protein 5.1 L 6.4-8.2 GM/DL Albumin 3.0 L 3.2-4.5 GM/DL Physical Exam Vital Signs Vital Signs - First Documented 11/17/18 11/17/18 09:47 16:35 Temp 97.9 Pulse 89 Resp 16 B/P (MAP) 135/93 (107) Pulse Ox 91 O2 Delivery Room Air O2 Flow Rate 2.00 Capillary Refill : Less Than 3 SecondsLess Than 3 Seconds Height, Weight, BMI Height: 5'2.00" Weight: 140lbs. 0.4oz. 63.089458lx; 27.5 BMI Method:Stated General Appearance: No Apparent Distress, WD/WN Eyes: Bilateral Eye Normal Inspection, Bilateral Eye PERRL, Bilateral Eye EOMI HEENT: PERRL/EOMI, TMs Normal, Normal ENT Inspection, Pharynx Normal Neck: Full Range of Motion, Normal Inspection, Non Tender, Supple, Carotid Bruit Respiratory: Chest Non Tender, Lungs Clear, Normal Breath Sounds, No Accessory Muscle Use, No Respiratory Distress Cardiovascular: No Edema, No Gallop, No JVD, Normal Peripheral Pulses, Systolic Murmur, Irregularly Irregular Gastrointestinal: Normal Bowel Sounds, No Organomegaly, No Pulsatile Mass, Non Tender, Soft Back: Normal Inspection, No CVA Tenderness, No Vertebral Tenderness Extremity: Normal Capillary Refill, Normal Inspection, Normal Range of Motion, Non Tender, No Calf Tenderness, Pedal Edema Neurologic/Psychiatric: Alert, Oriented x3, No Motor/Sensory Deficits, Normal Mood/Affect Skin: Normal Color, Warm/Dry Lymphatic: No Adenopathy A/P-Cardiology Admission Diagnosis Right leg pain Paroxysmal atrial fibrillation Sick sinus syndrome Hypertension Assessment/Plan Right leg pain, weakness, receiving physical therapy, CTA was done nor reported stroke S/p cholecystectomy, done last week, recovering. Doing well. 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 continue to monitor heart rate, continue current medication Paroxysmal atrial fibrillation, chronic anticoagulation with Eliquis, monitor heart rate. Hypertension with hypertensive heart disease, continue to monitor blood pressure CAD: history of Taxus 3.5x23 mm to the right coronary and 2.75x15 mm Taxus to the LAD several years ago. Most recent stress test in August 2016 revealed no ischemia or infarct, LVEF was 66% Echo of 11/13/18: mod conc LVH, LVEF 60-65%, mod enlargement of LA, mild AoV sclerois, no valvular stenosis, mild MR & mild AI, PASP 35 mmHg Renal artery stenosis, history of 6.0x14 mm Express stent to the left renal artery several years ago, continue to monitor. Dementia Clinical Quality Measures DVT/VTE Risk/Contraindication: Risk Factor Score Per Nursin RFS Level Per Nursing on Admit: 2=Moderate MARGARITA COULTER MD Nov 18, 2018 11:00
[2018-11-18 12:00] VITALS: BP 116/74
[2018-11-18 12:18] LABS: ABG OXYGEN SATURATION 94 % (94-100); ABG PCO2 40 MMHG (35-45); ABG PH 7.38 (7.37-7.43); ABG PO2 64 MMHG (79-93); ABG TCO2 24.8 MMOL/L (21.0-31.0)
[2018-11-18 12:20] LABS: ALLENS TEST YES-POS; INSPIRED O2 2L; PATIENT TEMP 97.1; VENTILATOR NO
--- NOTE | 2018-11-18 13:49 | NUR ---
Inpatient rehab evaluation Received order to evaluate patient for admission to the inpatient rehab unit. Discussed with PT, who reports patient would not be able to tolerate 3 hours of therapy at this time. Thank you for the referral.
--- NOTE | 2018-11-18 14:05 | Occupational Ther Daily Note ---
OT Current Status-Daily Note Subjective Pt in bed , just returned from X-Ray department , Had x-Ray chest. Agree for OT treatment. Pain Numeric Pain Scale: 4 Location: Right Location Body Site: Knee Pain Description: Throbbing Mental Status/Objective Patient Orientation: Person, Place Therapy Code Descriptions/Definitions Functional [place] Measure: 0=Not Assessed/NA 4=Minimal Assistance 1=Total Assistance 5=Supervision or Setup 2=Maximal Assistance 6=Modified [place] 3=Moderate Assistance 7=Complete [place] Attachments: Oxygen, Saline Lock, SCD's ADL-Treatment Pt participated in sponge bath ,, self feeding , bed mobility & func transfer trainng & strengthening ex BUE. Pt participated in strengthening ex . 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 Eating (FIM): 5 Grooming (FIM): 5 Bathing (FIM): 0 Education OT Patient Education: Correct positioning, Safety issues Teaching Recipient: Patient, Family, Friend Teaching Methods: Demonstration Response to Teaching: Verbalize Understanding, Return Demonstration OT Short Term Goals Short Term Goals Time Frame: Dec 01, 2018 Additional Short Term Goals: 1-Demonstrate ADL Tasks, 2-Verbalize Understanding , 3-ImproveStrength/Leo 1=Demonstrate adherence to instructed precautions during ADL tasks. 2=Patient will verbalize/demonstrate understanding of assistive devices/ modifications for ADL. 3=Patient will improve strength/tolerance for activity to enable patient to perform ADL's. OT [facility] Goals Railroad Conductor Goals Time Frame: Dec 15, 2018 Eating (FIM): 7 Grooming(FIM): 7 Bathing(FIM): 5 Bathing Location: L Arm, R Arm, L Upper Leg, R Upper Leg, L Lower Leg ( including foot), R Lower Leg (including foot), Chest, Abdomen, Buttocks, Perineal Area Upper Body Dressing(FIM): 7 Lower Body Dressing(FIM): 6 Toileting(FIM): 7 Transfers (B,C,W/C) (FIM): 6 Toilet/Commode Transfer(FIM): 6 (with FWW) Shower Transfer(FIM): 6 (FWW) Additional Goals: 1-Demonstrate ADL Tasks, 2-Verbalize Understanding, 3- ImproveStrength/Leo 1=Demonstrate adherence to instructed precautions during ADL tasks. 2=Patient will verbalize/demonstrate understanding of assistive devices/ modifications for ADL. 3=Patient will improve strength/tolerance for activity to enable patient to perform ADL's. OT Education/Plan Problem List/Assessment Assessment: Decreased Activ Tolerance, Decreased Safety Aware, Decreased UE Strength, Dependent Transfers, Impaired Bed Mobility, Impaired Coordination, Impaired Funct Balance, Impaired Self-Care Skills Discharge Recommendations Plan/Recommendations: Continue POC Therapy D/C Recommendations: Home Independently Equpiment Recommendations-D/C: Extended Bath Bench, Extended Shower Sprayer, Qualitative Field Project Manager Treatment Plan/Plan of Care Treatment,Training & Education: Yes Patient would benefit from OT for education, treatment and training to promote independence in ADL's, mobility, safety and/or upper extremity function for ADL' s. Plan of Care: ADL Retraining, Caregiver Training, Cognitive Retraining, Functional Mobility, UE Funct Exercise/Act, UE Neuromus Re-Ed/Coord Treatment Duration: Dec 15, 2018 Frequency: 5 times per week Estimated Hrs Per Day: .25 hour per day Agreement: Yes Rehab Potential: Guarded Time/GCodes Start Time: 11:30 Stop Time: 11:55 Total Time Billed (hr/min): 25 Billed Treatment Time 1, ADL 12, Ex 13 min. Total 25 min INDU COOK OT Nov 18, 2018 14:05
--- NOTE | 2018-11-18 15:13 | Diagnostic Imaging Report ---
INDICATION: Hypoxia. TIME OF EXAM: 11:20 a.m. COMPARISON: Comparison is made with prior chest from 11/11/2018. FINDINGS: The heart is enlarged but stable. Dual-lead left subclavian cardiac pacemaker remains in place. There appears to be some central congestion and some mild infiltrate in the right perihilar and right basilar region. There is some blunting of the posterior sulcus on the lateral view suggestive of minimal pleural fluid. Upper lung billy are clear. No pneumothorax is seen. IMPRESSION: Central congestion with right perihilar and right basilar infiltrate and trace effusions, new since examination from 11/11/2018. Dictated by: Dictated on workstation # [id number]
[2018-11-18 15:57] VITALS: BP 128/86
[2018-11-18 20:03] VITALS: BP 160/74
[2018-11-18] MEDS: LEVOTHYROXINE 88 MCG (LEVOTHORID) TAB PO SCH (20:13)
[2018-11-18] MEDS: APIXABAN 5 MG (ELIQUIS) TABLET PO SCH (20:13)
[2018-11-18] MEDS: lisINopril 5 MG (PRINIVIL) TABLET PO SCH (20:13)
[2018-11-18] MEDS: ATORVASTATIN 20 MG (LIPITOR) TABLET PO SCH (20:14)
[2018-11-18] MEDS: ACETAMINOPHEN 500 MG TAB (TYLENOL) PO PRN (20:14)
--- NOTE | 2018-11-18 22:30 | NUR ---
REPORT GIVEN TO SANCHO ARTIS.
[2018-11-19] VITALS: BP 126/76
[2018-11-19 04:00] VITALS: BP 115/81
[2018-11-19] MEDS: CATHETER FLUSH 10 ML SYR IV SCH ×3 (05:26→20:38)
[2018-11-19 08:00] VITALS: BP 166/79
[2018-11-19] MEDS: meTOprolol TARTRATE 50 MG (LOPRESSOR) TAB PO SCH ×2 (09:02→20:35)
[2018-11-19] MEDS: APIXABAN 5 MG (ELIQUIS) TABLET PO SCH ×2 (09:03→20:34)
[2018-11-19] MEDS: ACETAMINOPHEN 500 MG TAB (TYLENOL) PO PRN (09:03)
[2018-11-19] MEDS: DILTIAZEM 240 MG (CARDIZEM CD) CAP PO SCH (09:03)
[2018-11-19] MEDS: POLYETHYLENE GLYCOL 17 GM (MIRALAX) PACK PO SCH ×2 (09:04→20:34)
[2018-11-19] MEDS: SENNA W/DOCUSATE (SENOKOT S) TABLET PO SCH (09:04)
[2018-11-19] MEDS: PROPAFENONE 150 MG (RYTHMOL) TABLET PO SCH ×2 (09:04→20:35)
--- NOTE | 2018-11-19 11:47 | Physical Therapy Daily Note ---
PT Daily Note-Current Subjective Pt agreeable PT, "just to get in the chair". Denies pain at rest, report of increased pain to 5/10 with activity. Nurse arrived and pt received Tylenol during visit Appearance Pt left side lying in bed upon arrival, easily aroused, awake and alert At end of session, pt sitting up in recliner with call light, phone and bedside table within reach, denied need for restroom, nsg present Transfers Therapy Code Descriptions/Definitions Functional Hayes Measure: 0=Not Assessed/NA 4=Minimal Assistance 1=Total Assistance 5=Supervision or Setup 2=Maximal Assistance 6=Modified Hayes 3=Moderate Assistance 7=Complete Hayes Therapy Quality Codes: 6 Independent with activity with or without an assistive device 5 Patient requires set up or clean up by helper. Patient completes activity by themselves 4 Supervision or touching assist (CGA). Aristes provide cues , steadying assist 3 The helper provides less than half the effort to complete the activity 2 The helper provides more than half the effort to complete the activity 1 Dependent. The helper does all the effort to complete an activity 7 Patient refused to complete or attempt activity 9 The patient did not perform the activity before the current illness or injury 88 Not attempted due to Medical conditions or safety concerns Transfers (B, C, W/C) (FIM): 4 Scootin Rollin Supine to/from Sit: 5 Sit to/from Stand: 5 Bed to/from Chair: 4 several comments from pt that she can't move RLE, but demonstrates ability to do so. Leans fwd on walker with forearms while in standing, but will stand erect when instructed Weight Bearing Right Lower Extremity: Right Full Weight Bearing Left Lower Extremity: Left Weight Bearing/Tolerated Exercises Standing: Heel/toe raises, Marching, Mini squats, Sit to Stand Standing Reps: 10 Treatments bed mobility, transfer training, standing balance activities Assessment Current Status: Fair Progress PT [facility] Goals Sugar Cane Planter Goals PT Sugar Cane Planter Goals Time Frame: Nov 21, 2018 Transfers (B,C,W/C) (FIM): 6 Gait (FIM): 6 Gait Assistive Device: FWW PT Plan Treatment/Plan Treatment Plan: Continue Plan of Care Treatment Plan: Bed Mobility, Education, Functional Activity Leo, Functional Strength, Gait, Safety, Therapeutic Exercise, Transfers Treatment Duration: Nov 21, 2018 Frequency: 6 times per week Estimated Hrs Per Day: .25 hour per day Patient and/or Family Agrees t: Yes Safety Risks/Education Patient Education: Transfer Techniques Teaching Recipient: Patient Response to Teaching: Verbalize Understanding, Return Demonstration, Reinforcement Needed Time/GCodes Time In: 853 Time Out: 906 Total Billed Treatment Time: 13 Total Billed Treatment 1 visit, FA x13' JON DUGGAN PTA Nov 19, 2018 11:47
[2018-11-19 12:00] VITALS: BP 104/68
--- NOTE | 2018-11-19 13:14 | Progress Note-Hospitalist ---
Subjective HPI/CC On Admission Date Seen by Provider: Nov 19, 2018 Time Seen by Provider: 12:00 CC: Weakness with right leg weakness HPI: This is an 88-year-old white female clinic patient of Dr. Holcomb who had a cholecystectomy uncomplicated by Dr. Rm on Wednesday who presented to the ER with severe weakness and unable to eat or drink. Patient was evaluated with multiple x-rays and CT scan which revealed no acute abnormality. Hence she was admitted for observation placed on gentle IV fluids and PT OT evaluation for rehabilitation. At this current time her son is at the bedside and denied any abdominal pain since surgery but just overall can't navigate at home. Subjective/Events-last exam patient notes that she's having increased coughing. her BNP is up to over thousand today. She says no one's been working with her in terms of physical therapy. She has no complaints of pain today and only ate about 25 percent of her lunch Review of Systems Pulmonary: Cough Neurological: Weakness Objective Exam Vital Signs Vital Signs Date Time Temp Pulse Resp B/P (MAP) Pulse Ox O2 Delivery O2 Flow Rate FiO2 11/19/18 09:00 Nasal Cannula 2.00 11/19/18 08:00 98.6 77 24 166/79 (108) 92 Capillary Refill : Less Than 3 SecondsLess Than 3 Seconds General Appearance: WD/WN, Chronically ill HEENT: PERRL/EOMI, TMs Normal, Normal ENT Inspection, Pharynx Normal Neck: Full Range of Motion, Normal Inspection, Non Tender, Supple, Carotid Bruit Respiratory: Chest Non Tender, Lungs Clear, Normal Breath Sounds, No Accessory Muscle Use, No Respiratory Distress Cardiovascular: No Edema, No Gallop, No JVD, Normal Peripheral Pulses, Systolic Murmur, Irregularly Irregular Gastrointestinal: Normal Bowel Sounds, No Organomegaly, No Pulsatile Mass, Non Tender, Soft Back: Normal Inspection, No CVA Tenderness, No Vertebral Tenderness Extremity: Normal Capillary Refill, Normal Inspection, Normal Range of Motion, Non Tender, No Calf Tenderness, Pedal Edema Neurologic/Psychiatric: Alert, Oriented x3, No Motor/Sensory Deficits, Normal Mood/Affect Skin: Normal Color, Warm/Dry, Ecchymosis (iffusely) Lymphatic: No Adenopathy Results/Procedures Lab Patient resulted labs reviewed. Assessment/Plan Assessment and Plan Assess & Plan/Chief Complaint Increased BMP with increased coughing we'll give 1 dose of Lasix and check a chest g-rvf-lvvvcnig fraction is 60-65 percent-chest x-ray yesterday showed increased central venous congestion. Moderate hypokalemia will replace especially in light of giving the Lasix. chronic atrial fibrillation Status post elective cholecystectomy last week doing well Hypertension Leg pain Clinical Quality Measures DVT/VTE Risk/Contraindication: Risk Factor Score Per Nursin RFS Level Per Nursing on Admit: 2=Moderate GERMÁN AVITIA MD Nov 19, 2018 13:14
[2018-11-19] MEDS ORDERED: FUROSEMIDE 40 MG/4 ML INJ (LASIX) IVP NR (13:15)
[2018-11-19] MEDS ORDERED: KCL 20 MEQ TAB (K-DUR) PO NR (13:15)
[2018-11-19 16:16] VITALS: BP 148/72
[2018-11-19 19:47] VITALS: BP 133/77
[2018-11-19] MEDS: lisINopril 5 MG (PRINIVIL) TABLET PO SCH (20:34)
[2018-11-19] MEDS: ATORVASTATIN 20 MG (LIPITOR) TABLET PO SCH (20:35)
[2018-11-19] MEDS: LEVOTHYROXINE 88 MCG (LEVOTHORID) TAB PO SCH (20:37)
--- NOTE | 2018-11-19 21:16 | Cardiology Progress Note ---
Cardiology SOAP Progress Note Subjective: No significant cardiac complaints. Objective: I&O/Vital Signs 11/19/18 11/19/18 11/19/18 12:00 16:16 19:47 Temp 99.4 98.3 97.8 Pulse 74 72 91 Resp 22 22 20 B/P (MAP) 104/68 (80) 148/72 (97) 133/77 (95) Pulse Ox 92 93 95 O2 Delivery Nasal Cannula Nasal Cannula Nasal Cannula O2 Flow Rate 2.00 2.00 2.00 11/19/18 00:00 Intake Total 410 ml Balance 410 ml Weight (Pounds): 140 Weight (Ounces): 0.4 Weight (Calculated Kilograms): 63.543773 Constitutional: No appears stated age; AAO x 3; No apparent distress, No PERRL , No well-developed, No well-nourished, No other Respiratory: No accessory muscle use, No respiratory distress, No chest tender , No chest expansion is symmetric; chest is bilaterally symmetric; No lungs clear to percussion; lungs clear to auscultation; No crackles, No rhonchi, No rales, No stridor, No wheezing, No pleural rub, No other Cardiovascular: regular rate-rhythm; No irregularly irregular, No extra beats, No parasternal heave is noted, No JVD, No edema, No bradycardia, No tachycardia , No point of maximal impulse, No cardiac thrills are palpable; S1 and S2; No gallop/S3, No gallop/S4, No diastolic murmur, No systolic murmur, No friction rub, No click, No other Gastrointestional: No tender, No soft, No round, No distended, No pulsatile mass, No organomegaly, No guarding, No rebound, No tenderness, No hernia, No mass, No audible bowel sounds, No abnormal bowel sounds, No abdominal bruits, No spleenomegaly, No other Extremities: No normal range of motion, No non-tender, No normal inspection, No pedal edema, No calf tenderness, No normal capillary refill, No pelvis stable , No calf tenderness, No inflammation, No pedal edema, No slow capillary refill , No swelling, No other, No abrasion, No clubbing, No cyanosis, No ecchymosis, No laceration, No no lower extremity edema bilateral, No significant edema, No tenderness, No wound Neurologic/Psychiatric: no motor/sensory deficits, alert, normal mood/affect, oriented x 3 A/P: Assessment/Dx: Right leg pain Paroxysmal atrial fibrillation Sick sinus syndrome Hypertension Plan: Right leg pain, weakness, receiving physical therapy, CTA was done nor reported stroke S/p cholecystectomy, done last week, recovering. Doing well. 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 continue to monitor heart rate, continue current medication Paroxysmal atrial fibrillation, chronic anticoagulation with Eliquis, monitor heart rate. Hypertension with hypertensive heart disease, continue to monitor blood pressure CAD: history of Taxus 3.5x23 mm to the right coronary and 2.75x15 mm Taxus to the LAD several years ago. Most recent stress test in August 2016 revealed no ischemia or infarct, LVEF was 66% Echo of 11/13/18: mod conc LVH, LVEF 60-65%, mod enlargement of LA, mild AoV sclerois, no valvular stenosis, mild MR & mild AI, PASP 35 mmHg Renal artery stenosis, history of 6.0x14 mm Express stent to the left renal artery several years ago, continue to monitor. Dementia Thank you for your consultation. Please call me if you have any questions. Gael Garcia MD, FACP, FACC, FSCAI, FHRS, CCDS Interventional Cardiology Cardiac Electrophysiology Vascular Medicine and Endovascular Interventions Kristopher GARCIA MD Nov 19, 2018 21:16
[2018-11-20] VITALS (8 sets, daily range): BP systolic 112–147; BP diastolic 61–86
[2018-11-20] MEDS: IBUPROFEN TABLET 200 MG TAB PO PRN ×3 (00:17→15:34)
[2018-11-20] MEDS: MELATONIN 3 MG TABLET PO PRN ×2 (00:20→20:53)
[2018-11-20 05:44] LABS: BASOPHILS % (AUTO) 0 % (0-10); EOSINOPHILS % (AUTO) 0 % (0-10); HEMATOCRIT 32 % (35-52); HEMOGLOBIN 9.7 G/DL (11.5-16.0); LYMPHOCYTES # (AUTO) 0.7 X 10^3 (1.0-4.0); LYMPHOCYTES % (AUTO) 11 % (12-44); MEAN CORPUSCULAR HEMOGLOBIN 30 PG (25-34); MEAN CORPUSCULAR HGB CONC 30 G/DL (32-36); MEAN CORPUSCULAR VOLUME 100 FL (80-99); MEAN PLATELET VOLUME 10.6 FL (7.4-10.4); MONOCYTES # (AUTO) 0.5 X 10^3 (0.0-1.0); MONOCYTES % (AUTO) 7 % (0-12); NEUTROPHILS # (AUTO) 5.1 X 10^3 (1.8-7.8); NEUTROPHILS % (AUTO) 82 % (42-75); PLATELET COUNT 176 10^3/uL (130-400); RED CELL DISTRIBUTION WIDTH 13.9 % (10.0-14.5); WHITE BLOOD COUNT 6.2 10^3/uL (4.3-11.0)
[2018-11-20 06:07] LABS: ALANINE AMINOTRANSFERASE 8 U/L (0-55); ALBUMIN 2.7 GM/DL (3.2-4.5); ALKALINE PHOSPHATASE 40 U/L (40-136); BILIRUBIN,TOTAL 0.4 MG/DL (0.1-1.0); BUN/CREATININE RATIO 18; CALCIUM 8.3 MG/DL (8.5-10.1); CARBON DIOXIDE 25 MMOL/L (21-32); CHLORIDE 106 MMOL/L (98-107); CREATININE SERUM 0.85 MG/DL (0.60-1.30); GFR ESTIMATED > 60; GLUCOSE 111 MG/DL (70-105); MAGNESIUM 1.4 MG/DL (1.8-2.4); POTASSIUM 3.7 MMOL/L (3.6-5.0); SODIUM 140 MMOL/L (135-145); TOTAL PROTEIN 4.8 GM/DL (6.4-8.2)
[2018-11-20] MEDS: CATHETER FLUSH 10 ML SYR IV SCH ×3 (06:36→20:54)
[2018-11-20] MEDS: meTOprolol TARTRATE 50 MG (LOPRESSOR) TAB PO SCH ×2 (09:17→20:53)
[2018-11-20] MEDS: PROPAFENONE 150 MG (RYTHMOL) TABLET PO SCH ×2 (09:17→20:54)
[2018-11-20] MEDS: DILTIAZEM 240 MG (CARDIZEM CD) CAP PO SCH (09:18)
[2018-11-20] MEDS: APIXABAN 2.5 MG (ELIQUIS) TABLET PO SCH ×2 (09:19→20:53)
[2018-11-20] MEDS: POLYETHYLENE GLYCOL 17 GM (MIRALAX) PACK PO SCH ×2 (09:19→20:53)
[2018-11-20] MEDS: SENNA W/DOCUSATE (SENOKOT S) TABLET PO SCH (09:21)
--- NOTE | 2018-11-20 09:34 | Progress Note-Hospitalist ---
Subjective HPI/CC On Admission Date Seen by Provider: Nov 20, 2018 Time Seen by Provider: 08:30 CC: Weakness with right leg weakness HPI: This is an 88-year-old white female clinic patient of Dr. Holcomb who had a cholecystectomy uncomplicated by Dr. Rm on Wednesday who presented to the ER with severe weakness and unable to eat or drink. Patient was evaluated with multiple x-rays and CT scan which revealed no acute abnormality. Hence she was admitted for observation placed on gentle IV fluids and PT OT evaluation for rehabilitation. At this current time her son is at the bedside and denied any abdominal pain since surgery but just overall can't navigate at home. Subjective/Events-last exam Patient complains of weakness today. She said she is just tired and doesn't want to do anything. She is only eating minimal amounts of her food. She said she slept well last night. She has no specific complaint of pain or any other problems. Review of Systems General: Fatigue, Malaise, Appetite (Not hungry) Pulmonary: Cough (Improved) Neurological: Weakness Objective Exam Vital Signs Vital Signs Date Time Temp Pulse Resp B/P (MAP) Pulse Ox O2 Delivery O2 Flow Rate FiO2 11/20/18 04:14 97.8 78 23 143/84 (103) 94 Nasal Cannula 3.00 Capillary Refill : Less Than 3 SecondsLess Than 3 Seconds General Appearance: WD/WN, Chronically ill HEENT: PERRL/EOMI, TMs Normal, Normal ENT Inspection, Pharynx Normal Neck: Full Range of Motion, Normal Inspection, Non Tender, Supple, Carotid Bruit Respiratory: Chest Non Tender, Normal Breath Sounds, No Accessory Muscle Use, No Respiratory Distress, Crackles, Decreased Breath Sounds Cardiovascular: No Edema, No Gallop, No JVD, Normal Peripheral Pulses, Systolic Murmur, Irregularly Irregular Gastrointestinal: Normal Bowel Sounds, No Organomegaly, No Pulsatile Mass, Non Tender, Soft Back: Normal Inspection, No CVA Tenderness, No Vertebral Tenderness Extremity: Normal Capillary Refill, Normal Inspection, Normal Range of Motion, Non Tender, No Calf Tenderness, Pedal Edema Neurologic/Psychiatric: Alert, Oriented x3, No Motor/Sensory Deficits, Normal Mood/Affect Skin: Normal Color, Warm/Dry, Ecchymosis (iffusely) Lymphatic: No Adenopathy Results/Procedures Lab Laboratory Tests 11/20/18 04:52 Patient resulted labs reviewed. Assessment/Plan Assessment and Plan Assess & Plan/Chief Complaint Increased BMP -improved from yesterday but her lung exam is worse. Will re- check a chest a-ysr-evibkkal fraction is 60-65 % Moderate hypokalemia-improved Status post elective cholecystectomy last week doing well Hypertension Leg pain Hypomagnesemia-will replace Possible depression Patient does not anticipate going home to live independently Clinical Quality Measures DVT/VTE Risk/Contraindication: Risk Factor Score Per Nursin RFS Level Per Nursing on Admit: 2=Moderate GERMÁN AVITIA MD Nov 20, 2018 09:34
--- NOTE | 2018-11-20 10:00 | Diagnostic Imaging Report ---
INDICATION: Cough COMPARISON: 11/18/18 FINDINGS: jania view chest demonstrates a cardiac enlargement with increasing hilar infiltrates. Increasing effusion seen left base. There is no pneumothorax. Pacemaker is stable. Osseous structures are stable. IMPRESSION: Increasing hilar infiltrates and left-sided effusion. Dictated by: Dictated on workstation # [id number]
[2018-11-20] MEDS: MAGNESIUM 1 GM/100 ML IVPB 100 ML IV SCH (10:10)
--- NOTE | 2018-11-20 12:07 | Cardiology Progress Note ---
Cardiology SOAP Progress Note Subjective: No cardiac complaints. Objective: I&O/Vital Signs 11/20/18 11/20/18 11/20/18 04:14 08:00 08:00 Temp 97.8 97.2 Pulse 78 140 Resp 23 22 B/P (MAP) 143/84 (103) 125/85 (98) Pulse Ox 94 96 O2 Delivery Nasal Cannula Nasal Cannula Nasal Cannula O2 Flow Rate 3.00 3.00 3.00 11/20/18 00:00 Intake Total 340 ml Output Total 350 ml Balance -10 ml Weight (Pounds): 140 Weight (Ounces): 0.4 Weight (Calculated Kilograms): 63.501974 Constitutional: No appears stated age; AAO x 3; No apparent distress, No PERRL , No well-developed, No well-nourished, No other Respiratory: No accessory muscle use, No respiratory distress, No chest tender , No chest expansion is symmetric; chest is bilaterally symmetric; No lungs clear to percussion; lungs clear to auscultation; No crackles, No rhonchi, No rales, No stridor, No wheezing, No pleural rub, No other Cardiovascular: regular rate-rhythm; No irregularly irregular, No extra beats, No parasternal heave is noted, No JVD, No edema, No bradycardia, No tachycardia , No point of maximal impulse, No cardiac thrills are palpable; S1 and S2; No gallop/S3, No gallop/S4, No diastolic murmur, No systolic murmur, No friction rub, No click, No other Gastrointestional: No tender, No soft, No round, No distended, No pulsatile mass, No organomegaly, No guarding, No rebound, No tenderness, No hernia, No mass, No audible bowel sounds, No abnormal bowel sounds, No abdominal bruits, No spleenomegaly, No other Extremities: No normal range of motion, No non-tender, No normal inspection, No pedal edema, No calf tenderness, No normal capillary refill, No pelvis stable , No calf tenderness, No inflammation, No pedal edema, No slow capillary refill , No swelling, No other, No abrasion, No clubbing, No cyanosis, No ecchymosis, No laceration, No no lower extremity edema bilateral, No significant edema, No tenderness, No wound Neurologic/Psychiatric: no motor/sensory deficits, alert, normal mood/affect, oriented x 3 Results/Procedures: Labs Laboratory Tests 11/20/18 04:52: White Blood Count 6.2, Red Blood Count 3.21L, Hemoglobin 9.7L, Hematocrit 32L, Mean Corpuscular Volume 100H, Mean Corpuscular Hemoglobin 30, Mean Corpuscular Hemoglobin Concent 30L, Red Cell Distribution Width 13.9, Platelet Count 176, Mean Platelet Volume 10.6H, Neutrophils (%) (Auto) 82H, Lymphocytes (%) (Auto) 11L, Monocytes (%) (Auto) 7, Eosinophils (%) (Auto) 0, Basophils (%) (Auto) 0, Neutrophils # (Auto) 5.1, Lymphocytes # (Auto) 0.7L, Monocytes # (Auto) 0.5, Eosinophils # (Auto) 0.0, Basophils # (Auto) 0.0, Sodium Level 140, Potassium Level 3.7, Chloride Level 106, Carbon Dioxide Level 25, Anion Gap 9, Blood Urea Nitrogen 15, Creatinine 0.85, Estimat Glomerular Filtration Rate > 60, BUN/ Creatinine Ratio 18, Glucose Level 111H, Calcium Level 8.3L, Corrected Calcium 9.3, Magnesium Level 1.4L, Total Bilirubin 0.4, Aspartate Amino Transf (AST/SGOT ) 15, Alanine Aminotransferase (ALT/SGPT) 8, Alkaline Phosphatase 40, B-Type Natriuretic Peptide 480.4H, Total Protein 4.8L, Albumin 2.7L A/P: Assessment/Dx: Right leg pain Paroxysmal atrial fibrillation Sick sinus syndrome Hypertension Plan: Right leg pain, weakness, receiving physical therapy, CTA was done nor reported stroke S/p cholecystectomy, done last week, recovering. Doing well. 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 continue to monitor heart rate, continue current medication Paroxysmal atrial fibrillation, chronic anticoagulation with Eliquis, monitor heart rate. Hypertension with hypertensive heart disease, continue to monitor blood pressure CAD: history of Taxus 3.5x23 mm to the right coronary and 2.75x15 mm Taxus to the LAD several years ago. Most recent stress test in August 2016 revealed no ischemia or infarct, LVEF was 66% Echo of 11/13/18: mod conc LVH, LVEF 60-65%, mod enlargement of LA, mild AoV sclerois, no valvular stenosis, mild MR & mild AI, PASP 35 mmHg Renal artery stenosis, history of 6.0x14 mm Express stent to the left renal artery several years ago, continue to monitor. Dementia Thank you for your consultation. Please call me if you have any questions. Gael Garcia MD, FACP, FACC, FSCAI, FHRS, CCDS Interventional Cardiology Cardiac Electrophysiology Vascular Medicine and Endovascular Interventions Kristopher GARCIA MD Nov 20, 2018 12:07 pm
[2018-11-20] MEDS ORDERED: VANCOMYCIN INJECTION 0.1 MG in NS (IVPB) 250 ML IV SCH (12:45)
[2018-11-20] MEDS ORDERED: FUROSEMIDE 40 MG/4 ML INJ (LASIX) IVP NR (12:45)
--- NOTE | 2018-11-20 12:59 | NUR ---
VANCOMYCIN DOSING SCR 0.85 (USED 1.0); CRCL ~ 30; BOLUS VANC 20 MG/KG X 63 KG ~ 1250 MG THEN VANC 15 MG/KG ~ 1 GM Q24H CHECK TROUGH LEVEL BEFORE 3RD DOSE 11/22 1200 HOLD DOSE AND CONTACT PHARMACY IF LEVEL IS GREATER THAN 20
[2018-11-20] MEDS ORDERED: VANCOMYCIN 1250 MG/NS 250 ML IVPB IV NR ×2 (13:00)
[2018-11-20] MEDS: cefTRIAXone FOR IV USE 1,000 MG in WATER (STERILE) FOR INJECTION 10 ML IV SCH (13:09)
[2018-11-20 19:41] LABS: BILIRUBIN,URINE NEGATIVE (NEGATIVE); CLARITY,URINE SLIGHTLY CLOUDY; COLOR,URINE YELLOW; GLUCOSE, URINE (UA) NEGATIVE (NEGATIVE); KETONES,URINE NEGATIVE (NEGATIVE); LEUKOCYTE ESTERASE ,URINE 2+ (NEGATIVE); NITRITE,URINE NEGATIVE (NEGATIVE); PH,URINE 6 (5-9); PROTEIN,URINE NEGATIVE (NEGATIVE); UROBILINOGEN,URINE NORMAL (NORMAL)
[2018-11-20 19:57] LABS: BACTERIA,URINE FEW /HPF; YEAST,URINE LARGE /HPF
[2018-11-20] MEDS: ATORVASTATIN 20 MG (LIPITOR) TABLET PO SCH (20:53)
[2018-11-20] MEDS: lisINopril 5 MG (PRINIVIL) TABLET PO SCH (20:53)
[2018-11-20] MEDS: LEVOTHYROXINE 88 MCG (LEVOTHORID) TAB PO SCH (20:54)
[2018-11-21] MEDS: RT-ALBUTEROL/IPRATROPIUM 3 ML (DUONEB) VIAL INH SCH ×6 (02:18→22:16)
[2018-11-21 02:32] VITALS: BP 112/76
[2018-11-21 04:00] VITALS: BP 120/68
[2018-11-21] MEDS: CATHETER FLUSH 10 ML SYR IV SCH ×3 (06:27→20:22)
--- NOTE | 2018-11-21 07:46 | Progress Note-Hospitalist ---
Subjective HPI/CC On Admission Date Seen by Provider: Nov 21, 2018 Time Seen by Provider: 07:42 CC: Weakness with right leg weakness Subjective/Events-last exam Called to bedside over increased oxygen demand. Overnight became short of breath and escalated to vapotherm 30lpm. Patient reports dry cough and feeling generalized weakness. Denies swelling, palpitations, chest pain. MAT protocol started overnight, no improvement. Objective Exam Vital Signs Vital Signs Date Time Temp Pulse Resp B/P (MAP) Pulse Ox O2 Delivery O2 Flow Rate FiO2 11/21/18 06:54 87 Vapotherm 30.00 30 11/21/18 04:00 98.0 78 26 120/68 (85) Capillary Refill : Less Than 3 SecondsLess Than 3 Seconds General Appearance: Chronically ill, Mild Distress Respiratory: Chest Non Tender, Lungs Clear, No Accessory Muscle Use, No Respiratory Distress; No Rhonci, No Stridor, No Wheezing Cardiovascular: No Edema, No JVD, Systolic Murmur, Irregularly Irregular Gastrointestinal: Normal Bowel Sounds, Non Tender, Soft Extremity: No Calf Tenderness, No Pedal Edema Neurologic/Psychiatric: Alert, Oriented x3; No Aphasia, No Facial Droop Skin: Normal Color, Warm/Dry, Ecchymosis (diffuse) Results/Procedures Lab Patient resulted labs reviewed. Assessment/Plan Assessment and Plan Assess & Plan/Chief Complaint Acute Respiratory Distress Diagnosis/Problems Diagnosis/Problems (1) Acute respiratory distress Assessment & Plan: Acute change overnight CXR, ABG, CBC, BMP, troponin, BNP, procalcitonin and Rapid Flu ordered Already on vanc and Rocephin Consider escalating to Zosyn pending CXR Pulm consulted, appreciate recs, discussed with Dr Trinidad No evidence of HF so will not repeat lasix dose Solu medrol added Likelihood of PE low given on Eliquis but if no other identifiable cause consider CTA d-dimer not helpful in post op patient (2) Generalized weakness Assessment & Plan: PT/OT as able but given SOB may need to defer today Rapid flu ordered (3) A-fib Status: Chronic Assessment & Plan: Rate well controlled Monitor on telemetry Cardiology consulted, appreciate recs Qualifiers: Atrial fibrillation type: chronic Qualified Codes: I48.2 - Chronic atrial fibrillation (4) Essential (primary) hypertension Status: Chronic Assessment & Plan: Well controlled (5) Hypothyroidism Status: Chronic Assessment & Plan: Continue Synthroid Qualifiers: Hypothyroidism type: acquired Qualified Codes: E03.9 - Hypothyroidism, unspecified Clinical Quality Measures DVT/VTE Risk/Contraindication: Risk Factor Score Per Nursin RFS Level Per Nursing on Admit: 2=Moderate NAVI WOLFF MD Nov 21, 2018 07:46
--- NOTE | 2018-11-21 07:56 | Pulmonary Consultation ---
History of Present Illness History of Present Illness Date of Consultation 11/21/18 07:51 Date of Admission Reason for Visit: right leg pain History of Present Illness 88yo with hx of Afib, s/p cholecystectomy last week presented to ED 10/17/18 secondary to weakness, nausea, and decreased appetite. Last night pt started requiring increased amounts of oxygen. Pt was switched from NC to Vapotherm secondary to respiratory distress. No previous episodes like this. I am consulted for pulmonary management. Allergies and Home Medications Allergies Coded Allergies: No Known Drug Allergies (Unverified , 03/05/10) Home Medications Acetaminophen 500 Mg Tablet, 1,000 MG PO Q8H PRN for PAIN-MILD, (Reported) Apixaban 5 Mg Tablet, 2.5 MG PO BID, (Reported) TAKES 1/2 (5MG) TABLET Atorvastatin Calcium 20 Mg Tablet, 20 MG PO HS, (Reported) Diltiazem HCl 240 Mg Cap.er.24h, 240 MG PO DAILY, (Reported) Levothyroxine Sodium 88 Mcg Tablet, 88 MCG PO HS, (Reported) Lisinopril 5 Mg Tablet, 5 MG PO HS, (Reported) Metoprolol Tartrate 50 Mg Tablet, 50 MG PO BID, (Reported) Propafenone HCl 225 Mg Tablet, 225 MG PO BID, (Reported) Sennosides/Docusate Sodium 1 Each Tablet, 2 TAB PO DAILY, (Reported) Past Kdxhqts-Rfpejz-Dndfjk Hx Past Med/Social Hx: Reviewed Nursing Past Med/Soc Hx, Reviewed and Corrections made Patient Social History Alcohol Use: Denies Use Alcohol Beverage of Choice: [place] [employer]cre[employer] Drug Use: No Smoking Status: Never a Smoker Recent Foreign Travel: No Contact w/Someone Who Travel: No Recent Infectious Disease Expo: No Recent Hopitalizations: Yes Immunizations Up To Date Tetanus Booster (TDap): Unknown PED Vaccines UTD: No Date of Pneumonia Vaccine: May 28, 2015 Seasonal Allergies Seasonal Allergies: No Past Medical History Surgeries: Yes Cardiac, Coronary Stent, Gallbladder, Joint Replacement, Tonsillectomy Respiratory: No Currently Using CPAP: No Cardiac: Yes (CAD with heart stents, pacemaker) Atrial Fibrillation, Coronary Artery Disease, High Cholesterol, Hypertension Neurological: No Reproductive Disorders: No (ENDOMETRIAL THICKENING) [employer]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 Cancer Sepsis Event Evaluation Height, Weight, BMI Height: 5'2.00" Weight: 140lbs. 0.4oz. 63.156833zr; 27.5 BMI Method:Stated Exam Exam Vital Signs Date Time Temp Pulse Resp B/P (MAP) Pulse Ox O2 Delivery O2 Flow Rate FiO2 11/21/18 06:54 87 Vapotherm 30.00 30 11/21/18 04:00 98.0 78 26 120/68 (85) 94 Vapotherm 30.00 30.00 11/21/18 02:32 84 90 28 11/21/18 02:18 90 Nasal Cannula 2.00 11/21/18 01:00 111 11/20/18 23:05 98.1 84 20 112/76 (88) 99 Nasal Cannula 3.00 11/20/18 20:00 Nasal Cannula 3.00 11/20/18 19:23 98.1 82 20 116/75 (89) 98 Nasal Cannula 3.00 11/20/18 19:00 116 11/20/18 16:18 97.9 80 20 115/61 (79) 95 Nasal Cannula 3.00 11/20/18 13:19 103 11/20/18 12:00 97.6 82 22 129/83 (98) 97 Nasal Cannula 3.00 11/20/18 08:00 97.2 140 22 125/85 (98) 96 Nasal Cannula 3.00 11/20/18 08:00 Nasal Cannula 3.00 I & O 11/21/18 07:00 Intake Total 852.5 ml Balance 852.5 ml Height & Weight Height: 5'2.00" Weight: 140lbs. 0.4oz. 63.347168zr; 27.5 BMI Method:Stated General Appearance: WD/WN, Chronically ill HEENT: PERRL/EOMI, TMs Normal, Normal ENT Inspection, Pharynx Normal Neck: Full Range of Motion, Normal Inspection, Non Tender, Supple, Carotid Bruit Respiratory: Chest Non Tender, Normal Breath Sounds, No Accessory Muscle Use, No Respiratory Distress, Crackles, Decreased Breath Sounds Cardiovascular: No Edema, No Gallop, No JVD, Normal Peripheral Pulses, Systolic Murmur, Irregularly Irregular Capillary Refill: Less Than 3 Seconds Extremity: Normal Capillary Refill, Normal Inspection, Normal Range of Motion, Non Tender, No Calf Tenderness, Pedal Edema Neurologic/Psychiatric: Alert, Oriented x3, No Motor/Sensory Deficits, Normal Mood/Affect Skin: Normal Color, Warm/Dry, Ecchymosis (iffusely) Lymphatic: No Adenopathy Results Lab Laboratory Tests 11/20/18 04:52 Assessment/Plan Assessment/Plan Acute respiratory distress with worsening Hypoxia -Stat ABG -Influenza test done today is positive -Add tamiflu -CHeck CTA of chest r/o PE -CXR repeat is pending -Labs pending -Solumedrol Hypokalemia Generalized weakness Afib Hypothyroid ELPIDIO SNIDER DO Nov 21, 2018 07:56
[2018-11-21 08:02] LABS: ABG OXYGEN SATURATION 96 % (94-100); ABG PCO2 36 MMHG (35-45); ABG PH 7.47 (7.37-7.43); ABG PO2 63 MMHG (79-93); ABG TCO2 27.8 MMOL/L (21.0-31.0)
[2018-11-21 08:04] LABS: ALLENS TEST POSITIVE; INSPIRED O2 30L 40% VAPOTHERM; PATIENT TEMP 96.9; VENTILATOR NO
[2018-11-21] MEDS ORDERED: IOHEXOL 350 MG/ML 150 ML (OMNIPAQUE 350) VIAL IV ONE (08:15)
[2018-11-21] MEDS ORDERED: RECEIVED CONTRAST (Hold Metformin) IV SCH (08:15)
[2018-11-21] MEDS ORDERED: NS 100 ML (IVPB) BAG IV ONE (08:15)
[2018-11-21 08:29] LABS: BASOPHILS % (AUTO) 1 % (0-10); EOSINOPHILS % (AUTO) 1 % (0-10); HEMATOCRIT 33 % (35-52); HEMOGLOBIN 10.3 G/DL (11.5-16.0); LYMPHOCYTES # (AUTO) 0.6 X 10^3 (1.0-4.0); LYMPHOCYTES % (AUTO) 14 % (12-44); MEAN CORPUSCULAR HEMOGLOBIN 31 PG (25-34); MEAN CORPUSCULAR HGB CONC 31 G/DL (32-36); MEAN CORPUSCULAR VOLUME 100 FL (80-99); MEAN PLATELET VOLUME 9.5 FL (7.4-10.4); MONOCYTES # (AUTO) 0.4 X 10^3 (0.0-1.0); MONOCYTES % (AUTO) 10 % (0-12); NEUTROPHILS # (AUTO) 3.3 X 10^3 (1.8-7.8); NEUTROPHILS % (AUTO) 76 % (42-75); PLATELET COUNT 196 10^3/uL (130-400); RED CELL DISTRIBUTION WIDTH 14.1 % (10.0-14.5); WHITE BLOOD COUNT 4.3 10^3/uL (4.3-11.0)
--- NOTE | 2018-11-21 08:43 | Cardiology Progress Note ---
Subjective Date Seen by Provider: Nov 21, 2018 Time Seen by Provider: 08:38 Subjective/Events-last exam Patient started to complaint of shortness of breath last night, started on Vapotherm, now, sitting in bed, complaining of dyspnea, no chest pain Review of Systems General: No Chills, No Night Sweats; Fatigue, Malaise; No Appetite, No Other HEENT: No Head Aches, No Visual Changes, No Eye Pain, No Ear Pain, No Dysphasia , No Sinus Congestion, No Post Nasal Drip, No Sore Throat, No Other Pulmonary: Dyspnea, Cough; No Pleuritic Chest Pain, No Other Cardiovascular: No: Chest Pain, Palpitations, Orthopnea, Paroxysmal Noc. Dyspnea, Edema, Lt Headedness, Other Objective-Cardiology Exam Last Set of Vital Signs Vital Signs 11/21/18 11/21/18 11/21/18 04:00 06:54 07:01 Temp 98.0 Pulse 106 Resp 26 B/P (MAP) 120/68 (85) Pulse Ox 87 O2 Delivery Vapotherm O2 Flow Rate 30.00 FiO2 30 Capillary Refill : Less Than 3 SecondsLess Than 3 Seconds I&O Intake and Output 11/21/18 00:00 Intake Total 952.5 ml Balance 952.5 ml Intake Oral 480 ml IV Total 472.5 ml # Voids 5 # Bowel Movements 2 General: Alert, Oriented X3, Cooperative, Moderate Distress HEENT: Atraumatic, PERRLA Neck: Supple, No JVD, No Thyromegaly Lungs: Normal Air Movement, Other (rhonchi) Heart: Regular Rate, Normal S1, Normal S2, No Murmurs Abdomen: Normal Bowel Sounds, Soft, No Tenderness, No Hepatosplenomegaly, No Masses Extremities: No Clubbing, No Cyanosis, No Edema, Normal Pulses, No Tenderness/ Swelling Skin: No Rashes, No Breakdown, No Significant Lesion Neuro: Normal Gait, Normal Speech, Strength at 5/5 X4 Ext, Normal Tone, Sensation Intact Psych/Mental Status: Mental Status NL, Mood NL Results Lab Laboratory Tests 11/21/18 08:20 A/P-Cardiology Admission Diagnosis Right leg pain Paroxysmal atrial fibrillation Sick sinus syndrome Hypertension Assessment/Plan Acute respiratory failure, on Vapotherm, receiving antibiotics, Dr Trinidad consulted, continue on antibiotics Right leg pain, reporting improvement but still complaining of generalized weakness and fatigue 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 continue to monitor heart rate, continue current medication Paroxysmal atrial fibrillation, chronic anticoagulation with Eliquis, monitor heart rate. Hypertension with hypertensive heart disease, continue to monitor blood pressure CAD: history of Taxus 3.5x23 mm to the right coronary and 2.75x15 mm Taxus to the LAD several years ago. Most recent stress test in August 2016 revealed no ischemia or infarct, LVEF was 66% Echo of 11/13/18: mod conc LVH, LVEF 60-65%, mod enlargement of LA, mild AoV sclerois, no valvular stenosis, mild MR & mild AI, PASP 35 mmHg Renal artery stenosis, history of 6.0x14 mm Express stent to the left renal artery several years ago, continue to monitor. Dementia Clinical Quality Measures DVT/VTE Risk/Contraindication: Risk Factor Score Per Nursin RFS Level Per Nursing on Admit: 2=Moderate MARGARITA COULTER MD Nov 21, 2018 08:42
[2018-11-21 08:44] LABS: BUN/CREATININE RATIO 16; CALCIUM 8.6 MG/DL (8.5-10.1); CARBON DIOXIDE 27 MMOL/L (21-32); CHLORIDE 105 MMOL/L (98-107); CREATININE SERUM 0.85 MG/DL (0.60-1.30); GFR ESTIMATED > 60; GLUCOSE 102 MG/DL (70-105); POTASSIUM 3.1 MMOL/L (3.6-5.0); SODIUM 142 MMOL/L (135-145)
[2018-11-21 08:47] VITALS: BP 123/63
[2018-11-21] MEDS: PROPAFENONE 150 MG (RYTHMOL) TABLET PO SCH ×2 (08:54→20:21)
[2018-11-21] MEDS: methylPREDNISolone 40 MG/ML (Solu-MEDROL) VIAL IV SCH ×3 (08:54→18:37)
[2018-11-21] MEDS: OSELTAMIVIR 30 MG (TAMIFLU) CAPSULE PO SCH ×2 (08:54→20:21)
[2018-11-21] MEDS: meTOprolol TARTRATE 50 MG (LOPRESSOR) TAB PO SCH ×2 (08:54→20:21)
[2018-11-21] MEDS: SENNA W/DOCUSATE (SENOKOT S) TABLET PO SCH (08:54)
[2018-11-21] MEDS: APIXABAN 2.5 MG (ELIQUIS) TABLET PO SCH ×2 (08:55→20:21)
[2018-11-21] MEDS: DILTIAZEM 240 MG (CARDIZEM CD) CAP PO SCH (08:55)
[2018-11-21] MEDS: POLYETHYLENE GLYCOL 17 GM (MIRALAX) PACK PO SCH ×2 (09:06→20:20)
--- NOTE | 2018-11-21 09:16 | Diagnostic Imaging Report ---
PROCEDURE: CT angiography of the chest with contrast. TECHNIQUE: Multiple contiguous axial images were obtained through the chest after uneventful bolus administration of intravenous contrast. 2D reconstructed CTA MIP acquisitions were also performed. INDICATION: Cough. Shortness of air. COMPARISON: Chest radiograph 11/20/2018. CT abdomen and pelvis without contrast 11/11/2018. FINDINGS: Examination limited by motion artifact. No large or central pulmonary emboli. Normal caliber thoracic aorta without evidence of dissection. Cardiomegaly. No mediastinal, hilar or axillary lymphadenopathy. Cardiac pacer. No pericardial effusion. No endobronchial lesions. Small bilateral pleural effusions. Small nodular opacity centrally in the right upper lobe measuring up to 1.1 cm. There are also scattered groundglass opacities in the lingula and lower lobes bilaterally. No pneumothorax. No acute osseous findings. The gallbladder fossa is not entirely included on exam. There appear to be new surgical clips and a small amount of fluid in this region possibly representing a recent cholecystectomy. Please correlate with history. IMPRESSION: 1. Examination limited by motion artifact. 2. No large or central pulmonary emboli. Normal caliber thoracic aorta without evidence of dissection. 3. Scattered groundglass opacities are greatest in the lingula and lower lobes. There is also small nodular opacity centrally in the right upper lobe. Findings most likely represent pneumonitis. Recommend followup to resolution. 4. Small bilateral pleural effusions. 5. The gallbladder fossa is not entirely included on the [id number]. However, there appears to be new surgical clips and fluid in the region possibly due to recent cholecystectomy. Please correlate with surgical history. Dictated by: Dictated on workstation # [id number]
--- NOTE | 2018-11-21 09:22 | Physical Therapy Daily Note ---
PT Daily Note-Current Subjective Patient in bed pre tx, agrees to PT, has no complaints of pain. Appearance Patient in recliner post tx with nurse call, phone, tray, all needs met. Mental Status Patient Orientation: Person vapotherm Transfers Therapy Code Descriptions/Definitions Functional [place] Measure: 0=Not Assessed/NA 4=Minimal Assistance 1=Total Assistance 5=Supervision or Setup 2=Maximal Assistance 6=Modified [place] 3=Moderate Assistance 7=Complete [place] Therapy Quality Codes: 6 Independent with activity with or without an assistive device 5 Patient requires set up or clean up by helper. Patient completes activity by themselves 4 Supervision or touching assist (CGA). Ford provide cues , steadying assist 3 The helper provides less than half the effort to complete the activity 2 The helper provides more than half the effort to complete the activity 1 Dependent. The helper does all the effort to complete an activity 7 Patient refused to complete or attempt activity 9 The patient did not perform the activity before the current illness or injury 88 Not attempted due to Medical conditions or safety concerns Transfers (B, C, W/C) (FIM): 4 Scootin Rollin Supine to/from Sit: 5 Sit to/from Stand: 4 Bed to/from Chair: 4 Patient performed bed mobility and supine to sit with SBA, much better transfer to the recliner (CGA). Weight Bearing Right Lower Extremity: Right Full Weight Bearing Left Lower Extremity: Left Weight Bearing/Tolerated Gait Training Distance: 3' Gait Level of Assist: 4 Gait Persons Needed: 1 Gait Assistive Device: FWW much stronger steps, less antalgic but SOB after ambulating just a few feet to a chair Exercises Seated Therapy Exercises: Ankle pumps, Long arc quads, Hip flexion Seated Reps: 15 Assessment Current Status: Fair Progress improved transfers and ambulation PT Pbx Technician Goals Pbx Technician Goals PT Pbx Technician Goals Time Frame: Nov 21, 2018 Transfers (B,C,W/C) (FIM): 6 Gait (FIM): 6 Gait Assistive Device: FWW PT Plan Problem List Problem List: Activity Tolerance, Functional Strength, Safety, Balance, Gait, Transfer, Bed Mobility, ROM Treatment/Plan Treatment Plan: Continue Plan of Care Treatment Plan: Bed Mobility, Education, Functional Activity Leo, Functional Strength, Gait, Safety, Therapeutic Exercise, Transfers Treatment Duration: Nov 21, 2018 Frequency: 6 times per week Estimated Hrs Per Day: .25 hour per day Patient and/or Family Agrees t: Yes Safety Risks/Education Patient Education: Gait Training, Transfer Techniques, Correct Positioning, Safety Issues Teaching Recipient: Patient Teaching Methods: Demonstration, Discussion Response to Teaching: Reinforcement Needed Time/GCodes Time In: 904 Time Out: 917 Total Billed Treatment Time: 13 Total Billed Treatment 1 visit FA 13' YAMILET DUNCAN PT Nov 21, 2018 09:22
[2018-11-21] MEDS ORDERED: PRED5DRO24 OS (10:51)
[2018-11-21] MEDS ORDERED: PROP1.5D OS (10:51)
[2018-11-21] MEDS: cefTRIAXone FOR IV USE 1,000 MG in WATER (STERILE) FOR INJECTION 10 ML IV SCH (11:55)
[2018-11-21] MEDS: ARTIFICAL TEARS 0.4 ML UNIT DOSE (REFRESH PLUS) OS SCH ×2 (12:03→20:21)
--- NOTE | 2018-11-21 12:05 | Occupational Ther Daily Note ---
OT Current Status-Daily Note Subjective Pt in recliner, Pt in Isolation. Alert, oriented & cooperative. Pt agree for OT treatment. Pt stated, " I am very weak today." Pain Numeric Pain Scale: 4 Location: Left Location Body Site: Shoulder Pain Description: Ache, Throbbing Mental Status/Objective Patient Orientation: Person, Place Therapy Code Descriptions/Definitions Functional [place] Measure: 0=Not Assessed/NA 4=Minimal Assistance 1=Total Assistance 5=Supervision or Setup 2=Maximal Assistance 6=Modified [place] 3=Moderate Assistance 7=Complete [place] Attachments: Central Line, Saline Lock ADL-Treatment Pt participated in strengthening ex to BUE to strengthen BUE to participate in all self care tasks . Pt wipes her face & hands with warm Ready-bath wipes. & completed 20 reps x 2 sets x 2 lbs , 20 reps using red theraband with BUE in all planes of motion & 30 reps using hand gripper to strengthen hand tube room supervisor. Pt c/ o pain in Lf shoulder on movement. Grooming (FIM): 5 (Washed her face & hands with warm wipes .) Education OT Patient Education: Correct positioning, Safety issues Teaching Recipient: Patient Teaching Methods: Demonstration Response to Teaching: Verbalize Understanding OT Short Term Goals Short Term Goals Time Frame: Dec 01, 2018 Additional Short Term Goals: 1-Demonstrate ADL Tasks, 2-Verbalize Understanding , 3-ImproveStrength/Leo 1=Demonstrate adherence to instructed precautions during ADL tasks. 2=Patient will verbalize/demonstrate understanding of assistive devices/ modifications for ADL. 3=Patient will improve strength/tolerance for activity to enable patient to perform ADL's. OT Shelter Goals Shelter Goals Time Frame: Dec 15, 2018 Eating (FIM): 7 Grooming(FIM): 7 Bathing(FIM): 5 Bathing Location: L Arm, R Arm, L Upper Leg, R Upper Leg, L Lower Leg ( including foot), R Lower Leg (including foot), Chest, Abdomen, Buttocks, Perineal Area Upper Body Dressing(FIM): 7 Lower Body Dressing(FIM): 6 Toileting(FIM): 7 Transfers (B,C,W/C) (FIM): 6 Toilet/Commode Transfer(FIM): 6 (with FWW) Shower Transfer(FIM): 6 (FWW) Additional Goals: 1-Demonstrate ADL Tasks, 2-Verbalize Understanding, 3- ImproveStrength/Leo 1=Demonstrate adherence to instructed precautions during ADL tasks. 2=Patient will verbalize/demonstrate understanding of assistive devices/ modifications for ADL. 3=Patient will improve strength/tolerance for activity to enable patient to perform ADL's. OT Education/Plan Problem List/Assessment Assessment: Decreased Activ Tolerance, Decreased Safety Aware, Decreased UE Strength, Dependent Transfers, Impaired Bed Mobility, Impaired Funct Balance, Impaired Self-Care Skills Discharge Recommendations Plan/Recommendations: Continue POC Therapy D/C Recommendations: Home w/ Family Support Equpiment Recommendations-D/C: Extended Bath Bench, Extended Shower Sprayer, Blindstitch Lining Feller Treatment Plan/Plan of Care Treatment,Training & Education: Yes Patient would benefit from OT for education, treatment and training to promote independence in ADL's, mobility, safety and/or upper extremity function for ADL' s. Plan of Care: ADL Retraining, Caregiver Training, Cognitive Retraining, Functional Mobility, UE Funct Exercise/Act, UE Neuromus Re-Ed/Coord Treatment Duration: Dec 15, 2018 Frequency: 5 times per week Estimated Hrs Per Day: .25 hour per day Agreement: Yes Rehab Potential: Guarded Time/GCodes Start Time: 09:45 Stop Time: 09:58 Total Time Billed (hr/min): 13 Billed Treatment Time 1, Ex 13 min INDU COOK OT Nov 21, 2018 12:05
[2018-11-21 12:16] VITALS: BP 137/71
[2018-11-21] MEDS ORDERED: VANCOMYCIN 1 GM/NS 250 ML IVPB IV SCH ×2 (13:00)
--- NOTE | 2018-11-21 13:37 | NUR ---
CM/SS, respond to consult. PLAN: To be determined by patient response to care regime and level of functioning, community [facility] facility vs home with established caregivers. SUMMARY: Sons both reside away, Priscila and KENYATTA respectively. Her primary caregiver is Jennifer Bray and the sons seem to confide in her and respect her input about patient's needs. Patient has a schedule of assistance daily in her home, but this may not be enough due to her decline over the past two admissions. Caregivers work 1:1 and they are not able to lift patient if condition requires it. Patient apparently stayed at [facility] for a period of time during one recuperation period; however, this is assisted living and patient does not meet that criteria in her current situation. Jennifer stated she did have a discussion with the sons about fci placement and they are looking to her for advice. Reviewed local facilities, Jennifer will explore them and update press writer with potential(s). Patient has expressed she does not want to enter [facility], await input for other acceptable options. Continuing intermittent review of patient progress and post hospital needs.
--- NOTE | 2018-11-21 14:41 | Diagnostic Imaging Report ---
INDICATION: Shortness of breath and hypoxia. COMPARISON: 11/20/2018. FINDINGS: There is cardiomegaly and some venous congestion. There are bibasilar infiltrates. There is a left pleural effusion. No pneumothorax. The mediastinum is unremarkable. The pacemaker is in the left hemithorax. IMPRESSION: Bibasilar infiltrates with a left pleural effusion. Cardiomegaly and some central pulmonary venous congestion. Dictated by: Dictated on workstation # [id number]
[2018-11-21] MEDS ORDERED: KCL 20 MEQ TAB (K-DUR) PO NR (15:15)
[2018-11-21] MEDS ORDERED: FUROSEMIDE 40 MG/4 ML INJ (LASIX) IVP NR (15:15)
[2018-11-21 16:28] VITALS: BP 130/70
[2018-11-21 19:40] VITALS: BP 116/64
[2018-11-21] MEDS: prednisoLONE 1% OPTH (PRED FORTE) 5 ML BTL OS SCH (20:20)
[2018-11-21] MEDS: ATORVASTATIN 20 MG (LIPITOR) TABLET PO SCH (20:21)
[2018-11-21] MEDS: LEVOTHYROXINE 88 MCG (LEVOTHORID) TAB PO SCH (20:21)
[2018-11-21] MEDS: lisINopril 5 MG (PRINIVIL) TABLET PO SCH (20:21)
[2018-11-22] VITALS: BP 119/78
[2018-11-22] MEDS: methylPREDNISolone 40 MG/ML (Solu-MEDROL) VIAL IV SCH ×4 (00:14→17:58)
[2018-11-22] MEDS: RT-ALBUTEROL/IPRATROPIUM 3 ML (DUONEB) VIAL INH SCH ×6 (01:58→23:27)
[2018-11-22 04:15] VITALS: BP 140/65
[2018-11-22] MEDS: CATHETER FLUSH 10 ML SYR IV SCH ×3 (06:01→20:27)
--- NOTE | 2018-11-22 06:28 | Pulmonary Progress Note ---
Subjective Time Seen by a Provider: 06:31 Subjective/Events-last exam Pt still requiring high flow oxygen via Vapotherm. Sepsis Event Evaluation Height, Weight, BMI Height: 5'2.00" Weight: 140lbs. 0.4oz. 63.063811rj; 27.5 BMI Method:Stated Exam Exam Vital Signs Date Time Temp Pulse Resp B/P (MAP) Pulse Ox O2 Delivery O2 Flow Rate FiO2 11/22/18 04:15 98.5 101 18 140/65 (90) 94 High Flow N/C 5.00 11/22/18 02:00 95 High Flow N/C 5.00 11/22/18 01:00 93 11/22/18 00:00 98.4 98 20 119/78 (92) 93 High Flow N/C 5.00 11/21/18 22:19 98 High Flow N/C 8.00 11/21/18 20:00 High Flow N/C 8.00 11/21/18 19:40 98.1 97 20 116/64 (81) 100 High Flow N/C 8.00 11/21/18 19:00 133 11/21/18 18:35 96 Vapotherm 10.00 40 11/21/18 16:28 97.2 98 20 130/70 (90) 95 Vapotherm 40.00 10.00 11/21/18 14:48 95 Vapotherm 20.00 40 11/21/18 12:24 100 11/21/18 12:16 97.9 89 22 137/71 (93) 97 Vapotherm 40.00 20.00 11/21/18 11:14 94 Vapotherm 30.00 40 11/21/18 08:50 Vapotherm 30.00 40 11/21/18 08:47 98.3 70 22 123/63 (83) 95 Vapotherm 40.00 30.00 11/21/18 07:01 106 11/21/18 06:54 87 Vapotherm 30.00 30 I & O 11/22/18 07:00 Intake Total 640 ml Output Total 1000 ml Balance -360 ml Height & Weight Height: 5'2.00" Weight: 140lbs. 0.4oz. 63.746676hh; 27.5 BMI Method:Stated General Appearance: WD/WN, Anxious, Chronically ill, Mild Distress HEENT: PERRL/EOMI, TMs Normal, Normal ENT Inspection, Pharynx Normal Neck: Full Range of Motion, Normal Inspection, Non Tender, Supple, Carotid Bruit Respiratory: Chest Non Tender, Normal Breath Sounds, No Accessory Muscle Use, No Respiratory Distress, Crackles, Decreased Breath Sounds Cardiovascular: No Edema, No Gallop, No JVD, Normal Peripheral Pulses, Systolic Murmur, Irregularly Irregular Capillary Refill: Less Than 3 Seconds Extremity: Normal Capillary Refill, Normal Inspection, Normal Range of Motion, Non Tender, No Calf Tenderness, Pedal Edema Neurologic/Psychiatric: Alert, Oriented x3, No Motor/Sensory Deficits, Normal Mood/Affect Skin: Normal Color, Warm/Dry, Ecchymosis (iffusely) Lymphatic: No Adenopathy Results Lab Laboratory Tests 11/21/18 08:20 Assessment/Plan Assessment/Plan Acute respiratory distress with Hypoxia -Currently requiring Vapotherm - ABG - reviewed - CTA of chest - reviewed -Labs pending -Solumedrol -Start Lasix 40mg daily UTI and Pneumonia - No leukocytosis or fever -currently on vanco and Rocephin- -Await palacios cultures -D/C vanco if ok with Dr. Maki -Tamiflu Bilateral pleural effusions -Lasix UTI MOLLY nodularity -Will need repeat CT of chest as out patient Influenza A -Tamiflu Hypokalemia -replace Generalized weakness Afib Hypothyroid ELPIDIO SNIDER DO Nov 22, 2018 06:28
[2018-11-22] MEDS ORDERED: KCL 20 MEQ TAB (K-DUR) PO NR (06:30)
[2018-11-22] MEDS ORDERED: NS IV 500 ML 500 ML ONE (06:34)
[2018-11-22] MEDS: POTASSIUM CL 10MEQ/50ML IVPB 50 ML IV SCH ×4 (06:53→09:40)
--- NOTE | 2018-11-22 08:06 | Cardiology Progress Note ---
Subjective Date Seen by Provider: Nov 22, 2018 Time Seen by Provider: 08:05 Subjective/Events-last exam Patient is in bed, feeling better, no new complaint, still having dyspnea Review of Systems General: No Chills, No Night Sweats; Fatigue, Malaise; No Appetite, No Other HEENT: No Head Aches, No Visual Changes, No Eye Pain, No Ear Pain, No Dysphasia , No Sinus Congestion, No Post Nasal Drip, No Sore Throat, No Other Pulmonary: Dyspnea; No Cough, No Pleuritic Chest Pain, No Other Cardiovascular: Edema; No: Chest Pain, Palpitations, Orthopnea, Paroxysmal Noc. Dyspnea, Lt Headedness, Other Objective-Cardiology Exam Last Set of Vital Signs Vital Signs 11/21/18 11/22/18 11/22/18 18:35 04:15 07:46 Temp 98.5 Pulse 101 Resp 18 B/P (MAP) 140/65 (90) Pulse Ox 94 O2 Delivery High Flow N/C O2 Flow Rate 5.00 FiO2 40 Capillary Refill : Less Than 3 SecondsLess Than 3 Seconds I&O Intake and Output 11/22/18 00:00 Intake Total 490 ml Output Total 1000 ml Balance -510 ml Intake Oral 490 ml Output Urine Total 1000 ml # Voids 2 # Urine Diapers 1 # Bowel Movements 2 General: Alert, Oriented X3, Cooperative, Moderate Distress HEENT: Atraumatic, PERRLA Neck: Supple, No JVD, No Thyromegaly Lungs: Normal Air Movement, Other Heart: Regular Rate, Normal S1, Normal S2, No Murmurs Abdomen: Normal Bowel Sounds, Soft, No Tenderness, No Hepatosplenomegaly, No Masses Extremities: No Clubbing, No Cyanosis, No Edema, Normal Pulses, No Tenderness/ Swelling Skin: No Rashes, No Breakdown, No Significant Lesion Neuro: Normal Gait, Normal Speech, Strength at 5/5 X4 Ext, Normal Tone, Sensation Intact Psych/Mental Status: Mental Status NL, Mood NL Results Lab Laboratory Tests 11/21/18 08:20 A/P-Cardiology Admission Diagnosis Right leg pain Paroxysmal atrial fibrillation Sick sinus syndrome Hypertension Assessment/Plan Status post acute respiratory failure, Influenza A positive, CT suggested pneumonia, receiving antibiotics and Tamiflu, managed by Dr Trinidad Right leg pain, reporting improvement but still complaining of generalized weakness and fatigue 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 continue to monitor heart rate, continue current medication Paroxysmal atrial fibrillation, chronic anticoagulation with Eliquis, monitor heart rate. Hypertension with hypertensive heart disease, continue to monitor blood pressure CAD: history of Taxus 3.5x23 mm to the right coronary and 2.75x15 mm Taxus to the LAD several years ago. Most recent stress test in August 2016 revealed no ischemia or infarct, LVEF was 66% Echo of 11/13/18: mod conc LVH, LVEF 60-65%, mod enlargement of LA, mild AoV sclerois, no valvular stenosis, mild MR & mild AI, PASP 35 mmHg Renal artery stenosis, history of 6.0x14 mm Express stent to the left renal artery several years ago, continue to monitor. Dementia Clinical Quality Measures DVT/VTE Risk/Contraindication: Risk Factor Score Per Nursin RFS Level Per Nursing on Admit: 2=Moderate MARGARITA COULTER MD Nov 22, 2018 08:06
[2018-11-22 08:15] VITALS: BP 131/77
[2018-11-22] MEDS: FUROSEMIDE 40 MG/4 ML INJ (LASIX) IVP SCH (08:57)
[2018-11-22] MEDS: DILTIAZEM 240 MG (CARDIZEM CD) CAP PO SCH (08:58)
[2018-11-22] MEDS: meTOprolol TARTRATE 50 MG (LOPRESSOR) TAB PO SCH ×2 (08:58→20:27)
[2018-11-22] MEDS: SENNA W/DOCUSATE (SENOKOT S) TABLET PO SCH (08:58)
[2018-11-22] MEDS: OSELTAMIVIR 30 MG (TAMIFLU) CAPSULE PO SCH ×2 (08:58→20:27)
[2018-11-22] MEDS: APIXABAN 2.5 MG (ELIQUIS) TABLET PO SCH ×2 (08:58→20:27)
[2018-11-22] MEDS: PROPAFENONE 150 MG (RYTHMOL) TABLET PO SCH ×2 (08:59→20:27)
[2018-11-22] MEDS: prednisoLONE 1% OPTH (PRED FORTE) 5 ML BTL OS SCH ×2 (09:00→20:26)
[2018-11-22] MEDS: POLYETHYLENE GLYCOL 17 GM (MIRALAX) PACK PO SCH ×2 (09:00→20:27)
--- NOTE | 2018-11-22 09:37 | Physical Therapy Daily Note ---
PT Daily Note-Current Subjective Patient in bed pre tx, agrees to PT, no complaints of pain. Appearance Patient on commode post tx with nurse call. Mental Status Patient Orientation: Person, Place Attachments: Oxygen, IV Transfers Therapy Code Descriptions/Definitions Functional [place] Measure: 0=Not Assessed/NA 4=Minimal Assistance 1=Total Assistance 5=Supervision or Setup 2=Maximal Assistance 6=Modified [place] 3=Moderate Assistance 7=Complete [place] Therapy Quality Codes: 6 Independent with activity with or without an assistive device 5 Patient requires set up or clean up by helper. Patient completes activity by themselves 4 Supervision or touching assist (CGA). [place] provide cues , steadying assist 3 The helper provides less than half the effort to complete the activity 2 The helper provides more than half the effort to complete the activity 1 Dependent. The helper does all the effort to complete an activity 7 Patient refused to complete or attempt activity 9 The patient did not perform the activity before the current illness or injury 88 Not attempted due to Medical conditions or safety concerns Transfers (B, C, W/C) (FIM): 5 Scootin Rollin Supine to/from Sit: 5 Sit to/from Stand: 4 Bed to/from Chair: 4 Weight Bearing Right Lower Extremity: Right Full Weight Bearing Left Lower Extremity: Left Weight Bearing/Tolerated Gait Training Gait (FIM): 1 Distance: 15' Gait Level of Assist: 4 Gait Persons Needed: 1 Gait Assistive Device: FWW Patient ambulated forward from the bed and states that she has to have a BM and starts going on the floor. Patient ambulates to a recliner and sits while PT gets a bedside commode that is in the room and places it by the recliner, she then transfers to it and has nurse call. Patient instructed to use nurse call when she is done. Treatments bed mobility and transfers, ambulation Assessment Current Status: Fair Progress improving ambulation and endurance PT [employer] Goals [facility] Goals PT [employer] Launch [employer] Goals Time Frame: Nov 21, 2018 Transfers (B,C,W/C) (FIM): 6 Gait (FIM): 6 Gait Assistive Device: FWW PT Plan Problem List Problem List: Activity Tolerance, Functional Strength, Safety, Balance, Gait, Transfer, Bed Mobility, ROM Treatment/Plan Treatment Plan: Continue Plan of Care Treatment Plan: Bed Mobility, Education, Functional Activity Leo, Functional Strength, Gait, Safety, Therapeutic Exercise, Transfers Treatment Duration: Nov 21, 2018 Frequency: 6 times per week Estimated Hrs Per Day: .25 hour per day Patient and/or Family Agrees t: Yes Safety Risks/Education Patient Education: Gait Training, Transfer Techniques, Correct Positioning, Safety Issues Teaching Recipient: Patient Teaching Methods: Demonstration, Discussion Response to Teaching: Reinforcement Needed Time/GCodes Time In: 922 Time Out: 932 Total Billed Treatment Time: 10 Total Billed Treatment 1 visit GT Keron' YAMILET DUNCAN PT Nov 22, 2018 09:37
[2018-11-22] MEDS: ARTIFICAL TEARS 0.4 ML UNIT DOSE (REFRESH PLUS) OS SCH ×2 (09:40→20:26)
[2018-11-22] MEDS: RT-ADVAIR HFA 115/21 MCG PER PUFF IH SCH ×2 (10:52→19:37)
[2018-11-22] MEDS ORDERED: TROUGH ORDER-PHARMACY XX NR (12:00)
[2018-11-22 12:30] VITALS: BP 110/64
[2018-11-22] MEDS: cefTRIAXone FOR IV USE 1,000 MG in WATER (STERILE) FOR INJECTION 10 ML IV SCH (13:00)
--- NOTE | 2018-11-22 13:27 | Progress Note-Hospitalist ---
Subjective HPI/CC On Admission Date Seen by Provider: Nov 22, 2018 Time Seen by Provider: 13:22 CC: Weakness with right leg weakness Subjective/Events-last exam Pt reports feeling better. Eating lunch in chair. Was able to participate more with therapy today per RN. No other concerns. Objective Exam Vital Signs Vital Signs Date Time Temp Pulse Resp B/P (MAP) Pulse Ox O2 Delivery O2 Flow Rate FiO2 11/22/18 10:54 98 High Flow N/C 5.00 11/22/18 08:15 98.0 118 20 131/77 (95) 11/21/18 18:35 40 Capillary Refill : Less Than 3 SecondsLess Than 3 Seconds General Appearance: WD/WN, Chronically ill HEENT: Other (not wearing bottom dentures) Respiratory: Lungs Clear, No Accessory Muscle Use, No Respiratory Distress Cardiovascular: No Edema, No Gallop, No JVD, Normal Peripheral Pulses, Systolic Murmur, Irregularly Irregular Gastrointestinal: Normal Bowel Sounds, Non Tender, Soft Extremity: Pedal Edema Neurologic/Psychiatric: Alert, Oriented x3, Normal Mood/Affect Skin: Normal Color, Warm/Dry, Ecchymosis (iffusely) Lymphatic: No Adenopathy Results/Procedures Lab Patient resulted labs reviewed. Assessment/Plan Assessment and Plan Assess & Plan/Chief Complaint Acute Respiratory Distress Diagnosis/Problems Diagnosis/Problems (1) Acute respiratory distress Assessment & Plan: Much improved, Flu + Continue on Tamiflu Continue Steroids Off Vapotherm and on nasal cannula Titrate down as able (2) Generalized weakness Assessment & Plan: PT/OT Will likely need SNF upon discharge (3) A-fib Status: Chronic Assessment & Plan: Rate relatively well controlled but mildly elevated this AM Monitor on telemetry Cardiology consulted, appreciate recs Qualifiers: Atrial fibrillation type: chronic Qualified Codes: I48.2 - Chronic atrial fibrillation (4) Essential (primary) hypertension Status: Chronic Assessment & Plan: Well controlled (5) Hypothyroidism Status: Chronic Assessment & Plan: Continue Synthroid Qualifiers: Hypothyroidism type: acquired Qualified Codes: E03.9 - Hypothyroidism, unspecified Clinical Quality Measures DVT/VTE Risk/Contraindication: Risk Factor Score Per Nursin RFS Level Per Nursing on Admit: 2=Moderate NAVI WOLFF MD Nov 22, 2018 13:27
--- NOTE | 2018-11-22 14:42 | Occupational Ther Daily Note ---
OT Current Status-Daily Note Subjective Pt in bed, & Droplet Isolation . Pt alert, cooperative & oriented. Pt agree for therapy. Pain Numeric Pain Scale: 0-No Pain Mental Status/Objective Patient Orientation: Person, Place Therapy Code Descriptions/Definitions Functional [place] Measure: 0=Not Assessed/NA 4=Minimal Assistance 1=Total Assistance 5=Supervision or Setup 2=Maximal Assistance 6=Modified [place] 3=Moderate Assistance 7=Complete [place] ADL-Treatment Pt participated only in strengthening ex to BUE to participate in all self care tasks & fo stand up from EOB Pt completed 25 reps x 2 sets x 1 lbs, 20 reps with red therabad & 20 reps with each hand with hand gripper to increase strength in both hands. Education OT Patient Education: Correct positioning Teaching Recipient: Patient Teaching Methods: Demonstration Response to Teaching: Verbalize Understanding OT Short Term Goals Short Term Goals Time Frame: Dec 01, 2018 Additional Short Term Goals: 1-Demonstrate ADL Tasks, 2-Verbalize Understanding , 3-ImproveStrength/Leo 1=Demonstrate adherence to instructed precautions during ADL tasks. 2=Patient will verbalize/demonstrate understanding of assistive devices/ modifications for ADL. 3=Patient will improve strength/tolerance for activity to enable patient to perform ADL's. OT Senior Care Goals Clinical Psychologist Licensed Goals Time Frame: Dec 15, 2018 Eating (FIM): 7 Grooming(FIM): 7 Bathing(FIM): 5 Bathing Location: L Arm, R Arm, L Upper Leg, R Upper Leg, L Lower Leg ( including foot), R Lower Leg (including foot), Chest, Abdomen, Buttocks, Perineal Area Upper Body Dressing(FIM): 7 Lower Body Dressing(FIM): 6 Toileting(FIM): 7 Transfers (B,C,W/C) (FIM): 6 Toilet/Commode Transfer(FIM): 6 (with FWW) Shower Transfer(FIM): 6 (FWW) Additional Goals: 1-Demonstrate ADL Tasks, 2-Verbalize Understanding, 3- ImproveStrength/Leo 1=Demonstrate adherence to instructed precautions during ADL tasks. 2=Patient will verbalize/demonstrate understanding of assistive devices/ modifications for ADL. 3=Patient will improve strength/tolerance for activity to enable patient to perform ADL's. OT Education/Plan Problem List/Assessment Assessment: Decreased Activ Tolerance, Decreased Safety Aware, Decreased UE Strength, Dependent Transfers, Impaired Bed Mobility, Impaired Coordination, Impaired Funct Balance, Impaired Self-Care Skills Discharge Recommendations Plan/Recommendations: Continue POC Therapy D/C Recommendations: Home Independently Equpiment Recommendations-D/C: Extended Bath Bench, Rails on Tub/Shower, School Photographer Treatment Plan/Plan of Care Treatment,Training & Education: Yes Patient would benefit from OT for education, treatment and training to promote independence in ADL's, mobility, safety and/or upper extremity function for ADL' s. Plan of Care: ADL Retraining, Caregiver Training, Cognitive Retraining, Functional Mobility, UE Funct Exercise/Act, UE Neuromus Re-Ed/Coord Treatment Duration: Dec 15, 2018 Frequency: 5 times per week Estimated Hrs Per Day: .25 hour per day Agreement: Yes Rehab Potential: Guarded Time/GCodes Start Time: 13:35 Stop Time: 13:49 Total Time Billed (hr/min): 14 Billed Treatment Time 1, Ex 14 minutes. G Codes Necessary: Yes INDU COOK OT Nov 22, 2018 14:42
[2018-11-22 15:50] VITALS: BP 129/58
[2018-11-22 20:09] VITALS: BP 118/64
[2018-11-22] MEDS: LEVOTHYROXINE 88 MCG (LEVOTHORID) TAB PO SCH (20:27)
[2018-11-22] MEDS: ATORVASTATIN 20 MG (LIPITOR) TABLET PO SCH (20:27)
[2018-11-22] MEDS: lisINopril 5 MG (PRINIVIL) TABLET PO SCH (20:27)
[2018-11-23] MEDS: methylPREDNISolone 40 MG/ML (Solu-MEDROL) VIAL IV SCH (00:18)
[2018-11-23 00:34] VITALS: BP 111/64
[2018-11-23] MEDS: RT-ALBUTEROL/IPRATROPIUM 3 ML (DUONEB) VIAL INH SCH ×6 (02:57→21:12)
[2018-11-23 04:00] VITALS: BP 119/79
--- NOTE | 2018-11-23 05:50 | Pulmonary Progress Note ---
Subjective Time Seen by a Provider: 05:54 Subjective/Events-last exam PT appears to be doing better. She is requiring less oxygen . Sepsis Event Evaluation Height, Weight, BMI Height: 5'2.00" Weight: 140lbs. 0.4oz. [id number]; 27.5 BMI Method:Stated Exam Exam Vital Signs Date Time Temp Pulse Resp B/P (MAP) Pulse Ox O2 Delivery O2 Flow Rate FiO2 11/23/18 04:00 98.0 105 20 119/79 (92) Nasal Cannula 2.00 11/23/18 01:00 105 11/23/18 00:34 97.6 101 22 111/64 (80) 95 High Flow N/C 5.00 11/22/18 23:27 95 High Flow N/C 4.00 11/22/18 20:09 98.4 90 20 118/64 (82) 99 High Flow N/C 5.00 11/22/18 20:00 High Flow N/C 5.00 11/22/18 19:37 95 High Flow N/C 5.00 11/22/18 19:00 115 11/22/18 15:50 98.9 92 20 129/58 (81) 97 High Flow N/C 5.00 11/22/18 14:01 95 High Flow N/C 5.00 11/22/18 12:59 108 11/22/18 12:30 97.7 116 18 110/64 (79) 98 High Flow N/C 5.00 11/22/18 10:54 98 High Flow N/C 5.00 11/22/18 08:55 High Flow N/C 5.00 11/22/18 08:15 98.0 118 20 131/77 (95) 97 High Flow N/C 5.00 11/22/18 07:46 94 High Flow N/C 5.00 11/22/18 07:02 133 I & O 11/23/18 07:00 Intake Total 1200 ml Output Total 1000 ml Balance 200 ml Height & Weight Height: 5'2.00" Weight: 140lbs. 0.4oz. 63.582350aa; 27.5 BMI Method:Stated General Appearance: No Apparent Distress, WD/WN, Anxious, Chronically ill HEENT: PERRL/EOMI, TMs Normal, Normal ENT Inspection, Pharynx Normal Neck: Full Range of Motion, Normal Inspection, Non Tender, Supple, Carotid Bruit Respiratory: Chest Non Tender, Normal Breath Sounds, No Accessory Muscle Use, No Respiratory Distress, Crackles, Decreased Breath Sounds Cardiovascular: No Edema, No Gallop, No JVD, Normal Peripheral Pulses, Systolic Murmur, Irregularly Irregular Capillary Refill: Less Than 3 Seconds Extremity: Normal Capillary Refill, Normal Inspection, Normal Range of Motion, Non Tender, No Calf Tenderness, Pedal Edema Neurologic/Psychiatric: Alert, Oriented x3, No Motor/Sensory Deficits, Normal Mood/Affect Skin: Normal Color, Warm/Dry, Ecchymosis (iffusely) Lymphatic: No Adenopathy Results Lab Laboratory Tests 11/21/18 08:20 Assessment/Plan Assessment/Plan Acute respiratory distress with Hypoxia -improving -oxygen via NC currently - ABG - reviewed -Pt will need repeat CT as out patient in about 8wks. -I will follow her as an out patient -Solumedrol - change to prednisone taper - Lasix 40mg daily UTI and Pneumonia - No leukocytosis or fever -Rocephin- -Await palacios cultures -Tamiflu Bilateral pleural effusions last EF 11/15 60-65% -Lasix UTI MOLLY nodularity -Will need repeat CT of chest as out patient Influenza A -Tamiflu Hypokalemia -replace Generalized weakness Afib Hypothyroid Renal artery stenosis, history of 6.0x14 mm Express stent to the left renal artery several years ago Dementia ELPIDIO SNIDER DO Nov 23, 2018 05:50
[2018-11-23] MEDS: CATHETER FLUSH 10 ML SYR IV SCH ×3 (06:07→20:50)
[2018-11-23 06:39] LABS: BASOPHILS % (AUTO) 0 % (0-10); EOSINOPHILS % (AUTO) 0 % (0-10); HEMATOCRIT 29 % (35-52); HEMOGLOBIN 8.9 G/DL (11.5-16.0); LYMPHOCYTES # (AUTO) 0.8 X 10^3 (1.0-4.0); LYMPHOCYTES % (AUTO) 8 % (12-44); MEAN CORPUSCULAR HEMOGLOBIN 31 PG (25-34); MEAN CORPUSCULAR HGB CONC 31 G/DL (32-36); MEAN CORPUSCULAR VOLUME 99 FL (80-99); MONOCYTES # (AUTO) 0.4 X 10^3 (0.0-1.0); MONOCYTES % (AUTO) 5 % (0-12); NEUTROPHILS # (AUTO) 8.1 X 10^3 (1.8-7.8); NEUTROPHILS % (AUTO) 87 % (42-75); PLATELET COUNT 199 10^3/uL (130-400); RED CELL DISTRIBUTION WIDTH 14.1 % (10.0-14.5); WHITE BLOOD COUNT 9.3 10^3/uL (4.3-11.0)
[2018-11-23 06:44] LABS: CALCIUM 8.4 MG/DL (8.5-10.1); CREATININE SERUM 0.89 MG/DL (0.60-1.30); MAGNESIUM 1.6 MG/DL (1.8-2.4); PHOSPHORUS 2.1 MG/DL (2.3-4.7); POTASSIUM 3.9 MMOL/L (3.6-5.0)
[2018-11-23] MEDS: predniSONE 10 MG TAB PO SCH (06:51)
[2018-11-23 08:00] VITALS: BP 134/72
--- NOTE | 2018-11-23 08:36 | Cardiology Progress Note ---
Subjective Date Seen by Provider: Nov 23, 2018 Time Seen by Provider: 08:35 Subjective/Events-last exam Patient is in bed, complaining of dyspnea and cough. Denies any chest pain. Objective-Cardiology Exam Last Set of Vital Signs Vital Signs 11/21/18 11/23/18 11/23/18 11/23/18 18:35 00:34 04:00 07:09 Temp 98.0 Pulse 105 Resp 20 B/P (MAP) 119/79 (92) Pulse Ox 95 O2 Delivery High Flow N/C O2 Flow Rate 2.00 FiO2 40 Capillary Refill : Less Than 3 SecondsLess Than 3 Seconds I&O Intake and Output 11/23/18 00:00 Intake Total 1350 ml Output Total 1000 ml Balance 350 ml Intake Oral 450 ml IV Total 900 ml Output Urine Total 1000 ml # Voids 2 # Bowel Movements 1 General: Alert, Oriented X3, Cooperative, Moderate Distress HEENT: Atraumatic, PERRLA Neck: Supple, No JVD, No Thyromegaly Lungs: Normal Air Movement, Other Heart: Regular Rate, Normal S1, Normal S2, No Murmurs Abdomen: Normal Bowel Sounds, Soft, No Tenderness, No Hepatosplenomegaly, No Masses Extremities: No Clubbing, No Cyanosis, No Edema, Normal Pulses, No Tenderness/ Swelling Skin: No Rashes, No Breakdown, No Significant Lesion Neuro: Normal Gait, Normal Speech, Strength at 5/5 X4 Ext, Normal Tone, Sensation Intact Psych/Mental Status: Mental Status NL, Mood NL Results Lab Laboratory Tests 11/23/18 06:08 A/P-Cardiology Admission Diagnosis Right leg pain Paroxysmal atrial fibrillation Sick sinus syndrome Hypertension Assessment/Plan Status post acute respiratory failure, Influenza A positive, CT suggested pneumonia, receiving antibiotics and Tamiflu, managed by Dr Trinidad Right leg pain, reporting improvement but still complaining of generalized weakness and fatigue 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 continue to monitor heart rate, continue current medication Paroxysmal atrial fibrillation, chronic anticoagulation with Eliquis, monitor heart rate. Hypertension with hypertensive heart disease, continue to monitor blood pressure CAD: history of Taxus 3.5x23 mm to the right coronary and 2.75x15 mm Taxus to the LAD several years ago. Most recent stress test in August 2016 revealed no ischemia or infarct, LVEF was 66% Echo of 11/13/18: mod conc LVH, LVEF 60-65%, mod enlargement of LA, mild AoV sclerois, no valvular stenosis, mild MR & mild AI, PASP 35 mmHg Renal artery stenosis, history of 6.0x14 mm Express stent to the left renal artery several years ago, continue to monitor. Dementia Clinical Quality Measures DVT/VTE Risk/Contraindication: Risk Factor Score Per Nursin RFS Level Per Nursing on Admit: 2=Moderate ROBETR FOSTER Nov 23, 2018 08:36
--- NOTE | 2018-11-23 09:12 | Diagnostic Imaging Report ---
INDICATION: Right chest pain. Portable upright AP view of the chest is obtained with comparison made to study of 11/21/2018. Cardiomegaly persists. There is mild pulmonary venous congestion. There has been increase in left pleural fluid with mild increase in perihilar edema and/or pneumonitis. Left anterior chest wall dual-chamber cardiac pacemaker remains in stable position. IMPRESSION: Mild increase in perihilar edema and/or pneumonitis as well as left pleural fluid with probable background congestive heart failure. Dictated by: Dictated on workstation # [id number]
[2018-11-23] MEDS: APIXABAN 2.5 MG (ELIQUIS) TABLET PO SCH ×2 (09:39→20:40)
[2018-11-23] MEDS: OSELTAMIVIR 30 MG (TAMIFLU) CAPSULE PO SCH ×2 (09:39→20:40)
[2018-11-23] MEDS: SENNA W/DOCUSATE (SENOKOT S) TABLET PO SCH (09:39)
[2018-11-23] MEDS: DILTIAZEM 240 MG (CARDIZEM CD) CAP PO SCH (09:39)
[2018-11-23] MEDS: ARTIFICAL TEARS 0.4 ML UNIT DOSE (REFRESH PLUS) OS SCH ×2 (09:40→20:40)
[2018-11-23] MEDS: POLYETHYLENE GLYCOL 17 GM (MIRALAX) PACK PO SCH ×2 (09:40→20:41)
[2018-11-23] MEDS: prednisoLONE 1% OPTH (PRED FORTE) 5 ML BTL OS SCH ×2 (09:41→20:41)
[2018-11-23] MEDS: FUROSEMIDE 40 MG/4 ML INJ (LASIX) IVP SCH (09:41)
[2018-11-23] MEDS: meTOprolol TARTRATE 50 MG (LOPRESSOR) TAB PO SCH ×2 (09:47→20:40)
[2018-11-23] MEDS: PROPAFENONE 150 MG (RYTHMOL) TABLET PO SCH ×2 (09:47→20:40)
--- NOTE | 2018-11-23 10:29 | Cardiology Progress Note ---
Subjective Date Seen by Provider: Nov 23, 2018 Time Seen by Provider: 10:28 Subjective/Events-last exam patient is sitting in a chair, feeling better, less dyspneic. Review of Systems General: No Chills, No Night Sweats; Fatigue, Malaise; No Appetite, No Other HEENT: No Head Aches, No Visual Changes, No Eye Pain, No Ear Pain, No Dysphasia , No Sinus Congestion, No Post Nasal Drip, No Sore Throat, No Other Pulmonary: Dyspnea; No Cough, No Pleuritic Chest Pain, No Other Cardiovascular: No: Chest Pain, Palpitations, Orthopnea, Paroxysmal Noc. Dyspnea, Edema, Lt Headedness, Other Objective-Cardiology Exam Last Set of Vital Signs Vital Signs 11/21/18 11/23/18 18:35 08:00 Temp 97.1 Pulse 86 Resp 20 B/P (MAP) 134/72 (92) Pulse Ox 92 O2 Delivery High Flow N/C O2 Flow Rate 5.00 FiO2 40 Capillary Refill : Less Than 3 SecondsLess Than 3 Seconds I&O Intake and Output 11/23/18 00:00 Intake Total 1350 ml Output Total 1000 ml Balance 350 ml Intake Oral 450 ml IV Total 900 ml Output Urine Total 1000 ml # Voids 2 # Bowel Movements 1 General: Alert, Oriented X3, Cooperative, Moderate Distress HEENT: Atraumatic, PERRLA Neck: Supple, No JVD, No Thyromegaly Lungs: Normal Air Movement, Other Heart: Regular Rate, Normal S1, Normal S2, No Murmurs Abdomen: Normal Bowel Sounds, Soft, No Tenderness, No Hepatosplenomegaly, No Masses Extremities: No Clubbing, No Cyanosis, No Edema, Normal Pulses, No Tenderness/ Swelling Skin: No Rashes, No Breakdown, No Significant Lesion Neuro: Normal Gait, Normal Speech, Strength at 5/5 X4 Ext, Normal Tone, Sensation Intact Psych/Mental Status: Mental Status NL, Mood NL Results Lab Laboratory Tests 11/23/18 06:08 A/P-Cardiology Admission Diagnosis Right leg pain Paroxysmal atrial fibrillation Sick sinus syndrome Hypertension Assessment/Plan Status post acute respiratory failure, Influenza A positive, CT suggested pneumonia, receiving antibiotics and Tamiflu, managed by Dr Trinidad Right leg pain, reporting improvement but still complaining of generalized weakness and fatigue 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 continue to monitor heart rate, continue current medication Paroxysmal atrial fibrillation, chronic anticoagulation with Eliquis, monitor heart rate. Hypertension with hypertensive heart disease, continue to monitor blood pressure CAD: history of Taxus 3.5x23 mm to the right coronary and 2.75x15 mm Taxus to the LAD several years ago. Most recent stress test in August 2016 revealed no ischemia or infarct, LVEF was 66% Echo of 11/13/18: mod conc LVH, LVEF 60-65%, mod enlargement of LA, mild AoV sclerois, no valvular stenosis, mild MR & mild AI, PASP 35 mmHg Renal artery stenosis, history of 6.0x14 mm Express stent to the left renal artery several years ago, continue to monitor. Dementia Clinical Quality Measures DVT/VTE Risk/Contraindication: Risk Factor Score Per Nursin RFS Level Per Nursing on Admit: 2=Moderate MARGARITA COULTER MD Nov 23, 2018 10:29
--- NOTE | 2018-11-23 11:05 | Progress Note-Hospitalist ---
Subjective HPI/CC On Admission Date Seen by Provider: Nov 23, 2018 Time Seen by Provider: 11:00 CC: Weakness with right leg weakness Subjective/Events-last exam Pt is sitting up in bed with no complaints. States feeling better. Discussed with RN. No concerns. Objective Exam Vital Signs Vital Signs Date Time Temp Pulse Resp B/P (MAP) Pulse Ox O2 Delivery O2 Flow Rate FiO2 11/23/18 08:00 97.1 86 20 134/72 (92) 92 High Flow N/C 5.00 11/21/18 18:35 40 Capillary Refill : Less Than 3 SecondsLess Than 3 Seconds General Appearance: No Apparent Distress, Chronically ill Neck: Carotid Bruit Respiratory: Lungs Clear, No Accessory Muscle Use, No Respiratory Distress Cardiovascular: No Edema, No Gallop, No JVD, Normal Peripheral Pulses, Systolic Murmur, Irregularly Irregular Gastrointestinal: Normal Bowel Sounds, Non Tender, Soft Neurologic/Psychiatric: Alert, Oriented x3 Skin: Ecchymosis (iffusely) Results/Procedures Lab Laboratory Tests 11/23/18 06:08 Patient resulted labs reviewed. Assessment/Plan Assessment and Plan Assess & Plan/Chief Complaint Acute Respiratory Distress Diagnosis/Problems Diagnosis/Problems (1) Acute respiratory distress Assessment & Plan: Much improved, Flu + Continue on Tamiflu Continue Steroids Doing well on nasal cannula, will need home oxygen study (2) Generalized weakness Assessment & Plan: PT/OT Will likely need SNF upon discharge Patient very resistant to idea. I stated multiple times that my medical recommendation was to DC to a SNF for rehab Patient states she will talk with her sons about this but noncommittal at this time (3) A-fib Status: Chronic Assessment & Plan: Rate relatively well controlled but mildly elevated this AM Monitor on telemetry Cardiology consulted, appreciate recs Qualifiers: Atrial fibrillation type: chronic Qualified Codes: I48.2 - Chronic atrial fibrillation (4) Essential (primary) hypertension Status: Chronic Assessment & Plan: Well controlled (5) Hypothyroidism Status: Chronic Assessment & Plan: Continue Synthroid Qualifiers: Hypothyroidism type: acquired Qualified Codes: E03.9 - Hypothyroidism, unspecified Clinical Quality Measures DVT/VTE Risk/Contraindication: Risk Factor Score Per Nursin RFS Level Per Nursing on Admit: 2=Moderate NAVI WOLFF MD Nov 23, 2018 11:05
[2018-11-23 12:00] VITALS: BP 131/76
[2018-11-23] MEDS: RT-ADVAIR HFA 115/21 MCG PER PUFF IH SCH (12:12)
--- NOTE | 2018-11-23 13:55 | NUR ---
Pastoral care visit, provided prayer and support.
--- NOTE | 2018-11-23 14:00 | NUR ---
CM/SS, continued discharge planning. Visited with patient this a.m. and again once her son Zaki Boyd arrived from . Patient is mostly in agreement with a short term SNF stay but does continue to try to justify some way to return home. She apparently went to [facility] after hip fracture and short stay in inpatient rehab unit. Patient did not like this option due to monthly expenses OOP and few days of therapy weekly. Game Technician clarified the differences, answered her questions to her satisfaction about Medicare and skilled benefits. This seemed to relieve some of the resistance for interim level of skilled care prior to home. With patient permission, visited with patient's caregiver, Jennifer Bray. She is the primary caregiver patient depends upon and she seems very attentive to patient's needs. Jennifer is ill with flu and has been down and housebound for several days, she intends to speak with patient by phone. Jennifer has been exploring SNF's on patient's behalf and tentatively narrowed them down to [facility] because of location. Updated Zaki enma toure. Patient and son discussing privately, await their decision and ready to forward referral. Game Technician did update patient/son that physician indicates she is medically stable and can discharge as soon as SNF arrangements are complete. CARE Assessment pending.
--- NOTE | 2018-11-23 14:15 | Occupational Ther Daily Note ---
OT Current Status-Daily Note Subjective Pt in recliner , alert, cooperative, Pt in Isolation . Pt agree for therapy. Her son visited from [place] was seated beside her recliner. Pain Location: No Pain Reported Mental Status/Objective Patient Orientation: Person, Place, Time Therapy Code Descriptions/Definitions Functional [place] Measure: 0=Not Assessed/NA 4=Minimal Assistance 1=Total Assistance 5=Supervision or Setup 2=Maximal Assistance 6=Modified [place] 3=Moderate Assistance 7=Complete [place] Attachments: Central Line, Oxygen, Saline Lock, SCD's ADL-Treatment Pt participated in Therapeutic Ex to strengthen BUE to participate in all self care tasks & func transfers & bed mobility. 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 Positioned upright in recliner to prevent aspiration or chocking while feeding. Eating (FIM): 7 Grooming (FIM): 4 (pt needs min A in wiping neck & back of neck & reaching over head to brush/comb hairs .) Bathing (FIM): 0 Upper Body (FIM): 0 Lower Body Dressing (FIM): 0 Toileting (FIM): 0 Transfers (B, C, W/C) (FIM): 2 Toilet/Commode Transfer (FIM): 2 Tub Transfer(FIM): 0 Shower Transfer(FIM): 0 Education OT Patient Education: Correct positioning Teaching Recipient: Patient Teaching Methods: Demonstration Response to Teaching: Verbalize Understanding OT Short Term Goals Short Term Goals Time Frame: Dec 01, 2018 Additional Short Term Goals: 1-Demonstrate ADL Tasks, 2-Verbalize Understanding , 3-ImproveStrength/Leo 1=Demonstrate adherence to instructed precautions during ADL tasks. 2=Patient will verbalize/demonstrate understanding of assistive devices/ modifications for ADL. 3=Patient will improve strength/tolerance for activity to enable patient to perform ADL's. OT Alf Goals Alf Goals Time Frame: Dec 15, 2018 Eating (FIM): 7 Grooming(FIM): 7 Bathing(FIM): 5 Bathing Location: L Arm, R Arm, L Upper Leg, R Upper Leg, L Lower Leg ( including foot), R Lower Leg (including foot), Chest, Abdomen, Buttocks, Perineal Area Upper Body Dressing(FIM): 7 Lower Body Dressing(FIM): 6 Toileting(FIM): 7 Transfers (B,C,W/C) (FIM): 6 Toilet/Commode Transfer(FIM): 6 (with FWW) Shower Transfer(FIM): 6 (FWW) Additional Goals: 1-Demonstrate ADL Tasks, 2-Verbalize Understanding, 3- ImproveStrength/Leo 1=Demonstrate adherence to instructed precautions during ADL tasks. 2=Patient will verbalize/demonstrate understanding of assistive devices/ modifications for ADL. 3=Patient will improve strength/tolerance for activity to enable patient to perform ADL's. OT Education/Plan Problem List/Assessment Assessment: Decreased Activ Tolerance, Decreased Safety Aware, Decreased UE Strength, Dependent Transfers, Impaired Bed Mobility, Impaired Funct Balance, Impaired Self-Care Skills Discharge Recommendations Plan/Recommendations: Continue POC Therapy D/C Recommendations: Assisted Living Equpiment Recommendations-D/C: Extended Bath Bench, Extended Shower Sprayer, Clerical And Administrative Workers Treatment Plan/Plan of Care Treatment,Training & Education: Yes Patient would benefit from OT for education, treatment and training to promote independence in ADL's, mobility, safety and/or upper extremity function for ADL' s. Plan of Care: ADL Retraining, Caregiver Training, Cognitive Retraining, Functional Mobility, UE Funct Exercise/Act, UE Neuromus Re-Ed/Coord Treatment Duration: Dec 15, 2018 Frequency: 5 times per week Estimated Hrs Per Day: .25 hour per day Agreement: Yes Rehab Potential: Guarded Time/GCodes Start Time: 13:00 Stop Time: 13:25 Total Time Billed (hr/min): 25 Billed Treatment Time 1, ADLs 13 min. , Ex 12 min . Total 25 minutes INDU COOK OT Nov 23, 2018 14:15
[2018-11-23] MEDS: cefTRIAXone FOR IV USE 1,000 MG in WATER (STERILE) FOR INJECTION 10 ML IV SCH (14:18)
--- NOTE | 2018-11-23 14:49 | Physical Therapy Daily Note ---
PT Daily Note-Current Subjective Pt sitting in recliner upon arrival. Nurse asked if PRODUCTION CLERK could assist pt to transfer back to bed. Pt agrees to PT. Pain Location: No Pain Reported Mental Status Patient Orientation: Person, Confused Attachments: Oxygen Transfers Therapy Code Descriptions/Definitions Functional [place] Measure: 0=Not Assessed/NA 4=Minimal Assistance 1=Total Assistance 5=Supervision or Setup 2=Maximal Assistance 6=Modified [place] 3=Moderate Assistance 7=Complete [place] Therapy Quality Codes: 6 Independent with activity with or without an assistive device 5 Patient requires set up or clean up by helper. Patient completes activity by themselves 4 Supervision or touching assist (CGA). [place] provide cues , steadying assist 3 The helper provides less than half the effort to complete the activity 2 The helper provides more than half the effort to complete the activity 1 Dependent. The helper does all the effort to complete an activity 7 Patient refused to complete or attempt activity 9 The patient did not perform the activity before the current illness or injury 88 Not attempted due to Medical conditions or safety concerns Scootin Sit to/from Stand: 4 Weight Bearing Right Lower Extremity: Right Full Weight Bearing Left Lower Extremity: Left Weight Bearing/Tolerated Treatments Pt stands from recliner and reports urination running down leg. PRODUCTION CLERK transfers pt to BSC then assists pt with clean up. Pt then transfers back to Supine in bed with all needs met. Assessment Current Status: Fair Progress Pt is having difficulty control bowel/bladder at this time. Pt fatigues easily. PT Skilled Nursing Goals Skilled Nursing Goals PT Skilled Nursing Goals Time Frame: Nov 21, 2018 Transfers (B,C,W/C) (FIM): 6 Gait (FIM): 6 Gait Assistive Device: FWW PT Plan Problem List Problem List: Activity Tolerance, Functional Strength, Safety, Balance, Gait, Transfer Treatment/Plan Treatment Plan: Continue Plan of Care Treatment Plan: Bed Mobility, Education, Functional Activity Leo, Functional Strength, Gait, Safety, Therapeutic Exercise, Transfers Treatment Duration: Nov 21, 2018 Frequency: 6 times per week Estimated Hrs Per Day: .25 hour per day Patient and/or Family Agrees t: Yes Safety Risks/Education Patient Education: Transfer Techniques, Correct Positioning, Safety Issues Teaching Recipient: Patient Teaching Methods: Discussion Response to Teaching: Reinforcement Needed Time/GCodes Time In: 1400 Time Out: 1415 Total Billed Treatment Time: 15 Total Billed Treatment 1, FA (15m) G Codes Necessary: No TREIBER,BETTE PRODUCTION CLERK Nov 23, 2018 14:48
--- NOTE | 2018-11-23 15:23 | NUR ---
CM/SS, update. Visited with patient's son Montez Boyd in [place]. He has been discussing discharge plan with his brother Zaki, Zaki is going to tour [facility] and [facility] and make a decision on preferred facility. Just received word they have selected [facility], will complete referral at this time. CARE Assessment pending.
[2018-11-23 15:31] VITALS: BP 136/82
[2018-11-23 20:15] VITALS: BP 108/68
[2018-11-23] MEDS: LEVOTHYROXINE 88 MCG (LEVOTHORID) TAB PO SCH (20:40)
[2018-11-23] MEDS: ATORVASTATIN 20 MG (LIPITOR) TABLET PO SCH (20:40)
[2018-11-23] MEDS: lisINopril 5 MG (PRINIVIL) TABLET PO SCH (20:40)
[2018-11-23] MEDS: ADVAIR HFA 115/21 MCG INHALER 8 GM IH SCH (21:12)
[2018-11-24 00:14] VITALS: BP 124/66
[2018-11-24] MEDS: RT-ALBUTEROL/IPRATROPIUM 3 ML (DUONEB) VIAL INH SCH ×3 (01:19→10:18)
[2018-11-24 04:14] VITALS: BP 135/74
[2018-11-24] MEDS: ACETAMINOPHEN 500 MG TAB (TYLENOL) PO PRN (06:08)
[2018-11-24] MEDS: predniSONE 10 MG TAB PO SCH (06:08)
[2018-11-24] MEDS: CATHETER FLUSH 10 ML SYR IV SCH (06:17)
[2018-11-24 06:22] LABS: BASOPHILS % (AUTO) 0 % (0-10); EOSINOPHILS % (AUTO) 0 % (0-10); HEMATOCRIT 30 % (35-52); HEMOGLOBIN 9.4 G/DL (11.5-16.0); LYMPHOCYTES % (AUTO) 8 % (12-44); MEAN CORPUSCULAR HEMOGLOBIN 31 PG (25-34); MEAN CORPUSCULAR HGB CONC 31 G/DL (32-36); MEAN CORPUSCULAR VOLUME 99 FL (80-99); MEAN PLATELET VOLUME 10.4 FL (7.4-10.4); MONOCYTES # (AUTO) 0.9 X 10^3 (0.0-1.0); MONOCYTES % (AUTO) 7 % (0-12); NEUTROPHILS # (AUTO) 10.2 X 10^3 (1.8-7.8); NEUTROPHILS % (AUTO) 85 % (42-75); PLATELET COUNT 235 10^3/uL (130-400); RED CELL DISTRIBUTION WIDTH 14.2 % (10.0-14.5); WHITE BLOOD COUNT 12.1 10^3/uL (4.3-11.0)
--- NOTE | 2018-11-24 06:22 | Pulmonary Progress Note ---
Subjective Time Seen by a Provider: 06:22 Subjective/Events-last exam NO complications noted. Sepsis Event Evaluation Height, Weight, BMI Height: 5'2.00" Weight: 140lbs. 0.4oz. 63.583630jp; 27.5 BMI Method:Stated Exam Exam Vital Signs Date Time Temp Pulse Resp B/P (MAP) Pulse Ox O2 Delivery O2 Flow Rate FiO2 11/24/18 04:14 98.3 97 20 135/74 (94) 98 High Flow N/C 2.00 11/24/18 01:19 95 High Flow N/C 2.00 11/24/18 01:00 107 11/24/18 00:14 98.8 103 20 124/66 (85) 97 High Flow N/C 2.00 11/23/18 21:20 High Flow N/C 2.00 11/23/18 21:12 93 High Flow N/C 2.00 11/23/18 20:20 High Flow N/C 2.00 11/23/18 20:15 98.5 101 22 108/68 (81) 98 High Flow N/C 3.00 11/23/18 18:50 97 11/23/18 15:31 97.8 104 20 136/82 (100) 94 High Flow N/C 5.00 11/23/18 13:13 123 11/23/18 12:00 97.4 86 18 131/76 (94) 93 High Flow N/C 5.00 11/23/18 08:00 97.1 86 20 134/72 (92) 92 High Flow N/C 5.00 11/23/18 08:00 High Flow N/C 2.00 11/23/18 07:09 High Flow N/C 2.00 11/23/18 07:05 120 I & O 11/24/18 07:00 Intake Total 895 ml Balance 895 ml Height & Weight Height: 5'2.00" Weight: 140lbs. 0.4oz. 63.963835fb; 27.5 BMI Method:Stated General Appearance: No Apparent Distress, WD/WN, Anxious, Chronically ill HEENT: PERRL/EOMI, TMs Normal, Normal ENT Inspection, Pharynx Normal Neck: Full Range of Motion, Normal Inspection, Non Tender, Supple, Carotid Bruit Respiratory: Chest Non Tender, Normal Breath Sounds, No Accessory Muscle Use, No Respiratory Distress, Crackles, Decreased Breath Sounds Cardiovascular: No Edema, No Gallop, No JVD, Normal Peripheral Pulses, Systolic Murmur, Irregularly Irregular Capillary Refill: Less Than 3 Seconds Extremity: Normal Capillary Refill, Normal Inspection, Normal Range of Motion, Non Tender, No Calf Tenderness, Pedal Edema Neurologic/Psychiatric: Alert, Oriented x3, No Motor/Sensory Deficits, Normal Mood/Affect Skin: Normal Color, Warm/Dry, Ecchymosis (iffusely) Lymphatic: No Adenopathy Results Lab Laboratory Tests 11/23/18 06:08 Assessment/Plan Assessment/Plan Acute respiratory distress with Hypoxia -improving -oxygen via NC currently - ABG - reviewed C02 36, echo 11/15 EF 60-65% -Pt will need repeat CT as out patient in about 8wks. -I will follow her as an out patient -Check desat oxy test. - prednisone taper - Lasix 40mg daily -Labs pending lung nodule -repeat out patient CT scan -Pt may need bronchoscopy UTI and Pneumonia - No leukocytosis or fever -Rocephin- -Await palacios cultures -Tamiflu Bilateral pleural effusions last EF 11/15 60-65% -Lasix UTI MOLLY nodularity -Will need repeat CT of chest as out patient Influenza A -Tamiflu Hypokalemia -replace Generalized weakness Afib Hypothyroid Renal artery stenosis, history of 6.0x14 mm Express stent to the left renal artery several years ago Dementia Pt is ok for discharge from pulmonary standpoint assuming pending labs are stable and after oxygen desat test. I will see her in 2-3 wks for f/u and will order repeat CT at that time. ELPIDIO SNIDER DO Nov 24, 2018 06:22
[2018-11-24 06:33] LABS: ANISOCYTOSIS SLIGHT; BAND NEUTROPHILS 1 %; BASOPHILS % (MANUAL) 0 %; EOSINOPHILS % (MANUAL) 0 %; LYMPHOCYTES % (MANUAL) 10 %; MONOCYTES % (MANUAL) 3 %; NEUTROPHILS % (MANUAL) 86 %; POIKILOCYTOSIS SLIGHT; POLYCHROMASIA SLIGHT
[2018-11-24 06:48] LABS: CALCIUM 8.8 MG/DL (8.5-10.1); CREATININE SERUM 1.01 MG/DL (0.60-1.30); MAGNESIUM 1.8 MG/DL (1.8-2.4); PHOSPHORUS 2.4 MG/DL (2.3-4.7); POTASSIUM 3.6 MMOL/L (3.6-5.0)
[2018-11-24] MEDS: ADVAIR HFA 115/21 MCG INHALER 8 GM IH SCH (07:00)
[2018-11-24 08:00] VITALS: BP 128/62
--- NOTE | 2018-11-24 08:14 | NUR ---
home oxygen study pt resting on room air and spo2 stayed around 90%, checke dpt several times over a two hour period when she was resting and still didnt drop below 90%, pt doesnt require any oxygen at this time.
--- NOTE | 2018-11-24 08:45 | Cardiology Progress Note ---
Subjective Date Seen by Provider: Nov 24, 2018 Time Seen by Provider: 08:45 Subjective/Events-last exam Patient is laying down in bed, still having some shortness of breath and cough. No chest pain. Review of Systems General: No Chills, No Night Sweats, No Fatigue, No Malaise, No Appetite, No Other HEENT: No Head Aches, No Visual Changes, No Eye Pain, No Ear Pain, No Dysphasia , No Sinus Congestion, No Post Nasal Drip, No Sore Throat, No Other Pulmonary: Dyspnea, Cough; No Pleuritic Chest Pain, No Other Cardiovascular: No: Chest Pain, Palpitations, Orthopnea, Paroxysmal Noc. Dyspnea, Edema, Lt Headedness, Other Objective-Cardiology Exam Last Set of Vital Signs Vital Signs 11/21/18 11/24/18 11/24/18 11/24/18 11/24/18 18:35 04:14 07:00 07:03 07:04 Temp 98.3 Pulse 105 Resp 20 B/P (MAP) 135/74 (94) Pulse Ox 94 O2 Delivery High Flow N/C O2 Flow Rate 2.00 FiO2 40 Capillary Refill : Less Than 3 SecondsLess Than 3 Seconds I&O Intake and Output 11/24/18 00:00 Intake Total 895 ml Balance 895 ml Intake Oral 895 ml # Voids 4 General: Alert, Oriented X3, Cooperative, Moderate Distress HEENT: Atraumatic, PERRLA Neck: Supple, No JVD, No Thyromegaly Lungs: Normal Air Movement, Other Heart: Regular Rate, Normal S1, Normal S2, No Murmurs Abdomen: Normal Bowel Sounds, Soft, No Tenderness, No Hepatosplenomegaly, No Masses Extremities: No Clubbing, No Cyanosis, No Edema, Normal Pulses, No Tenderness/ Swelling Skin: No Rashes, No Breakdown, No Significant Lesion Neuro: Normal Gait, Normal Speech, Strength at 5/5 X4 Ext, Normal Tone, Sensation Intact Psych/Mental Status: Mental Status NL, Mood NL Results Lab Laboratory Tests 11/24/18 05:55 A/P-Cardiology Admission Diagnosis Right leg pain Paroxysmal atrial fibrillation Sick sinus syndrome Hypertension Assessment/Plan Status post acute respiratory failure, Influenza A positive, CT suggested pneumonia, receiving antibiotics and Tamiflu, managed by Dr Trinidad Right leg pain, reporting improvement but still complaining of generalized weakness and fatigue 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 continue to monitor heart rate, continue current medication Paroxysmal atrial fibrillation, chronic anticoagulation with Eliquis, monitor heart rate. Hypertension with hypertensive heart disease, continue to monitor blood pressure CAD: history of Taxus 3.5x23 mm to the right coronary and 2.75x15 mm Taxus to the LAD several years ago. Most recent stress test in August 2016 revealed no ischemia or infarct, LVEF was 66% Echo of 11/13/18: mod conc LVH, LVEF 60-65%, mod enlargement of LA, mild AoV sclerois, no valvular stenosis, mild MR & mild AI, PASP 35 mmHg Renal artery stenosis, history of 6.0x14 mm Express stent to the left renal artery several years ago, continue to monitor. Dementia Clinical Quality Measures DVT/VTE Risk/Contraindication: Risk Factor Score Per Nursin RFS Level Per Nursing on Admit: 2=Moderate MARGARITA COULTER MD Nov 24, 2018 8:45 am
[2018-11-24] MEDS: SENNA W/DOCUSATE (SENOKOT S) TABLET PO SCH (08:54)
[2018-11-24] MEDS: DILTIAZEM 240 MG (CARDIZEM CD) CAP PO SCH (08:54)
[2018-11-24] MEDS: PROPAFENONE 150 MG (RYTHMOL) TABLET PO SCH (08:54)
[2018-11-24] MEDS: ARTIFICAL TEARS 0.4 ML UNIT DOSE (REFRESH PLUS) OS SCH (08:55)
[2018-11-24] MEDS: meTOprolol TARTRATE 50 MG (LOPRESSOR) TAB PO SCH (08:55)
[2018-11-24] MEDS: APIXABAN 2.5 MG (ELIQUIS) TABLET PO SCH (08:55)
[2018-11-24] MEDS: OSELTAMIVIR 30 MG (TAMIFLU) CAPSULE PO SCH (08:55)
[2018-11-24] MEDS: FUROSEMIDE 40 MG/4 ML INJ (LASIX) IVP SCH (08:56)
[2018-11-24] MEDS ORDERED: OSEL30CA PO (09:06)
[2018-11-24] MEDS ORDERED: PRED10TA22 PO (09:06)
[2018-11-24] MEDS: prednisoLONE 1% OPTH (PRED FORTE) 5 ML BTL OS SCH (09:10)
[2018-11-24] MEDS: POLYETHYLENE GLYCOL 17 GM (MIRALAX) PACK PO SCH (09:10)
--- NOTE | 2018-11-24 09:23 | Discharge Inst-Skilled Nursing ---
Discharge Inst-Skilled NF Chief Complaint CC: Weakness with right leg weakness Consult/Follow Up/Orders Follow Up Appt.: With Dr Holcomb in [address] Rasheed as scheduled. Skilled NF Admit to: [facility] Certification (SNF) I certify that SNF services are required to be given on an inpatient basis because of the above named patient's need for residential care on a continuing basis for the conditions(s) for which he/she was receiving inpatient hospital services prior to his/her transfer to the SNF. [facility] Facility Order: Nursing Services, Film Splicer-Evaluate & Treat, Physical Therapy-Evaluate & Treat Oxygen Delivery Method: High Flow N/C Discharge Diet: No Restrictions Daily Activity as Tolerated: Yes New & Resume Previous Orders Navi Maki Nov 24, 2018 09:20 NAVI MAKI MD Nov 24, 2018 09:23
--- NOTE | 2018-11-24 09:26 | Discharge Summary-Hospitalist ---
Diagnosis/Chief Complaint Date of Admission Nov 20, 2018 at 12:55 Date of Discharge Discharge Date: Nov 24, 2018 Admission Diagnosis Assessment: Generalized weakness Recent cholecystectomy Hypokalemia Dehydration Chronic atrial fibrillation Plan: Gentle IV fluid PT/OT eval IRF? Discharge Diagnosis (1) Acute respiratory distress Assessment & Plan: Much improved, Flu + Continue on Tamiflu Continue Steroids Doing well on nasal cannula, will need home oxygen study (2) Generalized weakness Assessment & Plan: PT/OT Will likely need SNF upon discharge Patient very resistant to idea. I stated multiple times that my medical recommendation was to DC to a SNF for rehab Patient states she will talk with her sons about this but noncommittal at this time (3) A-fib Status: Chronic Assessment & Plan: Rate relatively well controlled but mildly elevated this AM Monitor on telemetry Cardiology consulted, appreciate recs (4) Essential (primary) hypertension Status: Chronic Assessment & Plan: Well controlled (5) Hypothyroidism Status: Chronic Assessment & Plan: Continue Synthroid Discharge Summary Procedures/Consulations Dr Vivi Rasheed Discharge Physical Exam Allergies: Coded Allergies: No Known Drug Allergies (Unverified , 03/05/10) Vitals & I&Os Vital Signs Date Time Temp Pulse Resp B/P (MAP) Pulse Ox O2 Delivery O2 Flow Rate FiO2 11/24/18 13:09 96 20 128/62 93 Room Air 2.00 11/24/18 08:00 98.1 11/21/18 18:35 40 General Appearance: No Apparent Distress, Chronically ill Respiratory: Chest Non Tender, Normal Breath Sounds, No Accessory Muscle Use, No Respiratory Distress Cardiovascular: No Edema, No Gallop, No JVD, Normal Peripheral Pulses, Systolic Murmur, Irregularly Irregular Gastrointestinal: Normal Bowel Sounds, Non Tender, Soft Skin: Normal Color, Warm/Dry, Ecchymosis (iffusely) Neurologic/Psychiatric: Alert, Oriented x3 Hospital Course Pt was admitted for generalized weakness following a cholecystectomy earlier in the week of admission. She quickly progressed to hypoxic respiratory failure necessitating Vapotherm. She was found to be Flu A positive. She was started on tamiflu and recovered well. Given her debility from both the surgery and flu she was discharged to SNF for continued skilled therapy. She was discharged in stable condition. Labs (last 24 hrs) Microbiology 11/21/18 Influenza Types A,B Antigen (FLIP) - Final, Complete 11/20/18 Urine Culture - Preliminary, Resulted YEAST Patient resulted labs reviewed. Pending Labs Discussion & Recommendations Discharge Planning: >30 minutes discharge planning Discharge Home Medications: Active Scripts Active Prednisone 10 Mg Tab.ds.pk 10 Mg PO DAILY Take 6 tabs(60mg)daily,decrease by 1 tab(10MG)daily. Tamiflu (Oseltamivir Phosphate) 30 Mg Capsule 30 Mg PO BID Reported Systane Complete (Propylene Glycol) 1.5 Ml Drops 1 Drop OS BID 1 DROP LEFT EYE TWICE DAILY Prednisolone Acet 1% Eye Drop (Prednisolone Acetate/Pf) 5 Ml Drops.susp 1 Drop OS BID 1 drop into left eye twice daily Metoprolol Tartrate 50 Mg Tablet 50 Mg PO BID Diltiazem 24Hr ER (Diltiazem HCl) 240 Mg Cap.er.24h 240 Mg PO DAILY Tylenol Extra Strength (Acetaminophen) 500 Mg Tablet 1,000 Mg PO Q8H PRN Lisinopril 5 Mg Tablet 5 Mg PO HS Levothyroxine Sodium 88 Mcg Tablet 88 Mcg PO HS Senna S Tablet (Sennosides/Docusate Sodium) 1 Each Tablet 2 Tab PO DAILY Propafenone HCl 225 Mg Tablet 225 Mg PO BID Atorvastatin Calcium 20 Mg Tablet 20 Mg PO HS Eliquis (Apixaban) 5 Mg Tablet 2.5 Mg PO BID TAKES 1/2 (5MG) TABLET Instructions to patient/family Please see electronic discharge instructions given to patient. Clinical Quality Measures DVT/VTE Risk/Contraindication: Risk Factor Score Per Nursin RFS Level Per Nursing on Admit: 2=Moderate Problem Qualifiers (1) A-fib: Atrial fibrillation type: chronic Qualified Codes: I48.2 - Chronic atrial fibrillation (2) Hypothyroidism: Hypothyroidism type: acquired Qualified Codes: E03.9 - Hypothyroidism, unspecified NAVI WOLFF MD Nov 24, 2018 09:25
--- NOTE | 2018-11-24 10:52 | NUR ---
SHALA/LAURIE. [facility] has accepted patient for Medicare skilled admission this date. Transportation is scheduled for 1300. CARE Assessment completed with patient and her son/BISHNU Boyd. Processed with SHELIA. Faxed orders and CARE to [facility], prepared continuum of care packet to accompany patient. Unit RN and PCCT updated. Patient plans short term rehab to home stay, to be determined by her progress. She has two paid caregivers, but not 19/04. Team at [facility] aware.
--- NOTE | 2018-11-24 11:06 | Physical Therapy Daily Note ---
PT Daily Note-Current Subjective Pt in recliner and reports she needs to use the restroom in a hurry. Pt agrees to PT assist. Mental Status Patient Orientation: Person, Place, Situation Transfers Therapy Code Descriptions/Definitions Functional [place] Measure: 0=Not Assessed/NA 4=Minimal Assistance 1=Total Assistance 5=Supervision or Setup 2=Maximal Assistance 6=Modified [place] 3=Moderate Assistance 7=Complete [place] Therapy Quality Codes: 6 Independent with activity with or without an assistive device 5 Patient requires set up or clean up by helper. Patient completes activity by themselves 4 Supervision or touching assist (CGA). [place] provide cues , steadying assist 3 The helper provides less than half the effort to complete the activity 2 The helper provides more than half the effort to complete the activity 1 Dependent. The helper does all the effort to complete an activity 7 Patient refused to complete or attempt activity 9 The patient did not perform the activity before the current illness or injury 88 Not attempted due to Medical conditions or safety concerns Transfers (B, C, W/C) (FIM): 4 Scootin Supine to/from Sit: 5 Sit to/from Stand: 4 Weight Bearing Right Lower Extremity: Right Full Weight Bearing Left Lower Extremity: Left Weight Bearing/Tolerated Gait Training Gait (FIM): 1 Distance (FIM): 1=up to 49 ft Distance: 15' Gait Level of Assist: 4 Gait Persons Needed: 1 Gait Assistive Device: FWW Assessment Current Status: Fair Progress Pt was able to perform sit<>stand to FWW from recliner with CGA for safety. Pt amb into restroom with CGA and FWW. Pt is experiencing some incontinence and was not able to make it to toilet in time. SPT assisted pt with cleaning and don /doffing of socks and brief. Pt required assist with bathroom skills. Pt reports that she isn't feeling any better or worse, just don't feel good. Pt requested to return to bed because she is very cold and did not want to perform any exercise. Pt was SBA for EOB to sidelying. Pt is in bed with all needs met and son is now in room. PT Electrostatic Paint Operator Goals Mcc Goals PT Electrostatic Paint Operator Goals Time Frame: Nov 21, 2018 Transfers (B,C,W/C) (FIM): 6 Gait (FIM): 6 Gait Assistive Device: FWW PT Plan Problem List Problem List: Activity Tolerance, Functional Strength, Safety, Balance, Gait, Transfer, Bed Mobility, ROM Treatment/Plan Treatment Plan: Continue Plan of Care Treatment Plan: Bed Mobility, Education, Functional Activity Leo, Functional Strength, Gait, Safety, Therapeutic Exercise, Transfers Treatment Duration: Nov 21, 2018 Frequency: 6 times per week Estimated Hrs Per Day: .25 hour per day Patient and/or Family Agrees t: Yes Time/GCodes Time In: 1038 Time Out: 1054 Total Billed Treatment Time: 16 Total Billed Treatment 1 visit FA 16 min CAITLIN LINDSEY PT Nov 24, 2018 11:05
[2018-11-24 13:09] VITALS: BP 128/62
== END 2018-11-24 14:04 | DRG 194 ==
LOC: EDUNIT# 09:47 → ER 09:48 → 4TH 13:49 → OBSVTOIN 11-20 12:55
PROVIDERS: ADMIT Internal Medicine; ATTEND Internal Medicine
DX: J10.00 Influenza due to other identified influenza virus with unspecified type of pneumonia (principal); J18.9 Pneumonia, unspecified organism; R06.03 Acute respiratory distress; N39.0 Urinary tract infection, site not specified; J90 Pleural effusion, not elsewhere classified; E86.0 Dehydration; E87.6 Hypokalemia; R91.1 Solitary pulmonary nodule; R53.1 Weakness; M79.604 Pain in right leg; E83.42 Hypomagnesemia; I48.0 Paroxysmal atrial fibrillation; E03.9 Hypothyroidism, unspecified; I11.9 Hypertensive heart disease without heart failure; R09.02 Hypoxemia; I25.10 Atherosclerotic heart disease of native coronary artery without angina pectoris; I49.5 Sick sinus syndrome; I08.0 Rheumatic disorders of both mitral and aortic valves; F03.90 Unspecified dementia, unspecified severity, without behavioral disturbance, psychotic disturbance, mood disturbance, and anxiety; F32.9 Major depressive disorder, single episode, unspecified; F41.9 Anxiety disorder, unspecified; E78.00 Pure hypercholesterolemia, unspecified; H35.30 Unspecified macular degeneration; H91.93 Unspecified hearing loss, bilateral; Z79.01 Long term (current) use of anticoagulants; Z95.0 Presence of cardiac pacemaker; Z95.5 Presence of coronary angioplasty implant and graft; Z95.828 Presence of other vascular implants and grafts; Z98.890 Other specified postprocedural states; Z97.4 Presence of external hearing-aid
CPT/HCPCS: 36415; 36600; 70450; 71045; 71046; 71275; 73502; 73630; 80048; 80053; 81000; 82805; 83735; 83880; 84100; 84145; 84484; 85007; 85025; 85027; 87088; 87804; 94640; 94760; 94761; G0378

== ENCOUNTER 2018-12-01 02:57 | Emergency (ER) | payer MEDICARE, OTHER ==
[~2018-12-01] VITALS: Ht 157.5 cm; Wt 63.5 kg
[~2018-12-01 02:57] MED LIST changes: +OSEL30CA PO; +PRED10TA22 PO; +PRED5DRO24 OS; +PROP1.5D OS
[2018-12-01 03:23] LABS: BASOPHILS % (AUTO) 0 % (0-10); EOSINOPHILS % (AUTO) 0 % (0-10); HEMATOCRIT 33 % (35-52); LYMPHOCYTES # (AUTO) 1.6 X 10^3 (1.0-4.0); LYMPHOCYTES % (AUTO) 27 % (12-44); MEAN CORPUSCULAR HGB CONC 31 G/DL (32-36); MEAN CORPUSCULAR VOLUME 99 FL (80-99); MEAN PLATELET VOLUME 10.9 FL (7.4-10.4); MONOCYTES # (AUTO) 0.6 X 10^3 (0.0-1.0); MONOCYTES % (AUTO) 9 % (0-12); NEUTROPHILS # (AUTO) 3.9 X 10^3 (1.8-7.8); NEUTROPHILS % (AUTO) 64 % (42-75); PLATELET COUNT 189 10^3/uL (130-400); RED CELL DISTRIBUTION WIDTH 14.9 % (10.0-14.5); WHITE BLOOD COUNT 6.1 10^3/uL (4.3-11.0)
[2018-12-01 03:24] LABS: MEAN CORPUSCULAR HEMOGLOBIN 30 PG (25-34)
[2018-12-01 03:37] LABS: INR 1.3 (0.8-1.4); PROTHROMBIN TIME PATIENT 15.9 SEC (12.2-14.7)
[2018-12-01] MEDS ORDERED: DILTIAZEM 25 MG/5 ML INJ (CARDIZEM) VIAL IVP ONE ×2 (03:45→04:15)
[2018-12-01 03:47] LABS: ALANINE AMINOTRANSFERASE 6 U/L (0-55); ALBUMIN 3.2 GM/DL (3.2-4.5); ALKALINE PHOSPHATASE 49 U/L (40-136); AMYLASE 126 U/L (25-125); BILIRUBIN,TOTAL 0.5 MG/DL (0.1-1.0); BUN/CREATININE RATIO 19; CALCIUM 8.4 MG/DL (8.5-10.1); CARBON DIOXIDE 24 MMOL/L (21-32); CHLORIDE 109 MMOL/L (98-107); CREATININE SERUM 1.02 MG/DL (0.60-1.30); GFR ESTIMATED 51; GLUCOSE 83 MG/DL (70-105); LIPASE 31 U/L (8-78); MAGNESIUM 1.9 MG/DL (1.8-2.4); SODIUM 142 MMOL/L (135-145); TOTAL PROTEIN 5.1 GM/DL (6.4-8.2)
[2018-12-01 03:54] LABS: MYOGLOBIN SERUM 36.7 NG/ML (10.0-92.0)
[2018-12-01] MEDS ORDERED: FUROSEMIDE 40 MG/4 ML INJ (LASIX) ONE (04:09)
[2018-12-01] MEDS ORDERED: FUROSEMIDE 40 MG/4 ML INJ (LASIX) IVP ONE (04:15)
[2018-12-01] MEDS ORDERED: NS (IVPB) 250 ML IV ONE (04:33)
--- NOTE | 2018-12-01 04:33 | ED General ---
General Chief Complaint: General Problems/Pain Stated Complaint: CP Nursing Triage Note: intermittant chest pain, pneumonia Nursing Sepsis Screen: Possible Sepsis Risk Source of Information: EMS, Long-Term Records Exam Limitations: Other (PT HAS DEMENTIA AND CANNOT GIVE RELIABLE INFORMATION) History of Present Illness Date Seen by Provider: Dec 01, 2018 Time Seen by Provider: 03:00 Initial Comments PT ARRIVES VIA EMS FROM [facility] PT WAS ADMITTED THERE 11/24/18 AFTER HOSPITAL ADMIT WITH INFLUENZA A, AMONG OTHER PROBLEMS EMS REPORTS THEY WERE CALLED FOR PT C/O CHEST PAIN PT DENIED ANY CHEST PAIN TO EMS STAFF AND DENIES ANY CHEST PAIN ON ARRIVAL TO ER PT HAS NO COMPLAINTS OF ANY KIND AND STATES SHE FEELS FINE PT WITH DEMENTIA AND Allergies and Home Medications Allergies Coded Allergies: No Known Drug Allergies (Unverified , 03/05/10) Home Medications Acetaminophen 500 Mg Tablet, 1,000 MG PO Q8H PRN for PAIN-MILD, (Reported) Apixaban 5 Mg Tablet, 2.5 MG PO BID, (Reported) TAKES 1/2 (5MG) TABLET Atorvastatin Calcium 20 Mg Tablet, 20 MG PO HS, (Reported) Diltiazem HCl 240 Mg Cap.er.24h, 240 MG PO DAILY, (Reported) Levothyroxine Sodium 88 Mcg Tablet, 88 MCG PO HS, (Reported) Lisinopril 5 Mg Tablet, 5 MG PO HS, (Reported) Metoprolol Tartrate 50 Mg Tablet, 50 MG PO BID, (Reported) Propafenone HCl 225 Mg Tablet, 225 MG PO BID, (Reported) Propylene Glycol 1.5 Ml Drops, 1 DROP OS BID, (Reported) 1 DROP LEFT EYE TWICE DAILY Sennosides/Docusate Sodium 1 Each Tablet, 2 TAB PO DAILY, (Reported) Past Bgfufhs-Mablen-Nuzdwf Hx Patient Social History Alcohol Use: Denies Use Number of Drinks Today: BB Alcohol Beverage of Choice: [place] Recreational Drug Use: No Smoking Status: Never a Smoker Recent Foreign Travel: No Contact w/Someone Who Travel: No Recent Infectious Disease Expo: No Recent Hopitalizations: Yes Immunizations Up To Date Tetanus Booster (TDap): Unknown PED Vaccines UTD: No Date of Pneumonia Vaccine: May 28, 2015 Seasonal Allergies Seasonal Allergies: No Past Medical History Surgeries: Yes Cardiac, Coronary Stent, Gallbladder, Joint Replacement, Orthopedic, Tonsillectomy Respiratory: Yes Pneumonia Currently Using CPAP: No Cardiac: Yes (CAD with heart stents, pacemaker) Atrial Fibrillation, Coronary Artery Disease, High Cholesterol, Hypertension Neurological: Yes Dementia : No Reproductive Disorders: No (ENDOMETRIAL THICKENING) [employer]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 Cancer Physical Exam Vital Signs Vital Signs - First Documented Capillary Refill : Less Than 3 Seconds Height, Weight, BMI Height: 5'2.00" Weight: 140lbs. 0.4oz. [id number]; 27.5 BMI Method:Stated Progress/Results/Core Measures Suspected Sepsis Recent Fever Within 48 Hours: No Infection Criteria Present: Documented Infection New/Unexplained Altered Menta: No Sepsis Screen: Possible Sepsis Risk SIRS Temperature:97.1 Pulse: 130 Respiratory Rate: 21 Laboratory Tests 12/01/18 03:15: White Blood Count 6.1 Blood Pressure 133 /90 Mean: 104 Laboratory Tests 12/01/18 03:15: Creatinine 1.02, INR Comment 1.3, Platelet Count 189, Total Bilirubin 0.5 Results/Orders Lab Results Laboratory Tests Test 12/01/18 03:15 Range/Units White Blood Count 6.1 4.3-11.0 10^3/uL Red Blood Count 3.28 L 4.35-5.85 10^6/uL Hemoglobin 10.0 L 11.5-16.0 G/DL Hematocrit 33 L 35-52 % Mean Corpuscular Volume 99 80-99 FL Mean Corpuscular Hemoglobin 30 25-34 PG Mean Corpuscular Hemoglobin Concent 31 L 32-36 G/DL Red Cell Distribution Width 14.9 H 10.0-14.5 % Platelet Count 189 130-400 10^3/uL Mean Platelet Volume 10.9 H 7.4-10.4 FL Neutrophils (%) (Auto) 64 42-75 % Lymphocytes (%) (Auto) 27 12-44 % Monocytes (%) (Auto) 9 0-12 % Eosinophils (%) (Auto) 0 0-10 % Basophils (%) (Auto) 0 0-10 % Neutrophils # (Auto) 3.9 1.8-7.8 X 10^3 Lymphocytes # (Auto) 1.6 1.0-4.0 X 10^3 Monocytes # (Auto) 0.6 0.0-1.0 X 10^3 Eosinophils # (Auto) 0.0 0.0-0.3 10^3/uL Basophils # (Auto) 0.0 0.0-0.1 10^3/uL Prothrombin Time 15.9 H 12.2-14.7 SEC INR Comment 1.3 0.8-1.4 Activated Partial Thromboplast Time 27 24-35 SEC Sodium Level 142 135-145 MMOL/L Potassium Level 4.0 3.6-5.0 MMOL/L Chloride Level 109 H 98-107 MMOL/L Carbon Dioxide Level 24 21-32 MMOL/L Anion Gap 9 5-14 MMOL/L Blood Urea Nitrogen 19 H 7-18 MG/DL Creatinine 1.02 0.60-1.30 MG/DL Estimat Glomerular Filtration Rate 51 BUN/Creatinine Ratio 19 Glucose Level 83 70-105 MG/DL Calcium Level 8.4 L 8.5-10.1 MG/DL Corrected Calcium 9.0 8.5-10.1 MG/DL Magnesium Level 1.9 1.8-2.4 MG/DL Total Bilirubin 0.5 0.1-1.0 MG/DL Aspartate Amino Transf (AST/SGOT) 13 5-34 U/L Alanine Aminotransferase (ALT/SGPT) 6 0-55 U/L Alkaline Phosphatase 49 40-136 U/L Myoglobin 36.7 10.0-92.0 NG/ML Troponin I < 0.028 <0.028 NG/ML B-Type Natriuretic Peptide 479.2 H <100.0 PG/ML Total Protein 5.1 L 6.4-8.2 GM/DL Albumin 3.2 3.2-4.5 GM/DL Amylase Level 126 H 25-125 U/L Lipase 31 8-78 U/L My Orders Orders - WINDY DEWITT DO Cbc With Automated Diff (12/01/18 03:10) Magnesium (12/01/18 03:10) Chest 1 View, Ap/Pa Only (12/01/18 03:10) Ekg Tracing (12/01/18 03:10) Cardiac Profile 1 (12/01/18 03:10) Comprehensive Metabolic Panel (12/01/18 03:10) Myoglobin Serum (12/01/18 03:10) Protime With Inr (12/01/18 03:10) Partial Thromboplastin Time (12/01/18 03:10) O2 (12/01/18 03:10) Monitor-Rhythm Ecg Trace Only (12/01/18 03:10) Lipid Panel (12/02/18 06:00) Saline Lock/Iv-Start (12/01/18 03:10) Lipase (12/01/18 03:10) Amylase (12/01/18 03:10) BNP (12/01/18 03:10) Diltiazem Injection (Cardizem Injection) (12/01/18 03:45) Furosemide Injection (Lasix Injection) (12/01/18 04:15) Diltiazem Injection (Cardizem Injection) (12/01/18 04:15) Saline Lock/Iv-Start (12/01/18 04:33) Ns (Ivpb) (Sodium Chloride 0.9%) (12/01/18 04:33) Ekg Tracing (12/01/18 04:40) Furosemide Injection (Lasix Injection) (12/01/18 04:09) Medications Given in ED Current Medications Medications Dose Ordered Sig/Mayda Route Start Time Stop Time Status Last Admin Dose Admin Diltiazem HCl 10 mg ONCE ONCE IVP 12/01/18 03:45 12/01/18 03:46 DC 12/01/18 03:40 10 MG Diltiazem HCl 10 mg ONCE ONCE IVP 12/01/18 04:15 12/01/18 06:30 DC 12/01/18 04:16 10 MG Furosemide 40 mg ONCE ONCE IVP 12/01/18 04:15 12/01/18 06:30 DC 12/01/18 04:16 40 MG Sodium Chloride 250 ml @ 0 mls/hr Q0M ONCE IV 12/01/18 04:33 12/01/18 04:34 DC 12/01/18 04:38 0 MLS/HR Vital Signs/I&O 12/01/18 12/01/18 12/01/18 02:57 02:57 05:36 Temp 97.1 97.7 Pulse 130 86 Resp 21 20 B/P (MAP) 133/90 (104) 120/67 (84) Pulse Ox 95 96 97 O2 Delivery Room Air Room Air Room Air Capillary Refill : Less Than 3 Seconds Blood Pressure Mean: 104 Progress Note : Progress Note GIVEN CARDIZEM AND HEART RATE DOWN TO 80'S DID HAVE TRANSIENT DROP IN BP--TREATED WITH 250 ML FLUID BOLUS AND BP > 100 SYSTOLIC PT ALSO GIVEN LASIX FOR MILD CHF PT HAD NO COMPLAINTS OF ANY KIND DURING ER STAY ECG Initial ECG Impression Date: Dec 01, 2018 Initial ECG Impression Time: 03:29 Initial ECG Rate: 130 Comment VENTRICULAR PACED RHYTHM EKG : EKG Time: 04:42 Rate: 89 Comment AV PACED RHYTHM Departure Communication (Admissions) Family Conversation [id number]--PT'S SON, SANTOS BANKS, CALLED. UPDATE ON PT'S CONDITION GIVEN. ALSO DISCUSSED THE NEED FOR FOLLOW UP WITH CARDIOLOGY THIS WEEK FOR FURTHER CARE. Impression Primary Impression: Tachycardia Additional Impressions: Pacemaker History of atrial fibrillation Hx of tachycardia-bradycardia syndrome Hx of sick sinus syndrome Disposition: 03 XFER SNF Condition: Improved Departure-Patient Inst. Referrals: Kristopher DOYLE MD, WEN-CHOU MD (PCP/Family) Primary Care Physician Patient Instructions: Arrhythmias (DC) Add. Discharge Instructions: CONTINUE YOUR CURRENT MEDICATIONS PRESCRIBED FOLLOW UP WITH DR. DOYLE THIS WEEK FOR FURTHER CARE RETURN TO ER IF SYMPTOMS WORSEN All discharge instructions reviewed with patient and/or family. Voiced understanding. WINDY DEWITT DO Dec 01, 2018 04:33
--- NOTE | 2018-12-01 05:11 | NUR ---
erwin called from [facility], informed of patients pending discharge et. report given.
[2018-12-01 05:36] VITALS: BP 120/67
--- NOTE | 2018-12-01 06:38 | NUR ---
[facility]. did not bring wheelchair for patient.
--- NOTE | 2018-12-01 06:51 | Diagnostic Imaging Report ---
Indication: Cough and congestion. Comparison: 11/23/2018. Findings: Very low lung volume. Bilateral perihilar opacities are present and not significantly changed since prior exam. No pleural effusion. Posterior lower lobes are very poorly evaluated on this examination. Lung apices are clear. Atherosclerotic aorta. Heart is borderline enlarged with stable left pectoral transvenous pacemaker. Impression: Change in perihilar opacities which could be on the basis of atelectasis given the very low lung volumes. Chronic central vascular congestion could also give this appearance. Dictated by: Dictated on workstation # [id number]
== END 2018-12-01 07:35 ==
LOC: EDUNIT# 02:57 → ER 02:59
DX: R00.0 Tachycardia, unspecified (principal); F03.90 Unspecified dementia, unspecified severity, without behavioral disturbance, psychotic disturbance, mood disturbance, and anxiety; I48.91 Unspecified atrial fibrillation; I25.10 Atherosclerotic heart disease of native coronary artery without angina pectoris; E78.00 Pure hypercholesterolemia, unspecified; I10 Essential (primary) hypertension; E03.9 Hypothyroidism, unspecified; F41.9 Anxiety disorder, unspecified; F32.9 Major depressive disorder, single episode, unspecified; Z87.19 Personal history of other diseases of the digestive system; Z86.79 Personal history of other diseases of the circulatory system; Z95.0 Presence of cardiac pacemaker; Z79.01 Long term (current) use of anticoagulants; Z95.5 Presence of coronary angioplasty implant and graft; Z98.890 Other specified postprocedural states; Z90.89 Acquired absence of other organs; Z87.01 Personal history of pneumonia (recurrent)
CPT/HCPCS: 36415; 71045; 80053; 82150; 83690; 83735; 83874; 83880; 84484; 85025; 85610; 85730; 93005; 93041